=== PATIENT | male | born 1940 | race Caucasian/White ===

== ENCOUNTER → 2018-03-31 10:30 | Outpatient (CLI) | payer MEDICARE, OTHER, SELFPAY ==
[2018-03-31 11:48] LABS: Hematocrit 34.6 % (41-53); Hemoglobin 11.7 g/dL (13.5-17.5)
[2018-03-31 11:56] LABS: Hemoglobin A1C% w Est Avg Glu 5.9 % (4.0-6.0)
[2018-03-31 12:03] LABS: HEMOLYSIS < 15 (0-50); Iron 60 ug/dL (49-181)
[2018-03-31 12:06] LABS: Alanine Aminotransferase 17 IU/L (21-72); Albumin 4.2 g/dL (3.5-5.0); Albumin Globulin Ratio 1.1 (1.0-2.8); Alkaline Phosphatase 106 U/L (38-126); Aspartate Aminotransferase 25 IU/L (17-59); Bilirubin Total 1.3 mg/dL (0.2-1.3); Calcium 9.4 mg/dL (8.4-10.2); Estimated Glomerular Filt Rate 58.4 mL/min (>60); Globulin 3.9 g/dL (1.7-4.1); Glucose 94 mg/dL (80-110); HEMOLYSIS < 15 (0-50); Potassium 4.3 mmol/L (3.4-5.1); Sodium 141 mmol/L (137-145); Total Protein 8.1 g/dL (6.3-8.2)
[2018-03-31 12:13] LABS: Percent Iron Saturation 16 % (20-50); Total Iron Binding Capacity 376 ug/mL (261-462); Transferrin 278 mg/dL (206-381)
[2018-03-31 12:38] LABS: Ferritin 92.9 ng/mL (17.9-464)
[2018-03-31 13:16] LABS: Creatinine Urine Random 121.3 mg/dL; Protein (Total) Urine Random 14 mg/dL (0-12); Protein Creatinine Ratio Urine 0.11 GRAM/24H
[2018-04-01 13:49] LABS: Parathyroid Hormone Int 96 pg/mL (14-64)
== END ==
PROVIDERS: PCP Family Medicine; Visit Provider Student in an Organized Health Care Education/Training Program
DX: I10 Essential (primary) hypertension (principal); E11.9 Type 2 diabetes mellitus without complications; E78.5 Hyperlipidemia, unspecified; N05.9 Unspecified nephritic syndrome with unspecified morphologic changes; D50.0 Iron deficiency anemia secondary to blood loss (chronic); D64.9 Anemia, unspecified; N25.81 Secondary hyperparathyroidism of renal origin; R80.9 Proteinuria, unspecified
CPT/HCPCS: 36415; 80053; 82570; 82728; 83036; 83540; 83550; 83970; 84156; 85014; 85018

== ENCOUNTER → 2018-05-17 09:14 | Outpatient (CLI) | payer MEDICARE, OTHER, SELFPAY ==
[2018-05-17 10:59] LABS: BUN Creatinine Ratio 27.1 (6-22); Blood Urea Nitrogen 38 mg/dL (9-20); Calcium 9.7 mg/dL (8.4-10.2); Carbon Dioxide 26 mmol/L (22-32); Chloride 99 mmol/L (98-107); Estimated Glomerular Filt Rate 48.9 mL/min (>60); Glucose 82 mg/dL (80-110); HEMOLYSIS < 15 (0-50); Potassium 4.6 mmol/L (3.4-5.1); Sodium 141 mmol/L (137-145)
== END ==
PROVIDERS: PCP Family Medicine; Visit Provider Student in an Organized Health Care Education/Training Program
DX: N05.9 Unspecified nephritic syndrome with unspecified morphologic changes (principal); I50.32 Chronic diastolic (congestive) heart failure
CPT/HCPCS: 36415; 80048; 83880

== ENCOUNTER 2018-07-05 14:44 | Emergency (ER) | payer MEDICARE, OTHER, SELFPAY ==
[2018-07-05] VITALS (11 sets, daily range): BP systolic 92–114; BP diastolic 43–93; PULSE 69–70; RESP 14–24; TEMP 36.2–36.3; O2SAT 98–100
--- NOTE | 2018-07-05 15:05 | ED.GIBLEED ---
HPI - GI Bleed General Chief complaint: Abdominal Pain Stated complaint: SICK,NO STRENGTH,BLACK TAR STOOL Time Seen by Provider: 07/05/18 15:03 Source: patient Mode of arrival: ambulatory Limitations: no limitations History of Present Illness HPI Narrative: Patient is a 77-year-old male who presents after syncopal episode of black tarry stool at home. He states that he had a black bowel movement yesterday which he did not tell his family about. Today he passed out in the living room floor on his way to go to the restroom. Of had a hard time getting him up to the bathroom when she did he had a very large black bowel movement. At which point he was brought to the ED. He denies any abdominal pain nausea or vomiting. He is on Coumadin for an aortic valve replacement. He is feeling better now he is in the ED. Related Data Home Medications Medication Instructions Recorded Confirmed TIMOLOL MALEATE (Timoptic) 1 drp OPHTH BID #0 05/30/11 07/05/18 cholecalciferol (vitamin D3) 1 tab PO BID #0 01/19/12 07/05/18 [Vitamin D3] nitroglycerin [Nitrostat] 0.4 mg SUBLINGUAL DAILY PRN #0 02/12/17 07/05/18 patiromer calcium sorbitex See Label Instructions .ROUTE 10/14/17 07/05/18 [Veltassa] .COMPLEX #0 Glucose: Test Strips str #0 01/12/18 04/21/18 furosemide 40 mg tablet 60 mg PO ONCE 04/21/18 07/05/18 acetaminophen [Acetaminophen Extra 500 mg PO Q6H PRN 07/05/18 07/05/18 Strength] calcium carbonate-vitamin D3 1 tab PO DAILY 07/05/18 07/05/18 [Calcium 600 + D(3)] docusate sodium 100 mg PO DAILY 07/05/18 07/05/18 fluticasone 1 spray INTRANASAL BIDP PRN 07/05/18 07/05/18 hydrocodone-acetaminophen [Means] 1 tab PO BIDP 07/05/18 07/05/18 multivitamin 1 tab PO DAILY 07/05/18 07/05/18 Previous Rx's Medication Instructions Recorded warfarin [Coumadin] 2.5 mg PO QDAY #30 tab 04/29/17 diltiazem HCl 240 mg PO QDAY #90 cap 01/12/18 metformin [Glucophage] 500 mg PO BID #180 tab 01/12/18 simvastatin 40 mg PO QPM #90 tab 01/12/18 Allergies Allergy/AdvReac Type Severity Reaction Status Date / Time oxycodone [OXYCODONE] AdvReac Mild DIZZY, Verified 04/21/18 14:52 NAUSEA codeine [CODEINE] AdvReac Unknown NAUSEA Verified 04/21/18 14:52 hydromorphone [HYDROMORPHONE] AdvReac Unknown NAUSEA Verified 04/21/18 14:52 morphine [MORPHINE] AdvReac Unknown SPOUSE Verified 04/21/18 14:52 DENIED ALLERGY Review of Systems Review of Systems All systems reviewed & are unremarkable except as noted in HPI and below Constitutional Denies chills, Denies fever(s), Denies lethargy and Denies weakness Eyes Denies change in vision, Denies eye discharge, Denies irritation and Denies loss of vision Cardiovascular Denies chest pain, Reports syncope, Denies irregular heart rhythm, Denies dyspnea and Denies dyspnea on exertion Respiratory Denies cough, Denies dyspnea, Denies dyspnea on exertion and Denies wheezing Gastrointestinal Gastrointestinal: Reports as per HPI Genitourinary Denies hematuria, Denies flank pain, Denies urinary incontinence and Denies urinary urgency Musculoskeletal Denies back pain, Denies muscle weakness, Denies numbness and Denies tingling Integumentary/Breasts Denies pruritus, Denies erythema, Denies rash and Denies wounds Neurologic Reports syncope, Denies loss of vision, Denies numbness, Denies tingling and Denies weakness Allergic/Immunologic Denies wheezing [facility] Medical History Anemia (Chronic Unknown) Arthritis (Chronic Unknown) BPH (benign prostatic hyperplasia) (Chronic Unknown) Bladder cancer (Chronic Unknown) Chronic kidney disease (CKD) (Chronic Unknown) Coronary artery disease (Chronic Unknown) Diabetes (Chronic 12/2005) GERD (gastroesophageal reflux disease) (Chronic Unknown) Hyperlipemia (Chronic Unknown) Hypertension (Chronic Unknown) Obstructive sleep apnea (Chronic Unknown) Osteopenia (Chronic 2008) Osteoporosis (Chronic Unknown) Renal cell cancer (Chronic Unknown) Glaucoma (Resolved Unknown) S/p nephrectomy (Resolved 02/2017) Surgical History History of PTCA (Resolved 1986) History of ear surgery (Resolved 12/2005) History of surgical procedure on eye proper using laser (Resolved 1997) History of tonsillectomy and adenoidectomy (Resolved 10/1944) Hx of angioplasty (Resolved 11/1998) Hx of appendectomy (Resolved ~03/1958) Hx of cataract extraction (Resolved ~2001) Hx of heart bypass surgery (Resolved 08/1987) Hx of heart bypass surgery (Resolved 05/1999) Hx of shoulder surgery (Resolved 11/2004) Hx of transurethral resection of prostate (Resolved 1994) History of cardiac radiofrequency ablation (RFA) History of hip replacement History of spinal fusion Presence of cardiac pacemaker Status post knee surgery Status post laminectomy Family History Father No problems noted. Mother No problems noted. Sister No problems noted. Social History Smoking Status: Former smoker Exam Initial Vital Signs Initial Vital Signs: Vital Signs Temperature 97.2 F L 07/05/18 15:01 Pulse Rate 69 07/05/18 15:01 Respiratory Rate 14 07/05/18 15:01 Blood Pressure 95/53 L 07/05/18 15:01 Pulse Oximetry 100 07/05/18 15:01 GENERAL: Pale alert frail elderly male in no acute distress HEENT: Head atraumatic,EOMI, pupils reactive, face symmetric, neck is supple no JVD CARDIOVASCULAR: Regular rate and rhythm without murmurs, rubs or gallops. RESPIRATORY: Breath sounds equal bilaterally, no wheezes rales or rhonchi. ABDOMEN: Soft, nontender. Normoactive bowel sounds all 4 quadrants. No guarding or rebound. : No CVA tenderness EXTREMITIES: Normal range of motion, no clubbing or edema. Neurovascularly intact NEUROLOGICAL: Alert and oriented x4.Normal gait and speech. Cranial nerves II through XII grossly intact. Tank Erector strength equal bilaterally SKIN: Warm, dry, no laceration, no petechiae, no rashes or lesions. Course Orders Ordered: ED Orders 07/05/18 15:08 EKG-12 Lead Stat 07/05/18 15:20 Complete Blood Count AUTO DIFF Stat Comprehensive Metabolic Panel Stat Fresh Frozen Plasma Stat Lactate (Lactic Acid) Stat Lipase Stat Packed Cells Stat Partial Thromboplastin Time Stat Prothrombin Time INR Stat Type and Screen Stat Pantoprazole Sodium 80 mg/ (Sodium Chloride) 100 mls @ 10 mls/hr IV CONT DANYELL Last Admin: 07/05/18 15:42 Dose: 8 mg/hr, 10 mls/hr Phytonadione 5 mg/ Dextrose 50.5 mls @ 101 mls/hr IV NOW ONE Stop: 07/05/18 18:52 Discontinued Medications Pantoprazole Sodium (Protonix) 40 mg IV NOW ONE Stop: 07/05/18 15:21 Last Admin: 07/05/18 15:42 Dose: 40 mg Phytonadione (Mephyton) 5 mg PO NOW ONE Stop: 07/05/18 18:22 Vital Signs - 8 hr 07/05/18 15:01 07/05/18 18:34 07/05/18 18:49 Temperature 97.2 F L 97.4 F L 97.3 F L Pulse Rate 69 70 70 Respiratory Rate 14 15 16 Blood Pressure 95/53 L 96/44 L 92/43 L Pulse Oximetry 100 MDM - GI Bleed Lab Data Attestation: I reviewed the patient's lab results. Result diagrams: 07/05/18 15:20 07/05/18 15:20 Lab Results 07/05/18 07/05/18 07/05/18 Range/Units 15:20 15:20 15:20 WBC 9.2 (4.5-11.0) X10^3/uL RBC 2.97 L (4.5-5.9) X10^6/uL Hgb 9.3 L (13.5-17.5) g/dL Hct 26.8 L (41-53) % MCV 90.2 (80-100) fL MCH 31.4 (26-34) PG MCHC 34.9 (30-36) % RDW 15.4 H (11.6-14.8) % Plt Count 213 (150-400) X10^3/uL Neut % (Auto) 76.7 H (50-75) % Lymph % (Auto) 15.6 L (25-40) % [place] % (Auto) 6.6 (3-14) % Eos % (Auto) 0.6 L (2-4) % Baso % (Auto) 0.5 (0-2) % Neut # (Auto) 7100 H (7027-5799) /uL PT 50.7 H (10.1-12.7) SECONDS INR 4.6 H* (0.9-1.3) APTT 38 H (26.4-36.2) SECONDS Sodium 139 (137-145) mmol/L Potassium 4.2 (3.4-5.1) mmol/L Chloride 97 L (98-107) mmol/L Carbon Dioxide 26 (22-32) mmol/L BUN 90 H (9-20) mg/dL Creatinine 1.40 H (0.66-1.25) mg/dL Estimated GFR 48.9 L (>60) mL/min BUN/Creatinine Ratio 64.3 H (6-22) Glucose 128 H (80-110) mg/dL Lactate (0.7-2.1) mmol/L Calcium 9.8 (8.4-10.2) mg/dL Total Bilirubin 0.9 (0.2-1.3) mg/dL AST 24 (17-59) IU/L ALT 19 L (21-72) IU/L Alkaline Phosphatase 82 (38-126) U/L Total Protein 7.4 (6.3-8.2) g/dL Albumin 4.0 (3.5-5.0) g/dL Globulin 3.4 (1.7-4.1) g/dL Albumin/Globulin Ratio 1.2 (1.0-2.8) Lipase 63 (23-300) U/L Blood Type Antibody Screen Crossmatch 07/05/18 07/05/18 Range/Units 15:20 15:20 WBC (4.5-11.0) X10^3/uL RBC (4.5-5.9) X10^6/uL Hgb (13.5-17.5) g/dL Hct (41-53) % MCV (80-100) fL MCH (26-34) PG MCHC (30-36) % RDW (11.6-14.8) % Plt Count (150-400) X10^3/uL Neut % (Auto) (50-75) % Lymph % (Auto) (25-40) % [place] % (Auto) (3-14) % Eos % (Auto) (2-4) % Baso % (Auto) (0-2) % Neut # (Auto) (9438-9893) /uL PT (10.1-12.7) SECONDS INR (0.9-1.3) APTT (26.4-36.2) SECONDS Sodium (137-145) mmol/L Potassium (3.4-5.1) mmol/L Chloride (98-107) mmol/L Carbon Dioxide (22-32) mmol/L BUN (9-20) mg/dL Creatinine (0.66-1.25) mg/dL Estimated GFR (>60) mL/min BUN/Creatinine Ratio (6-22) Glucose (80-110) mg/dL Lactate 3.7 H (0.7-2.1) mmol/L Calcium (8.4-10.2) mg/dL Total Bilirubin (0.2-1.3) mg/dL AST (17-59) IU/L ALT (21-72) IU/L Alkaline Phosphatase (38-126) U/L Total Protein (6.3-8.2) g/dL Albumin (3.5-5.0) g/dL Globulin (1.7-4.1) g/dL Albumin/Globulin Ratio (1.0-2.8) Lipase (23-300) U/L Blood Type A Negative Antibody Screen Negative Crossmatch See Detail ECG Data Attestation: I personally reviewed and interpreted this ECG as follows: Prior ECG tracings: available for review Interpretation: Paced rhythm rate 79 no acute changes similar to previous EKGs Pacemaker function: normal pacer function MDM Narrative Medical decision making narrative: Patient had syncopal episode in the ED while on the commode. He was slow to arouse but did become arousable now actually started feeling better. His blood pressure has been in the 90s. FFP and packed red blood cells along with vitamin K have been ordered. I discussed case with [facility] hospitalist Dr. Richmond, the patient will need more support than what is available at [facility]. Recommends transferring. I have spoken with Dr. Eubanks hospitalist at [facility] with happily accepts patient. Recommends vitamin K patient has an aortic valve replacement. Critical Care Time Critical Care Time: Yes Total Critical Care Time: 30 Attestation: The patient satisfied the definition of criticality in that they had a high probability of imminent deterioration of their conditon. Critical care time includes time spent at the bedside, plus where appropriate: gathering information from family, EMS, old records, caregivers; interpretation of test results; and time spent discussing patient with other physicians Discharge Plan Departure Prescriptions: No Action furosemide [Lasix] 40 mg tablet 60 mg PO ONCE RF: 0 TIMOLOL MALEATE (Timoptic) 1 drp OPHTH BID Qty: 0 RF: 0 cholecalciferol (vitamin D3) [Vitamin D3] 2,000 UNIT tablet 1 tab PO BID Qty: 0 RF: 0 nitroglycerin [Nitrostat] 0.4 MG tablet, sublingual 0.4 mg Sublingual DAILY PRN (Reason: Chest Pain) Qty: 0 RF: 0 warfarin [Coumadin] 2.5 MG tablet 2.5 mg PO QDAY Qty: 30 RF: 0 patiromer calcium sorbitex [Veltassa] 8.4 GM powder in packet See Label Instructions .ROUTE .COMPLEX Qty: 0 RF: 0 Glucose: Test Strips Qty: 0 RF: 0 metformin [Glucophage] 500 MG tablet 500 mg PO BID Qty: 180 RF: 3 diltiazem HCl 240 MG capsule,extended release 24hr 240 mg PO QDAY Qty: 90 RF: 3 simvastatin 40 MG tablet 40 mg PO QPM Qty: 90 RF: 3 multivitamin Tablet 1 tab PO DAILY RF: 0 acetaminophen [Acetaminophen Extra Strength] 500 mg Tablet 500 mg PO Q6H PRN (Reason: Pain (Scale Score 1-3)) RF: 0 docusate sodium 100 mg Capsule 100 mg PO DAILY RF: 0 calcium carbonate-vitamin D3 [Calcium 600 + D(3)] 600 mg calcium- 200 unit Capsule 1 tab PO DAILY RF: 0 hydrocodone-acetaminophen [Means] 5 MG/325 MG tablet 1 tab PO BIDP RF: 0 fluticasone 16 GM spray,suspension 1 spray Intranasal BIDP PRN (Reason: allergies) RF: 0
[2018-07-05] MEDS: PANTOPRAZOLE 40 MG VIAL IV (15:42)
[2018-07-05] MEDS: PANTOPRAZOLE 80 MG in SODIUM CHLORIDE 0.9% 100 ML 10 ML IV (15:42)
[2018-07-05 15:45] LABS: Add Manual Diff / Slide Review NO; Basophils Percent Auto 0.5 % (0-2); Eosinophils Percent Auto 0.6 % (2-4); Hematocrit 26.8 % (41-53); Hemoglobin 9.3 g/dL (13.5-17.5); Lymphocytes Percent Auto 15.6 % (25-40); Mean Corpuscular HGB Conc 34.9 % (30-36); Mean Corpuscular Hemoglobin 31.4 PG (26-34); Mean Corpuscular Volume 90.2 fL (80-100); Monocytes Percent Auto 6.6 % (3-14); Neutrophils Absolute Auto 7100 /uL (3000-5900); Neutrophils Percent Auto 76.7 % (50-75); Platelet Count 213 X10^3/uL (150-400); Red Blood Cell Count 2.97 X10^6/uL (4.5-5.9); Red Cell Distribution Width 15.4 % (11.6-14.8); White Blood Cell Count 9.2 X10^3/uL (4.5-11.0)
[2018-07-05 15:52] LABS: PTT Partial Thromboplastin Tim 38 SECONDS (26.4-36.2)
[2018-07-05 15:58] LABS: Lactate (Lactic Acid) 3.7 mmol/L (0.7-2.1)
[2018-07-05 15:59] LABS: Alanine Aminotransferase 19 IU/L (21-72); Albumin Globulin Ratio 1.2 (1.0-2.8); Alkaline Phosphatase 82 U/L (38-126); Aspartate Aminotransferase 24 IU/L (17-59); BUN Creatinine Ratio 64.3 (6-22); Bilirubin Total 0.9 mg/dL (0.2-1.3); Blood Urea Nitrogen 90 mg/dL (9-20); Calcium 9.8 mg/dL (8.4-10.2); Carbon Dioxide 26 mmol/L (22-32); Chloride 97 mmol/L (98-107); Estimated Glomerular Filt Rate 48.9 mL/min (>60); Globulin 3.4 g/dL (1.7-4.1); Glucose 128 mg/dL (80-110); HEMOLYSIS < 15 (0-50); Lipase 63 U/L (23-300); Potassium 4.2 mmol/L (3.4-5.1); Sodium 139 mmol/L (137-145); Total Protein 7.4 g/dL (6.3-8.2)
--- NOTE | 2018-07-05 16:12 | PC.NURSE ---
Addendum entered by Jose Thomas R.N. 07/05/18 16:43: Edit- abd tender to light palp Original Note: weakness/headache, dark stools x2 began yesterday, appears pale, anticoag on coumadin, abd nontender, denies fever/nausea/vomiting/dysuria
[2018-07-05 16:15] LABS: Prothrombin Time 50.7 SECONDS (10.1-12.7)
[2018-07-05 16:18] LABS: INR 4.6 (0.9-1.3)
[2018-07-05] MEDS: PHYTONADIONE (VIT K1) 5 MG in DEXTROSE 5 % IN WATER 50 ML 101 ML IV (19:08)
[2018-07-05 19:37] LABS: Reflexed Lactate in 2 Hours Y
== END 2018-07-05 20:35 ==
PROVIDERS: Emergency Provider Emergency Medicine; PCP Family Medicine
DX: K92.2 Gastrointestinal hemorrhage, unspecified (principal); R57.8 Other shock
CPT/HCPCS: 36430; 36591; 80053; 81003; 82272; 83605; 83690; 85025; 85610; 85730; 86850; 86900; 86901; 86927; 93005; 93010; 96365; 96366; 96375; 99283; 99284; P9016; C9113; J3430

== ENCOUNTER → 2018-07-13 11:27 | Outpatient (CLI) | payer MEDICARE, OTHER, SELFPAY ==
[2018-07-13 12:49] LABS: Hemoglobin A1C% w Est Avg Glu 5.4 % (4.0-6.0)
[2018-07-13 13:00] LABS: Alanine Aminotransferase 17 IU/L (21-72); Albumin 3.8 g/dL (3.5-5.0); Albumin Globulin Ratio 1.2 (1.0-2.8); Alkaline Phosphatase 85 U/L (38-126); Aspartate Aminotransferase 21 IU/L (17-59); BUN Creatinine Ratio 14.3 (6-22); Bilirubin Total 0.9 mg/dL (0.2-1.3); Blood Urea Nitrogen 20 mg/dL (9-20); Calcium 9.2 mg/dL (8.4-10.2); Carbon Dioxide 26 mmol/L (22-32); Chloride 105 mmol/L (98-107); Cholesterol 93 mg/dL (140-199); Estimated Glomerular Filt Rate 48.9 mL/min (>60); Globulin 3.3 g/dL (1.7-4.1); Glucose 96 mg/dL (80-110); HDL Cholesterol 34 mg/dL (40-60); HEMOLYSIS < 15 (0-50); LDL Cholesterol Calculated 42 mg/dL (<100); Potassium 5.2 mmol/L (3.4-5.1); Sodium 142 mmol/L (137-145); Total Protein 7.1 g/dL (6.3-8.2); Triglycerides 86 mg/dL (35-150)
== END ==
PROVIDERS: PCP Family Medicine; Referring Provider Student in an Organized Health Care Education/Training Program; Visit Provider Family Medicine
DX: E78.5 Hyperlipidemia, unspecified (principal); E11.9 Type 2 diabetes mellitus without complications
CPT/HCPCS: 36415; 80053; 80061; 83036

== ENCOUNTER 2018-07-14 11:35 | Emergency (ER) | payer MEDICARE, OTHER, SELFPAY ==
[2018-07-14] VITALS (7 sets, daily range): BP systolic 102–174; BP diastolic 65–96; PULSE 69–85; RESP 14–25; TEMP 36.6; O2SAT 99–100
--- NOTE | 2018-07-14 12:08 | DI.RAD.S_ITS ---
PROCEDURE: XR RIBS LT MIN 3V W CXR1V INDICATIONS: fall/ left chest pain, shortness of breath TECHNIQUE: 2 views of the left ribs were acquired, along with a single view chest. COMPARISON: [facility], , CHEST 2 VIEW, 02/26/2017, 9:58. FINDINGS: Surgical changes and devices: Postoperative changes are evident involving the imaged cervical spine. There are findings related to prior median sternotomy and heart valve replacement. Dual-chamber cardiac pacer cystic o'clock arthrodesis evident. Bones and chest wall: No displaced left rib fractures or dislocations. No suspicious bony lesions. Overlying soft tissues appear unremarkable. Lungs and pleura: No pleural effusions or pneumothorax. Aeration of the lungs is similar to the prior study. However, interstitial prominence within the perihilar regions is noted. There is no large area of consolidation. No pleural effusion is identified. Mediastinum: Mediastinal contours appear normal. Heart size is normal. IMPRESSION: 1. No definitive left rib fractures. 2. Mild cardiomegaly without overt heart failure. Cardiomegaly and mild vascular congestion. No definite heart failure. Dictated by: Smith Jasso M.D. on 07/14/2018 at 11:48 Approved by: Smith Jasso M.D. on 07/14/2018 at 11:52
--- NOTE | 2018-07-14 12:11 | ED.WEAKNESS ---
HPI - Weakness General Chief complaint: Weakness Stated complaint: FALL/HURT LEFT SIDE RIBS Time Seen by Provider: 07/14/18 12:07 Source: patient Mode of arrival: ambulatory Limitations: no limitations History of Present Illness HPI Narrative: Patient is a 77-year-old male who presents with generalized weakness and a fall today. He is having some left-sided chest pain that he is trying to get up in hit his chest on the table. He was admitted at [facility] last week and discharged on July 09 after GI bleed. He was initially seen here and transferred there. He is on Coumadin for aortic stenosis status post AVR. He had bleeding ulcers which were cauterized. He isn't regain his strength. He continues to be weak. He now has pain on the left side of his chest which is worse with movement. He denies any shortness of breath or chest pain. Her he is no longer having dark stool, his stools returned back to normal. He has no abdominal pain nausea or vomiting. Related Data Home Medications Medication Instructions Recorded Confirmed cholecalciferol (vitamin D3) 1 tab PO BID #0 01/19/12 07/14/18 [Vitamin D3] nitroglycerin [Nitrostat] 0.4 mg SUBLINGUAL DAILY PRN #0 02/12/17 07/14/18 Glucose: Test Strips 1 str MISCELLANEOUS DIRECTED #0 01/12/18 07/14/18 acetaminophen [Acetaminophen Extra 500 mg PO Q6H PRN 07/05/18 07/14/18 Strength] calcium carbonate-vitamin D3 1 tab PO DAILY 07/05/18 07/14/18 [Calcium 600 + D(3)] docusate sodium 100 mg PO DAILY 07/05/18 07/14/18 fluticasone 1 spray INTRANASAL BIDP PRN 07/05/18 07/14/18 hydrocodone-acetaminophen [[place]] 1 tab PO BIDP 07/05/18 07/14/18 multivitamin 1 tab PO DAILY 07/05/18 07/14/18 simvastatin 40 mg PO DAILY 07/14/18 07/14/18 timolol maleate 1 drp OPHTHALMIC (EYE) BID 07/14/18 07/14/18 warfarin [Coumadin] 2.5 mg PO QPM 07/14/18 07/14/18 Previous Rx's Medication Instructions Recorded metformin [Glucophage] 500 mg PO BID #180 tab 01/12/18 Allergies Allergy/AdvReac Type Severity Reaction Status Date / Time oxycodone [OXYCODONE] AdvReac Mild DIZZY, Verified 04/21/18 14:52 NAUSEA codeine [CODEINE] AdvReac Unknown NAUSEA Verified 04/21/18 14:52 hydromorphone [HYDROMORPHONE] AdvReac Unknown NAUSEA Verified 04/21/18 14:52 morphine [MORPHINE] AdvReac Unknown SPOUSE Verified 04/21/18 14:52 DENIED ALLERGY Review of Systems Review of Systems All systems reviewed & are unremarkable except as noted in HPI and below Constitutional Denies chills, Reports fatigue, Denies fever(s), Denies malaise and Denies night sweats Cardiovascular Denies chest pain, Denies irregular heart rhythm, Denies lightheadedness, Denies palpitations, Denies dyspnea, Denies dyspnea on exertion and Denies orthopnea Respiratory Denies cough, Denies dyspnea, Denies dyspnea on exertion and Denies wheezing Gastrointestinal Gastrointestinal: Denies abdominal pain, Denies change in bowel habits, Denies diarrhea, Denies nausea and Denies vomiting Musculoskeletal Denies back pain, Denies muscle weakness, Denies numbness and Denies tingling Integumentary/Breasts Denies pruritus, Denies erythema, Denies rash and Denies wounds Neurologic Denies numbness and Denies tingling Endocrine Reports fatigue and Denies palpitations Allergic/Immunologic Denies wheezing [facility] Social History household members: spouse Smoking Status: Former smoker Exam Initial Vital Signs Initial Vital Signs: Vital Signs Temperature 97.9 F 07/14/18 11:54 Pulse Rate 70 07/14/18 11:54 Respiratory Rate 14 07/14/18 11:54 Blood Pressure 102/68 07/14/18 11:54 Pulse Oximetry 100 07/14/18 11:54 GENERAL: Alert frail elderly male in no acute distress HEENT: Head atraumatic,EOMI, pupils reactive, face symmetric, neck is supple no JVD CARDIOVASCULAR: Regular rate and rhythm without murmurs, rubs or gallops. Left-sided chest does not show any trauma no crepitations no depressions no contusion RESPIRATORY: Breath sounds equal bilaterally, no wheezes rales or rhonchi. ABDOMEN: Soft, nontender. Normoactive bowel sounds all 4 quadrants. No guarding or rebound. EXTREMITIES: Normal range of motion, no clubbing or edema. Neurovascularly intact NEUROLOGICAL: Alert and oriented x4.Normal gait and speech. Cranial nerves II through XII grossly intact. [Good [id number], good bcfq-av-pjmi, strength equal bilaterally, no dysarthria or aphasia, sensation in tact to soft touch bilaterally, no visual changes, no facial droop] SKIN: Warm, dry, no laceration, no petechiae, no rashes or lesions. Course Orders Ordered: ED Orders 07/14/18 11:21 Complete Blood Count AUTO DIFF Stat Comprehensive Metabolic Panel Stat Lactate (Lactic Acid) Stat Lipase Stat Partial Thromboplastin Time Stat Prothrombin Time INR Stat Troponin & CK Cardiac Panel Stat 07/14/18 12:08 XR ribs LT min 3V w CXR1V Stat EKG-12 Lead Stat 07/14/18 14:25 Consult to Physical Therapy Evaluate & Treat 07/14/18 14:27 Consult to Physical Therapy Evaluate & Treat Vital Signs - 8 hr 07/14/18 11:54 07/14/18 12:02 07/14/18 12:35 Temperature 97.9 F Pulse Rate 70 70 69 Respiratory Rate 14 25 H 16 Blood Pressure 102/68 Blood Pressure [Right Arm] 130/74 140/71 Pulse Oximetry 100 100 100 07/14/18 13:00 07/14/18 14:00 07/14/18 14:31 Temperature Pulse Rate 70 70 70 Respiratory Rate 20 14 14 Blood Pressure Blood Pressure [Right Arm] 116/65 129/72 139/75 Pulse Oximetry 100 100 99 MDM - Weakness Lab Data Attestation: I reviewed the patient's lab results. Result diagrams: 07/14/18 11:21 07/14/18 11:21 Lab Results 07/14/18 07/14/18 07/14/18 Range/Units 11:21 11:21 11:21 WBC 5.9 (4.5-11.0) X10^3/uL RBC 2.73 L (4.5-5.9) X10^6/uL Hgb 8.7 L (13.5-17.5) g/dL Hct 25.3 L (41-53) % MCV 92.7 (80-100) fL MCH 32.0 (26-34) PG MCHC 34.5 (30-36) % RDW 15.6 H (11.6-14.8) % Plt Count 223 (150-400) X10^3/uL Neut % (Auto) 73.6 (50-75) % Lymph % (Auto) 13.9 L (25-40) % [place] % (Auto) 10.2 (3-14) % Eos % (Auto) 1.6 L (2-4) % Baso % (Auto) 0.7 (0-2) % Neut # (Auto) 4300 (5728-3701) /uL PT 19.2 H D (10.1-12.7) SECONDS INR 1.7 H (0.9-1.3) APTT 33 D (26.4-36.2) SECONDS Sodium 140 (137-145) mmol/L Potassium 5.0 (3.4-5.1) mmol/L Chloride 104 (98-107) mmol/L Carbon Dioxide 24 (22-32) mmol/L BUN 24 H (9-20) mg/dL Creatinine 1.40 H (0.66-1.25) mg/dL Estimated GFR 48.9 L (>60) mL/min BUN/Creatinine Ratio 17.1 (6-22) Glucose 92 (80-110) mg/dL Lactate (0.7-2.1) mmol/L Calcium 9.1 (8.4-10.2) mg/dL Total Bilirubin 1.2 (0.2-1.3) mg/dL AST 25 (17-59) IU/L ALT 22 (21-72) IU/L Alkaline Phosphatase 86 (38-126) U/L Total Creatine Kinase 34 L (55-170) U/L Troponin I 0.076 H (0.01-0.034) ng/mL Total Protein 7.0 (6.3-8.2) g/dL Albumin 3.7 (3.5-5.0) g/dL Globulin 3.3 (1.7-4.1) g/dL Albumin/Globulin Ratio 1.1 (1.0-2.8) Lipase 46 (23-300) U/L 07/14/18 Range/Units 11:21 WBC (4.5-11.0) X10^3/uL RBC (4.5-5.9) X10^6/uL Hgb (13.5-17.5) g/dL Hct (41-53) % MCV (80-100) fL MCH (26-34) PG MCHC (30-36) % RDW (11.6-14.8) % Plt Count (150-400) X10^3/uL Neut % (Auto) (50-75) % Lymph % (Auto) (25-40) % [place] % (Auto) (3-14) % Eos % (Auto) (2-4) % Baso % (Auto) (0-2) % Neut # (Auto) (2777-8739) /uL PT (10.1-12.7) SECONDS INR (0.9-1.3) APTT (26.4-36.2) SECONDS Sodium (137-145) mmol/L Potassium (3.4-5.1) mmol/L Chloride (98-107) mmol/L Carbon Dioxide (22-32) mmol/L BUN (9-20) mg/dL Creatinine (0.66-1.25) mg/dL Estimated GFR (>60) mL/min BUN/Creatinine Ratio (6-22) Glucose (80-110) mg/dL Lactate 2.1 (0.7-2.1) mmol/L Calcium (8.4-10.2) mg/dL Total Bilirubin (0.2-1.3) mg/dL AST (17-59) IU/L ALT (21-72) IU/L Alkaline Phosphatase (38-126) U/L Total Creatine Kinase (55-170) U/L Troponin I (0.01-0.034) ng/mL Total Protein (6.3-8.2) g/dL Albumin (3.5-5.0) g/dL Globulin (1.7-4.1) g/dL Albumin/Globulin Ratio (1.0-2.8) Lipase (23-300) U/L Imaging Data Rib x-ray: Attestation: I personally reviewed and interpreted this imaging study as follows: My impression: Negative Radiologist's impression: PROCEDURE: CT HEAD/BRAIN WO CON INDICATIONS: recurrent episodes of syncope TECHNIQUE: Noncontrast 4.5 mm thick angled axial sections acquired from the foramen magnum to the vertex, with coronal and sagittal reformats. For radiation dose reduction, the following was used: automated exposure control, adjustment of mA and/or kV according to patient size. COMPARISON: None. FINDINGS: Image quality: Limited by beam hardening artifact related to metallic appearing implants. CSF spaces: Basal cisterns are patent. No extra-axial fluid collections. Ventricles are normal in size and shape. Brain: No midline shift. No intracranial masses or hemorrhage. Freeman-white matter interface is normal. Skull and face: Calvarium and visualized facial bones are intact, without suspicious lesions. Partially calcified soft tissue density material noted in the left external auditory canal. Sinuses: Visualized sinuses and mastoids are clear. IMPRESSION: 1. No acute intracranial disease process. 2. Partially calcified soft tissue density lesion in the left external auditory canal which may represent inspissated wax versus neoplastic process. Recommend correlation with direct visualization. Dictated by: Lesia Guillen MD, PhD on 07/14/2018 at 10:36 MDM Narrative Medical decision making narrative: I have reviewed discharge summary from Daiana pagan his last hemoglobin and hematocrit 8.6 and 25.6 respectively on 07/09/2018. He is roughly the same. He has been evaluated by physical therapy who states that he is at baseline and safe to go home. Discharge Plan Departure Patient Disposition: Home Clinical Impression: Contusion of rib Discharge Date/Time: 07/14/18 15:31 Interventions: ED Discharge Assessment Last Done: 07/14/18 15:30 Instructions: DI for Rib Contusion Activity Restrictions/Additional Instructions: *You have been diagnosed with left-sided rib contusion *What to do: Blood work and x-ray are negative. Use a walker at all times while walking *Continue to take medications as directed *Follow up with your primary care provider in 2-3 days *Return to ER if you should have change in stools including black or bright red, abdominal pain, vomiting or any new, worsening or concerning symptoms Prescriptions: No Action cholecalciferol (vitamin D3) [Vitamin D3] 2,000 UNIT tablet 1 tab PO BID Qty: 0 RF: 0 nitroglycerin [Nitrostat] 0.4 MG tablet, sublingual 0.4 mg Sublingual DAILY PRN (Reason: Chest Pain) Qty: 0 RF: 0 Glucose: Test Strips 1 str miscellaneous DIRECTED Qty: 0 RF: 0 metformin [Glucophage] 500 MG tablet 500 mg PO BID Qty: 180 RF: 3 multivitamin Tablet 1 tab PO DAILY RF: 0 acetaminophen [Acetaminophen Extra Strength] 500 mg Tablet 500 mg PO Q6H PRN (Reason: Pain (Scale Score 1-3)) RF: 0 docusate sodium 100 mg Capsule 100 mg PO DAILY RF: 0 calcium carbonate-vitamin D3 [Calcium 600 + D(3)] 600 mg calcium- 200 unit Capsule 1 tab PO DAILY RF: 0 hydrocodone-acetaminophen [[place]] 5 MG/325 MG tablet 1 tab PO BIDP RF: 0 fluticasone 16 GM spray,suspension 1 spray Intranasal BIDP PRN (Reason: allergies) RF: 0 timolol maleate 0.5 % drops 1 drp ophthalmic (eye) BID RF: 0 warfarin [Coumadin] 2.5 MG tablet 2.5 mg PO QPM RF: 0 simvastatin 40 MG tablet 40 mg PO DAILY RF: 0 Referrals: Dorothy Devine DO [Primary Care Provider] -
[2018-07-14 12:30] LABS: Add Manual Diff / Slide Review NO; Basophils Percent Auto 0.7 % (0-2); Eosinophils Percent Auto 1.6 % (2-4); Hematocrit 25.3 % (41-53); Hemoglobin 8.7 g/dL (13.5-17.5); Lymphocytes Percent Auto 13.9 % (25-40); Mean Corpuscular HGB Conc 34.5 % (30-36); Mean Corpuscular Volume 92.7 fL (80-100); Monocytes Percent Auto 10.2 % (3-14); Neutrophils Absolute Auto 4300 /uL (3000-5900); Neutrophils Percent Auto 73.6 % (50-75); Platelet Count 223 X10^3/uL (150-400); Red Blood Cell Count 2.73 X10^6/uL (4.5-5.9); Red Cell Distribution Width 15.6 % (11.6-14.8); White Blood Cell Count 5.9 X10^3/uL (4.5-11.0)
[2018-07-14 12:36] LABS: INR 1.7 (0.9-1.3); Prothrombin Time 19.2 SECONDS (10.1-12.7)
[2018-07-14 12:39] LABS: Alanine Aminotransferase 22 IU/L (21-72); Albumin 3.7 g/dL (3.5-5.0); Albumin Globulin Ratio 1.1 (1.0-2.8); Alkaline Phosphatase 86 U/L (38-126); Aspartate Aminotransferase 25 IU/L (17-59); BUN Creatinine Ratio 17.1 (6-22); Bilirubin Total 1.2 mg/dL (0.2-1.3); Blood Urea Nitrogen 24 mg/dL (9-20); Calcium 9.1 mg/dL (8.4-10.2); Carbon Dioxide 24 mmol/L (22-32); Chloride 104 mmol/L (98-107); Creatine Kinase 34 U/L (55-170); Estimated Glomerular Filt Rate 48.9 mL/min (>60); Globulin 3.3 g/dL (1.7-4.1); Glucose 92 mg/dL (80-110); HEMOLYSIS < 15 (0-50); Lipase 46 U/L (23-300); PTT Partial Thromboplastin Tim 33 SECONDS (26.4-36.2); Sodium 140 mmol/L (137-145)
[2018-07-14 12:41] LABS: Lactate (Lactic Acid) 2.1 mmol/L (0.7-2.1)
[2018-07-14 12:50] LABS: Troponin I 0.076 ng/mL (0.01-0.034)
--- NOTE | 2018-07-14 13:33 | ED_ITS ---
HPI - Weakness General Chief complaint: Weakness Stated complaint: FALL/HURT LEFT SIDE RIBS Time Seen by Provider: 07/14/18 12:07 Source: patient Mode of arrival: ambulatory Limitations: no limitations History of Present Illness HPI Narrative: Patient is a 77-year-old male who presents with generalized weakness and a fall today. He is having some left-sided chest pain that he is trying to get up in hit his chest on the table. He was admitted at [facility] last week and discharged on July 09 after GI bleed. He was initially seen here and transferred there. He is on Coumadin for aortic stenosis status post AVR. He had bleeding ulcers which were cauterized. He isn't regain his strength. He continues to be weak. He now has pain on the left side of his chest which is worse with movement. He denies any shortness of breath or chest pain. Her he is no longer having dark stool, his stools returned back to normal. He has no abdominal pain nausea or vomiting. Related Data Home Medications Medication Instructions Recorded Confirmed cholecalciferol (vitamin D3) 1 tab PO BID #0 01/19/12 07/14/18 [Vitamin D3] nitroglycerin [Nitrostat] 0.4 mg SUBLINGUAL DAILY PRN #0 02/12/17 07/14/18 Glucose: Test Strips 1 str MISCELLANEOUS DIRECTED #0 01/12/18 07/14/18 acetaminophen [Acetaminophen Extra 500 mg PO Q6H PRN 07/05/18 07/14/18 Strength] calcium carbonate-vitamin D3 1 tab PO DAILY 07/05/18 07/14/18 [Calcium 600 + D(3)] docusate sodium 100 mg PO DAILY 07/05/18 07/14/18 fluticasone 1 spray INTRANASAL BIDP PRN 07/05/18 07/14/18 hydrocodone-acetaminophen [Flushing] 1 tab PO BIDP 07/05/18 07/14/18 multivitamin 1 tab PO DAILY 07/05/18 07/14/18 simvastatin 40 mg PO DAILY 07/14/18 07/14/18 timolol maleate 1 drp OPHTHALMIC (EYE) BID 07/14/18 07/14/18 warfarin [Coumadin] 2.5 mg PO QPM 07/14/18 07/14/18 Previous Rx's Medication Instructions Recorded metformin [Glucophage] 500 mg PO BID #180 tab 01/12/18 Allergies Allergy/AdvReac Type Severity Reaction Status Date / Time oxycodone [OXYCODONE] AdvReac Mild DIZZY, Verified 04/21/18 14:52 NAUSEA codeine [CODEINE] AdvReac Unknown NAUSEA Verified 04/21/18 14:52 hydromorphone [HYDROMORPHONE] AdvReac Unknown NAUSEA Verified 04/21/18 14:52 morphine [MORPHINE] AdvReac Unknown SPOUSE Verified 04/21/18 14:52 DENIED ALLERGY Review of Systems Review of Systems All systems reviewed & are unremarkable except as noted in HPI and below Constitutional Denies chills, Reports fatigue, Denies fever(s), Denies malaise and Denies night sweats Cardiovascular Denies chest pain, Denies irregular heart rhythm, Denies lightheadedness, Denies palpitations, Denies dyspnea, Denies dyspnea on exertion and Denies orthopnea Respiratory Denies cough, Denies dyspnea, Denies dyspnea on exertion and Denies wheezing Gastrointestinal Gastrointestinal: Denies abdominal pain, Denies change in bowel habits, Denies diarrhea, Denies nausea and Denies vomiting Musculoskeletal Denies back pain, Denies muscle weakness, Denies numbness and Denies tingling Integumentary/Breasts Denies pruritus, Denies erythema, Denies rash and Denies wounds Neurologic Denies numbness and Denies tingling Endocrine Reports fatigue and Denies palpitations Allergic/Immunologic Denies wheezing [facility] Social History household members: spouse Smoking Status: Former smoker Exam Initial Vital Signs Initial Vital Signs: Vital Signs Temperature 97.9 F 07/14/18 11:54 Pulse Rate 70 07/14/18 11:54 Respiratory Rate 14 07/14/18 11:54 Blood Pressure 102/68 07/14/18 11:54 Pulse Oximetry 100 07/14/18 11:54 GENERAL: Alert frail elderly male in no acute distress HEENT: Head atraumatic,EOMI, pupils reactive, face symmetric, neck is supple no JVD CARDIOVASCULAR: Regular rate and rhythm without murmurs, rubs or gallops. Left- sided chest does not show any trauma no crepitations no depressions no contusion RESPIRATORY: Breath sounds equal bilaterally, no wheezes rales or rhonchi. ABDOMEN: Soft, nontender. Normoactive bowel sounds all 4 quadrants. No guarding or rebound. EXTREMITIES: Normal range of motion, no clubbing or edema. Neurovascularly intact NEUROLOGICAL: Alert and oriented x4.Normal gait and speech. Cranial nerves II through XII grossly intact. [Good qobhra-no-cazv, good ehaz-cj-pfeg, strength equal bilaterally, no dysarthria or aphasia, sensation in tact to soft touch bilaterally, no visual changes, no facial droop] SKIN: Warm, dry, no laceration, no petechiae, no rashes or lesions. Course Orders Ordered: ED Orders 07/14/18 11:21 Complete Blood Count AUTO DIFF Stat Comprehensive Metabolic Panel Stat Lactate (Lactic Acid) Stat Lipase Stat Partial Thromboplastin Time Stat Prothrombin Time INR Stat Troponin & CK Cardiac Panel Stat 07/14/18 12:08 XR ribs LT min 3V w CXR1V Stat EKG-12 Lead Stat 07/14/18 14:25 Consult to Physical Therapy Evaluate & Treat 07/14/18 14:27 Consult to Physical Therapy Evaluate & Treat Vital Signs - 8 hr 07/14/18 11:54 07/14/18 12:02 07/14/18 12:35 Temperature 97.9 F Pulse Rate 70 70 69 Respiratory Rate 14 25 H 16 Blood Pressure 102/68 Blood Pressure [Right Arm] 130/74 140/71 Pulse Oximetry 100 100 100 07/14/18 13:00 07/14/18 14:00 07/14/18 14:31 Temperature Pulse Rate 70 70 70 Respiratory Rate 20 14 14 Blood Pressure Blood Pressure [Right Arm] 116/65 129/72 139/75 Pulse Oximetry 100 100 99 MDM - Weakness Lab Data Attestation: I reviewed the patient's lab results. Result diagrams: 07/14/18 11:21 07/14/18 11:21 Lab Results 07/14/18 07/14/18 07/14/18 Range/Units 11:21 11:21 11:21 WBC 5.9 (4.5-11.0) X10^3/uL RBC 2.73 L (4.5-5.9) X10^6/uL Hgb 8.7 L (13.5-17.5) g/dL Hct 25.3 L (41-53) % MCV 92.7 (80-100) fL MCH 32.0 (26-34) PG MCHC 34.5 (30-36) % RDW 15.6 H (11.6-14.8) % Plt Count 223 (150-400) X10^3/uL Neut % (Auto) 73.6 (50-75) % Lymph % (Auto) 13.9 L (25-40) % [place] % (Auto) 10.2 (3-14) % Eos % (Auto) 1.6 L (2-4) % Baso % (Auto) 0.7 (0-2) % Neut # (Auto) 4300 (1620-2788) /uL PT 19.2 H D (10.1-12.7) SECONDS INR 1.7 H (0.9-1.3) APTT 33 D (26.4-36.2) SECONDS Sodium 140 (137-145) mmol/L Potassium 5.0 (3.4-5.1) mmol/L Chloride 104 (98-107) mmol/L Carbon Dioxide 24 (22-32) mmol/L BUN 24 H (9-20) mg/dL Creatinine 1.40 H (0.66-1.25) mg/dL Estimated GFR 48.9 L (>60) mL/min BUN/Creatinine Ratio 17.1 (6-22) Glucose 92 (80-110) mg/dL Lactate (0.7-2.1) mmol/L Calcium 9.1 (8.4-10.2) mg/dL Total Bilirubin 1.2 (0.2-1.3) mg/dL AST 25 (17-59) IU/L ALT 22 (21-72) IU/L Alkaline Phosphatase 86 (38-126) U/L Total Creatine Kinase 34 L (55-170) U/L Troponin I 0.076 H (0.01-0.034) ng/mL Total Protein 7.0 (6.3-8.2) g/dL Albumin 3.7 (3.5-5.0) g/dL Globulin 3.3 (1.7-4.1) g/dL Albumin/Globulin Ratio 1.1 (1.0-2.8) Lipase 46 (23-300) U/L 07/14/18 Range/Units 11:21 WBC (4.5-11.0) X10^3/uL RBC (4.5-5.9) X10^6/uL Hgb (13.5-17.5) g/dL Hct (41-53) % MCV (80-100) fL MCH (26-34) PG MCHC (30-36) % RDW (11.6-14.8) % Plt Count (150-400) X10^3/uL Neut % (Auto) (50-75) % Lymph % (Auto) (25-40) % [place] % (Auto) (3-14) % Eos % (Auto) (2-4) % Baso % (Auto) (0-2) % Neut # (Auto) (8362-9658) /uL PT (10.1-12.7) SECONDS INR (0.9-1.3) APTT (26.4-36.2) SECONDS Sodium (137-145) mmol/L Potassium (3.4-5.1) mmol/L Chloride (98-107) mmol/L Carbon Dioxide (22-32) mmol/L BUN (9-20) mg/dL Creatinine (0.66-1.25) mg/dL Estimated GFR (>60) mL/min BUN/Creatinine Ratio (6-22) Glucose (80-110) mg/dL Lactate 2.1 (0.7-2.1) mmol/L Calcium (8.4-10.2) mg/dL Total Bilirubin (0.2-1.3) mg/dL AST (17-59) IU/L ALT (21-72) IU/L Alkaline Phosphatase (38-126) U/L Total Creatine Kinase (55-170) U/L Troponin I (0.01-0.034) ng/mL Total Protein (6.3-8.2) g/dL Albumin (3.5-5.0) g/dL Globulin (1.7-4.1) g/dL Albumin/Globulin Ratio (1.0-2.8) Lipase (23-300) U/L Imaging Data Rib x-ray: Attestation: I personally reviewed and interpreted this imaging study as follows: My impression: Negative Radiologist's impression: PROCEDURE: CT HEAD/BRAIN WO CON INDICATIONS: recurrent episodes of syncope TECHNIQUE: Noncontrast 4.5 mm thick angled axial sections acquired from the foramen magnum to the vertex, with coronal and sagittal reformats. For radiation dose reduction, the following was used: automated exposure control, adjustment of mA and/or kV according to patient size. COMPARISON: None. FINDINGS: Image quality: Limited by beam hardening artifact related to metallic appearing implants. CSF spaces: Basal cisterns are patent. No extra-axial fluid collections. Ventricles are normal in size and shape. Brain: No midline shift. No intracranial masses or hemorrhage. Freeman-white matter interface is normal. Skull and face: Calvarium and visualized facial bones are intact, without suspicious lesions. Partially calcified soft tissue density material noted in the left external auditory canal. Sinuses: Visualized sinuses and mastoids are clear. IMPRESSION: 1. No acute intracranial disease process. 2. Partially calcified soft tissue density lesion in the left external auditory canal which may represent inspissated wax versus neoplastic process. Recommend correlation with direct visualization. Dictated by: Lesia Guillen MD, PhD on 07/14/2018 at 10:36 MDM Narrative Medical decision making narrative: I have reviewed discharge summary from Daiana pagan his last hemoglobin and hematocrit 8.6 and 25.6 respectively on . He is roughly the same. He has been evaluated by physical therapy who states that he is at baseline and safe to go home. Discharge Plan Departure Patient Disposition: Home Clinical Impression: Contusion of rib Discharge Date/Time: 07/14/18 15:31 Interventions: ED Discharge Assessment Last Done: 07/14/18 15:30 Instructions: DI for Rib Contusion Activity Restrictions/Additional Instructions: *You have been diagnosed with left-sided rib contusion *What to do: Blood work and x-ray are negative. Use a walker at all times while walking *Continue to take medications as directed *Follow up with your primary care provider in 2-3 days *Return to ER if you should have change in stools including black or bright red , abdominal pain, vomiting or any new, worsening or concerning symptoms Prescriptions: No Action cholecalciferol (vitamin D3) [Vitamin D3] 2,000 UNIT tablet 1 tab PO BID Qty: 0 RF: 0 nitroglycerin [Nitrostat] 0.4 MG tablet, sublingual 0.4 mg Sublingual DAILY PRN (Reason: Chest Pain) Qty: 0 RF: 0 Glucose: Test Strips 1 str miscellaneous DIRECTED Qty: 0 RF: 0 metformin [Glucophage] 500 MG tablet 500 mg PO BID Qty: 180 RF: 3 multivitamin Tablet 1 tab PO DAILY RF: 0 acetaminophen [Acetaminophen Extra Strength] 500 mg Tablet 500 mg PO Q6H PRN (Reason: Pain (Scale Score 1-3)) RF: 0 docusate sodium 100 mg Capsule 100 mg PO DAILY RF: 0 calcium carbonate-vitamin D3 [Calcium 600 + D(3)] 600 mg calcium- 200 unit Capsule 1 tab PO DAILY RF: 0 hydrocodone-acetaminophen [Flushing] 5 MG/325 MG tablet 1 tab PO BIDP RF: 0 fluticasone 16 GM spray,suspension 1 spray Intranasal BIDP PRN (Reason: allergies) RF: 0 timolol maleate 0.5 % drops 1 drp ophthalmic (eye) BID RF: 0 warfarin [Coumadin] 2.5 MG tablet 2.5 mg PO QPM RF: 0 simvastatin 40 MG tablet 40 mg PO DAILY RF: 0 Referrals: Dorothy Devine DO [Primary Care Provider] -
--- NOTE | 2018-07-14 15:11 | PT.IIE ---
Surgical History (Last Reviewed 07/05/18 @ 18:46 by Dilcia Grewal DO) History of PTCA (Resolved 1986) History of ear surgery (Resolved 12/2005) History of surgical procedure on eye proper using laser (Resolved 1997) History of tonsillectomy and adenoidectomy (Resolved 10/1944) Hx of angioplasty (Resolved 11/1998) Hx of appendectomy (Resolved ~03/1958) Hx of cataract extraction (Resolved ~2001) Hx of heart bypass surgery (Resolved 08/1987) Hx of heart bypass surgery (Resolved 05/1999) Hx of shoulder surgery (Resolved 11/2004) Hx of transurethral resection of prostate (Resolved 1994) History of cardiac radiofrequency ablation (RFA) History of hip replacement History of spinal fusion Presence of cardiac pacemaker Status post knee surgery Status post laminectomy Medical History (Last Reviewed 07/05/18 @ 18:46 by Dilcia Grewal DO) Anemia (Chronic Unknown) Arthritis (Chronic Unknown) BPH (benign prostatic hyperplasia) (Chronic Unknown) Bladder cancer (Chronic Unknown) Chronic kidney disease (CKD) (Chronic Unknown) Coronary artery disease (Chronic Unknown) Diabetes (Chronic 12/2005) GERD (gastroesophageal reflux disease) (Chronic Unknown) Hyperlipemia (Chronic Unknown) Hypertension (Chronic Unknown) Obstructive sleep apnea (Chronic Unknown) Osteopenia (Chronic 2008) Osteoporosis (Chronic Unknown) Renal cell cancer (Chronic Unknown) Glaucoma (Resolved Unknown) S/p nephrectomy (Resolved 02/2017) Physical Therapy Inpatient Evaluation/Re-Eval M1 PT/OT-IP Prior Functional Status Start: 07/14/18 15:31 Freq: Status: Active Protocol: Document 07/14/18 15:11 MDD (Rec: 07/14/18 15:46 MDD [id number]) Medical Review Prior Functional Status Medical History Reviewed Yes Communication normal Mobility and Gait Independent with single point cane in the home. Occasionally uses FWW in the home. Uses 4WW for community ambulation. Activities of Daily Living and IADL's independent Social History Household Members spouse Living Arrangements House Number of Floors (Floors) Two Floors Number of Stairs To Enter/Railing? 1 step to enter basement with no railings. 13 steps with L railing for main level. Home Environment High Toilet Walk in Shower Home Equipment Front Wheel Walker Four Wheel Walker Straight Cane Shower Seat with Backrest Grab Bars Near Toilet Grab Bars In Shower Employment Status Retired Additional Social History Comment Pt lives with his , Martin, in [place]. Their son also lives in [place] and is a PT. Pt has L foot drop and wears an AFO. No falls aside from recent one in the last 6 months. M2 PT-IP Current Condition Start: 07/14/18 15:31 Freq: Status: Active Protocol: Document 07/14/18 15:11 MDD (Rec: 07/14/18 15:46 [facility] [id number]) Physical Therapy Current Condition Current Condition Evaluation Date 07/14/18 Treatment Diagnosis R chest pain s/p GLF Onset Date 07/13/18 Precautions Brace AFO L ankle M3 PT-IP Subjective Start: 07/14/18 15:31 Freq: Status: Active Protocol: Document 07/14/18 15:11 MDD (Rec: 07/14/18 15:46 MDD [id number]) Subjective Physical Therapy Visit Type Type Initial Evaluation Visit Start Time 14:40 Visit Stop Time 15:11 Total Visit Minutes 31 Number of FAGOT HEATER Visits 0 Physical Therapy Visit Comments Patient Comments Pt feels that he is at his baseline and would like to go home. Therapy Pain Assessment Pain When Pain Assessed During Mobility Pain Present Pain Present Pain Reported Location L chest Intensity 6 Scale Used Numeric (1 - 10) Description Aching Sharp M4 PT-IP Mobility and Gait Start: 07/14/18 15:31 Freq: Status: Active Protocol: Document 07/14/18 15:11 MDD (Rec: 07/14/18 15:46 [facility] [id number]) PT-Bed Mobility Assessment Supine to Sit Supine to Sit Standby Assistance Head of Bed Elevated Scooting Scooting to Edge of Bed Independent Bed Transfer Assessment Devices Bed Transfer Assistive Devices None General Evaluation Overall Bed Transfer Ability Independent Specific Evaluation Sit to Stand Bed Transfer Ability Independent Pivot Bed Transfer Ability Independent Stand to Sit Bed Transfer Ability Independent Comments Factors Limiting Bed Transfer None Gait Assessment Gait Gait Assistance Required: Standby Assistance Distance (Feet) (feet) 50 Able to Maintain Weight Bearing Status Yes During Gait Assistive Devices Assistive Device Gait Belt Straight Cane Gait Deviations General Gait Pattern Within Normal Limits Flexed Trunk Factors Limiting Gait Function Factors Limiting Gait Function Decreased Activity Tolerance Comments Gait Comments Pt demonstrates steady gait with FWW x 25 feet. He became short of breath and required short standing rest break before returning to room. Stair Climbing Assessment Evaluation Level of Assist On Stairs Standby Assistance Devices Stair Climbing Assistive Devices Straight Cane Left Railing Technique/Endurance Stair Climbing Direction Ascend and Descend Number of Steps Climbed 1 Query Text: Stair Climbing Set # Repetitions (reps) 1 Comments Stair Climbing Comments Pt demonstrates safety with ascending single step. Refused additional stair training this day reporting he felt confident with steps. PT-Balance Assessment Sitting Balance and Reactions Static Sitting Balance Ability Normal Dynamic Sitting Balance Ability Normal Standing Balance and Reactions Static Standing Balance Ability Good Dynamic Standing Balance Ability Good M5 PT-IP Objective Assessments Start: 07/14/18 15:31 Freq: Status: Active Protocol: Document 07/14/18 15:11 MDD (Rec: 07/14/18 15:46 [facility] [id number]) Gross Range of Motion Lower Extremity ROM Assessment Within Functional Limits Strength Lower Extremity Strength Assessment Left Impaired Comments Strength Comments Pt has pre-existing L foot drop. Coordination Assessment Gross Coordination Gross Coordination WNL Sensation Assessment Sensation Gross Sensation Right UE Impaired Left UE Impaired Right LE Impaired Left LE Impaired Sensation Description Paresthesia Comments Sensation Comments Pt reports pre-existing parasthesia's in B hands and feet. M6 PT-IP Treatment Start: 07/14/18 15:31 Freq: Status: Active Protocol: Document 07/14/18 15:11 MDD (Rec: 07/14/18 15:46 [facility] [id number]) Physical Therapy Treatment Education Education Provided Precautions Safety M7 PT-IP Assessment and Plan Start: 07/14/18 15:31 Freq: Status: Active Protocol: Document 07/14/18 15:11 MDD (Rec: 07/14/18 15:46 [facility] [id number]) PT Summary Assessment and Plan Potential Rehabilitation Potential Excellent Status of Condition at Evaluation Stable Summary Impairments Sensation Progress Towards Goals Progressing Toward Goals Safe For Discharge Goals Met Assessment Summary Pt demonstrates ability to perform bed mobility, transfers and gait independently this day. He appears to be at his prior functional baseline and is considered safe to d/c home when medically appropriate. Goals Bed Mobility Goal Independent Transfer Goal Independent Gait Goal Independent Cane Gait Distance 25 Other Goals Able to ascend/descend one step with single point cane Frequency of Treatment Frequency Of Treatment Discharge Recommendations To Nursing Amount of Assist Needed Independent Discharge Recommendations PT Discharge Recommendations Home Home with Assistance
== END 2018-07-14 15:31 | disposition home or self-care (01) ==
PROVIDERS: Emergency Provider Emergency Medicine; PCP Family Medicine
DX: S20.219A Contusion of unspecified front wall of thorax, initial encounter (principal); R53.1 Weakness; W19.XXXA Unspecified fall, initial encounter
CPT/HCPCS: 36591; 71101; 80053; 82550; 82553; 83605; 83690; 84484; 85025; 85610; 85730; 93005; 93010; 97161; 99283; 99285

== ENCOUNTER → 2018-07-21 10:23 | Outpatient (CLI) | payer MEDICARE, OTHER, SELFPAY ==
[2018-07-21 12:11] LABS: Add Manual Diff / Slide Review NO; Basophils Percent Auto 0.9 % (0-2); Eosinophils Percent Auto 3.4 % (2-4); Hematocrit 28.2 % (41-53); Hemoglobin 9.7 g/dL (13.5-17.5); Lymphocytes Percent Auto 19.2 % (25-40); Mean Corpuscular HGB Conc 34.3 % (30-36); Mean Corpuscular Hemoglobin 30.9 PG (26-34); Mean Corpuscular Volume 90.2 fL (80-100); Neutrophils Absolute Auto 3800 /uL (3000-5900); Neutrophils Percent Auto 64.5 % (50-75); Platelet Count 268 X10^3/uL (150-400); Red Blood Cell Count 3.12 X10^6/uL (4.5-5.9); Red Cell Distribution Width 15.6 % (11.6-14.8); White Blood Cell Count 5.9 X10^3/uL (4.5-11.0)
[2018-07-21 12:22] LABS: Alanine Aminotransferase 19 IU/L (21-72); Albumin 3.8 g/dL (3.5-5.0); Albumin Globulin Ratio 1.2 (1.0-2.8); Alkaline Phosphatase 93 U/L (38-126); Aspartate Aminotransferase 19 IU/L (17-59); BUN Creatinine Ratio 13.8 (6-22); Bilirubin Total 0.6 mg/dL (0.2-1.3); Blood Urea Nitrogen 22 mg/dL (9-20); Calcium 9.1 mg/dL (8.4-10.2); Carbon Dioxide 32 mmol/L (22-32); Chloride 98 mmol/L (98-107); Estimated Glomerular Filt Rate 41.9 mL/min (>60); Globulin 3.1 g/dL (1.7-4.1); Glucose 93 mg/dL (80-110); HEMOLYSIS < 15 (0-50); Sodium 141 mmol/L (137-145); Total Protein 6.9 g/dL (6.3-8.2)
[2018-07-21 12:29] LABS: Total Iron Binding Capacity 364 ug/dL (261-462)
[2018-07-21 12:34] LABS: Hemoglobin A1C% w Est Avg Glu 5.4 % (4.0-6.0)
== END ==
PROVIDERS: PCP Family Medicine; Visit Provider Family Medicine
DX: C64.2 Malignant neoplasm of left kidney, except renal pelvis (principal); D50.9 Iron deficiency anemia, unspecified; E11.9 Type 2 diabetes mellitus without complications; I10 Essential (primary) hypertension
CPT/HCPCS: 80053; 83036; 83550; 85025

== ENCOUNTER → 2018-07-26 08:35 | Outpatient (CLI) | payer MEDICARE, OTHER, SELFPAY ==
[2018-07-26 09:34] LABS: Hematocrit 30.8 % (41-53); Hemoglobin 10.4 g/dL (13.5-17.5)
[2018-07-26 10:00] LABS: BUN Creatinine Ratio 17.5 (6-22); Blood Urea Nitrogen 28 mg/dL (9-20); Calcium 9.7 mg/dL (8.4-10.2); Carbon Dioxide 32 mmol/L (22-32); Chloride 100 mmol/L (98-107); Estimated Glomerular Filt Rate 41.9 mL/min (>60); Glucose 96 mg/dL (80-110); HEMOLYSIS < 15 (0-50); Potassium 4.6 mmol/L (3.4-5.1); Sodium 142 mmol/L (137-145)
[2018-07-26 10:02] LABS: HEMOLYSIS < 15 (0-50); Iron 80 ug/dL (49-181)
[2018-07-26 10:12] LABS: Percent Iron Saturation 20 % (20-50); Total Iron Binding Capacity 403 ug/dL (261-462); Transferrin 328 mg/dL (206-381)
[2018-07-26 10:35] LABS: Ferritin 34.8 ng/mL (17.9-464)
[2018-07-29 14:49] LABS: Parathyroid Hormone Int 70 pg/mL (14-64)
== END ==
PROVIDERS: PCP Family Medicine; Visit Provider Student in an Organized Health Care Education/Training Program
DX: N05.9 Unspecified nephritic syndrome with unspecified morphologic changes (principal); D50.0 Iron deficiency anemia secondary to blood loss (chronic); D64.9 Anemia, unspecified; N25.81 Secondary hyperparathyroidism of renal origin
CPT/HCPCS: 36415; 80048; 82728; 83540; 83550; 83970; 85014; 85018

== ENCOUNTER → 2018-08-20 10:22 | Outpatient (CLI) | payer MEDICARE, OTHER, SELFPAY ==
[2018-08-20 10:58] LABS: Add Manual Diff / Slide Review NO; Basophils Percent Auto 0.6 % (0-2); Eosinophils Percent Auto 1.1 % (2-4); Hematocrit 32.2 % (41-53); Hemoglobin 10.7 g/dL (13.5-17.5); Lymphocytes Percent Auto 17.6 % (25-40); Mean Corpuscular HGB Conc 33.2 % (30-36); Mean Corpuscular Hemoglobin 30.1 PG (26-34); Mean Corpuscular Volume 90.7 fL (80-100); Monocytes Percent Auto 9.9 % (3-14); Neutrophils Absolute Auto 4800 /uL (3000-5900); Neutrophils Percent Auto 70.8 % (50-75); Platelet Count 253 X10^3/uL (150-400); Red Blood Cell Count 3.55 X10^6/uL (4.5-5.9); White Blood Cell Count 6.7 X10^3/uL (4.5-11.0)
[2018-08-20 11:16] LABS: Alanine Aminotransferase 18 IU/L (21-72); Albumin Globulin Ratio 1.1 (1.0-2.8); Alkaline Phosphatase 100 U/L (38-126); Aspartate Aminotransferase 23 IU/L (17-59); BUN Creatinine Ratio 19.2 (6-22); Bilirubin Total 0.9 mg/dL (0.2-1.3); Blood Urea Nitrogen 23 mg/dL (9-20); Calcium 9.7 mg/dL (8.4-10.2); Carbon Dioxide 29 mmol/L (22-32); Chloride 105 mmol/L (98-107); Estimated Glomerular Filt Rate 58.4 mL/min (>60); Globulin 3.5 g/dL (1.7-4.1); Glucose 89 mg/dL (80-110); HEMOLYSIS < 15 (0-50); Potassium 5.3 mmol/L (3.4-5.1); Sodium 145 mmol/L (137-145); Total Protein 7.5 g/dL (6.3-8.2)
== END ==
PROVIDERS: PCP Family Medicine; Visit Provider Family Medicine
DX: D64.9 Anemia, unspecified (principal); I10 Essential (primary) hypertension
CPT/HCPCS: 80053; 85025

== ENCOUNTER → 2018-08-27 10:35 | Outpatient (CLI) | payer MEDICARE, OTHER, SELFPAY ==
[2018-08-27 11:28] LABS: Hematocrit 32.7 % (41-53); Hemoglobin 10.8 g/dL (13.5-17.5)
[2018-08-27 11:49] LABS: HEMOLYSIS < 15 (0-50); Iron 48 ug/dL (49-181)
[2018-08-27 11:51] LABS: BUN Creatinine Ratio 14.6 (6-22); Blood Urea Nitrogen 19 mg/dL (9-20); Calcium 9.3 mg/dL (8.4-10.2); Carbon Dioxide 28 mmol/L (22-32); Chloride 103 mmol/L (98-107); Estimated Glomerular Filt Rate 53.3 mL/min (>60); Glucose 102 mg/dL (80-110); HEMOLYSIS < 15 (0-50); Potassium 4.4 mmol/L (3.4-5.1); Sodium 143 mmol/L (137-145)
[2018-08-27 11:59] LABS: Percent Iron Saturation 12 % (20-50); Total Iron Binding Capacity 390 ug/dL (261-462); Transferrin 315 mg/dL (206-381)
[2018-08-31 15:02] LABS: Parathyroid Hormone Int 82 pg/mL (14-64)
== END ==
PROVIDERS: PCP Family Medicine; Visit Provider Student in an Organized Health Care Education/Training Program
DX: D64.9 Anemia, unspecified (principal); D50.0 Iron deficiency anemia secondary to blood loss (chronic)
CPT/HCPCS: 36415; 80048; 82728; 83540; 83550; 83970; 85014; 85018

== ENCOUNTER → 2018-09-17 10:19 | Outpatient (CLI) | payer MEDICARE, OTHER, SELFPAY ==
[2018-09-17 10:34] LABS: Hematocrit 31.9 % (41-53); Hemoglobin 10.6 g/dL (13.5-17.5); Mean Corpuscular HGB Conc 33.3 % (30-36); Mean Corpuscular Hemoglobin 29.9 PG (26-34); Mean Corpuscular Volume 89.9 fL (80-100); Platelet Count 239 X10^3/uL (150-400); Red Blood Cell Count 3.55 X10^6/uL (4.5-5.9); Red Cell Distribution Width 16.3 % (11.6-14.8); White Blood Cell Count 6.7 X10^3/uL (4.5-11.0)
[2018-09-17 15:34] LABS: Neutrophils Absolute Manual 5360 /uL (3000-5900); Total Cells Counted 100
[2018-09-17 15:35] LABS: RBC Morphology Normal Morphology
== END ==
PROVIDERS: PCP Family Medicine; Visit Provider Family Medicine
DX: D64.9 Anemia, unspecified (principal)
CPT/HCPCS: 36415; 85025

== ENCOUNTER 2018-11-12 20:48 | Emergency (ER) | payer MEDICARE, OTHER, SELFPAY ==
--- NOTE | 2018-11-12 20:51 | DI.RAD.S_ITS ---
PROCEDURE: XR CHEST 1V INDICATIONS: chest pain TECHNIQUE: One view of the chest was acquired. COMPARISON: [facility], , CHEST 2 VIEW, 02/26/2017, 9:58. FINDINGS: Surgical changes and devices: A left chest wall dual-lead pacemaker is redemonstrated with stable appearance of the leads compared to the prior study. Postsurgical changes are again noted in the mediastinum. Lungs and pleura: There are increased bilateral reticular interstitial opacities with a peripheral predominance likely representing pulmonary edema. There are small bilateral pleural effusions. Mediastinum: Mediastinal contours appear prominent likely due to technique. Heart size is enlarged. Bones and chest wall: No suspicious bony lesions. Overlying soft tissues appear unremarkable. IMPRESSION: 1. Bilateral pulmonary edema with small pleural effusions and cardiomegaly compatible with congestive heart failure. Dictated by: Ramirez Marcos M.D. on 11/12/2018 at 21:39 Approved by: Ramirez Marcos M.D. on 11/12/2018 at 21:40
[2018-11-12 21:03] VITALS: BP 146/128; PULSE 76; RESP 30; O2SAT 98
--- NOTE | 2018-11-12 21:06 | ED_ITS ---
HPI - SOB/Dyspnea <Ventura Riley - Last Filed: 11/13/18 23:19> General Chief Complaint: Shortness of Breath/Dyspnea Stated Complaint: SOB, Abd pain, Chest pain Time Seen by Provider: 11/12/18 20:56 Source: patient and family Mode of arrival: ambulatory Limitations: no limitations History of Present Illness 78-year-old nonsmoking male presents with his for evaluation of worsening shortness of breath and lower extremity swelling over the course of the day. Additionally the patient has had nausea and upset stomach over the course of the day and did not take all of his meds including Lasix. 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 He denies chest pain but has had twinges of upper abdominal pain. He is not dizzy or lightheaded. His shortness of breath is worse when he lays flat or walks around. He admits to swelling in his lower extremities. 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 Arndt from [facility] and PCP is Dr. Devine. he denies any significant provocation, palliation or radiation of his upper abdominal pain. He has had no fever or chills he denies runny nose or sore throat. 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 MD Complaint: shortness of breath Onset (ago): hour(s) Context: recent illness Severity: moderate Consistency/Duration: intermittent Relieving factors: upright position Exacerbating factors: lying flat Known history of: congestive heart failure Associated symptoms: pain with inspiration and abdominal pain Treatment prior to arrival: none Related Data Home oxygen amount: none Home Medications Medication Instructions Recorded Confirmed cholecalciferol (vitamin D3) 1 tab PO BID #0 01/19/12 09/21/18 [Vitamin D3] nitroglycerin [Nitrostat] 0.4 mg SUBLINGUAL DAILY PRN #0 02/12/17 09/21/18 Glucose: Test Strips 1 str MISCELLANEOUS DIRECTED #0 01/12/18 09/21/18 acetaminophen [Acetaminophen Extra 500 mg PO Q6H PRN 07/05/18 09/21/18 Strength] calcium carbonate-vitamin D3 1 tab PO DAILY 07/05/18 09/21/18 [Calcium 600 + D(3)] docusate sodium 100 mg PO DAILY 07/05/18 09/21/18 fluticasone 1 spray INTRANASAL BIDP PRN 07/05/18 09/21/18 multivitamin 1 tab PO DAILY 07/05/18 09/21/18 simvastatin 40 mg PO DAILY 07/14/18 09/21/18 timolol maleate 1 drp OPHTHALMIC (EYE) BID 07/14/18 09/21/18 warfarin [Coumadin] 2.5 mg PO QPM 07/14/18 09/21/18 Previous Rx's Medication Instructions Recorded metformin [Glucophage] 500 mg PO BID #180 tab 01/12/18 ferrous sulfate 325 mg (65 mg 325 mg PO DAILY #30 tab 07/21/18 iron) tablet omeprazole 20 mg capsule,delayed 20 mg PO BID #60 cap 07/21/18 release hydrocodone 5 mg-acetaminophen 325 1 tab PO BIDP #50 tab 08/20/18 mg tablet Disabled Parking Permit #1 ea 09/21/18 Allergies Allergy/AdvReac Type Severity Reaction Status Date / Time oxycodone [OXYCODONE] AdvReac Mild DIZZY, Verified 09/21/18 09:39 NAUSEA codeine [CODEINE] AdvReac Unknown NAUSEA Verified 09/21/18 09:39 hydromorphone [HYDROMORPHONE] AdvReac Unknown NAUSEA Verified 09/21/18 09:39 morphine [MORPHINE] AdvReac Unknown SPOUSE Verified 09/21/18 09:39 DENIED ALLERGY Review of Systems <Ventura Riley DO - Last Filed: 11/13/18 23:19> Review of Systems All systems reviewed & are unremarkable except as noted in HPI and below Constitutional Denies chills, Denies fever(s), Denies lethargy and Denies weakness Eyes Denies change in vision, Denies eye discharge, Denies irritation and Denies loss of vision ENT Ears, Nose, Mouth, and Throat: Denies change in voice, Denies neck pain and Denies sore throat Cardiovascular Denies chest pain, Denies irregular heart rhythm, Denies lightheadedness, Denies palpitations, Reports dyspnea, Reports dyspnea on exertion and Reports orthopnea Respiratory Reports dyspnea, Reports dyspnea on exertion and Denies wheezing Gastrointestinal Gastrointestinal: Reports abdominal pain, Denies change in bowel habits, Denies diarrhea, Reports nausea and Denies vomiting Genitourinary Denies hematuria, Denies flank pain, Denies urinary incontinence and Denies urinary urgency Musculoskeletal Denies neck pain Integumentary/Breasts Denies pruritus, Denies erythema, Denies rash and Denies wounds Neurologic Denies confusion, Denies loss of vision and Denies weakness Psychiatric Denies anxiety, Denies confusion, Denies depression, Denies homicidal ideation and Denies suicidal ideation Endocrine Denies palpitations Hematologic/Lymphatic Denies easy bruising Allergic/Immunologic Denies wheezing Exam <Ventura Riley DO - Last Filed: 11/13/18 23:19> Initial Vital Signs Initial Vital Signs: Vital Signs Pulse Rate 76 11/12/18 21:03 Respiratory Rate 30 H 11/12/18 21:03 Blood Pressure 146/128 H 11/12/18 21:03 Pulse Oximetry 98 11/12/18 21:03 <Mireya Maxwell, DO - Last Filed: 11/13/18 15:58> Narrative Exam Narrative: GENERAL: Alert and oriented x three, elderly male in mild distress. HEENT: Head normocephalic, atraumatic, EOMI, pupils reactive, face symmetric, moist mucous membranes, patient had a couple drops of blood from his left naris. Some Afrin was sprayed up his nose and it stopped NECK: Supple, full range of motion CARDIOVASCULAR: Regular rate and rhythm without murmurs, rubs or gallops. RESPIRATORY: Breath sounds equal bilaterally, no wheezes, no rhonchi. Mild crackles bilaterally. ABDOMEN: Soft, nontender. Normoactive bowel sounds all 4 quadrants. No guarding or rebound, rigidity, no mass : No CVA tenderness EXTREMITIES: Normal range of motion, no clubbing. Neurovascularly intact NEUROLOGICAL: Cranial nerves II through XII grossly intact. Moving all extremities SKIN: Warm, dry, no petechiae, no rashes or lesions. Initial Vital Signs Initial Vital Signs: Vital Signs Pulse Rate 76 11/12/18 21:03 Respiratory Rate 30 H 11/12/18 21:03 Blood Pressure 146/128 H 11/12/18 21:03 Pulse Oximetry 98 11/12/18 21:03 Course <Ventura Riley DO - Last Filed: 11/13/18 23:19> Orders Ordered: Discontinued Medications Acetaminophen (Tylenol) 650 mg PO NOW ONE Stop: 11/13/18 13:17 Last Admin: 11/13/18 13:18 Dose: 650 mg Aspirin (Aspirin Chew) 324 mg PO NOW ONE Stop: 11/13/18 13:08 Last Admin: 11/13/18 13:18 Dose: 324 mg Furosemide (Lasix) 20 mg IV NOW ONE Stop: 11/12/18 21:07 Last Admin: 11/12/18 21:23 Dose: 20 mg Furosemide (Lasix) 40 mg IV NOW ONE Stop: 11/12/18 22:12 Last Admin: 11/12/18 22:24 Dose: 40 mg Furosemide (Lasix) 40 mg IV NOW ONE Stop: 11/13/18 11:24 Last Admin: 11/13/18 11:42 Dose: 40 mg Cefotetan Disodium/Dextrose (Cefotan) 1 gm in 50 mls @ 100 mls/hr IV NOW ONE Stop: 11/13/18 00:21 Last Infusion: 11/13/18 01:54 Dose: 100 mls/hr Admin: 11/13/18 01:00 Dose: 100 mls/hr Cefotetan Disodium/Dextrose (Cefotan) 1 gm in 50 mls @ 100 mls/hr IV NOW ONE Stop: 11/13/18 11:52 Last Infusion: 11/13/18 13:10 Dose: 0 mls/hr Admin: 11/13/18 12:37 Dose: 100 mls/hr Ondansetron HCl (Zofran) 4 mg IV NOW ONE Stop: 11/12/18 22:32 Last Admin: 11/12/18 22:32 Dose: 4 mg Reevaluation(s) Reevaluation #1: patient making dilute urine after 2nd dose (40mg) of lasix Consultations Consultation #1: call to Dr. Magaña regarding choleycystitis. Given extensive cardiac history, coumadin coagulopathy and active CHF that patient is too complicated for here, and too risky for surgery at this facility given lack of acces to cardiology Patient has history at [facility] and requests transfer there. They have no beds tonight, and will have multiple discharges in the morning. 0615 - call to hospitalist (Jenelle) whom accepts patient upon bed availability. 0617 - they expect a bed mid morning Vital Signs - 8 hr 11/13/18 08:04 11/13/18 09:00 11/13/18 11:00 Pulse Rate 70 70 70 Respiratory Rate 16 20 16 Blood Pressure [Left Arm] 102/57 L 113/60 113/63 Pulse Oximetry 96 95 99 11/13/18 12:00 11/13/18 13:00 11/13/18 13:30 Pulse Rate 70 75 70 Respiratory Rate 23 21 17 Blood Pressure [Left Arm] 115/61 120/60 120/64 Pulse Oximetry 96 95 <Mireya Maxwell DO - Last Filed: 11/13/18 15:58> Orders Ordered: Discontinued Medications Acetaminophen (Tylenol) 650 mg PO NOW ONE Stop: 11/13/18 13:17 Last Admin: 11/13/18 13:18 Dose: 650 mg Aspirin (Aspirin Chew) 324 mg PO NOW ONE Stop: 11/13/18 13:08 Last Admin: 11/13/18 13:18 Dose: 324 mg Furosemide (Lasix) 20 mg IV NOW ONE Stop: 11/12/18 21:07 Last Admin: 11/12/18 21:23 Dose: 20 mg Furosemide (Lasix) 40 mg IV NOW ONE Stop: 11/12/18 22:12 Last Admin: 11/12/18 22:24 Dose: 40 mg Furosemide (Lasix) 40 mg IV NOW ONE Stop: 11/13/18 11:24 Last Admin: 11/13/18 11:42 Dose: 40 mg Cefotetan Disodium/Dextrose (Cefotan) 1 gm in 50 mls @ 100 mls/hr IV NOW ONE Stop: 11/13/18 00:21 Last Infusion: 11/13/18 01:54 Dose: 100 mls/hr Admin: 11/13/18 01:00 Dose: 100 mls/hr Cefotetan Disodium/Dextrose (Cefotan) 1 gm in 50 mls @ 100 mls/hr IV NOW ONE Stop: 11/13/18 11:52 Last Infusion: 11/13/18 13:10 Dose: 0 mls/hr Admin: 11/13/18 12:37 Dose: 100 mls/hr Ondansetron HCl (Zofran) 4 mg IV NOW ONE Stop: 11/12/18 22:32 Last Admin: 11/12/18 22:32 Dose: 4 mg Vital Signs - 8 hr 11/13/18 08:04 11/13/18 09:00 11/13/18 11:00 Pulse Rate 70 70 70 Respiratory Rate 16 20 16 Blood Pressure [Left Arm] 102/57 L 113/60 113/63 Pulse Oximetry 96 95 99 11/13/18 12:00 11/13/18 13:00 11/13/18 13:30 Pulse Rate 70 75 70 Respiratory Rate 23 21 17 Blood Pressure [Left Arm] 115/61 120/60 120/64 Pulse Oximetry 96 95 MDM - SOB/Dyspnea <Ventura Riley DO - Last Filed: 11/13/18 23:19> Lab Data Result diagrams: 11/12/18 21:06 11/12/18 21:06 Lab Results 11/12/18 11/12/18 11/12/18 Range/Units 21:06 21:06 21:06 WBC 8.6 (4.5-11.0) X10^3/uL RBC 4.09 L (4.5-5.9) X10^6/uL Hgb 11.8 L (13.5-17.5) g/dL Hct 36.3 L (41-53) % MCV 88.8 (80-100) fL MCH 29.0 (26-34) PG MCHC 32.6 (30-36) % RDW 18.3 H (11.6-14.8) % Plt Count 220 (150-400) X10^3/uL Neut % (Auto) 86.0 H (50-75) % Lymph % (Auto) 9.0 L (25-40) % [place] % (Auto) 3.6 (3-14) % Eos % (Auto) 0.5 L (2-4) % Baso % (Auto) 0.9 (0-2) % Neut # (Auto) 7400 H (5439-2167) /uL PT 27.7 H (10.1-12.7) SECONDS INR 2.4 H (0.9-1.3) APTT 37 H D (26.4-36.2) SECONDS ABG pH (7.35-7.45) ABG pCO2 (35-45) mmHg ABG pO2 (80-100) mmHg ABG HCO3 (22-26) mmol/L ABG Total CO2 (21-31) mmol/L ABG O2 Saturation (95-100) % ABG Base Excess (-2-2) mmol/L FiO2 Sodium 143 (137-145) mmol/L Potassium 5.0 (3.4-5.1) mmol/L Chloride 104 (98-107) mmol/L Carbon Dioxide 24 (22-32) mmol/L BUN 25 H (9-20) mg/dL Creatinine 1.10 (0.66-1.25) mg/dL Estimated GFR > 60.0 (>60) mL/min BUN/Creatinine Ratio 22.7 H (6-22) Glucose 112 H (80-110) mg/dL Calcium 9.8 (8.4-10.2) mg/dL Total Bilirubin 2.8 H (0.2-1.3) mg/dL AST 69 H (17-59) IU/L ALT 24 (21-72) IU/L Alkaline Phosphatase 136 H (38-126) U/L Total Creatine Kinase 53 L (55-170) U/L CK-MB (CK-2) TNP CK-MB (CK-2) Rel Index TNP Troponin I 0.086 H (0.01-0.034) ng/mL B-Natriuretic Peptide (<100) Total Protein 8.6 H (6.3-8.2) g/dL Albumin 4.3 (3.5-5.0) g/dL Globulin 4.3 H (1.7-4.1) g/dL Albumin/Globulin Ratio 1.0 (1.0-2.8) Lipase 89 (23-300) U/L 11/12/18 11/12/18 11/13/18 Range/Units 21:06 22:19 11:40 WBC (4.5-11.0) X10^3/uL RBC (4.5-5.9) X10^6/uL Hgb (13.5-17.5) g/dL Hct (41-53) % MCV (80-100) fL MCH (26-34) PG MCHC (30-36) % RDW (11.6-14.8) % Plt Count (150-400) X10^3/uL Neut % (Auto) (50-75) % Lymph % (Auto) (25-40) % [place] % (Auto) (3-14) % Eos % (Auto) (2-4) % Baso % (Auto) (0-2) % Neut # (Auto) (3515-5152) /uL PT 33.6 H D (10.1-12.7) SECONDS INR 2.8 H (0.9-1.3) APTT (26.4-36.2) SECONDS ABG pH 7.42 (7.35-7.45) ABG pCO2 27.1 L (35-45) mmHg ABG pO2 70 L (80-100) mmHg ABG HCO3 18 L (22-26) mmol/L ABG Total CO2 18 L (21-31) mmol/L ABG O2 Saturation 94 L (95-100) % ABG Base Excess -7.0 L (-2-2) mmol/L FiO2 21 Sodium (137-145) mmol/L Potassium (3.4-5.1) mmol/L Chloride (98-107) mmol/L Carbon Dioxide (22-32) mmol/L BUN (9-20) mg/dL Creatinine (0.66-1.25) mg/dL Estimated GFR (>60) mL/min BUN/Creatinine Ratio (6-22) Glucose (80-110) mg/dL Calcium (8.4-10.2) mg/dL Total Bilirubin (0.2-1.3) mg/dL AST (17-59) IU/L ALT (21-72) IU/L Alkaline Phosphatase (38-126) U/L Total Creatine Kinase (55-170) U/L CK-MB (CK-2) CK-MB (CK-2) Rel Index Troponin I (0.01-0.034) ng/mL B-Natriuretic Peptide 765 H (<100) Total Protein (6.3-8.2) g/dL Albumin (3.5-5.0) g/dL Globulin (1.7-4.1) g/dL Albumin/Globulin Ratio (1.0-2.8) Lipase (23-300) U/L 11/13/18 Range/Units 11:40 WBC (4.5-11.0) X10^3/uL RBC (4.5-5.9) X10^6/uL Hgb (13.5-17.5) g/dL Hct (41-53) % MCV (80-100) fL MCH (26-34) PG MCHC (30-36) % RDW (11.6-14.8) % Plt Count (150-400) X10^3/uL Neut % (Auto) (50-75) % Lymph % (Auto) (25-40) % [place] % (Auto) (3-14) % Eos % (Auto) (2-4) % Baso % (Auto) (0-2) % Neut # (Auto) (7501-6565) /uL PT (10.1-12.7) SECONDS INR (0.9-1.3) APTT (26.4-36.2) SECONDS ABG pH (7.35-7.45) ABG pCO2 (35-45) mmHg ABG pO2 (80-100) mmHg ABG HCO3 (22-26) mmol/L ABG Total CO2 (21-31) mmol/L ABG O2 Saturation (95-100) % ABG Base Excess (-2-2) mmol/L FiO2 Sodium (137-145) mmol/L Potassium (3.4-5.1) mmol/L Chloride (98-107) mmol/L Carbon Dioxide (22-32) mmol/L BUN (9-20) mg/dL Creatinine (0.66-1.25) mg/dL Estimated GFR (>60) mL/min BUN/Creatinine Ratio (6-22) Glucose (80-110) mg/dL Calcium (8.4-10.2) mg/dL Total Bilirubin (0.2-1.3) mg/dL AST (17-59) IU/L ALT (21-72) IU/L Alkaline Phosphatase (38-126) U/L Total Creatine Kinase (55-170) U/L CK-MB (CK-2) CK-MB (CK-2) Rel Index Troponin I 0.266 H* (0.01-0.034) ng/mL B-Natriuretic Peptide (<100) Total Protein (6.3-8.2) g/dL Albumin (3.5-5.0) g/dL Globulin (1.7-4.1) g/dL Albumin/Globulin Ratio (1.0-2.8) Lipase (23-300) U/L Point of Care Testing Glucose POC 97 <Mireya Maxwell, - Last Filed: 11/13/18 15:58> Lab Data Attestation: I reviewed the patient's lab results. Lab Results 11/12/18 11/12/18 11/12/18 Range/Units 21:06 21:06 21:06 WBC 8.6 (4.5-11.0) X10^3/uL RBC 4.09 L (4.5-5.9) X10^6/uL Hgb 11.8 L (13.5-17.5) g/dL Hct 36.3 L (41-53) % MCV 88.8 (80-100) fL MCH 29.0 (26-34) PG MCHC 32.6 (30-36) % RDW 18.3 H (11.6-14.8) % Plt Count 220 (150-400) X10^3/uL Neut % (Auto) 86.0 H (50-75) % Lymph % (Auto) 9.0 L (25-40) % [place] % (Auto) 3.6 (3-14) % Eos % (Auto) 0.5 L (2-4) % Baso % (Auto) 0.9 (0-2) % Neut # (Auto) 7400 H (4746-3216) /uL PT 27.7 H (10.1-12.7) SECONDS INR 2.4 H (0.9-1.3) APTT 37 H D (26.4-36.2) SECONDS ABG pH (7.35-7.45) ABG pCO2 (35-45) mmHg ABG pO2 (80-100) mmHg ABG HCO3 (22-26) mmol/L ABG Total CO2 (21-31) mmol/L ABG O2 Saturation (95-100) % ABG Base Excess (-2-2) mmol/L FiO2 Sodium 143 (137-145) mmol/L Potassium 5.0 (3.4-5.1) mmol/L Chloride 104 (98-107) mmol/L Carbon Dioxide 24 (22-32) mmol/L BUN 25 H (9-20) mg/dL Creatinine 1.10 (0.66-1.25) mg/dL Estimated GFR > 60.0 (>60) mL/min BUN/Creatinine Ratio 22.7 H (6-22) Glucose 112 H (80-110) mg/dL Calcium 9.8 (8.4-10.2) mg/dL Total Bilirubin 2.8 H (0.2-1.3) mg/dL AST 69 H (17-59) IU/L ALT 24 (21-72) IU/L Alkaline Phosphatase 136 H (38-126) U/L Total Creatine Kinase 53 L (55-170) U/L CK-MB (CK-2) TNP CK-MB (CK-2) Rel Index TNP Troponin I 0.086 H (0.01-0.034) ng/mL B-Natriuretic Peptide (<100) Total Protein 8.6 H (6.3-8.2) g/dL Albumin 4.3 (3.5-5.0) g/dL Globulin 4.3 H (1.7-4.1) g/dL Albumin/Globulin Ratio 1.0 (1.0-2.8) Lipase 89 (23-300) U/L 11/12/18 11/12/18 11/13/18 Range/Units 21:06 22:19 11:40 WBC (4.5-11.0) X10^3/uL RBC (4.5-5.9) X10^6/uL Hgb (13.5-17.5) g/dL Hct (41-53) % MCV (80-100) fL MCH (26-34) PG MCHC (30-36) % RDW (11.6-14.8) % Plt Count (150-400) X10^3/uL Neut % (Auto) (50-75) % Lymph % (Auto) (25-40) % [place] % (Auto) (3-14) % Eos % (Auto) (2-4) % Baso % (Auto) (0-2) % Neut # (Auto) (9644-3254) /uL PT 33.6 H D (10.1-12.7) SECONDS INR 2.8 H (0.9-1.3) APTT (26.4-36.2) SECONDS ABG pH 7.42 (7.35-7.45) ABG pCO2 27.1 L (35-45) mmHg ABG pO2 70 L (80-100) mmHg ABG HCO3 18 L (22-26) mmol/L ABG Total CO2 18 L (21-31) mmol/L ABG O2 Saturation 94 L (95-100) % ABG Base Excess -7.0 L (-2-2) mmol/L FiO2 21 Sodium (137-145) mmol/L Potassium (3.4-5.1) mmol/L Chloride (98-107) mmol/L Carbon Dioxide (22-32) mmol/L BUN (9-20) mg/dL Creatinine (0.66-1.25) mg/dL Estimated GFR (>60) mL/min BUN/Creatinine Ratio (6-22) Glucose (80-110) mg/dL Calcium (8.4-10.2) mg/dL Total Bilirubin (0.2-1.3) mg/dL AST (17-59) IU/L ALT (21-72) IU/L Alkaline Phosphatase (38-126) U/L Total Creatine Kinase (55-170) U/L CK-MB (CK-2) CK-MB (CK-2) Rel Index Troponin I (0.01-0.034) ng/mL B-Natriuretic Peptide 765 H (<100) Total Protein (6.3-8.2) g/dL Albumin (3.5-5.0) g/dL Globulin (1.7-4.1) g/dL Albumin/Globulin Ratio (1.0-2.8) Lipase (23-300) U/L 11/13/18 Range/Units 11:40 WBC (4.5-11.0) X10^3/uL RBC (4.5-5.9) X10^6/uL Hgb (13.5-17.5) g/dL Hct (41-53) % MCV (80-100) fL MCH (26-34) PG MCHC (30-36) % RDW (11.6-14.8) % Plt Count (150-400) X10^3/uL Neut % (Auto) (50-75) % Lymph % (Auto) (25-40) % [place] % (Auto) (3-14) % Eos % (Auto) (2-4) % Baso % (Auto) (0-2) % Neut # (Auto) (7116-7534) /uL PT (10.1-12.7) SECONDS INR (0.9-1.3) APTT (26.4-36.2) SECONDS ABG pH (7.35-7.45) ABG pCO2 (35-45) mmHg ABG pO2 (80-100) mmHg ABG HCO3 (22-26) mmol/L ABG Total CO2 (21-31) mmol/L ABG O2 Saturation (95-100) % ABG Base Excess (-2-2) mmol/L FiO2 Sodium (137-145) mmol/L Potassium (3.4-5.1) mmol/L Chloride (98-107) mmol/L Carbon Dioxide (22-32) mmol/L BUN (9-20) mg/dL Creatinine (0.66-1.25) mg/dL Estimated GFR (>60) mL/min BUN/Creatinine Ratio (6-22) Glucose (80-110) mg/dL Calcium (8.4-10.2) mg/dL Total Bilirubin (0.2-1.3) mg/dL AST (17-59) IU/L ALT (21-72) IU/L Alkaline Phosphatase (38-126) U/L Total Creatine Kinase (55-170) U/L CK-MB (CK-2) CK-MB (CK-2) Rel Index Troponin I 0.266 H* (0.01-0.034) ng/mL B-Natriuretic Peptide (<100) Total Protein (6.3-8.2) g/dL Albumin (3.5-5.0) g/dL Globulin (1.7-4.1) g/dL Albumin/Globulin Ratio (1.0-2.8) Lipase (23-300) U/L Point of Care Testing Glucose POC 97 Imaging Data Chest x-ray: Radiologist's impression: [address] [address] XRay Report Signed Patient: Ramirez Staley MR#: [id number] : 1940 Acct:[id number] Age/Sex: 78 / M Date of Service: 11/12/18 Loc: ED Accession Number: [id number] Procedure: XR chest 1V Ordering Provider: Ventura Riley D.O. PROCEDURE: XR CHEST 1V INDICATIONS: chest pain TECHNIQUE: One view of the chest was acquired. COMPARISON: [facility], , CHEST 2 VIEW, 02/26/2017, 9:58. FINDINGS: Surgical changes and devices: A left chest wall dual-lead pacemaker is redemonstrated with stable appearance of the leads compared to the prior study. Postsurgical changes are again noted in the mediastinum. Lungs and pleura: There are increased bilateral reticular interstitial opacities with a peripheral predominance likely representing pulmonary edema. There are small bilateral pleural effusions. Mediastinum: Mediastinal contours appear prominent likely due to technique. Heart size is enlarged. Bones and chest wall: No suspicious bony lesions. Overlying soft tissues appear unremarkable. IMPRESSION: 1. Bilateral pulmonary edema with small pleural effusions and cardiomegaly compatible with congestive heart failure. Dictated by: Ramirez Marcos M.D. on 11/12/2018 at 21:39 Approved by: Ramirez Marcos M.D. on 11/12/2018 at 21:40 US - abdomen: Radiologist's impression: [place] [address] Ultrasound Report Signed Patient: Ramirez Staley MR#: [id number] : 1940 Acct:[id number] Age/Sex: 78 / M Date of Service: 11/12/18 Loc: ED Accession Number: [id number] Procedure: US abdomen complete Ordering Provider: Ventura Riley D.O. PROCEDURE: US ABDOMEN COMPLETE INDICATIONS: SEVERE RIGHT UPPER QUADRANT PAIN TECHNIQUE: Real-time scanning was performed of the abdominal and retroperitoneal organs, with image documentation. COMPARISON: None. FINDINGS: Liver: Liver is normal in size and homogeneous in echotexture. Gallbladder: The gallbladder wall measures 6.9 mm in diameter. Trace pericholecystic fluid. No sonographic Canseco's sign. Several gallstones are layered within the gallbladder fundus which measure up to 1 cm diameter. Biliary ducts: Intrahepatic bile ducts are non-dilated. Extrahepatic bile duct caliber measures 4.9 mm. Normal is 6-7 mm or less in diameter, or 10 mm or less post-cholecystectomy. Pancreas: The pancreas is not visualized due to bowel gas. Spleen: Spleen is normal in size and homogeneous in echotexture. Kidneys: Kidneys are normal in size and echotexture. Right kidney measures 11.3 cm long; left kidney is surgically absent. No hydronephrosis or nephrolithiasis. No solid masses. Aorta: The aorta is not visualized due to bowel gas. Iliacs: The iliacs are not visualized due to bowel gas. IVC: Intrahepatic inferior vena cava is patent. Miscellaneous: No free abdominal fluid. IMPRESSION: 1. Cholelithiasis and gallbladder wall thickening and trace pericholecystic fluid suspicious for acute cholecystitis. Of note, the patient did not endorse a sonographic Canseco's sign during the study, but this may be secondary to premedication. These findings are concordant with the overnight interpretation. Dictated by: Daphne Prince M.D. on 11/13/2018 at 8:30 Approved by: Daphne Prince M.D. on 11/13/2018 at 8:33 ECG Data Attestation: I personally reviewed and interpreted this ECG as follows: Interpretation: ventricularly paced rhythm with rate of 69. Patient does have priors for comparison. MDM Narrative Medical decision making narrative: Patient was signed out to myself by Dr. [email or web address], labs, EKG, imaging and patient HPI reviewed. At the time plan was to transfer to [place] but it was unclear if they had bed capacity. Re- contacted them at 8:00 a.m. and was told that they do not have any beds and they are not able to accept the patient. At the time plan was to transfer because of Cardiology back up along with hospitalist service and general surgery consultation. Patient came in with congestive heart failure and quite symptomatic. He had improved by the time I had arrived. Patient had received cefotetan, Lasix IV 40 mg and had year 20 or 40 mg p.o. at home. On evaluation he is comfortable. Repeat dose of cefotetan was ordered while the patient was here as well as a 2nd dose of IV Lasix about 12 hr after initial dose. Patient was also given and a dose of aspirin. A repeat troponin was ordered and had elevated 2.2 from 0.08. Patient has not had any increasing shortness of breath , chest pressure, no diaphoresis or other new cardiac symptoms at this time. Spoke with family there is no bed availability at [facility] patient has been seen at [facility] in the past and was contacted they do have a bed available. Dr. Phelps the hospitalist accepted after consultation over the phone with General surgery regarding cholecystitis that was found incidentally while the patient was here. He was quite tender on examination of the right upper quadrant. He has been afebrile in the department. Our general surgeon because he had been consulted and felt the patient needed to be transferred IV was going to have any intervention as we do not have cardiology available. Patient and were both aware of the plan and comfortable with the plan. When asked about code status patient is a little ambivalent. We do not have a POSLT form available. Please note we did recontact [facility] and update them that troponin was 0.2 up from 0.08 and asked if they would like to change bed placement or discuss with physician. Patient stable in department , no changes in symptoms. Discharge Plan Departure Patient Disposition: [facility] Clinical Impression: Acute cholecystitis, CHF (congestive heart failure) Discharge Date/Time: 11/13/18 14:15 Interventions: ED Discharge Assessment Last Done: 11/13/18 14:36 Prescriptions: No Action Disabled Parking Permit Qty: 1 RF: 0 omeprazole 20 mg capsule,delayed release(DR/EC) 20 mg PO BID Qty: 60 RF: 0 ferrous sulfate [Milena-Time] 325 mg (65 mg iron) tablet 325 mg PO DAILY Qty: 30 RF: 0 cholecalciferol (vitamin D3) [Vitamin D3] 2,000 UNIT tablet 1 tab PO BID Qty: 0 RF: 0 nitroglycerin [Nitrostat] 0.4 MG tablet, sublingual 0.4 mg Sublingual DAILY PRN (Reason: Chest Pain) Qty: 0 RF: 0 Glucose: Test Strips 1 str miscellaneous DIRECTED Qty: 0 RF: 0 metformin [Glucophage] 500 MG tablet 500 mg PO BID Qty: 180 RF: 3 hydrocodone-acetaminophen [[place]] 5-325 mg tablet 1 tab PO BIDP Qty: 50 RF: 0 multivitamin Tablet 1 tab PO DAILY RF: 0 acetaminophen [Acetaminophen Extra Strength] 500 mg Tablet 500 mg PO Q6H PRN (Reason: Pain (Scale Score 1-3)) RF: 0 docusate sodium 100 mg Capsule 100 mg PO DAILY RF: 0 calcium carbonate-vitamin D3 [Calcium 600 + D(3)] 600 mg calcium- 200 unit Capsule 1 tab PO DAILY RF: 0 fluticasone 16 GM spray,suspension 1 spray Intranasal BIDP PRN (Reason: allergies) RF: 0 timolol maleate 0.5 % drops 1 drp ophthalmic (eye) BID RF: 0 warfarin [Coumadin] 2.5 MG tablet 2.5 mg PO QPM RF: 0 simvastatin 40 MG tablet 40 mg PO DAILY RF: 0 Referrals: Dorothy Devine DO [Primary Care Provider] -
[2018-11-12 21:10] LABS: Add Manual Diff / Slide Review NO; Basophils Percent Auto 0.9 % (0-2); Eosinophils Percent Auto 0.5 % (2-4); Hematocrit 36.3 % (41-53); Hemoglobin 11.8 g/dL (13.5-17.5); Mean Corpuscular HGB Conc 32.6 % (30-36); Mean Corpuscular Volume 88.8 fL (80-100); Monocytes Percent Auto 3.6 % (3-14); Neutrophils Absolute Auto 7400 /uL (1500-7000); Platelet Count 220 X10^3/uL (150-400); Red Blood Cell Count 4.09 X10^6/uL (4.5-5.9); Red Cell Distribution Width 18.3 % (11.6-14.8); White Blood Cell Count 8.6 X10^3/uL (4.5-11.0)
[2018-11-12 21:16] LABS: INR 2.4 (0.9-1.3); Prothrombin Time 27.7 SECONDS (10.1-12.7)
[2018-11-12 21:19] LABS: PTT Partial Thromboplastin Tim 37 SECONDS (26.4-36.2)
[2018-11-12 21:21] LABS: Alanine Aminotransferase 24 IU/L (21-72); Albumin 4.3 g/dL (3.5-5.0); Alkaline Phosphatase 136 U/L (38-126); Aspartate Aminotransferase 69 IU/L (17-59); BUN Creatinine Ratio 22.7 (6-22); Bilirubin Total 2.8 mg/dL (0.2-1.3); Blood Urea Nitrogen 25 mg/dL (9-20); Calcium 9.8 mg/dL (8.4-10.2); Carbon Dioxide 24 mmol/L (22-32); Chloride 104 mmol/L (98-107); Creatine Kinase 53 U/L (55-170); Estimated Glomerular Filt Rate > 60.0 mL/min (>60); Globulin 4.3 g/dL (1.7-4.1); Glucose 112 mg/dL (80-110); HEMOLYSIS < 15 (0-50); Lipase 89 U/L (23-300); Sodium 143 mmol/L (137-145); Total Protein 8.6 g/dL (6.3-8.2)
[2018-11-12] MEDS: FUROSEMIDE 20 MG/2 ML VIAL IV (21:23)
[2018-11-12 21:33] LABS: Troponin I 0.086 ng/mL (0.01-0.034)
[2018-11-12 21:34] LABS: B Type Natriuretic Peptide 765 (<100)
--- NOTE | 2018-11-12 21:37 | PC.NURSE ---
Patient reports dark BM this morning but states he is on Iron. Hospitalized in last 3 months for ulcers treated at . Patient nauseated, position of comfort on right side.
--- NOTE | 2018-11-12 22:11 | DI.US.S_ITS ---
PROCEDURE: US ABDOMEN COMPLETE INDICATIONS: SEVERE RIGHT UPPER QUADRANT PAIN TECHNIQUE: Real-time scanning was performed of the abdominal and retroperitoneal organs, with image documentation. COMPARISON: None. FINDINGS: Liver: Liver is normal in size and homogeneous in echotexture. Gallbladder: The gallbladder wall measures 6.9 mm in diameter. Trace pericholecystic fluid. No sonographic Canseco's sign. Several gallstones are layered within the gallbladder fundus which measure up to 1 cm diameter. Biliary ducts: Intrahepatic bile ducts are non-dilated. Extrahepatic bile duct caliber measures 4.9 mm. Normal is 6-7 mm or less in diameter, or 10 mm or less post-cholecystectomy. Pancreas: The pancreas is not visualized due to bowel gas. Spleen: Spleen is normal in size and homogeneous in echotexture. Kidneys: Kidneys are normal in size and echotexture. Right kidney measures 11.3 cm long; left kidney is surgically absent. No hydronephrosis or nephrolithiasis. No solid masses. Aorta: The aorta is not visualized due to bowel gas. Iliacs: The iliacs are not visualized due to bowel gas. IVC: Intrahepatic inferior vena cava is patent. Miscellaneous: No free abdominal fluid. IMPRESSION: 1. Cholelithiasis and gallbladder wall thickening and trace pericholecystic fluid suspicious for acute cholecystitis. Of note, the patient did not endorse a sonographic Canseco's sign during the study, but this may be secondary to premedication. These findings are concordant with the overnight interpretation. Dictated by: Daphne Prince M.D. on 11/13/2018 at 8:30 Approved by: Daphne Prince M.D. on 11/13/2018 at 8:33
[2018-11-12] MEDS: FUROSEMIDE 40 MG/4 ML VIAL IV (22:24)
[2018-11-12] MEDS: ONDANSETRON 4 MG/2 ML INJ IV (22:32)
[2018-11-12 22:33] VITALS: BP 120/51; PULSE 78; RESP 19; O2SAT 97
[2018-11-12 22:34] VITALS: TEMP 36.7
[2018-11-12 22:36] LABS: Fractionated Inspired Oxygen 21; HCO3 ABG 18 mmol/L (22-26); Oxygen Saturation ABG 94 % (95-100); PCO2 ABG 27.1 mmHg (35-45); PO2 ABG 70 mmHg (80-100); TCO2 ABG 18 mmol/L (21-31); pH ABG 7.42 (7.35-7.45)
[2018-11-12 23:35] VITALS: BP 109/58; PULSE 70; RESP 22; O2SAT 93
[2018-11-13] VITALS (12 sets, daily range): BP systolic 102–120; BP diastolic 48–64; PULSE 70–78; RESP 16–23; O2SAT 95–99
[2018-11-13] MEDS: CEFOTETAN 1 GM/50 ML PIGGYBACK IV ×2 (01:00→12:37)
--- NOTE | 2018-11-13 08:30 | PC.NURSE ---
[facility] is full. So are [facility] and [facility]. Attempt to contact as need to call [facility] for beds and need to inform her of this
[2018-11-13] MEDS: FUROSEMIDE 40 MG/4 ML VIAL IV (11:42)
[2018-11-13 11:54] LABS: INR 2.8 (0.9-1.3); Prothrombin Time 33.6 SECONDS (10.1-12.7)
[2018-11-13] MEDS: ACETAMINOPHEN 325 MG TABLET 650 MG PO (13:18)
[2018-11-13] MEDS: ASPIRIN 81 MG TAB 324 MG PO (13:18)
[2018-11-14 13:31] LABS: Troponin I 0.266 ng/mL (0.01-0.034)
== END 2018-11-13 14:15 | disposition short-term general hospital (02) ==
PROVIDERS: Emergency Medicine; Emergency Provider Emergency Medicine; PCP Family Medicine
DX: K81.0 Acute cholecystitis (principal); I50.9 Heart failure, unspecified
CPT/HCPCS: 36591; 36600; 71045; 76700; 80053; 82550; 82805; 82962; 83690; 83880; 84484; 85025; 85610; 85730; 93005; 96365; 96366; 96375; 96376; 99285; J1940; J2405

== ENCOUNTER 2018-12-01 12:31 | Emergency (ER) | payer MEDICARE, OTHER, SELFPAY ==
[2018-12-01] VITALS (14 sets, daily range): BP systolic 81–104; BP diastolic 52–66; PULSE 70; RESP 14–20; TEMP 36.4; O2SAT 100
[2018-12-01 13:03] LABS: Add Manual Diff / Slide Review NO; Basophils Absolute Auto 100 /uL (0-100); Basophils Percent Auto 1.3 % (0-2); Eosinophils Absolute Auto 100 /uL (0-450); Eosinophils Percent Auto 1.1 % (2-4); Hematocrit 30.6 % (41-53); Hemoglobin 10.1 g/dL (13.5-17.5); Lymphocytes Absolute Auto 1100 /uL (1100-4500); Lymphocytes Percent Auto 11.3 % (25-40); Mean Corpuscular HGB Conc 32.9 % (30-36); Mean Corpuscular Hemoglobin 28.7 PG (26-34); Mean Corpuscular Volume 87.1 fL (80-100); Monocytes Absolute Auto 600 /uL (0-900); Monocytes Percent Auto 6.8 % (3-14); Neutrophils Absolute Auto 7400 /uL (1500-7000); Neutrophils Percent Auto 79.5 % (50-75); Platelet Count 307 X10^3/uL (150-400); Red Blood Cell Count 3.52 X10^6/uL (4.5-5.9); Red Cell Distribution Width 17.5 % (11.6-14.8); White Blood Cell Count 9.3 X10^3/uL (4.5-11.0)
[2018-12-01 13:12] LABS: PTT Partial Thromboplastin Tim 59 SECONDS (26.4-36.2)
--- NOTE | 2018-12-01 13:12 | PC.NURSE ---
ruq kristen t-tube draining dark bilious drainage in large amount. drains his tube [id number]. site looks asymptomatic. dressing clean dry and intact.
[2018-12-01 13:13] LABS: Alanine Aminotransferase 25 IU/L (21-72); Albumin 4.3 g/dL (3.5-5.0); Albumin Globulin Ratio 1.1 (1.0-2.8); Alkaline Phosphatase 92 U/L (38-126); Aspartate Aminotransferase 37 IU/L (17-59); Bilirubin Total 1.1 mg/dL (0.2-1.3); Blood Urea Nitrogen 40 mg/dL (9-20); Calcium 9.5 mg/dL (8.4-10.2); Carbon Dioxide 19 mmol/L (22-32); Chloride 103 mmol/L (98-107); Creatine Kinase 33 U/L (55-170); Estimated Glomerular Filt Rate 41.8 mL/min (>60); Globulin 3.9 g/dL (1.7-4.1); Glucose 91 mg/dL (80-110); HEMOLYSIS 22 (0-50); Lipase 318 U/L (23-300); Potassium 4.6 mmol/L (3.4-5.1); Sodium 137 mmol/L (137-145); Total Protein 8.2 g/dL (6.3-8.2)
[2018-12-01 13:14] LABS: Lactate (Lactic Acid) 2.6 mmol/L (0.7-2.1)
[2018-12-01 13:16] LABS: Prothrombin Time 117.2 SECONDS (10.1-12.7)
[2018-12-01 13:20] LABS: B Type Natriuretic Peptide 1220 (<100)
[2018-12-01 13:25] LABS: Troponin I 0.113 ng/mL (0.01-0.034)
[2018-12-01 13:30] LABS: INR 9.7 (0.9-1.3)
--- NOTE | 2018-12-01 14:10 | ED.GIBLEED ---
HPI - GI Bleed General Chief complaint: GI Bleed Stated complaint: Weak Fatique, possible blood in stool Time Seen by Provider: 12/01/18 12:49 Source: patient and family Mode of arrival: ambulatory Limitations: no limitations History of Present Illness HPI Narrative: Patient presents to the emergency department complaining of dark stools and an elevated INR. The patient has a very complicated recent past medical history, in that he was transferred to [facility] the beginning of this month for cholecystitis with subsequent drain placement. The patient was felt to be unstable for cholecystectomy, and so for this reason the drain was placed. While admitted, patient was found to have had an TN, and upon receiving angiogram it was found that the patient's prior to coronary artery bypass grafts had failed. As such, stents were placed. Patient was also found to have an upper GI bleed and had been having melena for some time, so received endoscopy while admitted. He was found having nonbleeding gastric ulcer, as well as a number of oozing duodenal ulcers, which were treated with epinephrine and clipped. 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 His stools were chief clinical dietitian in color, though he was on iron supplements. However, over the last couple of the days, the patient began to feel more tired again, and has been noted to have dark stools again. He has not had any bleeding from anywhere else. His gallbladder drain output has been a dark brown, but steadily decreasing in volume. Patient has not run any fevers recently. He has not had any cough or shortness of breath. He states he just feels generally tired ever since coming home from the hospital. This morning, the patient's checked his INR after the stools appear darker, and was found to be reading greater than 8 on her home monitor. They [facility] who told them to go to the walk-in clinic in and have it rechecked, and when they went there, it was found to be the same. They were sent here for further evaluation. The patient has been on Coumadin for years for a cardiac valve replacement, but after this past admission at [facility], had aspirin and Plavix added to his regimen. He states he has not had any recent dose changes in his Coumadin, and other than the aspirin and Plavix, he has not had any other new medications started. Related Data Home Medications Medication Instructions Recorded Confirmed cholecalciferol (vitamin D3) 1 tab PO BID #0 01/19/12 12/01/18 [Vitamin D3] nitroglycerin [Nitrostat] 0.4 mg SUBLINGUAL DAILY PRN #0 02/12/17 12/01/18 Glucose: Test Strips 1 str MISCELLANEOUS DIRECTED #0 01/12/18 12/01/18 acetaminophen [Acetaminophen Extra 500 mg PO Q6H PRN 07/05/18 12/01/18 Strength] calcium carbonate-vitamin D3 1 tab PO DAILY 07/05/18 12/01/18 [Calcium 600 + D(3)] docusate sodium 100 mg PO DAILY PRN 07/05/18 12/01/18 fluticasone 1 spray INTRANASAL BIDP PRN 07/05/18 12/01/18 multivitamin 1 tab PO DAILY 07/05/18 12/01/18 timolol maleate 1 drp OPHTHALMIC (EYE) BID 07/14/18 12/01/18 warfarin [Coumadin] 2.5 mg PO QPM 07/14/18 12/01/18 aspirin 81 mg PO DAILY 12/01/18 12/01/18 atorvastatin 40 mg PO DAILY 12/01/18 12/01/18 clopidogrel 75 mg PO DAILY 12/01/18 12/01/18 furosemide 40 mg PO DAILY 12/01/18 12/01/18 metoprolol tartrate 12.5 mg PO BID 12/01/18 12/01/18 ofloxacin 1 drp OPHTHALMIC (EYE) DIRECTED 12/01/18 12/01/18 Previous Rx's Medication Instructions Recorded metformin [Glucophage] 500 mg PO BID #180 tab 01/12/18 ferrous sulfate 325 mg (65 mg 325 mg PO DAILY #30 tab 07/21/18 iron) tablet omeprazole 20 mg capsule,delayed 20 mg PO BID #60 cap 07/21/18 release hydrocodone 5 mg-acetaminophen 325 1 tab PO BIDP #50 tab 08/20/18 mg tablet Disabled Parking Permit #1 ea 09/21/18 Allergies Allergy/AdvReac Type Severity Reaction Status Date / Time oxycodone [OXYCODONE] AdvReac Mild DIZZY, Verified 12/01/18 12:45 NAUSEA codeine [CODEINE] AdvReac Unknown NAUSEA Verified 12/01/18 12:45 hydromorphone [HYDROMORPHONE] AdvReac Unknown NAUSEA Verified 12/01/18 12:45 morphine [MORPHINE] AdvReac Unknown SPOUSE Verified 12/01/18 12:45 DENIED ALLERGY Review of Systems Constitutional Denies chills, Reports fatigue, Denies fever(s), Denies lethargy and Reports weakness Eyes Denies change in vision, Denies eye discharge, Denies irritation and Denies loss of vision ENT Ears, Nose, Mouth, and Throat: Denies change in voice, Denies neck pain and Denies sore throat Cardiovascular Denies chest pain, Denies irregular heart rhythm, Denies lightheadedness, Denies palpitations, Denies dyspnea, Denies dyspnea on exertion and Denies orthopnea Respiratory Denies cough, Denies dyspnea, Denies dyspnea on exertion and Denies wheezing Gastrointestinal Gastrointestinal: Denies abdominal pain, Reports melena, Denies change in bowel habits, Denies diarrhea, Denies nausea and Denies vomiting Genitourinary Denies hematuria, Denies flank pain, Denies urinary incontinence and Denies urinary urgency Musculoskeletal Denies neck pain Integumentary/Breasts Denies pruritus, Denies erythema, Denies rash and Denies wounds Neurologic Denies confusion, Denies loss of vision and Reports weakness Psychiatric Denies anxiety, Denies confusion, Denies depression, Denies homicidal ideation and Denies suicidal ideation Endocrine Reports fatigue and Denies palpitations Hematologic/Lymphatic Denies easy bruising Allergic/Immunologic Denies wheezing [facility] Medical History Anemia (Chronic Unknown) Arthritis (Chronic Unknown) BPH (benign prostatic hyperplasia) (Chronic Unknown) Bladder cancer (Chronic Unknown) Chronic kidney disease (CKD) (Chronic Unknown) Coronary artery disease (Chronic Unknown) Diabetes (Chronic 12/2005) GERD (gastroesophageal reflux disease) (Chronic Unknown) Hyperlipemia (Chronic Unknown) Hypertension (Chronic Unknown) Obstructive sleep apnea (Chronic Unknown) Osteopenia (Chronic 2008) Osteoporosis (Chronic Unknown) Renal cell cancer (Chronic Unknown) Glaucoma (Resolved Unknown) S/p nephrectomy (Resolved 02/2017) Surgical History History of PTCA (Resolved 1986) History of ear surgery (Resolved 12/2005) History of surgical procedure on eye proper using laser (Resolved 1997) History of tonsillectomy and adenoidectomy (Resolved 10/1944) Hx of angioplasty (Resolved 11/1998) Hx of appendectomy (Resolved ~03/1958) Hx of cataract extraction (Resolved ~2001) Hx of heart bypass surgery (Resolved 08/1987) Hx of heart bypass surgery (Resolved 05/1999) Hx of shoulder surgery (Resolved 11/2004) Hx of transurethral resection of prostate (Resolved 1994) History of cardiac radiofrequency ablation (RFA) History of hip replacement History of spinal fusion Presence of cardiac pacemaker Status post knee surgery Status post laminectomy Family History Father No problems noted. Mother No problems noted. Sister No problems noted. Social History household members: spouse Smoking Status: Former smoker Exam Initial Vital Signs Initial Vital Signs: Vital Signs Temperature 97.6 F 12/01/18 12:36 Pulse Rate 70 12/01/18 12:36 Respiratory Rate 16 12/01/18 12:36 Blood Pressure 95/56 L 12/01/18 12:36 Pulse Oximetry 100 12/01/18 12:36 Const General: cooperative and well developed Nutritional Appearance: well nourished Orientation: alert, awake and not confused [facility] [place] Head: normocephalic and atraumatic Ears: external ears normal and TM's normal bilaterally Nose: external nose normal and No nasal discharge Face and sinus: sinuses nontender, face symmetric, no sinus tenderness and No dry mucous membranes Mouth: oral mucosae normal and moist mucous membranes Teeth and gingiva: dentition normal Throat: tonsils normal and uvula midline Eyes General: appearance normal, both eyes and all related structures Eyelids: eyelids normal Conjunctivae: conjunctivae normal Sclera: sclerae normal Pupils: PERRL EOM: EOM intact bilaterally Neck Neck: normal visual inspection, trachea midline, No lymphadenopathy, No midline deformity and No JVD Lymphatic: No lymphedema Chest Chest: normal inspection of the chest Resp Effort & Inspection: normal respiratory effort, able to speak in complete sentences, no respiratory distress and no use of accessory muscles Auscultation: clear to auscultation bilaterally, no rales, no rhonchi and no wheezes Cardio Rate: regular rate Rhythm: regular rhythm Heart Sounds: no click, no gallops, no murmurs and no rubs Pulses: normal peripheral pulses GI Inspection: non-distended Palpation: soft, no hepatosplenomegaly, No guarding, No pulsatile mass and No tender Rectal Exam: visual inspection normal, normal sphincter tone and heme positive stool (Dark brown, large amount of stool, moderate positivity) Other: Patient has a drain in place in his right upper quadrant. The dressing is clean dry and intact. Minimal tenderness is noted around the site. There is approximately 200 cc of dark brown, but non cloudy fluid in his bag. Back/Spine/Pelvis Back: No CVA tenderness Cervical Spine: cervical ROM normal and No pain with cervical ROM Thoracic/Lumbar Spine: thoracic and lumbar spine normal to inspection Skin General: no rashes or lesions noted, No jaundice and No petechiae Neuro General: alert, awake (Answers questions appropriately), gait normal and no focal motor deficits Speech: speech normal Extrem General: full ROM, no clubbing, cyanosis or edema, no pedal edema and no calf tenderness Psych Appearance: well kempt Mental Status: mental status grossly normal Attitude: cooperative Thought Content: normal and suicidality Judgment: judgment good Course Course Narrative: Patient was hemodynamically stable in the emergency department, but I was concerned about his high INR readings and his guaiac positivity. As such, he was worked up with labs, and found to have an INR of 9.7. Patient was given 5 mg of vitamin K IV. I felt the patient needed admission for observation and repeat INR checks, but given the patient's complexity, I felt he should go back to [facility] where he had recently been admitted. I spoke with Dr. Latif, who agreed to accept the patient in transfer. Patient were agreeable to this plan. The patient remained stable throughout his stay in the emergency department. His repeat INR was found to be 4.6. Orders Ordered: ED Orders 12/01/18 12:45 EKG-12 Lead Stat 12/01/18 12:50 BNP [B Type Natriuretic Peptide] Stat Complete Blood Count AUTO DIFF Stat Comprehensive Metabolic Panel Stat Lactate (Lactic Acid) Stat Lipase Stat Partial Thromboplastin Time Stat Prothrombin Time INR Stat Troponin & CK Cardiac Panel Stat Type and Screen Stat 12/01/18 17:17 Hemoglobin and Hematocrit Stat Lactate 4HR (Lactic Acid Rflx) Stat Prothrombin Time INR Stat Trop I [Troponin I] Stat Discontinued Medications Sodium Chloride (Normal Saline 0.9%) 1,000 mls @ 1,000 mls/hr IV BOLUS ONE Stop: 12/01/18 13:50 Last Admin: 12/01/18 14:21 Dose: 200 mls/hr Phytonadione 5 mg/ Dextrose 50.5 mls @ 101 mls/hr IV NOW ONE Stop: 12/01/18 14:11 Last Infusion: 12/01/18 15:29 Dose: 0 mls/hr Admin: 12/01/18 14:30 Dose: 101 mls/hr Lidocaine HCl (Urojet) 5 ml TOP NOW ONE Stop: 12/01/18 14:19 Last Admin: 12/01/18 16:28 Dose: Vital Signs - 8 hr 12/01/18 12:36 12/01/18 13:05 12/01/18 13:30 Temperature 97.6 F Pulse Rate 70 70 70 Respiratory Rate 16 17 17 Blood Pressure 95/56 L Blood Pressure [Left Arm] 104/59 L 94/54 L Pulse Oximetry 100 100 100 12/01/18 14:00 12/01/18 14:30 12/01/18 15:00 Temperature Pulse Rate 70 70 70 Respiratory Rate 20 20 15 Blood Pressure Blood Pressure [Left Arm] 81/66 L 103/56 L 101/57 L Pulse Oximetry 100 100 100 12/01/18 15:31 12/01/18 16:00 12/01/18 16:28 Temperature Pulse Rate 70 70 70 Respiratory Rate 20 14 18 Blood Pressure Blood Pressure [Left Arm] 104/60 98/55 L 102/54 L Pulse Oximetry 100 100 100 12/01/18 17:02 12/01/18 18:00 Temperature Pulse Rate 70 70 Respiratory Rate 18 19 Blood Pressure Blood Pressure [Left Arm] 92/53 L 97/53 L Pulse Oximetry 100 MDM - GI Bleed Medical Records Attestation: I reviewed the patient's medical records. Records from [facility] were also reviewed. Lab Data Attestation: I reviewed the patient's lab results. Result diagrams: 12/01/18 17:17 12/01/18 12:50 Lab Results 12/01/18 12/01/18 12/01/18 Range/Units 12:50 12:50 12:50 WBC 9.3 (4.5-11.0) X10^3/uL RBC 3.52 L (4.5-5.9) X10^6/uL Hgb 10.1 L (13.5-17.5) g/dL Hct 30.6 L (41-53) % MCV 87.1 (80-100) fL MCH 28.7 (26-34) PG MCHC 32.9 (30-36) % RDW 17.5 H (11.6-14.8) % Plt Count 307 (150-400) X10^3/uL Neut % (Auto) 79.5 H (50-75) % Lymph % (Auto) 11.3 L (25-40) % [place] % (Auto) 6.8 (3-14) % Eos % (Auto) 1.1 L (2-4) % Baso % (Auto) 1.3 (0-2) % Neut # (Auto) 7400 H (2659-2321) /uL Lymph # (Auto) 1100 (4345-3291) /uL [place] # (Auto) 600 (0-900) /uL Eos # (Auto) 100 (0-450) /uL Baso # (Auto) 100 (0-100) /uL PT 117.2 H (10.1-12.7) SECONDS INR 9.7 H* (0.9-1.3) APTT 59 H D (26.4-36.2) SECONDS Sodium 137 (137-145) mmol/L Potassium 4.6 (3.4-5.1) mmol/L Chloride 103 (98-107) mmol/L Carbon Dioxide 19 L (22-32) mmol/L BUN 40 H (9-20) mg/dL Creatinine 1.60 H (0.66-1.25) mg/dL Estimated GFR 41.8 L (>60) mL/min BUN/Creatinine Ratio 25.0 H (6-22) Glucose 91 (80-110) mg/dL Lactate (0.7-2.1) mmol/L Calcium 9.5 (8.4-10.2) mg/dL Total Bilirubin 1.1 (0.2-1.3) mg/dL AST 37 (17-59) IU/L ALT 25 (21-72) IU/L Alkaline Phosphatase 92 (38-126) U/L Total Creatine Kinase (55-170) U/L CK-MB (CK-2) CK-MB (CK-2) Rel Index Troponin I (0.01-0.034) ng/mL B-Natriuretic Peptide (<100) Total Protein 8.2 (6.3-8.2) g/dL Albumin 4.3 (3.5-5.0) g/dL Globulin 3.9 (1.7-4.1) g/dL Albumin/Globulin Ratio 1.1 (1.0-2.8) Lipase 318 H (23-300) U/L Blood Type Antibody Screen 12/01/18 12/01/18 12/01/18 Range/Units 12:50 12:50 12:50 WBC (4.5-11.0) X10^3/uL RBC (4.5-5.9) X10^6/uL Hgb (13.5-17.5) g/dL Hct (41-53) % MCV (80-100) fL MCH (26-34) PG MCHC (30-36) % RDW (11.6-14.8) % Plt Count (150-400) X10^3/uL Neut % (Auto) (50-75) % Lymph % (Auto) (25-40) % [place] % (Auto) (3-14) % Eos % (Auto) (2-4) % Baso % (Auto) (0-2) % Neut # (Auto) (6317-8477) /uL Lymph # (Auto) (4138-9969) /uL [place] # (Auto) (0-900) /uL Eos # (Auto) (0-450) /uL Baso # (Auto) (0-100) /uL PT (10.1-12.7) SECONDS INR (0.9-1.3) APTT (26.4-36.2) SECONDS Sodium (137-145) mmol/L Potassium (3.4-5.1) mmol/L Chloride (98-107) mmol/L Carbon Dioxide (22-32) mmol/L BUN (9-20) mg/dL Creatinine (0.66-1.25) mg/dL Estimated GFR (>60) mL/min BUN/Creatinine Ratio (6-22) Glucose (80-110) mg/dL Lactate 2.6 H (0.7-2.1) mmol/L Calcium (8.4-10.2) mg/dL Total Bilirubin (0.2-1.3) mg/dL AST (17-59) IU/L ALT (21-72) IU/L Alkaline Phosphatase (38-126) U/L Total Creatine Kinase 33 L (55-170) U/L CK-MB (CK-2) TNP CK-MB (CK-2) Rel Index TNP Troponin I 0.113 H (0.01-0.034) ng/mL B-Natriuretic Peptide (<100) Total Protein (6.3-8.2) g/dL Albumin (3.5-5.0) g/dL Globulin (1.7-4.1) g/dL Albumin/Globulin Ratio (1.0-2.8) Lipase (23-300) U/L Blood Type A Negative Antibody Screen Negative 12/01/18 12/01/18 12/01/18 Range/Units 12:50 17:17 17:17 WBC (4.5-11.0) X10^3/uL RBC (4.5-5.9) X10^6/uL Hgb 9.2 L (13.5-17.5) g/dL Hct 27.9 L (41-53) % MCV (80-100) fL MCH (26-34) PG MCHC (30-36) % RDW (11.6-14.8) % Plt Count (150-400) X10^3/uL Neut % (Auto) (50-75) % Lymph % (Auto) (25-40) % [place] % (Auto) (3-14) % Eos % (Auto) (2-4) % Baso % (Auto) (0-2) % Neut # (Auto) (3719-4357) /uL Lymph # (Auto) (6686-6058) /uL [place] # (Auto) (0-900) /uL Eos # (Auto) (0-450) /uL Baso # (Auto) (0-100) /uL PT (10.1-12.7) SECONDS INR (0.9-1.3) APTT (26.4-36.2) SECONDS Sodium (137-145) mmol/L Potassium (3.4-5.1) mmol/L Chloride (98-107) mmol/L Carbon Dioxide (22-32) mmol/L BUN (9-20) mg/dL Creatinine (0.66-1.25) mg/dL Estimated GFR (>60) mL/min BUN/Creatinine Ratio (6-22) Glucose (80-110) mg/dL Lactate 2.5 H (0.7-2.1) mmol/L Calcium (8.4-10.2) mg/dL Total Bilirubin (0.2-1.3) mg/dL AST (17-59) IU/L ALT (21-72) IU/L Alkaline Phosphatase (38-126) U/L Total Creatine Kinase (55-170) U/L CK-MB (CK-2) CK-MB (CK-2) Rel Index Troponin I (0.01-0.034) ng/mL B-Natriuretic Peptide 1220 H (<100) Total Protein (6.3-8.2) g/dL Albumin (3.5-5.0) g/dL Globulin (1.7-4.1) g/dL Albumin/Globulin Ratio (1.0-2.8) Lipase (23-300) U/L Blood Type Antibody Screen 12/01/18 12/01/18 Range/Units 17:17 17:17 WBC (4.5-11.0) X10^3/uL RBC (4.5-5.9) X10^6/uL Hgb (13.5-17.5) g/dL Hct (41-53) % MCV (80-100) fL MCH (26-34) PG MCHC (30-36) % RDW (11.6-14.8) % Plt Count (150-400) X10^3/uL Neut % (Auto) (50-75) % Lymph % (Auto) (25-40) % [place] % (Auto) (3-14) % Eos % (Auto) (2-4) % Baso % (Auto) (0-2) % Neut # (Auto) (4055-0878) /uL Lymph # (Auto) (7052-0930) /uL [place] # (Auto) (0-900) /uL Eos # (Auto) (0-450) /uL Baso # (Auto) (0-100) /uL PT 54.9 H D (10.1-12.7) SECONDS INR 4.6 H* (0.9-1.3) APTT (26.4-36.2) SECONDS Sodium (137-145) mmol/L Potassium (3.4-5.1) mmol/L Chloride (98-107) mmol/L Carbon Dioxide (22-32) mmol/L BUN (9-20) mg/dL Creatinine (0.66-1.25) mg/dL Estimated GFR (>60) mL/min BUN/Creatinine Ratio (6-22) Glucose (80-110) mg/dL Lactate (0.7-2.1) mmol/L Calcium (8.4-10.2) mg/dL Total Bilirubin (0.2-1.3) mg/dL AST (17-59) IU/L ALT (21-72) IU/L Alkaline Phosphatase (38-126) U/L Total Creatine Kinase (55-170) U/L CK-MB (CK-2) CK-MB (CK-2) Rel Index Troponin I 0.135 H* (0.01-0.034) ng/mL B-Natriuretic Peptide (<100) Total Protein (6.3-8.2) g/dL Albumin (3.5-5.0) g/dL Globulin (1.7-4.1) g/dL Albumin/Globulin Ratio (1.0-2.8) Lipase (23-300) U/L Blood Type Antibody Screen Point of Care Testing Stool Occult Blood Positive Urine Dip Bedside Urine Glucose Negative Bedside Urine Bilirubin - Negative Bedside Urine Ketone - Negative Urine Specific [place] 1.020 Bedside Urine Occult Blood - Negative Bedside Urine pH 5.5 Bedside Urine Protein - Negative Bedside Urine Urobilinogen - Negative Bedside Urine Nitrite - Negative Bedside Urine Leukocytes - Negative Esterase Discharge Plan Departure Interventions: ED Discharge Assessment Last Done: 12/01/18 15:15 Prescriptions: No Action Disabled Parking Permit Qty: 1 RF: 0 omeprazole 20 mg capsule,delayed release(DR/EC) 20 mg PO BID Qty: 60 RF: 0 ferrous sulfate [Milena-Time] 325 mg (65 mg iron) tablet 325 mg PO DAILY Qty: 30 RF: 0 cholecalciferol (vitamin D3) [Vitamin D3] 2,000 UNIT tablet 1 tab PO BID Qty: 0 RF: 0 nitroglycerin [Nitrostat] 0.4 MG tablet, sublingual 0.4 mg Sublingual DAILY PRN (Reason: Chest Pain) Qty: 0 RF: 0 Glucose: Test Strips 1 str miscellaneous DIRECTED Qty: 0 RF: 0 metformin [Glucophage] 500 MG tablet 500 mg PO BID Qty: 180 RF: 3 hydrocodone-acetaminophen [[place]] 5-325 mg tablet 1 tab PO BIDP Qty: 50 RF: 0 furosemide 40 mg tablet 40 mg PO DAILY RF: 0 atorvastatin 40 mg tablet 40 mg PO DAILY RF: 0 ofloxacin 0.3 % drops 1 drp ophthalmic (eye) DIRECTED RF: 0 clopidogrel 75 mg tablet 75 mg PO DAILY RF: 0 metoprolol tartrate 25 mg tablet 12.5 mg PO BID RF: 0 aspirin 81 mg Tablet,Delayed Release (Dr/Ec) 81 mg PO DAILY RF: 0 multivitamin Tablet 1 tab PO DAILY RF: 0 acetaminophen [Acetaminophen Extra Strength] 500 mg Tablet 500 mg PO Q6H PRN (Reason: Pain (Scale Score 1-3)) RF: 0 docusate sodium 100 mg Capsule 100 mg PO DAILY PRN (Reason: Constipation) RF: 0 calcium carbonate-vitamin D3 [Calcium 600 + D(3)] 600 mg calcium- 200 unit Capsule 1 tab PO DAILY RF: 0 fluticasone 16 GM spray,suspension 1 spray Intranasal BIDP PRN (Reason: allergies) RF: 0 timolol maleate 0.5 % drops 1 drp ophthalmic (eye) BID RF: 0 warfarin [Coumadin] 2.5 MG tablet 2.5 mg PO QPM RF: 0
--- NOTE | 2018-12-01 14:19 | ED_ITS ---
HPI - GI Bleed General Chief complaint: GI Bleed Stated complaint: Weak Fatique, possible blood in stool Time Seen by Provider: 12/01/18 12:49 Source: patient and family Mode of arrival: ambulatory Limitations: no limitations History of Present Illness HPI Narrative: Patient presents to the emergency department complaining of dark stools and an elevated INR. The patient has a very complicated recent past medical history, in that he was transferred to [facility] the beginning of this month for cholecystitis with subsequent drain placement. The patient was felt to be unstable for cholecystectomy, and so for this reason the drain was placed. While admitted, patient was found to have had an PA, and upon receiving angiogram it was found that the patient's prior to coronary artery bypass grafts had failed. As such, stents were placed. Patient was also found to have an upper GI bleed and had been having melena for some time, so received endoscopy while admitted. He was found having nonbleeding gastric ulcer, as well as a number of oozing duodenal ulcers, which were treated with epinephrine and clipped. 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 However, over the last couple of the days, the patient began to feel more tired again, and has been noted to have dark stools again. He has not had any bleeding from anywhere else. His gallbladder drain output has been a dark brown, but steadily decreasing in volume. Patient has not run any fevers recently. He has not had any cough or shortness of breath. He states he just feels generally tired ever since coming home from the hospital. This morning, the patient's checked his INR after the stools appear darker, and was found to be reading greater than 8 on her home monitor. They [facility] who told them to go to the walk-in clinic in and have it rechecked, and when they went there, it was found to be the same. They were sent here for further evaluation. 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 He states he has not had any recent dose changes in his Coumadin, and other than the aspirin and Plavix, he has not had any other new medications started. Related Data Home Medications Medication Instructions Recorded Confirmed cholecalciferol (vitamin D3) 1 tab PO BID #0 01/19/12 12/01/18 [Vitamin D3] nitroglycerin [Nitrostat] 0.4 mg SUBLINGUAL DAILY PRN #0 02/12/17 12/01/18 Glucose: Test Strips 1 str MISCELLANEOUS DIRECTED #0 01/12/18 12/01/18 acetaminophen [Acetaminophen Extra 500 mg PO Q6H PRN 07/05/18 12/01/18 Strength] calcium carbonate-vitamin D3 1 tab PO DAILY 07/05/18 12/01/18 [Calcium 600 + D(3)] docusate sodium 100 mg PO DAILY PRN 07/05/18 12/01/18 fluticasone 1 spray INTRANASAL BIDP PRN 07/05/18 12/01/18 multivitamin 1 tab PO DAILY 07/05/18 12/01/18 timolol maleate 1 drp OPHTHALMIC (EYE) BID 07/14/18 12/01/18 warfarin [Coumadin] 2.5 mg PO QPM 07/14/18 12/01/18 aspirin 81 mg PO DAILY 12/01/18 12/01/18 atorvastatin 40 mg PO DAILY 12/01/18 12/01/18 clopidogrel 75 mg PO DAILY 12/01/18 12/01/18 furosemide 40 mg PO DAILY 12/01/18 12/01/18 metoprolol tartrate 12.5 mg PO BID 12/01/18 12/01/18 ofloxacin 1 drp OPHTHALMIC (EYE) DIRECTED 12/01/18 12/01/18 Previous Rx's Medication Instructions Recorded metformin [Glucophage] 500 mg PO BID #180 tab 01/12/18 ferrous sulfate 325 mg (65 mg 325 mg PO DAILY #30 tab 07/21/18 iron) tablet omeprazole 20 mg capsule,delayed 20 mg PO BID #60 cap 07/21/18 release hydrocodone 5 mg-acetaminophen 325 1 tab PO BIDP #50 tab 08/20/18 mg tablet Disabled Parking Permit #1 ea 09/21/18 Allergies Allergy/AdvReac Type Severity Reaction Status Date / Time oxycodone [OXYCODONE] AdvReac Mild DIZZY, Verified 12/01/18 12:45 NAUSEA codeine [CODEINE] AdvReac Unknown NAUSEA Verified 12/01/18 12:45 hydromorphone [HYDROMORPHONE] AdvReac Unknown NAUSEA Verified 12/01/18 12:45 morphine [MORPHINE] AdvReac Unknown SPOUSE Verified 12/01/18 12:45 DENIED ALLERGY Review of Systems Constitutional Denies chills, Reports fatigue, Denies fever(s), Denies lethargy and Reports weakness Eyes Denies change in vision, Denies eye discharge, Denies irritation and Denies loss of vision ENT Ears, Nose, Mouth, and Throat: Denies change in voice, Denies neck pain and Denies sore throat Cardiovascular Denies chest pain, Denies irregular heart rhythm, Denies lightheadedness, Denies palpitations, Denies dyspnea, Denies dyspnea on exertion and Denies orthopnea Respiratory Denies cough, Denies dyspnea, Denies dyspnea on exertion and Denies wheezing Gastrointestinal Gastrointestinal: Denies abdominal pain, Reports melena, Denies change in bowel habits, Denies diarrhea, Denies nausea and Denies vomiting Genitourinary Denies hematuria, Denies flank pain, Denies urinary incontinence and Denies urinary urgency Musculoskeletal Denies neck pain Integumentary/Breasts Denies pruritus, Denies erythema, Denies rash and Denies wounds Neurologic Denies confusion, Denies loss of vision and Reports weakness Psychiatric Denies anxiety, Denies confusion, Denies depression, Denies homicidal ideation and Denies suicidal ideation Endocrine Reports fatigue and Denies palpitations Hematologic/Lymphatic Denies easy bruising Allergic/Immunologic Denies wheezing [facility] Medical History Anemia (Chronic Unknown) Arthritis (Chronic Unknown) BPH (benign prostatic hyperplasia) (Chronic Unknown) Bladder cancer (Chronic Unknown) Chronic kidney disease (CKD) (Chronic Unknown) Coronary artery disease (Chronic Unknown) Diabetes (Chronic 12/2005) GERD (gastroesophageal reflux disease) (Chronic Unknown) Hyperlipemia (Chronic Unknown) Hypertension (Chronic Unknown) Obstructive sleep apnea (Chronic Unknown) Osteopenia (Chronic 2008) Osteoporosis (Chronic Unknown) Renal cell cancer (Chronic Unknown) Glaucoma (Resolved Unknown) S/p nephrectomy (Resolved 02/2017) Surgical History History of PTCA (Resolved 1986) History of ear surgery (Resolved 12/2005) History of surgical procedure on eye proper using laser (Resolved 1997) History of tonsillectomy and adenoidectomy (Resolved 10/1944) Hx of angioplasty (Resolved 11/1998) Hx of appendectomy (Resolved ~03/1958) Hx of cataract extraction (Resolved ~2001) Hx of heart bypass surgery (Resolved 08/1987) Hx of heart bypass surgery (Resolved 05/1999) Hx of shoulder surgery (Resolved 11/2004) Hx of transurethral resection of prostate (Resolved 1994) History of cardiac radiofrequency ablation (RFA) History of hip replacement History of spinal fusion Presence of cardiac pacemaker Status post knee surgery Status post laminectomy Family History Father No problems noted. Mother No problems noted. Sister No problems noted. Social History household members: spouse Smoking Status: Former smoker Exam Initial Vital Signs Initial Vital Signs: Vital Signs Temperature 97.6 F 12/01/18 12:36 Pulse Rate 70 12/01/18 12:36 Respiratory Rate 16 12/01/18 12:36 Blood Pressure 95/56 L 12/01/18 12:36 Pulse Oximetry 100 12/01/18 12:36 Const General: cooperative and well developed Nutritional Appearance: well nourished Orientation: alert, awake and not confused [facility] Head: normocephalic and atraumatic Ears: external ears normal and TM's normal bilaterally Nose: external nose normal and No nasal discharge Face and sinus: sinuses nontender, face symmetric, no sinus tenderness and No dry mucous membranes Mouth: oral mucosae normal and moist mucous membranes Teeth and gingiva: dentition normal Throat: tonsils normal and uvula midline Eyes General: appearance normal, both eyes and all related structures Eyelids: eyelids normal Conjunctivae: conjunctivae normal Sclera: sclerae normal Pupils: PERRL EOM: EOM intact bilaterally Neck Neck: normal visual inspection, trachea midline, No lymphadenopathy, No midline deformity and No JVD Lymphatic: No lymphedema Chest Chest: normal inspection of the chest Resp Effort & Inspection: normal respiratory effort, able to speak in complete sentences, no respiratory distress and no use of accessory muscles Auscultation: clear to auscultation bilaterally, no rales, no rhonchi and no wheezes Cardio Rate: regular rate Rhythm: regular rhythm Heart Sounds: no click, no gallops, no murmurs and no rubs Pulses: normal peripheral pulses GI Inspection: non-distended Palpation: soft, no hepatosplenomegaly, No guarding, No pulsatile mass and No tender Rectal Exam: visual inspection normal, normal sphincter tone and heme positive stool (Dark brown, large amount of stool, moderate positivity) Other: Patient has a drain in place in his right upper quadrant. The dressing is clean dry and intact. Minimal tenderness is noted around the site. There is approximately 200 cc of dark brown, but non cloudy fluid in his bag. Back/Spine/Pelvis Back: No CVA tenderness Cervical Spine: cervical ROM normal and No pain with cervical ROM Thoracic/Lumbar Spine: thoracic and lumbar spine normal to inspection Skin General: no rashes or lesions noted, No jaundice and No petechiae Neuro General: alert, awake (Answers questions appropriately), gait normal and no focal motor deficits Speech: speech normal Extrem General: full ROM, no clubbing, cyanosis or edema, no pedal edema and no calf tenderness Psych Appearance: well kempt Mental Status: mental status grossly normal Attitude: cooperative Thought Content: normal and suicidality Judgment: judgment good Course Course Narrative: Patient was hemodynamically stable in the emergency department , but I was concerned about his high INR readings and his guaiac positivity. As such, he was worked up with labs, and found to have an INR of 9.7. Patient was given 5 mg of vitamin K IV. I felt the patient needed admission for observation and repeat INR checks, but given the patient's complexity, I felt he should go back to [facility] where he had recently been admitted. I spoke with Dr. Latif, who agreed to accept the patient in transfer. Patient were agreeable to this plan. The patient remained stable throughout his stay in the emergency department. His repeat INR was found to be 4.6. Orders Ordered: ED Orders 12/01/18 12:45 EKG-12 Lead Stat 12/01/18 12:50 BNP [B Type Natriuretic Peptide] Stat Complete Blood Count AUTO DIFF Stat Comprehensive Metabolic Panel Stat Lactate (Lactic Acid) Stat Lipase Stat Partial Thromboplastin Time Stat Prothrombin Time INR Stat Troponin & CK Cardiac Panel Stat Type and Screen Stat 12/01/18 17:17 Hemoglobin and Hematocrit Stat Lactate 4HR (Lactic Acid Rflx) Stat Prothrombin Time INR Stat Trop I [Troponin I] Stat Discontinued Medications Sodium Chloride (Normal Saline 0.9%) 1,000 mls @ 1,000 mls/hr IV BOLUS ONE Stop: 12/01/18 13:50 Last Admin: 12/01/18 14:21 Dose: 200 mls/hr Phytonadione 5 mg/ Dextrose 50.5 mls @ 101 mls/hr IV NOW ONE Stop: 12/01/18 14:11 Last Infusion: 12/01/18 15:29 Dose: 0 mls/hr Admin: 12/01/18 14:30 Dose: 101 mls/hr Lidocaine HCl (Urojet) 5 ml TOP NOW ONE Stop: 12/01/18 14:19 Last Admin: 12/01/18 16:28 Dose: Vital Signs - 8 hr 12/01/18 12:36 12/01/18 13:05 12/01/18 13:30 Temperature 97.6 F Pulse Rate 70 70 70 Respiratory Rate 16 17 17 Blood Pressure 95/56 L Blood Pressure [Left Arm] 104/59 L 94/54 L Pulse Oximetry 100 100 100 12/01/18 14:00 12/01/18 14:30 12/01/18 15:00 Temperature Pulse Rate 70 70 70 Respiratory Rate 20 20 15 Blood Pressure Blood Pressure [Left Arm] 81/66 L 103/56 L 101/57 L Pulse Oximetry 100 100 100 12/01/18 15:31 12/01/18 16:00 12/01/18 16:28 Temperature Pulse Rate 70 70 70 Respiratory Rate 20 14 18 Blood Pressure Blood Pressure [Left Arm] 104/60 98/55 L 102/54 L Pulse Oximetry 100 100 100 12/01/18 17:02 12/01/18 18:00 Temperature Pulse Rate 70 70 Respiratory Rate 18 19 Blood Pressure Blood Pressure [Left Arm] 92/53 L 97/53 L Pulse Oximetry 100 MDM - GI Bleed Medical Records Attestation: I reviewed the patient's medical records. Records from [facility] were also reviewed. Lab Data Attestation: I reviewed the patient's lab results. Result diagrams: 12/01/18 17:17 12/01/18 12:50 Lab Results 12/01/18 12/01/18 12/01/18 Range/Units 12:50 12:50 12:50 WBC 9.3 (4.5-11.0) X10^3/uL RBC 3.52 L (4.5-5.9) X10^6/uL Hgb 10.1 L (13.5-17.5) g/dL Hct 30.6 L (41-53) % MCV 87.1 (80-100) fL MCH 28.7 (26-34) PG MCHC 32.9 (30-36) % RDW 17.5 H (11.6-14.8) % Plt Count 307 (150-400) X10^3/uL Neut % (Auto) 79.5 H (50-75) % Lymph % (Auto) 11.3 L (25-40) % Gaston % (Auto) 6.8 (3-14) % Eos % (Auto) 1.1 L (2-4) % Baso % (Auto) 1.3 (0-2) % Neut # (Auto) 7400 H (1807-1889) /uL Lymph # (Auto) 1100 (8221-3075) /uL Gaston # (Auto) 600 (0-900) /uL Eos # (Auto) 100 (0-450) /uL Baso # (Auto) 100 (0-100) /uL PT 117.2 H (10.1-12.7) SECONDS INR 9.7 H* (0.9-1.3) APTT 59 H D (26.4-36.2) SECONDS Sodium 137 (137-145) mmol/L Potassium 4.6 (3.4-5.1) mmol/L Chloride 103 (98-107) mmol/L Carbon Dioxide 19 L (22-32) mmol/L BUN 40 H (9-20) mg/dL Creatinine 1.60 H (0.66-1.25) mg/dL Estimated GFR 41.8 L (>60) mL/min BUN/Creatinine Ratio 25.0 H (6-22) Glucose 91 (80-110) mg/dL Lactate (0.7-2.1) mmol/L Calcium 9.5 (8.4-10.2) mg/dL Total Bilirubin 1.1 (0.2-1.3) mg/dL AST 37 (17-59) IU/L ALT 25 (21-72) IU/L Alkaline Phosphatase 92 (38-126) U/L Total Creatine Kinase (55-170) U/L CK-MB (CK-2) CK-MB (CK-2) Rel Index Troponin I (0.01-0.034) ng/mL B-Natriuretic Peptide (<100) Total Protein 8.2 (6.3-8.2) g/dL Albumin 4.3 (3.5-5.0) g/dL Globulin 3.9 (1.7-4.1) g/dL Albumin/Globulin Ratio 1.1 (1.0-2.8) Lipase 318 H (23-300) U/L Blood Type Antibody Screen 12/01/18 12/01/18 12/01/18 Range/Units 12:50 12:50 12:50 WBC (4.5-11.0) X10^3/uL RBC (4.5-5.9) X10^6/uL Hgb (13.5-17.5) g/dL Hct (41-53) % MCV (80-100) fL MCH (26-34) PG MCHC (30-36) % RDW (11.6-14.8) % Plt Count (150-400) X10^3/uL Neut % (Auto) (50-75) % Lymph % (Auto) (25-40) % Gaston % (Auto) (3-14) % Eos % (Auto) (2-4) % Baso % (Auto) (0-2) % Neut # (Auto) (1041-9382) /uL Lymph # (Auto) (5941-9043) /uL Gaston # (Auto) (0-900) /uL Eos # (Auto) (0-450) /uL Baso # (Auto) (0-100) /uL PT (10.1-12.7) SECONDS INR (0.9-1.3) APTT (26.4-36.2) SECONDS Sodium (137-145) mmol/L Potassium (3.4-5.1) mmol/L Chloride (98-107) mmol/L Carbon Dioxide (22-32) mmol/L BUN (9-20) mg/dL Creatinine (0.66-1.25) mg/dL Estimated GFR (>60) mL/min BUN/Creatinine Ratio (6-22) Glucose (80-110) mg/dL Lactate 2.6 H (0.7-2.1) mmol/L Calcium (8.4-10.2) mg/dL Total Bilirubin (0.2-1.3) mg/dL AST (17-59) IU/L ALT (21-72) IU/L Alkaline Phosphatase (38-126) U/L Total Creatine Kinase 33 L (55-170) U/L CK-MB (CK-2) TNP CK-MB (CK-2) Rel Index TNP Troponin I 0.113 H (0.01-0.034) ng/mL B-Natriuretic Peptide (<100) Total Protein (6.3-8.2) g/dL Albumin (3.5-5.0) g/dL Globulin (1.7-4.1) g/dL Albumin/Globulin Ratio (1.0-2.8) Lipase (23-300) U/L Blood Type A Negative Antibody Screen Negative 12/01/18 12/01/18 12/01/18 Range/Units 12:50 17:17 17:17 WBC (4.5-11.0) X10^3/uL RBC (4.5-5.9) X10^6/uL Hgb 9.2 L (13.5-17.5) g/dL Hct 27.9 L (41-53) % MCV (80-100) fL MCH (26-34) PG MCHC (30-36) % RDW (11.6-14.8) % Plt Count (150-400) X10^3/uL Neut % (Auto) (50-75) % Lymph % (Auto) (25-40) % Gaston % (Auto) (3-14) % Eos % (Auto) (2-4) % Baso % (Auto) (0-2) % Neut # (Auto) (6024-8385) /uL Lymph # (Auto) (5633-1940) /uL Gaston # (Auto) (0-900) /uL Eos # (Auto) (0-450) /uL Baso # (Auto) (0-100) /uL PT (10.1-12.7) SECONDS INR (0.9-1.3) APTT (26.4-36.2) SECONDS Sodium (137-145) mmol/L Potassium (3.4-5.1) mmol/L Chloride (98-107) mmol/L Carbon Dioxide (22-32) mmol/L BUN (9-20) mg/dL Creatinine (0.66-1.25) mg/dL Estimated GFR (>60) mL/min BUN/Creatinine Ratio (6-22) Glucose (80-110) mg/dL Lactate 2.5 H (0.7-2.1) mmol/L Calcium (8.4-10.2) mg/dL Total Bilirubin (0.2-1.3) mg/dL AST (17-59) IU/L ALT (21-72) IU/L Alkaline Phosphatase (38-126) U/L Total Creatine Kinase (55-170) U/L CK-MB (CK-2) CK-MB (CK-2) Rel Index Troponin I (0.01-0.034) ng/mL B-Natriuretic Peptide 1220 H (<100) Total Protein (6.3-8.2) g/dL Albumin (3.5-5.0) g/dL Globulin (1.7-4.1) g/dL Albumin/Globulin Ratio (1.0-2.8) Lipase (23-300) U/L Blood Type Antibody Screen 12/01/18 12/01/18 Range/Units 17:17 17:17 WBC (4.5-11.0) X10^3/uL RBC (4.5-5.9) X10^6/uL Hgb (13.5-17.5) g/dL Hct (41-53) % MCV (80-100) fL MCH (26-34) PG MCHC (30-36) % RDW (11.6-14.8) % Plt Count (150-400) X10^3/uL Neut % (Auto) (50-75) % Lymph % (Auto) (25-40) % Gaston % (Auto) (3-14) % Eos % (Auto) (2-4) % Baso % (Auto) (0-2) % Neut # (Auto) (8094-0192) /uL Lymph # (Auto) (0549-1792) /uL Gaston # (Auto) (0-900) /uL Eos # (Auto) (0-450) /uL Baso # (Auto) (0-100) /uL PT 54.9 H D (10.1-12.7) SECONDS INR 4.6 H* (0.9-1.3) APTT (26.4-36.2) SECONDS Sodium (137-145) mmol/L Potassium (3.4-5.1) mmol/L Chloride (98-107) mmol/L Carbon Dioxide (22-32) mmol/L BUN (9-20) mg/dL Creatinine (0.66-1.25) mg/dL Estimated GFR (>60) mL/min BUN/Creatinine Ratio (6-22) Glucose (80-110) mg/dL Lactate (0.7-2.1) mmol/L Calcium (8.4-10.2) mg/dL Total Bilirubin (0.2-1.3) mg/dL AST (17-59) IU/L ALT (21-72) IU/L Alkaline Phosphatase (38-126) U/L Total Creatine Kinase (55-170) U/L CK-MB (CK-2) CK-MB (CK-2) Rel Index Troponin I 0.135 H* (0.01-0.034) ng/mL B-Natriuretic Peptide (<100) Total Protein (6.3-8.2) g/dL Albumin (3.5-5.0) g/dL Globulin (1.7-4.1) g/dL Albumin/Globulin Ratio (1.0-2.8) Lipase (23-300) U/L Blood Type Antibody Screen Point of Care Testing Stool Occult Blood Positive Urine Dip Bedside Urine Glucose Negative Bedside Urine Bilirubin - Negative Bedside Urine Ketone - Negative Urine Specific Elkin 1.020 Bedside Urine Occult Blood - Negative Bedside Urine pH 5.5 Bedside Urine Protein - Negative Bedside Urine Urobilinogen - Negative Bedside Urine Nitrite - Negative Bedside Urine Leukocytes - Negative Esterase Discharge Plan Departure Interventions: ED Discharge Assessment Last Done: 12/01/18 15:15 Prescriptions: No Action Disabled Parking Permit Qty: 1 RF: 0 omeprazole 20 mg capsule,delayed release(DR/EC) 20 mg PO BID Qty: 60 RF: 0 ferrous sulfate [Milena-Time] 325 mg (65 mg iron) tablet 325 mg PO DAILY Qty: 30 RF: 0 cholecalciferol (vitamin D3) [Vitamin D3] 2,000 UNIT tablet 1 tab PO BID Qty: 0 RF: 0 nitroglycerin [Nitrostat] 0.4 MG tablet, sublingual 0.4 mg Sublingual DAILY PRN (Reason: Chest Pain) Qty: 0 RF: 0 Glucose: Test Strips 1 str miscellaneous DIRECTED Qty: 0 RF: 0 metformin [Glucophage] 500 MG tablet 500 mg PO BID Qty: 180 RF: 3 hydrocodone-acetaminophen [Blossom] 5-325 mg tablet 1 tab PO BIDP Qty: 50 RF: 0 furosemide 40 mg tablet 40 mg PO DAILY RF: 0 atorvastatin 40 mg tablet 40 mg PO DAILY RF: 0 ofloxacin 0.3 % drops 1 drp ophthalmic (eye) DIRECTED RF: 0 clopidogrel 75 mg tablet 75 mg PO DAILY RF: 0 metoprolol tartrate 25 mg tablet 12.5 mg PO BID RF: 0 aspirin 81 mg Tablet,Delayed Release (Dr/Ec) 81 mg PO DAILY RF: 0 multivitamin Tablet 1 tab PO DAILY RF: 0 acetaminophen [Acetaminophen Extra Strength] 500 mg Tablet 500 mg PO Q6H PRN (Reason: Pain (Scale Score 1-3)) RF: 0 docusate sodium 100 mg Capsule 100 mg PO DAILY PRN (Reason: Constipation) RF: 0 calcium carbonate-vitamin D3 [Calcium 600 + D(3)] 600 mg calcium- 200 unit Capsule 1 tab PO DAILY RF: 0 fluticasone 16 GM spray,suspension 1 spray Intranasal BIDP PRN (Reason: allergies) RF: 0 timolol maleate 0.5 % drops 1 drp ophthalmic (eye) BID RF: 0 warfarin [Coumadin] 2.5 MG tablet 2.5 mg PO QPM RF: 0
[2018-12-01] MEDS: SODIUM CHLORIDE 0.9% 1,000 ML 200 ML IV (14:21)
[2018-12-01] MEDS: PHYTONADIONE (VIT K1) 5 MG in DEXTROSE 5 % IN WATER 50 ML 101 ML IV (14:30)
[2018-12-01 16:57] LABS: Reflexed Lactate in 2 Hours Y
[2018-12-01 17:26] LABS: Hematocrit 27.9 % (41-53); Hemoglobin 9.2 g/dL (13.5-17.5)
[2018-12-01 17:37] LABS: Prothrombin Time 54.9 SECONDS (10.1-12.7)
[2018-12-01 17:39] LABS: INR 4.6 (0.9-1.3)
[2018-12-01 17:40] LABS: Lactate 2HR (Lactic Acid Rflx) 2.5 mmol/L (0.7-2.1)
[2018-12-01 17:55] LABS: Troponin I 0.135 ng/mL (0.01-0.034)
--- NOTE | 2018-12-01 18:20 | PC.NURSE ---
Spoke w/ Wilfrido @ [facility]. He informed us we can arrange transport for 2099. Updated report given to Wilfrido.
== END 2018-12-01 21:12 | disposition short-term general hospital (02) ==
PROVIDERS: Emergency Provider Emergency Medicine; PCP Family Medicine
DX: K92.2 Gastrointestinal hemorrhage, unspecified (principal)
CPT/HCPCS: 36415; 36591; 80053; 81003; 82272; 82550; 83605; 83690; 83880; 84484; 85014; 85018; 85025; 85610; 85730; 86850; 86900; 86901; 93005; 93010; 93041; 96361; 96365; 99285; 99291; J3430

== ENCOUNTER → 2018-12-22 08:31 | Outpatient (CLI) | payer MEDICARE, OTHER, SELFPAY ==
[2018-12-22 09:00] LABS: Add Manual Diff / Slide Review NO; Basophils Absolute Auto 0 /uL (0-100); Basophils Percent Auto 0.8 % (0-2); Eosinophils Absolute Auto 100 /uL (0-450); Hematocrit 26.5 % (41-53); Hemoglobin 8.9 g/dL (13.5-17.5); Lymphocytes Absolute Auto 800 /uL (1100-4500); Lymphocytes Percent Auto 19.2 % (25-40); Mean Corpuscular HGB Conc 33.6 % (30-36); Mean Corpuscular Hemoglobin 29.4 PG (26-34); Mean Corpuscular Volume 87.5 fL (80-100); Monocytes Absolute Auto 500 /uL (0-900); Monocytes Percent Auto 11.6 % (3-14); Neutrophils Absolute Auto 2900 /uL (1500-7000); Neutrophils Percent Auto 66.4 % (50-75); Platelet Count 209 X10^3/uL (150-400); Red Blood Cell Count 3.02 X10^6/uL (4.5-5.9); Red Cell Distribution Width 17.8 % (11.6-14.8); White Blood Cell Count 4.4 X10^3/uL (4.5-11.0)
[2018-12-22 09:13] LABS: Alanine Aminotransferase 21 IU/L (21-72); Albumin 4.1 g/dL (3.5-5.0); Albumin Globulin Ratio 1.1 (1.0-2.8); Alkaline Phosphatase 84 U/L (38-126); Aspartate Aminotransferase 23 IU/L (17-59); BUN Creatinine Ratio 17.3 (6-22); Bilirubin Total 0.7 mg/dL (0.2-1.3); Blood Urea Nitrogen 26 mg/dL (9-20); Calcium 9.2 mg/dL (8.4-10.2); Carbon Dioxide 22 mmol/L (22-32); Chloride 100 mmol/L (98-107); Cholesterol 80 mg/dL (140-199); Globulin 3.8 g/dL (1.7-4.1); Glucose 87 mg/dL (80-110); HDL Cholesterol 36 mg/dL (40-60); HEMOLYSIS < 15 (0-50); LDL Cholesterol Calculated 28 mg/dL (<100); Potassium 4.4 mmol/L (3.4-5.1); Sodium 137 mmol/L (137-145); Total Protein 7.9 g/dL (6.3-8.2); Triglycerides 80 mg/dL (35-150)
[2018-12-22 11:02] LABS: Thyroid Stimulating Hormone 4.51 uIU/mL (0.47-4.68)
== END ==
PROVIDERS: PCP Family Medicine; Visit Provider Family Medicine
DX: D64.9 Anemia, unspecified (principal); E78.5 Hyperlipidemia, unspecified; I10 Essential (primary) hypertension
CPT/HCPCS: 36415; 80053; 80061; 84443; 85025

== ENCOUNTER → 2018-12-23 08:58 | Outpatient (CLI) | payer MEDICARE, OTHER, SELFPAY ==
[2018-12-23 09:23] LABS: INR 3.6 (0.9-1.3)
[2018-12-23 09:35] LABS: Add Manual Diff / Slide Review NO; Basophils Absolute Auto 0 /uL (0-100); Basophils Percent Auto 0.8 % (0-2); Eosinophils Absolute Auto 100 /uL (0-450); Eosinophils Percent Auto 1.2 % (2-4); Hematocrit 27.9 % (41-53); Hemoglobin 9.1 g/dL (13.5-17.5); Lymphocytes Absolute Auto 700 /uL (1100-4500); Mean Corpuscular HGB Conc 32.7 % (30-36); Mean Corpuscular Hemoglobin 28.7 PG (26-34); Mean Corpuscular Volume 87.7 fL (80-100); Monocytes Absolute Auto 500 /uL (0-900); Monocytes Percent Auto 9.8 % (3-14); Neutrophils Absolute Auto 3900 /uL (1500-7000); Neutrophils Percent Auto 74.2 % (50-75); Platelet Count 224 X10^3/uL (150-400); Red Blood Cell Count 3.19 X10^6/uL (4.5-5.9); Red Cell Distribution Width 17.8 % (11.6-14.8); White Blood Cell Count 5.3 X10^3/uL (4.5-11.0)
== END ==
PROVIDERS: PCP Family Medicine; Visit Provider Family Medicine
DX: D64.9 Anemia, unspecified (principal); I35.9 Nonrheumatic aortic valve disorder, unspecified; Z79.01 Long term (current) use of anticoagulants
CPT/HCPCS: 36415; 85025; 85610

== ENCOUNTER → 2018-12-29 10:02 | Outpatient (CLI) | payer MEDICARE, OTHER, SELFPAY ==
[2018-12-29 12:36] LABS: BUN Creatinine Ratio 17.5 (6-22); Blood Urea Nitrogen 28 mg/dL (9-20); Calcium 9.2 mg/dL (8.4-10.2); Carbon Dioxide 23 mmol/L (22-32); Chloride 104 mmol/L (98-107); Estimated Glomerular Filt Rate 41.8 mL/min (>60); Glucose 99 mg/dL (80-110); HEMOLYSIS < 15 (0-50); Potassium 4.1 mmol/L (3.4-5.1); Sodium 140 mmol/L (137-145)
== END ==
PROVIDERS: PCP Family Medicine; Visit Provider Nurse Practitioner Family
DX: R06.02 Shortness of breath (principal)
CPT/HCPCS: 36415; 80048

== ENCOUNTER → 2018-12-31 10:25 | Outpatient (CLI) | payer MEDICARE, OTHER, SELFPAY ==
[2018-12-31 12:45] LABS: B Type Natriuretic Peptide 966 (<100)
== END ==
PROVIDERS: PCP Family Medicine; Visit Provider Nurse Practitioner Family
DX: R06.02 Shortness of breath (principal)
CPT/HCPCS: 83880

== ENCOUNTER → 2019-01-14 12:46 | Outpatient (CLI) | payer MEDICARE, OTHER, SELFPAY ==
[2019-01-14 13:36] LABS: Add Manual Diff / Slide Review NO; Basophils Absolute Auto 0 /uL (0-100); Basophils Percent Auto 0.5 % (0-2); Eosinophils Absolute Auto 100 /uL (0-450); Eosinophils Percent Auto 2.1 % (2-4); Hematocrit 29.1 % (41-53); Hemoglobin 9.2 g/dL (13.5-17.5); Lymphocytes Absolute Auto 1000 /uL (1100-4500); Lymphocytes Percent Auto 19.5 % (25-40); Mean Corpuscular HGB Conc 31.7 % (30-36); Mean Corpuscular Hemoglobin 28.1 PG (26-34); Mean Corpuscular Volume 88.6 fL (80-100); Monocytes Absolute Auto 500 /uL (0-900); Monocytes Percent Auto 8.8 % (3-14); Neutrophils Absolute Auto 3500 /uL (1500-7000); Neutrophils Percent Auto 69.1 % (50-75); Platelet Count 211 X10^3/uL (150-400); Red Blood Cell Count 3.29 X10^6/uL (4.5-5.9); Red Cell Distribution Width 17.7 % (11.6-14.8); White Blood Cell Count 5.1 X10^3/uL (4.5-11.0)
[2019-01-14 13:54] LABS: Alanine Aminotransferase 25 IU/L (21-72); Albumin 4.1 g/dL (3.5-5.0); Albumin Globulin Ratio 1.1 (1.0-2.8); Alkaline Phosphatase 96 U/L (38-126); Aspartate Aminotransferase 27 IU/L (17-59); Bilirubin Total 0.8 mg/dL (0.2-1.3); Blood Urea Nitrogen 30 mg/dL (9-20); Calcium 9.4 mg/dL (8.4-10.2); Carbon Dioxide 25 mmol/L (22-32); Chloride 102 mmol/L (98-107); Globulin 3.9 g/dL (1.7-4.1); Glucose 99 mg/dL (80-110); HEMOLYSIS < 15 (0-50); Potassium 4.8 mmol/L (3.4-5.1); Sodium 139 mmol/L (137-145)
[2019-01-14 15:20] LABS: B Type Natriuretic Peptide 1110 (<100)
== END ==
PROVIDERS: Family Provider Internal Medicine Cardiovascular Disease; PCP Family Medicine; Visit Provider Family Medicine
DX: D64.9 Anemia, unspecified (principal); E78.5 Hyperlipidemia, unspecified; I10 Essential (primary) hypertension; I25.10 Atherosclerotic heart disease of native coronary artery without angina pectoris; I27.9 Pulmonary heart disease, unspecified
CPT/HCPCS: 36415; 80053; 83880; 85025

== ENCOUNTER → 2019-03-14 10:10 | Outpatient (CLI) | payer MEDICARE, OTHER, SELFPAY ==
[2019-03-14 11:16] LABS: HEMOLYSIS < 15 (0-50); Iron 39 ug/dL (49-181)
[2019-03-14 11:21] LABS: BUN Creatinine Ratio 20.6 (6-22); Blood Urea Nitrogen 37 mg/dL (9-20); Calcium 9.1 mg/dL (8.4-10.2); Carbon Dioxide 24 mmol/L (22-32); Chloride 101 mmol/L (98-107); Estimated Glomerular Filt Rate 36.5 mL/min (>60); Glucose 90 mg/dL (80-110); HEMOLYSIS < 15 (0-50); Potassium 5.3 mmol/L (3.4-5.1); Sodium 139 mmol/L (137-145)
[2019-03-14 11:28] LABS: Creatinine Urine Random 63.2 mg/dL; Percent Iron Saturation 8 % (20-50); Protein (Total) Urine Random 18 mg/dL (0-12); Protein Creatinine Ratio Urine 0.28 GRAM/24H; Total Iron Binding Capacity 460 ug/dL (261-462); Transferrin 348 mg/dL (206-381)
[2019-03-17 14:13] LABS: Parathyroid Hormone Int 187 pg/mL (14-64)
== END ==
PROVIDERS: Family Provider Family Medicine; PCP Family Medicine; Visit Provider Student in an Organized Health Care Education/Training Program
DX: N05.9 Unspecified nephritic syndrome with unspecified morphologic changes (principal); D50.0 Iron deficiency anemia secondary to blood loss (chronic); D64.9 Anemia, unspecified; N25.81 Secondary hyperparathyroidism of renal origin; R80.9 Proteinuria, unspecified
CPT/HCPCS: 36415; 80048; 82570; 82728; 83540; 83550; 83970; 84156; 85014; 85018

== ENCOUNTER 2019-03-16 13:20 | Emergency (ER) | payer MEDICARE, OTHER, SELFPAY ==
[2019-03-16] VITALS (9 sets, daily range): BP systolic 104–126; BP diastolic 54–87; PULSE 68–72; RESP 14–22; TEMP 36.4; O2SAT 95–100; BMI 28.5
--- NOTE | 2019-03-16 14:04 | ED.ABDPAIN ---
HPI - Abdominal Pain General Chief Complaint: Abdominal Pain Stated Complaint: gall bladder tube removed today, now feels terribl Time Seen by Provider: 03/16/19 13:38 Source: patient and family Mode of arrival: ambulatory Limitations: no limitations History of Present Illness HPI narrative: 78-year-old former smoker with cardiac history and gallbladder disease presents feeling quite ill over the course of the day. He had a gallbladder drain placed by [facility] in November and has been in place ever since. It was accidentally dislodged earlier today and ever since he has increasing pain and now feels sick and complains of shaking chills nausea and weakness. He has had no jaundice. He is a critically ill patient and had been transferred to [facility] and apparently needs an ERCP but they would not perform the procedure until medically cleared by Cardiology. He recently had a right-sided heart catheterization and echocardiogram at [facility] in effort to achieve full treatment his gallbladder disease. MD complaint: abdominal pain Onset (ago): hour(s) Pain Consistency: constant Location: RUQ Severity: moderate Quality: cramping Radiation: none Relieving factors: nothing Exacerbating factors: nothing Associated symptoms: nausea, fever and chills Related Data Home Medications Medication Instructions Recorded Confirmed cholecalciferol (vitamin D3) 1 tab PO BID #0 01/19/12 03/16/19 [Vitamin D3] nitroglycerin [Nitrostat] 0.4 mg SUBLINGUAL DAILY PRN #0 02/12/17 03/16/19 Glucose: Test Strips 1 str MISCELLANEOUS DIRECTED #0 01/12/18 03/16/19 acetaminophen [Acetaminophen Extra 500 mg PO Q6H PRN 07/05/18 03/16/19 Strength] docusate sodium 100 mg PO DAILY PRN 07/05/18 03/16/19 fluticasone propionate 1 spray INTRANASAL BIDP PRN 07/05/18 03/16/19 multivitamin 1 tab PO DAILY 07/05/18 03/16/19 timolol maleate 1 drp OPHTHALMIC (EYE) BID 07/14/18 03/16/19 warfarin 1 mg tablet 1 mg PO SUTUWETHSA tab 01/14/19 03/16/19 atorvastatin 40 mg PO BEDTIME 03/16/19 03/16/19 ferrous sulfate [Milena-Time] 325 mg PO BID 03/16/19 03/16/19 furosemide 40 mg PO BID 03/16/19 03/16/19 warfarin 1.5 mg PO MOFR 03/16/19 03/16/19 Previous Rx's Medication Instructions Recorded Disabled Parking Permit #1 ea 09/21/18 hydrocodone 5 mg-acetaminophen 325 1 tab PO BIDP #50 tab 12/22/18 mg tablet clopidogrel 75 mg tablet 75 mg PO DAILY #90 tab 02/16/19 metformin 500 mg tablet 500 mg PO BID #180 tab 02/16/19 omeprazole 20 mg capsule,delayed 20 mg PO BID #180 cap 02/16/19 release metoprolol tartrate 25 mg tablet 12.5 mg PO BID #90 tab 03/01/19 Allergies Allergy/AdvReac Type Severity Reaction Status Date / Time oxycodone [OXYCODONE] AdvReac Mild DIZZY, Verified 02/16/19 15:22 NAUSEA codeine [CODEINE] AdvReac Unknown NAUSEA Verified 02/16/19 15:22 hydromorphone [HYDROMORPHONE] AdvReac Unknown NAUSEA Verified 02/16/19 15:22 morphine [MORPHINE] AdvReac Unknown SPOUSE Verified 02/16/19 15:22 DENIED ALLERGY Review of Systems Constitutional Reports chills, Reports fatigue, Reports fever(s), Denies lethargy and Reports weakness Eyes Denies change in vision, Denies eye discharge, Denies irritation and Denies loss of vision ENT Ears, Nose, Mouth, and Throat: Denies change in voice, Denies neck pain and Denies sore throat Cardiovascular Denies chest pain, Denies irregular heart rhythm, Denies lightheadedness, Denies palpitations, Denies dyspnea, Denies dyspnea on exertion and Denies orthopnea Respiratory Denies cough, Denies dyspnea, Denies dyspnea on exertion and Denies wheezing Gastrointestinal Gastrointestinal: Reports abdominal pain, Denies change in bowel habits, Denies diarrhea, Reports nausea and Denies vomiting Genitourinary Denies hematuria, Denies flank pain, Denies urinary incontinence and Denies urinary urgency Musculoskeletal Denies neck pain Integumentary/Breasts Denies pruritus, Denies erythema, Denies rash and Denies wounds Neurologic Denies confusion, Denies loss of vision and Reports weakness Psychiatric Denies anxiety, Denies confusion, Denies depression, Denies homicidal ideation and Denies suicidal ideation Endocrine Reports fatigue and Denies palpitations Hematologic/Lymphatic Denies easy bruising Allergic/Immunologic Denies wheezing [facility] Medical History Anemia (Chronic Unknown) Arthritis (Chronic Unknown) BPH (benign prostatic hyperplasia) (Chronic Unknown) Bladder cancer (Chronic Unknown) Chronic kidney disease (CKD) (Chronic Unknown) Coronary artery disease (Chronic Unknown) Diabetes (Chronic 12/2005) GERD (gastroesophageal reflux disease) (Chronic Unknown) Hyperlipemia (Chronic Unknown) Hypertension (Chronic Unknown) Obstructive sleep apnea (Chronic Unknown) Osteopenia (Chronic 2009) Osteoporosis (Chronic Unknown) Renal cell cancer (Chronic Unknown) Glaucoma (Resolved Unknown) S/p nephrectomy (Resolved 02/2017) Surgical History History of PTCA (Resolved 1986) History of ear surgery (Resolved 12/2005) History of surgical procedure on eye proper using laser (Resolved 1997) History of tonsillectomy and adenoidectomy (Resolved 10/1944) Hx of angioplasty (Resolved 11/1998) Hx of appendectomy (Resolved ~03/1958) Hx of cataract extraction (Resolved ~2001) Hx of heart bypass surgery (Resolved 08/1987) Hx of heart bypass surgery (Resolved 05/1999) Hx of shoulder surgery (Resolved 11/2004) Hx of transurethral resection of prostate (Resolved 1994) History of cardiac radiofrequency ablation (RFA) History of hip replacement History of spinal fusion Presence of cardiac pacemaker Status post knee surgery Status post laminectomy Family History Father No problems noted. Mother No problems noted. Sister No problems noted. Social History household members: spouse Smoking Status: Former smoker Family History Father No problems noted. Mother No problems noted. Sister No problems noted. Social History household members: spouse Smoking Status: Former smoker Exam Narrative Exam Narrative: GENERAL: 78-year-old male ill-appearing in obvious distress HEAD: Atraumatic. Normocephalic. No temporal or scalp tenderness. EYES: Pupils equal round and reactive. Extraocular motions intact. No scleral icterus. No injection or drainage. ENT: Nose without bleeding, purulent drainage or septal hematoma. Throat without erythema, tonsillar hypertrophy or exudate. Uvula midline. Airway patent. NECK: Trachea midline. No JVD or lymphadenopathy. Supple, nontender, no meningeal signs. CARDIOVASCULAR: Regular rate and rhythm without murmurs, gallops, or rubs. RESPIRATORY: Clear to auscultation. Breath sounds equal bilaterally. No wheezes, rales, or rhonchi. GASTROINTESTINAL: Abdomen soft, right upper quadrant pain, nondistended. No hepato-splenomegaly, or palpable masses. No guarding. EXTREMITIES: No clubbing, cyanosis, or edema. No joint tenderness, effusion, or edema noted. BACK: Nontender without deformity or crepitance. No flank tenderness. NEURO: AOx3. SKIN: No rash or erythema. Initial Vital Signs Initial Vital Signs: Vital Signs Temperature 97.6 F 03/16/19 13:24 Pulse Rate 68 03/16/19 13:24 Respiratory Rate 14 03/16/19 13:24 Blood Pressure 126/61 03/16/19 13:24 Pulse Oximetry 100 03/16/19 13:24 Course Orders Ordered: ED Orders 03/16/19 13:35 EKG-12 Lead Routine 03/16/19 14:20 US abdomen limited Stat XR chest 1V Stat 03/16/19 14:25 Complete Blood Count AUTO DIFF Stat Comprehensive Metabolic Panel Stat Lactate (Lactic Acid) Stat Lipase Stat Partial Thromboplastin Time Stat Procalcitonin Stat Prothrombin Time INR Stat 03/16/19 14:36 Blood Culture Stat Sodium Chloride (Normal Saline 0.9%) 1,000 mls @ 200 mls/hr IV CONT DANYELL Last Infusion: 03/16/19 17:08 Dose: 0 mls/hr Admin: 03/16/19 14:31 Dose: 999 mls/hr Discontinued Medications Piperacillin/Tazobactam/Dextrose (Zosyn) 3.375 gm in 50 mls @ 100 mls/hr IV NOW ONE Stop: 03/16/19 16:18 Last Infusion: 03/16/19 16:27 Dose: 0 mls/hr Admin: 03/16/19 16:01 Dose: 100 mls/hr Sodium Chloride (Normal Saline 0.9%) 1,000 mls @ 1,000 mls/hr IV BOLUS ONE Stop: 03/16/19 16:49 Last Infusion: 03/16/19 18:13 Dose: 0 mls/hr Admin: 03/16/19 17:08 Dose: 1,000 mls/hr Vital Signs - 8 hr 03/16/19 13:24 03/16/19 14:00 03/16/19 14:30 Temperature 97.6 F Pulse Rate 68 68 70 Respiratory Rate 14 20 22 Blood Pressure 126/61 Blood Pressure [Right Arm] 120/87 121/76 Pulse Oximetry 100 97 97 03/16/19 15:55 03/16/19 16:00 03/16/19 17:00 Temperature Pulse Rate 70 72 69 Respiratory Rate 20 22 22 Blood Pressure Blood Pressure [Right Arm] 120/72 112/62 105/54 L Pulse Oximetry 99 95 MDM - Abdominal Pain Differential Diagnosis Differential diagnosis: Likely abdominal pain Medical Records Attestation: I reviewed the patient's medical records. I have obtained records from [facility]. While there he had an echocardiogram noting an EF of 56% mildly abnormal right ventricular systolic function and severe pulmonary hypertension. He has a [place] mechanical aortic valve with normal function. patient had a heart catheterization noting a [facility] proximal LAD lesion. Patient was seen by IR and had the placement of an 8 [place] cholecystostomy catheter through transhepatic approach. He has a known choledocholithiasis with lack of flow of contrast into the duodenum based on cholangiogram Lab Data Attestation: I reviewed the patient's lab results. Result diagrams: 03/16/19 14:25 03/16/19 14:25 Lab Results 03/16/19 03/16/19 03/16/19 Range/Units 14:25 14:25 14:25 WBC 5.4 (4.5-11.0) X10^3/uL RBC 4.00 L (4.5-5.9) X10^6/uL Hgb 11.0 L (13.5-17.5) g/dL Hct 35.4 L (41-53) % MCV 88.7 (80-100) fL MCH 27.5 (26-34) PG MCHC 31.0 (30-36) % RDW 18.3 H (11.6-14.8) % Plt Count 244 (150-400) X10^3/uL Neut % (Auto) 74.0 (50-75) % Lymph % (Auto) 15.6 L (25-40) % [place] % (Auto) 8.9 (3-14) % Eos % (Auto) 0.6 L (2-4) % Baso % (Auto) 0.9 (0-2) % Neut # (Auto) 4000 (2336-8852) /uL Lymph # (Auto) 800 L (5750-2097) /uL [place] # (Auto) 500 (0-900) /uL Eos # (Auto) 0 (0-450) /uL Baso # (Auto) 0 (0-100) /uL PT 17.3 H (10.1-12.7) SECONDS INR 1.5 H (0.9-1.3) APTT 28 D (26.4-36.2) SECONDS Sodium (137-145) mmol/L Potassium (3.4-5.1) mmol/L Chloride (98-107) mmol/L Carbon Dioxide (22-32) mmol/L BUN (9-20) mg/dL Creatinine (0.66-1.25) mg/dL Estimated GFR (>60) mL/min BUN/Creatinine Ratio (6-22) Glucose (80-110) mg/dL Lactate (0.7-2.1) mmol/L Calcium (8.4-10.2) mg/dL Total Bilirubin (0.2-1.3) mg/dL AST (17-59) IU/L ALT (21-72) IU/L Alkaline Phosphatase (38-126) U/L Total Protein (6.3-8.2) g/dL Albumin (3.5-5.0) g/dL Globulin (1.7-4.1) g/dL Albumin/Globulin Ratio (1.0-2.8) Lipase (23-300) U/L Procalcitonin 0.08 (<0.5) ng/mL 03/16/19 03/16/19 03/16/19 Range/Units 14:25 14:25 14:25 WBC (4.5-11.0) X10^3/uL RBC (4.5-5.9) X10^6/uL Hgb (13.5-17.5) g/dL Hct (41-53) % MCV (80-100) fL MCH (26-34) PG MCHC (30-36) % RDW (11.6-14.8) % Plt Count (150-400) X10^3/uL Neut % (Auto) (50-75) % Lymph % (Auto) (25-40) % [place] % (Auto) (3-14) % Eos % (Auto) (2-4) % Baso % (Auto) (0-2) % Neut # (Auto) (0026-6199) /uL Lymph # (Auto) (9169-2550) /uL [place] # (Auto) (0-900) /uL Eos # (Auto) (0-450) /uL Baso # (Auto) (0-100) /uL PT (10.1-12.7) SECONDS INR (0.9-1.3) APTT (26.4-36.2) SECONDS Sodium 139 (137-145) mmol/L Potassium 4.7 (3.4-5.1) mmol/L Chloride 102 (98-107) mmol/L Carbon Dioxide 21 L (22-32) mmol/L BUN 40 H (9-20) mg/dL Creatinine 2.00 H (0.66-1.25) mg/dL Estimated GFR 32.3 L (>60) mL/min BUN/Creatinine Ratio 20.0 (6-22) Glucose 103 (80-110) mg/dL Lactate 4.6 H (0.7-2.1) mmol/L Calcium 9.4 (8.4-10.2) mg/dL Total Bilirubin 1.4 H (0.2-1.3) mg/dL AST 26 (17-59) IU/L ALT 18 L (21-72) IU/L Alkaline Phosphatase 147 H (38-126) U/L Total Protein 8.8 H (6.3-8.2) g/dL Albumin 4.4 (3.5-5.0) g/dL Globulin 4.4 H (1.7-4.1) g/dL Albumin/Globulin Ratio 1.0 (1.0-2.8) Lipase 74 (23-300) U/L Procalcitonin (<0.5) ng/mL 03/16/19 Range/Units 16:47 WBC (4.5-11.0) X10^3/uL RBC (4.5-5.9) X10^6/uL Hgb (13.5-17.5) g/dL Hct (41-53) % MCV (80-100) fL MCH (26-34) PG MCHC (30-36) % RDW (11.6-14.8) % Plt Count (150-400) X10^3/uL Neut % (Auto) (50-75) % Lymph % (Auto) (25-40) % [place] % (Auto) (3-14) % Eos % (Auto) (2-4) % Baso % (Auto) (0-2) % Neut # (Auto) (2006-7682) /uL Lymph # (Auto) (3048-6999) /uL [place] # (Auto) (0-900) /uL Eos # (Auto) (0-450) /uL Baso # (Auto) (0-100) /uL PT (10.1-12.7) SECONDS INR (0.9-1.3) APTT (26.4-36.2) SECONDS Sodium (137-145) mmol/L Potassium (3.4-5.1) mmol/L Chloride (98-107) mmol/L Carbon Dioxide (22-32) mmol/L BUN (9-20) mg/dL Creatinine (0.66-1.25) mg/dL Estimated GFR (>60) mL/min BUN/Creatinine Ratio (6-22) Glucose (80-110) mg/dL Lactate 2.1 (0.7-2.1) mmol/L Calcium (8.4-10.2) mg/dL Total Bilirubin (0.2-1.3) mg/dL AST (17-59) IU/L ALT (21-72) IU/L Alkaline Phosphatase (38-126) U/L Total Protein (6.3-8.2) g/dL Albumin (3.5-5.0) g/dL Globulin (1.7-4.1) g/dL Albumin/Globulin Ratio (1.0-2.8) Lipase (23-300) U/L Procalcitonin (<0.5) ng/mL Point of care testing: Urine Dip Bedside Urine Glucose Negative Bedside Urine Bilirubin - Negative Bedside Urine Ketone - Negative Urine Specific R[place] 1.025 Bedside Urine Occult Blood - Negative Bedside Urine pH 5.5 Bedside Urine Protein - Negative Bedside Urine Urobilinogen - Negative Bedside Urine Nitrite - Negative Bedside Urine Leukocytes - Negative Esterase Imaging Data US - abdomen: Radiologist's impression: Date of Service: 03/16/19 Loc: ED Accession Number: [id number] Procedure: US abdomen limited Ordering Provider: Ventura Riley D.O. PROCEDURE: US ABDOMEN LIMITED INDICATIONS: GB DRAIN ACCIDENTALLY REMOVED TODAY, PT ILL APPEARING TECHNIQUE: Real-time focused scanning was performed of the abdomen, with image documentation. COMPARISON: [facility], US, US ABDOMEN COMPLETE, 11/12/2018, 22:34. FINDINGS: Multiple grayscale and color Doppler images of the right upper abdomen were acquired. The liver is normal in size and echotexture without focal intrahepatic abnormalities. The gallbladder demonstrates wall thickening measuring approximately 9 mm in size. Multiple gallstones are again noted. There is surrounding pericholecystic fluid and a positive sonographic Canseco's. Visualized no aerated ducts appear within normal limits. Common bile duct measures approximately 6.5 mm. Visualized portions of the pancreas appear unremarkable. No significant free fluid identified in the portions of the abdomen. IMPRESSION: Cholelithiasis with associated gallbladder wall thickening, pericholecystic fluid, and positive sonographic Canseco's compatible with acute cholecystitis. Dictated by: Eugenio Garcia M.D. on 03/16/2019 at 16:23 Approved by: Eugenio Garcia M.D. on 03/16/2019 at 16:26 ECG Data Attestation: I personally reviewed and interpreted this ECG as follows: Prior ECG tracings: available for review Critical Care Time Critical Care Time: Yes Total Critical Care Time: 30 Attestation: The high probability of a clinically significant, sudden or life threatening deterioration of the [CV] system(s) required my full and direct attention, intervention and personal management. The aggregate critical care time was [30] minutes. This time is in addition to time spent performing reported procedures but includes the following: [x] Data Review and interpretation [x] Patient assessment and monitoring of vital signs [x] Documentation [x] Medication orders and management Discharge Plan Departure Patient Disposition: General Acute Hospital Clinical Impression: Acute cholecystitis Sepsis Qualifiers: Sepsis type: sepsis due to unspecified organism Qualified Code(s): A41.9 - Sepsis, unspecified organism Interventions: ED Discharge Assessment Last Done: 03/16/19 18:18 Prescriptions: No Action Disabled Parking Permit Qty: 1 RF: 0 hydrocodone-acetaminophen [[place]] 5-325 mg tablet 1 tab PO BIDP Qty: 50 RF: 0 warfarin 1 mg tablet 1 mg PO SUTUWETHSA RF: 0 clopidogrel 75 mg tablet 75 mg PO DAILY Qty: 90 RF: 1 metformin [Glucophage] 500 mg tablet 500 mg PO BID Qty: 180 RF: 3 omeprazole 20 mg capsule,delayed release(DR/EC) 20 mg PO BID Qty: 180 RF: 0 cholecalciferol (vitamin D3) [Vitamin D3] 2,000 UNIT tablet 1 tab PO BID Qty: 0 RF: 0 nitroglycerin [Nitrostat] 0.4 MG tablet, sublingual 0.4 mg Sublingual DAILY PRN (Reason: Chest Pain) Qty: 0 RF: 0 Glucose: Test Strips 1 str miscellaneous DIRECTED Qty: 0 RF: 0 metoprolol tartrate 25 mg tablet 12.5 mg PO BID Qty: 90 RF: 0 warfarin 1 mg tablet 1.5 mg PO MOFR RF: 0 furosemide 40 mg tablet 40 mg PO BID RF: 0 ferrous sulfate [Milena-Time] 325 mg (65 mg iron) tablet 325 mg PO BID RF: 0 atorvastatin 40 mg tablet 40 mg PO BEDTIME RF: 0 multivitamin Tablet 1 tab PO DAILY RF: 0 acetaminophen [Acetaminophen Extra Strength] 500 mg Tablet 500 mg PO Q6H PRN (Reason: Pain (Scale Score 1-3)) RF: 0 docusate sodium 100 mg Capsule 100 mg PO DAILY PRN (Reason: Constipation) RF: 0 fluticasone propionate 16 GM spray,suspension 1 spray Intranasal BIDP PRN (Reason: allergies) RF: 0 timolol maleate 0.5 % drops 1 drp ophthalmic (eye) BID RF: 0 Referrals: Dorothy Devine DO [Primary Care Provider] -
--- NOTE | 2019-03-16 14:20 | DI.RAD.S_ITS ---
PROCEDURE: XR CHEST 1V INDICATIONS: Gallbladder drain accidentally removed today, patient ill appearing TECHNIQUE: One view of the chest was acquired. COMPARISON: [facility], , CHEST 2 VIEW, 12/03/2016, 13:26. [facility], , CHEST 2 VIEW, 02/26/2017, 9:58. [facility], , XR CHEST 1V, 11/12/2018, 21:28. FINDINGS: Surgical changes and devices: Cervicothoracic spine fixation hardware is stable. Postsurgical changes compatible prior CABG procedure stable. Dual-lead cardiac pacer is stable. Lungs and pleura: Lungs are clear. No pleural effusions or pneumothorax. Mediastinum: Mediastinal contours appear normal. Heart is enlarged. Bones and chest wall: No suspicious bony lesions. Overlying soft tissues appear unremarkable. IMPRESSION: No acute cardiopulmonary disease process. Dictated by: Lesia Guillen MD, PhD on 03/16/2019 at 14:59 Approved by: Lesia Guillen MD, PhD on 03/16/2019 at 15:00
--- NOTE | 2019-03-16 14:20 | DI.US.S_ITS ---
PROCEDURE: US ABDOMEN LIMITED INDICATIONS: GB DRAIN ACCIDENTALLY REMOVED TODAY, PT ILL APPEARING TECHNIQUE: Real-time focused scanning was performed of the abdomen, with image documentation. COMPARISON: [facility], , US ABDOMEN COMPLETE, 11/12/2018, 22:34. FINDINGS: Multiple grayscale and color Doppler images of the right upper abdomen were acquired. The liver is normal in size and echotexture without focal intrahepatic abnormalities. The gallbladder demonstrates wall thickening measuring approximately 9 mm in size. Multiple gallstones are again noted. There is surrounding pericholecystic fluid and a positive sonographic Canseco's. Visualized no aerated ducts appear within normal limits. Common bile duct measures approximately 6.5 mm. Visualized portions of the pancreas appear unremarkable. No significant free fluid identified in the portions of the abdomen. IMPRESSION: Cholelithiasis with associated gallbladder wall thickening, pericholecystic fluid, and positive sonographic Canseco's compatible with acute cholecystitis. Dictated by: Eugenio Garcia M.D. on 03/16/2019 at 16:23 Approved by: Eugenio Garcia M.D. on 03/16/2019 at 16:26
[2019-03-16] MEDS: SODIUM CHLORIDE 0.9% 1,000 ML 999 ML IV (14:31)
[2019-03-16 14:35] LABS: Add Manual Diff / Slide Review NO; Basophils Absolute Auto 0 /uL (0-100); Basophils Percent Auto 0.9 % (0-2); Eosinophils Absolute Auto 0 /uL (0-450); Eosinophils Percent Auto 0.6 % (2-4); Hematocrit 35.4 % (41-53); Lymphocytes Absolute Auto 800 /uL (1100-4500); Lymphocytes Percent Auto 15.6 % (25-40); Mean Corpuscular Hemoglobin 27.5 PG (26-34); Mean Corpuscular Volume 88.7 fL (80-100); Monocytes Absolute Auto 500 /uL (0-900); Monocytes Percent Auto 8.9 % (3-14); Neutrophils Absolute Auto 4000 /uL (1500-7000); Platelet Count 244 X10^3/uL (150-400); Red Cell Distribution Width 18.3 % (11.6-14.8); White Blood Cell Count 5.4 X10^3/uL (4.5-11.0)
--- NOTE | 2019-03-16 14:36 | ED_ITS ---
HPI - Abdominal Pain General Chief Complaint: Abdominal Pain Stated Complaint: gall bladder tube removed today, now feels terribl Time Seen by Provider: 03/16/19 13:38 Source: patient and family Mode of arrival: ambulatory Limitations: no limitations History of Present Illness HPI narrative: 78-year-old former smoker with cardiac history and gallbladder disease presents feeling quite ill over the course of the day. He had a gallbladder drain placed by [facility] in November and has been in place ever since. It was accidentally dislodged earlier today and ever since he has increasing pain and now feels sick and complains of shaking chills nausea and weakness. He has had no jaundice. He is a critically ill patient and had been transferred to [facility] and apparently needs an ERCP but they would not perform the procedure until medically cleared by Cardiology. He recently had a right-sided heart catheterization and echocardiogram at [facility] in effort to achieve full treatment his gallbladder disease. MD complaint: abdominal pain Onset (ago): hour(s) Pain Consistency: constant Location: RUQ Severity: moderate Quality: cramping Radiation: none Relieving factors: nothing Exacerbating factors: nothing Associated symptoms: nausea, fever and chills Related Data Home Medications Medication Instructions Recorded Confirmed cholecalciferol (vitamin D3) 1 tab PO BID #0 01/19/12 03/16/19 [Vitamin D3] nitroglycerin [Nitrostat] 0.4 mg SUBLINGUAL DAILY PRN #0 02/12/17 03/16/19 Glucose: Test Strips 1 str MISCELLANEOUS DIRECTED #0 01/12/18 03/16/19 acetaminophen [Acetaminophen Extra 500 mg PO Q6H PRN 07/05/18 03/16/19 Strength] docusate sodium 100 mg PO DAILY PRN 07/05/18 03/16/19 fluticasone propionate 1 spray INTRANASAL BIDP PRN 07/05/18 03/16/19 multivitamin 1 tab PO DAILY 07/05/18 03/16/19 timolol maleate 1 drp OPHTHALMIC (EYE) BID 07/14/18 03/16/19 warfarin 1 mg tablet 1 mg PO SUTUWETHSA tab 01/14/19 03/16/19 atorvastatin 40 mg PO BEDTIME 03/16/19 03/16/19 ferrous sulfate [Milena-Time] 325 mg PO BID 03/16/19 03/16/19 furosemide 40 mg PO BID 03/16/19 03/16/19 warfarin 1.5 mg PO MOFR 03/16/19 03/16/19 Previous Rx's Medication Instructions Recorded Disabled Parking Permit #1 ea 09/21/18 hydrocodone 5 mg-acetaminophen 325 1 tab PO BIDP #50 tab 12/22/18 mg tablet clopidogrel 75 mg tablet 75 mg PO DAILY #90 tab 02/16/19 metformin 500 mg tablet 500 mg PO BID #180 tab 02/16/19 omeprazole 20 mg capsule,delayed 20 mg PO BID #180 cap 02/16/19 release metoprolol tartrate 25 mg tablet 12.5 mg PO BID #90 tab 03/01/19 Allergies Allergy/AdvReac Type Severity Reaction Status Date / Time oxycodone [OXYCODONE] AdvReac Mild DIZZY, Verified 02/16/19 15:22 NAUSEA codeine [CODEINE] AdvReac Unknown NAUSEA Verified 02/16/19 15:22 hydromorphone [HYDROMORPHONE] AdvReac Unknown NAUSEA Verified 02/16/19 15:22 morphine [MORPHINE] AdvReac Unknown SPOUSE Verified 02/16/19 15:22 DENIED ALLERGY Review of Systems Constitutional Reports chills, Reports fatigue, Reports fever(s), Denies lethargy and Reports weakness Eyes Denies change in vision, Denies eye discharge, Denies irritation and Denies loss of vision ENT Ears, Nose, Mouth, and Throat: Denies change in voice, Denies neck pain and Denies sore throat Cardiovascular Denies chest pain, Denies irregular heart rhythm, Denies lightheadedness, Denies palpitations, Denies dyspnea, Denies dyspnea on exertion and Denies orthopnea Respiratory Denies cough, Denies dyspnea, Denies dyspnea on exertion and Denies wheezing Gastrointestinal Gastrointestinal: Reports abdominal pain, Denies change in bowel habits, Denies diarrhea, Reports nausea and Denies vomiting Genitourinary Denies hematuria, Denies flank pain, Denies urinary incontinence and Denies uri nary urgency Musculoskeletal Denies neck pain Integumentary/Breasts Denies pruritus, Denies erythema, Denies rash and Denies wounds Neurologic Denies confusion, Denies loss of vision and Reports weakness Psychiatric Denies anxiety, Denies confusion, Denies depression, Denies homicidal ideation and Denies suicidal ideation Endocrine Reports fatigue and Denies palpitations Hematologic/Lymphatic Denies easy bruising Allergic/Immunologic Denies wheezing FOR[facility], LAT[facility] Medical History Anemia (Chronic Unknown) Arthritis (Chronic Unknown) BPH (benign prostatic hyperplasia) (Chronic Unknown) Bladder cancer (Chronic Unknown) Chronic kidney disease (CKD) (Chronic Unknown) Coronary artery disease (Chronic Unknown) Diabetes (Chronic 12/2005) GERD (gastroesophageal reflux disease) (Chronic Unknown) Hyperlipemia (Chronic Unknown) Hypertension (Chronic Unknown) Obstructive sleep apnea (Chronic Unknown) Osteopenia (Chronic 2009) Osteoporosis (Chronic Unknown) Renal cell cancer (Chronic Unknown) Glaucoma (Resolved Unknown) S/p nephrectomy (Resolved 02/2017) Surgical History History of PTCA (Resolved 1986) History of ear surgery (Resolved 12/2005) History of surgical procedure on eye proper using laser (Resolved 1997) History of tonsillectomy and adenoidectomy (Resolved 10/1944) Hx of angioplasty (Resolved 11/1998) Hx of appendectomy (Resolved ~03/1958) Hx of cataract extraction (Resolved ~2001) Hx of heart bypass surgery (Resolved 08/1987) Hx of heart bypass surgery (Resolved 05/1999) Hx of shoulder surgery (Resolved 11/2004) Hx of transurethral resection of prostate (Resolved 1994) History of cardiac radiofrequency ablation (RFA) History of hip replacement History of spinal fusion Presence of cardiac pacemaker Status post knee surgery Status post laminectomy Family History Father No problems noted. Mother No problems noted. Sister No problems noted. Social History household members: spouse Smoking Status: Former smoker Family History Father No problems noted. Mother No problems noted. Sister No problems noted. Social History household members: spouse Smoking Status: Former smoker Exam Narrative Exam Narrative: GENERAL: 78-year-old male ill-appearing in obvious distress HEAD: Atraumatic. Normocephalic. No temporal or scalp tenderness. EYES: Pupils equal round and reactive. Extraocular motions intact. No scleral icterus. No injection or drainage. ENT: Nose without bleeding, purulent drainage or septal hematoma. Throat without erythema, tonsillar hypertrophy or exudate. Uvula midline. Airway patent. NECK: Trachea midline. No JVD or lymphadenopathy. Supple, nontender, no meningeal signs. CARDIOVASCULAR: Regular rate and rhythm without murmurs, gallops, or rubs. RESPIRATORY: Clear to auscultation. Breath sounds equal bilaterally. No wheezes, rales, or rhonchi. GASTROINTESTINAL: Abdomen soft, right upper quadrant pain, nondistended. No hepato-splenomegaly, or palpable masses. No guarding. EXTREMITIES: No clubbing, cyanosis, or edema. No joint tenderness, effusion, or edema noted. BACK: Nontender without deformity or crepitance. No flank tenderness. NEURO: AOx3. SKIN: No rash or erythema. Initial Vital Signs Initial Vital Signs: Vital Signs Temperature 97.6 F 03/16/19 13:24 Pulse Rate 68 03/16/19 13:24 Respiratory Rate 14 03/16/19 13:24 Blood Pressure 126/61 03/16/19 13:24 Pulse Oximetry 100 03/16/19 13:24 Course Orders Ordered: ED Orders 03/16/19 13:35 EKG-12 Lead Routine 03/16/19 14:20 US abdomen limited Stat XR chest 1V Stat 03/16/19 14:25 Complete Blood Count AUTO DIFF Stat Comprehensive Metabolic Panel Stat Lactate (Lactic Acid) Stat Lipase Stat Partial Thromboplastin Time Stat Procalcitonin Stat Prothrombin Time INR Stat 03/16/19 14:36 Blood Culture Stat Sodium Chloride (Normal Saline 0.9%) 1,000 mls @ 200 mls/hr IV CONT DANYELL Last Infusion: 03/16/19 17:08 Dose: 0 mls/hr Admin: 03/16/19 14:31 Dose: 999 mls/hr Discontinued Medications Piperacillin/Tazobactam/Dextrose (Zosyn) 3.375 gm in 50 mls @ 100 mls/hr IV NOW ONE Stop: 03/16/19 16:18 Last Infusion: 03/16/19 16:27 Dose: 0 mls/hr Admin: 03/16/19 16:01 Dose: 100 mls/hr Sodium Chloride (Normal Saline 0.9%) 1,000 mls @ 1,000 mls/hr IV BOLUS ONE Stop: 03/16/19 16:49 Last Infusion: 03/16/19 18:13 Dose: 0 mls/hr Admin: 03/16/19 17:08 Dose: 1,000 mls/hr Vital Signs - 8 hr 03/16/19 13:24 03/16/19 14:00 03/16/19 14:30 Temperature 97.6 F Pulse Rate 68 68 70 Respiratory Rate 14 20 22 Blood Pressure 126/61 Blood Pressure [Right Arm] 120/87 121/76 Pulse Oximetry 100 97 97 03/16/19 15:55 03/16/19 16:00 03/16/19 17:00 Temperature Pulse Rate 70 72 69 Respiratory Rate 20 22 22 Blood Pressure Blood Pressure [Right Arm] 120/72 112/62 105/54 L Pulse Oximetry 99 95 MDM - Abdominal Pain Differential Diagnosis Differential diagnosis: Likely abdominal pain Medical Records Attestation: I reviewed the patient's medical records. I have obtained records from [facility]. While there he had an echoca rdiogram noting an EF of 56% mildly abnormal right ventricular systolic function and severe pulmonary hypertension. He has a [place] mechanical aortic valve with normal function. patient had a heart catheterization noting a [place] proximal LAD lesion. Patient was seen by IR and had the placement of an 8 Sets[place] cholecystostomy catheter through transhepatic approach. He has a known choledocholithiasis with lack of flow of contrast into the duodenum based on cholangiogram Lab Data Attestation: I reviewed the patient's lab results. Result diagrams: 03/16/19 14:25 03/16/19 14:25 Lab Results 03/16/19 03/16/19 03/16/19 Range/Units 14:25 14:25 14:25 WBC 5.4 (4.5-11.0) X10^3/uL RBC 4.00 L (4.5-5.9) X10^6/uL Hgb 11.0 L (13.5-17.5) g/dL Hct 35.4 L (41-53) % MCV 88.7 (80-100) fL MCH 27.5 (26-34) PG MCHC 31.0 (30-36) % RDW 18.3 H (11.6-14.8) % Plt Count 244 (150-400) X10^3/uL Neut % (Auto) 74.0 (50-75) % Lymph % (Auto) 15.6 L (25-40) % Hale % (Auto) 8.9 (3-14) % Eos % (Auto) 0.6 L (2-4) % Baso % (Auto) 0.9 (0-2) % Neut # (Auto) 4000 (4282-9932) /uL Lymph # (Auto) 800 L (5142-4521) /uL Hale # (Auto) 500 (0-900) /uL Eos # (Auto) 0 (0-450) /uL Baso # (Auto) 0 (0-100) /uL PT 17.3 H (10.1-12.7) SECONDS INR 1.5 H (0.9-1.3) APTT 28 D (26.4-36.2) SECONDS Sodium (137-145) mmol/L Potassium (3.4-5.1) mmol/L Chloride (98-107) mmol/L Carbon Dioxide (22-32) mmol/L BUN (9-20) mg/dL Creatinine (0.66-1.25) mg/dL Estimated GFR (>60) mL/min BUN/Creatinine Ratio (6-22) Glucose (80-110) mg/dL Lactate (0.7-2.1) mmol/L Calcium (8.4-10.2) mg/dL Total Bilirubin (0.2-1.3) mg/dL AST (17-59) IU/L ALT (21-72) IU/L Alkaline Phosphatase (38-126) U/L Total Protein (6.3-8.2) g/dL Albumin (3.5-5.0) g/dL Globulin (1.7-4.1) g/dL Albumin/Globulin Ratio (1.0-2.8) Lipase (23-300) U/L Procalcitonin 0.08 (<0.5) ng/mL 03/16/19 03/16/19 03/16/19 Range/Units 14:25 14:25 14:25 WBC (4.5-11.0) X10^3/uL RBC (4.5-5.9) X10^6/uL Hgb (13.5-17.5) g/dL Hct (41-53) % MCV (80-100) fL MCH (26-34) PG MCHC (30-36) % RDW (11.6-14.8) % Plt Count (150-400) X10^3/uL Neut % (Auto) (50-75) % Lymph % (Auto) (25-40) % Hale % (Auto) (3-14) % Eos % (Auto) (2-4) % Baso % (Auto) (0-2) % Neut # (Auto) (4311-9402) /uL Lymph # (Auto) (4557-7107) /uL Hale # (Auto) (0-900) /uL Eos # (Auto) (0-450) /uL Baso # (Auto) (0-100) /uL PT (10.1-12.7) SECONDS INR (0.9-1.3) APTT (26.4-36.2) SECONDS Sodium 139 (137-145) mmol/L Potassium 4.7 (3.4-5.1) mmol/L Chloride 102 (98-107) mmol/L Carbon Dioxide 21 L (22-32) mmol/L BUN 40 H (9-20) mg/dL Creatinine 2.00 H (0.66-1.25) mg/dL Estimated GFR 32.3 L (>60) mL/min BUN/Creatinine Ratio 20.0 (6-22) Glucose 103 (80-110) mg/dL Lactate 4.6 H (0.7-2.1) mmol/L Calcium 9.4 (8.4-10.2) mg/dL Total Bilirubin 1.4 H (0.2-1.3) mg/dL AST 26 (17-59) IU/L ALT 18 L (21-72) IU/L Alkaline Phosphatase 147 H (38-126) U/L Total Protein 8.8 H (6.3-8.2) g/dL Albumin 4.4 (3.5-5.0) g/dL Globulin 4.4 H (1.7-4.1) g/dL Albumin/Globulin Ratio 1.0 (1.0-2.8) Lipase 74 (23-300) U/L Procalcitonin (<0.5) ng/mL 03/16/19 Range/Units 16:47 WBC (4.5-11.0) X10^3/uL RBC (4.5-5.9) X10^6/uL Hgb (13.5-17.5) g/dL Hct (41-53) % MCV (80-100) fL MCH (26-34) PG MCHC (30-36) % RDW (11.6-14.8) % Plt Count (150-400) X10^3/uL Neut % (Auto) (50-75) % Lymph % (Auto) (25-40) % Hale % (Auto) (3-14) % Eos % (Auto) (2-4) % Baso % (Auto) (0-2) % Neut # (Auto) (8596-7158) /uL Lymph # (Auto) (2949-0379) /uL Hale # (Auto) (0-900) /uL Eos # (Auto) (0-450) /uL Baso # (Auto) (0-100) /uL PT (10.1-12.7) SECONDS INR (0.9-1.3) APTT (26.4-36.2) SECONDS Sodium (137-145) mmol/L Potassium (3.4-5.1) mmol/L Chloride (98-107) mmol/L Carbon Dioxide (22-32) mmol/L BUN (9-20) mg/dL Creatinine (0.66-1.25) mg/dL Estimated GFR (>60) mL/min BUN/Creatinine Ratio (6-22) Glucose (80-110) mg/dL Lactate 2.1 (0.7-2.1) mmol/L Calcium (8.4-10.2) mg/dL Total Bilirubin (0.2-1.3) mg/dL AST (17-59) IU/L ALT (21-72) IU/L Alkaline Phosphatase (38-126) U/L Total Protein (6.3-8.2) g/dL Albumin (3.5-5.0) g/dL Globulin (1.7-4.1) g/dL Albumin/Globulin Ratio (1.0-2.8) Lipase (23-300) U/L Procalcitonin (<0.5) ng/mL Point of care testing: Urine Dip Bedside Urine Glucose Negative Bedside Urine Bilirubin - Negative Bedside Urine Ketone - Negative Urine Specific [place] 1.025 Bedside Urine Occult Blood - Negative Bedside Urine pH 5.5 Bedside Urine Protein - Negative Bedside Urine Urobilinogen - Negative Bedside Urine Nitrite - Negative Bedside Urine Leukocytes - Negative Esterase Imaging Data US - abdomen: Radiologist's impression: Date of Service: 03/16/19 Loc: ED Accession Number: [id number] Procedure: US abdomen limited Ordering Provider: Ventura Riley D.O. PROCEDURE: US ABDOMEN LIMITED INDICATIONS: GB DRAIN ACCIDENTALLY REMOVED TODAY, PT ILL APPEARING TECHNIQUE: Real-time focused scanning was performed of the abdomen, with image documentation. COMPARISON: [facility], , US ABDOMEN COMPLETE, 11/12/2018, 22:34. FINDINGS: Multiple grayscale and color Doppler images of the right upper abdomen were acquired. The liver is normal in size and echotexture without focal intrahepatic abnormalities. The gallbladder demonstrates wall thickening measuring approximately 9 mm in size. Multiple gallstones are again noted. There is surrounding pericholecystic fluid and a positive sonographic Canseco's. Visualized no aerated ducts appear within normal limits. Common bile duct measures approximately 6.5 mm. Visualized portions of the pancreas appear unremarkable. No significant free fluid identified in the portions of the abdomen. IMPRESSION: Cholelithiasis with associated gallbladder wall thickening, pericholecystic fluid, and positive sonographic Canseco's compatible with acute cholecystitis. Dictated by: Eugenio Garcia M.D. on 03/16/2019 at 16:23 Approved by: Eugenio Garcia M.D. on 03/16/2019 at 16:26 ECG Data Attestation: I personally reviewed and interpreted this ECG as follows: Prior ECG tracings: available for review Critical Care Time Critical Care Time: Yes Total Critical Care Time: 30 Attestation: The high probability of a clinically significant, sudden or life threatening deterioration of the [CV] system(s) required my full and direct attention, in tervention and personal management. The aggregate critical care time was [30] minutes. This time is in addition to time spent performing reported procedures but includes the following: [x] Data Review and interpretation [x] Patient assessment and monitoring of vital signs [x] Documentation [x] Medication orders and management Discharge Plan Departure Patient Disposition: [facility] Clinical Impression: Acute cholecystitis Sepsis Qualifiers: Sepsis type: sepsis due to unspecified organism Qualified Code(s): A41.9 - Sepsis, unspecified organism Interventions: ED Discharge Assessment Last Done: 03/16/19 18:18 Prescriptions: No Action Disabled Parking Permit Qty: 1 RF: 0 hydrocodone-acetaminophen [[place]] 5-325 mg tablet 1 tab PO BIDP Qty: 50 RF: 0 warfarin 1 mg tablet 1 mg PO SUTUWETHSA RF: 0 clopidogrel 75 mg tablet 75 mg PO DAILY Qty: 90 RF: 1 metformin [Glucophage] 500 mg tablet 500 mg PO BID Qty: 180 RF: 3 omeprazole 20 mg capsule,delayed release(DR/EC) 20 mg PO BID Qty: 180 RF: 0 cholecalciferol (vitamin D3) [Vitamin D3] 2,000 UNIT tablet 1 tab PO BID Qty: 0 RF: 0 nitroglycerin [Nitrostat] 0.4 MG tablet, sublingual 0.4 mg Sublingual DAILY PRN (Reason: Chest Pain) Qty: 0 RF: 0 Glucose: Test Strips 1 str miscellaneous DIRECTED Qty: 0 RF: 0 metoprolol tartrate 25 mg tablet 12.5 mg PO BID Qty: 90 RF: 0 warfarin 1 mg tablet 1.5 mg PO MOFR RF: 0 furosemide 40 mg tablet 40 mg PO BID RF: 0 ferrous sulfate [Milena-Time] 325 mg (65 mg iron) tablet 325 mg PO BID RF: 0 atorvastatin 40 mg tablet 40 mg PO BEDTIME RF: 0 multivitamin Tablet 1 tab PO DAILY RF: 0 acetaminophen [Acetaminophen Extra Strength] 500 mg Tablet 500 mg PO Q6H PRN (Reason: Pain (Scale Score 1-3)) RF: 0 docusate sodium 100 mg Capsule 100 mg PO DAILY PRN (Reason: Constipation) RF: 0 fluticasone propionate 16 GM spray,suspension 1 spray Intranasal BIDP PRN (Reason: allergies) RF: 0 timolol maleate 0.5 % drops 1 drp ophthalmic (eye) BID RF: 0 Referrals: Dorothy Devine DO [Primary Care Provider] -
[2019-03-16 14:41] LABS: INR 1.5 (0.9-1.3); Prothrombin Time 17.3 SECONDS (10.1-12.7)
[2019-03-16 14:44] LABS: PTT Partial Thromboplastin Tim 28 SECONDS (26.4-36.2)
[2019-03-16 14:45] LABS: Lactate (Lactic Acid) 4.6 mmol/L (0.7-2.1)
[2019-03-16 14:46] LABS: Alanine Aminotransferase 18 IU/L (21-72); Albumin 4.4 g/dL (3.5-5.0); Alkaline Phosphatase 147 U/L (38-126); Aspartate Aminotransferase 26 IU/L (17-59); Bilirubin Total 1.4 mg/dL (0.2-1.3); Blood Urea Nitrogen 40 mg/dL (9-20); Calcium 9.4 mg/dL (8.4-10.2); Carbon Dioxide 21 mmol/L (22-32); Chloride 102 mmol/L (98-107); Estimated Glomerular Filt Rate 32.3 mL/min (>60); Globulin 4.4 g/dL (1.7-4.1); Glucose 103 mg/dL (80-110); HEMOLYSIS < 15 (0-50); Potassium 4.7 mmol/L (3.4-5.1); Sodium 139 mmol/L (137-145); Total Protein 8.8 g/dL (6.3-8.2)
[2019-03-16 14:49] LABS: Lipase 74 U/L (23-300)
[2019-03-16 15:00] LABS: Procalcitonin 0.08 ng/mL (<0.5)
[2019-03-16] MEDS: PIPERACILLIN-TAZO 3.375 GM/50 ML FROZ.PIGGY IV (16:01)
--- NOTE | 2019-03-16 16:02 | PC.NURSE ---
Dr Riley ordered1 L NS bolus with zosyn and thne 2nd liter NS
[2019-03-16 16:31] LABS: Reflexed Lactate in 2 Hours Y
[2019-03-16 17:04] LABS: Lactate 2HR (Lactic Acid Rflx) 2.1 mmol/L (0.7-2.1)
[2019-03-16] MEDS: SODIUM CHLORIDE 0.9% 1,000 ML 1000 ML IV (17:08)
== END 2019-03-16 21:04 | disposition short-term general hospital (02) ==
PROVIDERS: Emergency Provider Emergency Medicine; Family Provider Family Medicine; PCP Family Medicine
DX: K81.0 Acute cholecystitis (principal); A41.9 Sepsis, unspecified organism; R53.1 Weakness; R68.83 Chills (without fever)
CPT/HCPCS: 36415; 36591; 71045; 76705; 80053; 81003; 83605; 83690; 84145; 85025; 85610; 85730; 87040; 93005; 96361; 96365; 99285; J2543

== ENCOUNTER → 2019-04-05 10:01 | Outpatient (CLI) | payer MEDICARE, OTHER, SELFPAY ==
[2019-04-05 11:18] LABS: Hematocrit 29.9 % (41-53); Hemoglobin 9.9 g/dL (13.5-17.5); Mean Corpuscular HGB Conc 33.2 % (30-36); Mean Corpuscular Hemoglobin 28.5 PG (26-34); Platelet Count 269 X10^3/uL (150-400); Red Blood Cell Count 3.48 X10^6/uL (4.5-5.9); Red Cell Distribution Width 18.2 % (11.6-14.8); White Blood Cell Count 5.2 X10^3/uL (4.5-11.0)
[2019-04-05 11:55] LABS: Blood Urea Nitrogen 36 mg/dL (9-20); Calcium 9.4 mg/dL (8.4-10.2); Carbon Dioxide 27 mmol/L (22-32); Chloride 97 mmol/L (98-107); Estimated Glomerular Filt Rate 36.5 mL/min (>60); Glucose 168 mg/dL (80-110); HEMOLYSIS < 15 (0-50); Potassium 3.7 mmol/L (3.4-5.1); Sodium 136 mmol/L (137-145)
[2019-04-05 12:06] LABS: B Type Natriuretic Peptide 1040 (<100)
[2019-04-05 16:20] LABS: Creatinine Urine Random 130.3 mg/dL; Protein (Total) Urine Random 10 mg/dL (0-12); Protein Creatinine Ratio Urine 0.07 GRAM/24H
== END ==
PROVIDERS: Family Provider Family Medicine; PCP Family Medicine; Visit Provider Student in an Organized Health Care Education/Training Program
DX: D63.1 Anemia in chronic kidney disease (principal); R80.9 Proteinuria, unspecified; N18.9 Chronic kidney disease, unspecified; I50.32 Chronic diastolic (congestive) heart failure
CPT/HCPCS: 36415; 80048; 82570; 83880; 84156; 85027

== ENCOUNTER 2019-04-19 14:44 | Inpatient (IN) | payer MEDICARE, OTHER, SELFPAY ==
[2019-04-19] VITALS (10 sets, daily range): BP systolic 72–123; BP diastolic 41–68; PULSE 70–76; RESP 14–24; TEMP 35.9–36.6; O2SAT 95–100; BMI 25.8; BMI 26.5
--- NOTE | 2019-04-19 14:48 | DI.RAD.S_ITS ---
PROCEDURE: XR CHEST 1V INDICATIONS: syncope TECHNIQUE: One view of the chest was acquired. COMPARISON: [facility], CR, XR CHEST 1V, 11/12/2018, 21:28. [facility], CR, XR CHEST 1V, 03/16/2019, 14:32. FINDINGS: Surgical changes and devices: Sternotomy and aortic valve prosthesis. There is a cardiac pacemaker. Postsurgical changes in lower cervical and thoracic spine. Lungs and pleura: Increased pulmonary vascularity suggesting mild CHF. No pleural effusions or pneumothorax. Mediastinum: Mediastinal contours appear normal. Heart size is moderate coronary.. Bones and chest wall: No suspicious bony lesions. Overlying soft tissues appear unremarkable. IMPRESSION: Cardiomegaly and mild CHF. Dictated by: Nicole Eldridge M.D. on 04/19/2019 at 15:45 Approved by: Nicole Eldridge M.D. on 04/19/2019 at 15:46
[2019-04-19 15:09] LABS: Add Manual Diff / Slide Review NO; Basophils Absolute Auto 0 /uL (0-100); Basophils Percent Auto 0.5 % (0-2); Eosinophils Absolute Auto 0 /uL (0-450); Eosinophils Percent Auto 0.8 % (2-4); Hematocrit 31.6 % (41-53); Hemoglobin 10.5 g/dL (13.5-17.5); Lymphocytes Absolute Auto 1000 /uL (1100-4500); Lymphocytes Percent Auto 19.9 % (25-40); Mean Corpuscular HGB Conc 33.2 % (30-36); Mean Corpuscular Hemoglobin 28.6 PG (26-34); Mean Corpuscular Volume 86.3 fL (80-100); Monocytes Absolute Auto 300 /uL (0-900); Monocytes Percent Auto 4.9 % (3-14); Neutrophils Absolute Auto 3900 /uL (1500-7000); Neutrophils Percent Auto 73.9 % (50-75); Platelet Count 194 X10^3/uL (150-400); Red Blood Cell Count 3.66 X10^6/uL (4.5-5.9); Red Cell Distribution Width 18.8 % (11.6-14.8); White Blood Cell Count 5.3 X10^3/uL (4.5-11.0)
[2019-04-19 15:16] LABS: Alanine Aminotransferase 22 IU/L (21-72); Albumin 3.9 g/dL (3.5-5.0); Alkaline Phosphatase 144 U/L (38-126); Aspartate Aminotransferase 34 IU/L (17-59); BUN Creatinine Ratio 23.8 (6-22); Bilirubin Total 1.1 mg/dL (0.2-1.3); Blood Urea Nitrogen 38 mg/dL (9-20); Calcium 9.4 mg/dL (8.4-10.2); Carbon Dioxide 25 mmol/L (22-32); Chloride 99 mmol/L (98-107); Creatine Kinase 40 U/L (55-170); Estimated Glomerular Filt Rate 41.8 mL/min (>60); Globulin 3.8 g/dL (1.7-4.1); Glucose 97 mg/dL (80-110); HEMOLYSIS < 15 (0-50); Lipase 76 U/L (23-300); Sodium 136 mmol/L (137-145); Total Protein 7.7 g/dL (6.3-8.2)
[2019-04-19] MEDS: SODIUM CHLORIDE 0.9% 1,000 ML 150 ML IV (15:19)
[2019-04-19] MEDS: ASPIRIN 81 MG TAB 324 MG PO (15:19)
--- NOTE | 2019-04-19 15:39 | DI.CT.S_ITS ---
PROCEDURE: CT HEAD/BRAIN WO CON INDICATIONS: fall with head injury TECHNIQUE: Noncontrast 4.5 mm thick angled axial sections acquired from the foramen magnum to the vertex, with coronal and sagittal reformats. For radiation dose reduction, the following was used: automated exposure control, adjustment of mA and/or kV according to patient size. COMPARISON: [facility], CT, HEAD AND NECK ANGIO, 01/17/2016, 17:40. [facility], CR, XR CHEST 1V, 04/19/2019, 14:53. [facility], CT, HEAD WITHOUT CONTRAST, 04/21/2016, 14:20. FINDINGS: Image quality: Excellent. CSF spaces: Basal cisterns are patent. No extra-axial fluid collections. The ventricles are symmetric in size and shape. Brain: No intracranial bleeds or masses. Stable, symmetric calcification of the basal ganglia can be seen. There is cerebral volume loss for age, with resultant ventricular and sulcal prominence. There are periventricular and deep white matter chronic small vessel ischemic changes. There is intracranial internal carotid artery atherosclerosis. Skull and face: Calvarium and visualized facial bones appear intact, without suspicious lesions. Sinuses: Visualized sinuses and mastoids are clear. IMPRESSION: Stable intracranial study, without findings of acute intracranial hemorrhage. No displaced calvarial fracture can be seen. Dictated by: Jorge Moser M.D. on 04/19/2019 at 14:58 Approved by: Jorge Moser M.D. on 04/19/2019 at 15:00
[2019-04-19 15:40] LABS: B Type Natriuretic Peptide 1350 (<100)
--- NOTE | 2019-04-19 16:36 | ED_ITS ---
HPI - Syncope General Chief Complaint: Syncope Stated Complaint: Syncope, Hx back pain Time Seen by Provider: 04/19/19 14:45 Source: patient, family and EMS Mode of arrival: EMS Limitations: no limitations History of Present Illness HPI narrative: 78M non smoker with extensive cardiac history, pacemaker, and on blood thinners presents with the chief complaint of a fall with head injury and unresponsive episode. He was walking with his walker and became unsteady and flew forward and tumbled, striking his head. He then was a bit groggy and had an unresponsive episode in the aftermath. He states he feels unwell. Denies any chest pain or palpitations leading into the event. He denies any vomiting or diarrhea. He has not completely returned to baseline in the aftermath of his fall. Patient activated as modified trauma given head injury and coumadin MD complaint: loss of consciousness and collapsed Onset (ago): hour(s) Description of event: post-event confusion Prodromal symptoms: none Witnessed: yes - by bystander Injuries sustained associated with event: head Current symptoms: lightheaded History: history of CAD and pacemaker Treatments prior to arrival: none Related Data Home Medications Medication Instructions Recorded Confirmed cholecalciferol (vitamin D3) 1 tab PO DAILY #0 01/19/12 04/19/19 [Vitamin D3] nitroglycerin [Nitrostat] 0.4 mg SUBLINGUAL DAILY PRN #0 02/12/17 04/19/19 Glucose: Test Strips 1 str MISCELLANEOUS DIRECTED #0 01/12/18 04/19/19 acetaminophen [Acetaminophen Extra 500 mg PO Q6H PRN 07/05/18 04/19/19 Strength] docusate sodium 100 mg PO DAILY PRN 07/05/18 04/19/19 fluticasone propionate 1 spray INTRANASAL BIDP PRN 07/05/18 04/19/19 timolol maleate 1 drp OPHTHALMIC (EYE) BID 07/14/18 04/19/19 warfarin 1 mg tablet 1 dose PO DIRECTED tab 01/14/19 04/19/19 atorvastatin 40 mg PO BEDTIME 03/16/19 04/19/19 ferrous sulfate [Milena-Time] 325 mg PO BID 03/16/19 04/19/19 furosemide 40 mg PO BID 03/16/19 04/19/19 enoxaparin 1 dose SUBCUT DIRECTED 04/19/19 04/19/19 metoprolol succinate [Toprol XL] 12.5 mg PO BID 04/19/19 04/19/19 midodrine 10 mg PO DAILY 04/19/19 04/19/19 Previous Rx's Medication Instructions Recorded Disabled Parking Permit #1 ea 09/21/18 hydrocodone 5 mg-acetaminophen 325 1 tab PO BIDP #50 tab 12/22/18 mg tablet clopidogrel 75 mg tablet 75 mg PO DAILY #90 tab 02/16/19 metformin 500 mg tablet 500 mg PO BID #180 tab 02/16/19 omeprazole 20 mg capsule,delayed 20 mg PO BID #180 cap 02/16/19 release Allergies Allergy/AdvReac Type Severity Reaction Status Date / Time oxycodone [OXYCODONE] AdvReac Mild DIZZY, Verified 04/19/19 14:50 NAUSEA codeine [CODEINE] AdvReac Unknown NAUSEA Verified 04/19/19 14:50 hydromorphone [HYDROMORPHONE] AdvReac Unknown NAUSEA Verified 04/19/19 14:50 morphine [MORPHINE] AdvReac Unknown SPOUSE Verified 04/19/19 14:50 DENIED ALLERGY Review of Systems Constitutional Denies chills, Denies fever(s), Denies lethargy and Reports weakness Eyes Denies change in vision, Denies eye discharge, Denies irritation and Denies loss of vision ENT Ears, Nose, Mouth, and Throat: Denies change in voice, Denies neck pain and Denies sore throat Cardiovascular Denies chest pain, Denies irregular heart rhythm, Denies lightheadedness, Denies palpitations, Denies dyspnea, Denies dyspnea on exertion and Denies orthopnea Respiratory Denies cough, Denies dyspnea, Denies dyspnea on exertion and Denies wheezing Gastrointestinal Gastrointestinal: Denies abdominal pain, Denies change in bowel habits, Denies diarrhea, Denies nausea and Denies vomiting Genitourinary Denies hematuria, Denies flank pain, Denies urinary incontinence and Denies urinary urgency Musculoskeletal Denies neck pain Integumentary/Breasts Denies pruritus, Denies erythema, Denies rash and Denies wounds Neurologic Denies confusion, Denies loss of vision and Reports weakness Psychiatric Denies anxiety, Denies confusion, Denies depression, Denies homicidal ideation and Denies suicidal ideation Endocrine Denies palpitations Hematologic/Lymphatic Denies easy bruising Allergic/Immunologic Denies wheezing PFSH Medical History Anemia (Chronic Unknown) Arthritis (Chronic Unknown) BPH (benign prostatic hyperplasia) (Chronic Unknown) Bladder cancer (Chronic Unknown) Chronic kidney disease (CKD) (Chronic Unknown) Coronary artery disease (Chronic Unknown) Diabetes (Chronic 12/2005) GERD (gastroesophageal reflux disease) (Chronic Unknown) Hyperlipemia (Chronic Unknown) Hypertension (Chronic Unknown) Obstructive sleep apnea (Chronic Unknown) Osteopenia (Chronic 2009) Osteoporosis (Chronic Unknown) Renal cell cancer (Chronic Unknown) Glaucoma (Resolved Unknown) S/p nephrectomy (Resolved 02/2017) Surgical History History of PTCA (Resolved 1986) History of ear surgery (Resolved 12/2005) History of surgical procedure on eye proper using laser (Resolved 1997) History of tonsillectomy and adenoidectomy (Resolved 10/1944) Hx of angioplasty (Resolved 11/1998) Hx of appendectomy (Resolved ~03/1958) Hx of cataract extraction (Resolved ~2001) Hx of heart bypass surgery (Resolved 08/1987) Hx of heart bypass surgery (Resolved 05/1999) Hx of shoulder surgery (Resolved 11/2004) Hx of transurethral resection of prostate (Resolved 1994) History of cardiac radiofrequency ablation (RFA) History of hip replacement History of spinal fusion Presence of cardiac pacemaker Status post knee surgery Status post laminectomy Family History Father No problems noted. Mother No problems noted. Sister No problems noted. Social History household members: spouse Smoking Status: Former smoker Family History Father No problems noted. Mother No problems noted. Sister No problems noted. Social History household members: spouse Smoking Status: Former smoker Exam Narrative Exam Narrative: GENERAL: 78-year-old male appears stated age, he appears weak, and unwell. Pale HEAD: Atraumatic. Normocephalic. No temporal or scalp tenderness. EYES: Pupils equal round and reactive. Extraocular motions intact. No scleral icterus. No injection or drainage. ENT: Nose without bleeding, purulent drainage or septal hematoma. Throat without erythema, tonsillar hypertrophy or exudate. Uvula midline. Airway patent. NECK: Trachea midline. No JVD or lymphadenopathy. Supple, nontender, no meningeal signs. CARDIOVASCULAR: Regular rate and rhythm without murmurs, gallops, or rubs. RESPIRATORY:crackles in B/L bases GASTROINTESTINAL: Abdomen soft, non-tender, nondistended. No hepato- splenomegaly, or palpable masses. No guarding. EXTREMITIES: No clubbing, cyanosis, or edema. No joint tenderness, effusion, or edema noted. BACK: Nontender without deformity or crepitance. No flank tenderness. NEURO: AOx3. SKIN: No rash or erythema. Initial Vital Signs Initial Vital Signs: Vital Signs Temperature 97.8 F 04/19/19 14:50 Pulse Rate 76 04/19/19 14:50 Respiratory Rate 24 04/19/19 14:50 Blood Pressure 98/63 04/19/19 14:50 Pulse Oximetry 95 04/19/19 14:50 Course Orders Ordered: ED Orders 04/19/19 14:48 XR chest 1V Stat EKG-12 Lead Stat 04/19/19 14:53 B Type Natriuretic Peptide Stat Complete Blood Count AUTO DIFF Stat Comprehensive Metabolic Panel Stat Lipase Stat Troponin & CK Cardiac Panel Stat Type and Screen Stat 04/19/19 15:39 CT head/brain wo con Stat Sodium Chloride (Normal Saline 0.9%) 1,000 mls @ 150 mls/hr IV CONT DANYELL Last Infusion: 04/19/19 18:27 Dose: 0 mls/hr Admin: 04/19/19 15:19 Dose: 150 mls/hr Discontinued Medications Acetaminophen (Tylenol) 975 mg PO NOW ONE Stop: 04/19/19 18:40 Last Admin: 04/19/19 18:40 Dose: 975 mg Aspirin (Aspirin Chew) 324 mg PO NOW ONE Stop: 04/19/19 14:49 Last Admin: 04/19/19 15:19 Dose: 324 mg Reevaluation(s) Reevaluation #1: FAST exam at bedside. No abnormal findings attempts made to interrogate pacer are unsuccessful presents to the emergency department and states a more clear picture. The patient had been sitting in his chair out the garage which is normal for him and then he attempted ambulating with his walker after being in a seated position for quite some time. He has known orthostatic hypotension and was started on midodrine today by his distributor advertising material. He uses a whistle to signal if he needs help and she went to check on him and found him lying on the ground. She called her son and when they attempted to get him up he had another syncopal episode with change in position. She states that he has had few episodes of diarrhea but denies any vomiting or change in appetite Vital Signs - 8 hr 04/19/19 14:50 04/19/19 15:52 04/19/19 16:50 Temperature 97.8 F Pulse Rate 76 73 70 Pulse Rate [Orthostatic Lying] Pulse Rate [Orthostatic Sitting] Respiratory Rate 24 17 14 Blood Pressure 98/63 Blood Pressure [Left Arm] 105/66 103/61 Blood Pressure [Orthostatic Lying] Blood Pressure [Orthostatic Sitting] Pulse Oximetry 95 95 99 04/19/19 17:30 04/19/19 17:40 04/19/19 18:40 Temperature Pulse Rate 70 70 Pulse Rate [Orthostatic Lying] 71 Pulse Rate [Orthostatic Sitting] 70 Respiratory Rate 19 20 Blood Pressure Blood Pressure [Left Arm] 110/66 117/64 Blood Pressure [Orthostatic Lying] 106/61 Blood Pressure [Orthostatic Sitting] 72/41 L Pulse Oximetry 98 100 MDM - Syncope Lab Data Result diagrams: 04/19/19 14:53 04/19/19 14:53 Lab Results 04/19/19 04/19/19 04/19/19 Range/Units 14:53 14:53 14:53 WBC 5.3 (4.5-11.0) X10^3/uL RBC 3.66 L (4.5-5.9) X10^6/uL Hgb 10.5 L (13.5-17.5) g/dL Hct 31.6 L (41-53) % MCV 86.3 (80-100) fL MCH 28.6 (26-34) PG MCHC 33.2 (30-36) % RDW 18.8 H (11.6-14.8) % Plt Count 194 (150-400) X10^3/uL Neut % (Auto) 73.9 (50-75) % Lymph % (Auto) 19.9 L (25-40) % Cole % (Auto) 4.9 (3-14) % Eos % (Auto) 0.8 L (2-4) % Baso % (Auto) 0.5 (0-2) % Neut # (Auto) 3900 (8968-3850) /uL Lymph # (Auto) 1000 L (7459-8851) /uL Cole # (Auto) 300 (0-900) /uL Eos # (Auto) 0 (0-450) /uL Baso # (Auto) 0 (0-100) /uL Sodium 136 L (137-145) mmol/L Potassium 4.0 (3.4-5.1) mmol/L Chloride 99 (98-107) mmol/L Carbon Dioxide 25 (22-32) mmol/L BUN 38 H (9-20) mg/dL Creatinine 1.60 H (0.66-1.25) mg/dL Estimated GFR 41.8 L (>60) mL/min BUN/Creatinine Ratio 23.8 H (6-22) Glucose 97 (80-110) mg/dL Calcium 9.4 (8.4-10.2) mg/dL Total Bilirubin 1.1 (0.2-1.3) mg/dL AST 34 (17-59) IU/L ALT 22 (21-72) IU/L Alkaline Phosphatase 144 H (38-126) U/L Total Creatine Kinase 40 L (55-170) U/L CK-MB (CK-2) TNP CK-MB (CK-2) Rel Index TNP Troponin I 0.150 H* (0.01-0.034) ng/mL B-Natriuretic Peptide 1350 H (<100) Total Protein 7.7 (6.3-8.2) g/dL Albumin 3.9 (3.5-5.0) g/dL Globulin 3.8 (1.7-4.1) g/dL Albumin/Globulin Ratio 1.0 (1.0-2.8) Lipase 76 (23-300) U/L Blood Type A Negative Antibody Screen Negative MDM Narrative Medical decision making narrative: 78M with complex medical history presents with 2 syncopal episodes and ongoing orthostatic hypotension despite gentle hydration. He has multiple lab abnormalities which are actually stable for him. Discharge Plan Departure Patient Disposition: Admitted as Observation Clinical Impression: Orthostatic hypotension Syncope Qualifiers: Syncope type: unspecified Qualified Code(s): R55 - Syncope and collapse Admit Date/Time: 04/19/19 18:23 Admit Provider: Nydia Barreto
--- NOTE | 2019-04-19 16:39 | PC.NURSE ---
Pt states his pacemaker is from [facility]. Attempted to interrogate his pacemaker with both of our interrogating machines, without success. Called [facility] for exact make and model. Patient has [employer] ADAPTA [id number] with a serial number of: [id number]. Called [employer] and one of their technicians has been paged for interrogation.
--- NOTE | 2019-04-19 16:45 | PC.NURSE ---
Spoke w/ Fabienne from [facility] who will come to interrogate pacemaker. She is currently 3 hours away. Her cell is [phone] if the plan changes.
[2019-04-19] MEDS: ACETAMINOPHEN 325 MG TABLET 975 MG PO (18:40)
--- NOTE | 2019-04-19 21:35 | P.HP_ITS ---
History of Present Illness Date Patient Seen: 04/19/19 Time Patient Seen: 19:48 Chief complaint: Syncope, Hx back pain Narrative: Mr. Ramirez Huizar is an 78-year-old male patient with a complex medical history including cardiovascular disease, status post aortic valve replacement, history of ablation and pacemaker implantation, renal cell carcinoma, bladder cancer, chronic kidney disease, diabetes, extensive cervical/thoracic/lumbar spinal surgery and orthostatic hypotension who presents today with a ground level fall where he states his walker ?got away from me? and does add that when he stood up he did feel dizzy. The patient had an apparent loss of consciousness believing he struck his head on pavement of the driveway. Apparently had a 2nd syncopal episode when his and son were attempting to help him up where upon 911 was called. The patient complains of occipital head and neck pain and nausea without vomiting. The patient had taken his 1st dose of midodrine 10 mg today. The patient does endorse a recent history of poor appetite and has not been eating well and had diarrhea this morning. He further reports feeling chills and poorly for days. The patient denies fevers has had no visual changes denies nasal congestion or sore throat. He does have chronic neck pain and back pain following multiple surgeries with resulting numbness and tingling in all extremities. Denies chest pain or palpitations and reports no shortness of breath cough or wheezing. He reports no abdominal pain, poor appetite and nausea without vomiting at time exam. He has chronic neck and back pain related to multiple surgeries with instrumentation and typically ambulates with a walker. Upon arrival in the ER the patient is found to be afebrile with a temperature of 97.8?, heart rate of 76, blood pressure 98/63, elevated respiratory rate at 24 saturating 95% on room air. Patient had a chest x-ray taken which shows cardiomyopathy and mild congestive heart failure. On laboratory studies he is found have a a white count of 5.3, hemoglobin 10.5 and hematocrit of 31.6 and platelets 194. His last coagulation studies were on 03/16/2019 finding a PT 17.3 and an INR of 1.5 and has had a subsequent adjustment of his warfarin therapy. He has a total CK that is negative at 40 and has a chronically elevated troponin of 0.150 (chronically elevated) and BNP of 1350. Patient has known chronic kidney disease in today has a BUN of 38 and creatinine 1.6, which appears to be baseline functioning with thick chronic kidney disease stage 3. His otherwise his LFTs within normal limits. His a nonfasting blood sugar of 97. CT scan of the head reveals no cranial fractures or intracranial bleeding. Patient History Medical History Anemia (Chronic Unknown) Arthritis (Chronic Unknown) BPH (benign prostatic hyperplasia) (Chronic Unknown) Bladder cancer (Chronic Unknown) Chronic kidney disease (CKD) (Chronic Unknown) Coronary artery disease (Chronic Unknown) Diabetes (Chronic 12/2005) GERD (gastroesophageal reflux disease) (Chronic Unknown) Hyperlipemia (Chronic Unknown) Hypertension (Chronic Unknown) Obstructive sleep apnea (Chronic Unknown) Osteopenia (Chronic 2008) Osteoporosis (Chronic Unknown) Renal cell cancer (Chronic Unknown) Glaucoma (Resolved Unknown) S/p nephrectomy (Resolved 02/2017) Surgical History History of PTCA (Resolved 1986) History of ear surgery (Resolved 12/2005) History of surgical procedure on eye proper using laser (Resolved 1997) History of tonsillectomy and adenoidectomy (Resolved 10/1944) Hx of angioplasty (Resolved 11/1998) Hx of appendectomy (Resolved ~03/1958) Hx of cataract extraction (Resolved ~2001) Hx of heart bypass surgery (Resolved 08/1987) Hx of heart bypass surgery (Resolved 05/1999) Hx of shoulder surgery (Resolved 11/2004) Hx of transurethral resection of prostate (Resolved 1994) History of cardiac radiofrequency ablation (RFA) History of hip replacement History of spinal fusion Presence of cardiac pacemaker Status post knee surgery Status post laminectomy Family History Father No problems noted. Mother No problems noted. Sister No problems noted. Social History household members: spouse Smoking Status: Former smoker Family & Social History Family History Father No problems noted. Mother No problems noted. Sister No problems noted. Social History: household members spouse Safety & Behavioral: Feels Safe in Current Yes Environment Been Physically Hurt or No Threatened By a Person Suicidal Ideation Description None Suicide Plan Description No Plan Tobacco & Substance use: Smoking Status Former smoker alcohol intake frequency 0-2 drinks per day Substance Use Type does not use Comment: The patient lives in a single family home with his of 50 years. He relates that his father related to internal bleeding and his mother had cancer and has a sister with leukemia. Smoking: Patient endorses smoking a pipe for 20-30 years quitting in 1983. Alcohol: Patient endorses enjoying an occasional beer. Substance use: Patient does not use recreational pharmaceuticals, herbal or cannabis products. Advanced directives: In direct discussion with the patient he states his wishes to be a FULL CODE. He designates his to be his surrogate decision maker. Meds Home Medications Medication Instructions Recorded Confirmed Type cholecalciferol (vitamin D3) 1 tab PO DAILY #0 01/19/12 04/19/19 History [Vitamin D3] nitroglycerin [Nitrostat] 0.4 mg SUBLINGUAL DAILY PRN #0 02/12/17 04/19/19 History Glucose: Test Strips 1 str MISCELLANEOUS DIRECTED #0 01/12/18 04/19/19 History acetaminophen [Acetaminophen Extra 500 mg PO Q6H PRN 07/05/18 04/19/19 History Strength] docusate sodium 100 mg PO DAILY PRN 07/05/18 04/19/19 History fluticasone propionate 1 spray INTRANASAL BIDP PRN 07/05/18 04/19/19 History timolol maleate 1 drp OPHTHALMIC (EYE) BID 07/14/18 04/19/19 History Disabled Parking Permit #1 ea 09/21/18 04/19/19 Rx hydrocodone 5 mg-acetaminophen 325 1 tab PO BIDP #50 tab 12/22/18 04/19/19 Rx mg tablet warfarin 1 mg tablet 1 dose PO DIRECTED tab 01/14/19 04/19/19 History clopidogrel 75 mg tablet 75 mg PO DAILY #90 tab 02/16/19 04/19/19 Rx metformin 500 mg tablet 500 mg PO BID #180 tab 02/16/19 04/19/19 Rx omeprazole 20 mg capsule,delayed 20 mg PO BID #180 cap 02/16/19 04/19/19 Rx release atorvastatin 40 mg PO BEDTIME 03/16/19 04/19/19 History ferrous sulfate [Milena-Time] 325 mg PO BID 03/16/19 04/19/19 History furosemide 40 mg PO BID 03/16/19 04/19/19 History enoxaparin 1 dose SUBCUT DIRECTED 04/19/19 04/19/19 History metoprolol succinate [Toprol XL] 12.5 mg PO BID 04/19/19 04/19/19 History midodrine 10 mg PO DAILY 04/19/19 04/19/19 History Allergies Allergy/AdvReac Type Severity Reaction Status Date / Time oxycodone [OXYCODONE] AdvReac Mild DIZZY, Verified 04/19/19 14:50 NAUSEA codeine [CODEINE] AdvReac Unknown NAUSEA Verified 04/19/19 14:50 hydromorphone [HYDROMORPHONE] AdvReac Unknown NAUSEA Verified 04/19/19 14:50 morphine [MORPHINE] AdvReac Unknown SPOUSE Verified 04/19/19 14:50 DENIED ALLERGY Review of Systems Review of Systems All systems reviewed & are unremarkable except as noted in HPI and below Exam Vital Signs (past 8 hours): - 04/19/19 14:50 04/19/19 15:52 04/19/19 16:50 Temperature 97.8 F Pulse Rate 76 73 70 Pulse Rate [Orthostatic Lying] Pulse Rate [Orthostatic Sitting] Respiratory Rate 24 17 14 Blood Pressure 98/63 Blood Pressure [Left Arm] 105/66 103/61 Blood Pressure [Orthostatic Lying] Blood Pressure [Orthostatic Sitting] Pulse Oximetry 95 95 99 04/19/19 17:30 04/19/19 17:40 04/19/19 18:40 Temperature Pulse Rate 70 70 Pulse Rate [Orthostatic Lying] 71 Pulse Rate [Orthostatic Sitting] 70 Respiratory Rate 19 20 Blood Pressure Blood Pressure [Left Arm] 110/66 117/64 Blood Pressure [Orthostatic Lying] 106/61 Blood Pressure [Orthostatic Sitting] 72/41 L Pulse Oximetry 98 100 04/19/19 19:20 04/19/19 20:02 Temperature 96.6 F L Pulse Rate 70 75 Pulse Rate [Orthostatic Lying] Pulse Rate [Orthostatic Sitting] Respiratory Rate 20 16 Blood Pressure 123/51 L Blood Pressure [Left Arm] 122/68 Blood Pressure [Orthostatic Lying] Blood Pressure [Orthostatic Sitting] Pulse Oximetry 100 96 Oxygen Delivery Method Room Air Narrative Exam Narrative: GENERAL APPEARANCE: well developed, well nourished, mildly ill- appearing. HEAD: Normocephalic, no palpable contusion or hematoma secondary to fall, no scalp lesions. EYES: pupils equal, round, reactive to light and accommodation, sclera non- icteric, extraocular movement intact without nystagmus. EARS: normal external structures, no ear pain NOSE: sinuses non tender to percussion, no rhinorrhea ORAL CAVITY: mucosa moist without lesions or exudate, palate normal, tongue in midline. THROAT: normal, no erythema, no exudate, pharynx normal, uvula midline. NECK/THYROID: neck supple, no jugular venous distention, no carotid bruit, no thyromegaly, trachea midline. LYMPH NODES: no cervical or supraclavicular lymphadenopathy. SKIN: warm and dry, slight pallor, large area of ecchymosis dorsum of left hand, scattered areas of ecchymosis right hand and bilateral arms. HEART: regular rate with regular rhythm with extrasystoles, S1-S2, 1/6 systolic murmur, no rubs or gallops, brisk capillary refill, no edema LUNGS: Fine crackles bilateral bases, no wheezing or rhonchi, no cough present CHEST: Symmetrical movement, no accessory muscle use, no pain to AP and lateral compression. ABDOMEN: Soft, scaphoid, no distention, no epigastric or abdominal tenderness on palpation, no guarding or peritoneal signs, no organomegaly, no flank or supr apubic tenderness, active bowel tones. BACK: Cervical tenderness bilateral paraspinal muscles,, flattening cervical curve thoracic and lumbar spine nontender to palpation EXTREMITIES: moves all extremities, strength is 5/5 and symmetrical, no deformities or joint effusions. NEUROLOGIC: wakes to alert, oriented to person, states at [facility] and the year as 2019, month and day of the week are correct, cranial nerves II-XII grossly intact , motor strength normal upper and lower extremities, diminished sensation distal to the knees bilaterally, hearing grossly normal to speech. PSYCH: sleeping, responds to verbal stimulus to cooperative, good eye contact, stable mood with congruent affect Objective Labs Result Diagrams: 04/19/19 14:53 04/19/19 14:53 Labs: Laboratory Results - last 24 hr 04/19/19 04/19/19 04/19/19 14:53 14:53 14:53 WBC 5.3 RBC 3.66 L Hgb 10.5 L Hct 31.6 L MCV 86.3 MCH 28.6 MCHC 33.2 RDW 18.8 H Plt Count 194 Neut % (Auto) 73.9 Lymph % (Auto) 19.9 L Coleman % (Auto) 4.9 Eos % (Auto) 0.8 L Baso % (Auto) 0.5 Neut # (Auto) 3900 Lymph # (Auto) 1000 L Coleman # (Auto) 300 Eos # (Auto) 0 Baso # (Auto) 0 Sodium 136 L Potassium 4.0 Chloride 99 Carbon Dioxide 25 BUN 38 H Creatinine 1.60 H Estimated GFR 41.8 L BUN/Creatinine Ratio 23.8 H Glucose 97 Calcium 9.4 Total Bilirubin 1.1 AST 34 ALT 22 Alkaline Phosphatase 144 H Total Creatine Kinase 40 L CK-MB (CK-2) TNP CK-MB (CK-2) Rel Index TNP Troponin I 0.150 H* B-Natriuretic Peptide 1350 H Total Protein 7.7 Albumin 3.9 Globulin 3.8 Albumin/Globulin Ratio 1.0 Lipase 76 Blood Type A Negative Antibody Screen Negative Assessment & Plan Assessment & Plan narrative: This is an 78-year-old male who was admitted to the hospital following a ground level fall with possible loss of consciousness and subsequent syncopal episode when being assisted off ground. Patient with history of orthostasis receiving 1st dosed of midodrine today. 1. Acute head trauma secondary to ground level fall, on Coumadin -patient had been seated for extended period, stood did feel dizzy and reports his walker got away from him resulting in a fall. -patient is unsure whether he had loss of consciousness, his and son came to assist and had a brief syncopal episode while being helped up. -patient states he struck his head but no hematoma, contusion abrasion or tenderness palpated. He complains of occipital headache and neck pain and some nausea. -CT scan of the head finds intact calvarium with no intracranial bleeding or pathology noted. -patient is awake and conversant no focal neurological findings, on orientation questioning stated was 2019 and that he was at [facility]. -will obtain neuro checks every 4 hours, no other focal or lateralizing neurological deficits, will consider repeat CT scan in the morning. 2. Orthostatic hypotension, active -patient with history of orthostatic hypotension and took 1st dose of midodrine 10 mg today. -patient reports feeling dizzy when he stood up but does not believe that precipitated his fall. -patient with orthostatic vital signs in the emergency department rate and received a bolus of 500 cc. -patient reports diarrhea yesterday and poor intake of food and fluids today likely exacerbating threshold for orthostasis. -will continue current blood pressure regimen including metoprolol 12.5 mg twice daily and midodrine 10 mg daily. -will hold evening dose of Lasix due to over dehydration. 3. Cardiomyopathy, stable -patient with history of aortic valve replacement, angioplasty, ablation and permanent pacemaker implantation. -no complaints of chest pain or shortness of breath. -chest x-ray finds cardiomyopathy and mild congestive heart failure. EKG reveals 100% paced rhythm. -echocardiogram dated 01/20/2019 reveals left ventricle with concentric hypertrophy, mildly depressed ejection fraction is 45% distal septal and apical dyskinesis, dilated RV mild hypokinesis and increased pulmonary artery pressures. Right heart Catheterization report from [facility] 02/12/2019 finds elevated right heart PA and wedge pressures, moderately depressed cardiac and dense with increased pulmonary vascular resistance. -patient appears overly dehydrated exacerbating his orthostatic symptoms. He did receive a bolus in the ER. Will gently rehydrate at 75 cc an hour. 4. Long-term anticoagulation on Coumadin, stable -the patient had a recent increase in his Coumadin dosing due to low INR. Patient had a 5 day course of enoxaparin presumed bridge treatment until warfarin is therapeutic. -stat INR is ordered which returns at 2.1. 4. Chronic neck and back pain, active -patient complains of neck and upper back pain post fall. Paracervical muscular tenderness on palpation. -the patient has been treated with hydrocodone 5/325 mg tablets twice daily. Will continue hydrocodone 5/325 1 tablets every 6 hours as needed for pain. 5. Chronic kidney disease stage 3, stable -patient is status post nephrectomy for renal cancer. -no peripheral edema, patient has been on Lasix 40 mg twice daily. -Lasix is held tonight due to lower pressures and exacerbation of orthostasis and poor p.o. intake. -will renally dose medications and avoid nephrotoxic agents. -will monitor renal function. 6. Diabetes type 2, non insulin dependent, controlled, stable -patient blood sugar was 97 mg per dL on laboratory analysis from the ER. -patient endorses poor p.o. intake due to lack of appetite, dietitian to consult -the patient takes metformin 500 mg twice daily, fingerstick glucose checks, AC and HS with correctional insulin low-dose range. -obtain hemoglobin A1c The patient is admitted to the hospital due to the severity of his symptoms and risk for complications and adverse events. The patient is admitted as an inpatient expected length of stay to be greater than 2 midnights. Scores GCS Sabina coma scale eye opening: Spontaneous Sabina coma scale verbal response: Orientated Sabina coma scale motor response: Obey commands Sabina coma scale total score: 15 Quality VTE Deep Vein Thrombosis/Pulmonary Embolism Present on Admission: No
[2019-04-19 21:36] LABS: INR 2.1 (0.9-1.3); Prothrombin Time 24.3 SECONDS (10.1-12.7)
[2019-04-19] MEDS: TIMOLOL 0.5% OPHTH 1 DROPS EYE-BOTH (21:57)
[2019-04-19] MEDS: PANTOPRAZOLE 20 MG TABLET PO (21:57)
[2019-04-19] MEDS: ATORVASTATIN 20 MG TABLET 40 MG PO (21:57)
[2019-04-19] MEDS: WARFARIN 2.5 MG TABLET PO (21:57)
[2019-04-19] MEDS: SODIUM CHLORIDE 0.9% 1,000 ML 75 ML IV (23:59)
[2019-04-20] VITALS (11 sets, daily range): BP systolic 61–109; BP diastolic 40–65; PULSE 70–83; RESP 14–16; TEMP 36.3–36.6; O2SAT 94–98
--- NOTE | 2019-04-20 00:49 | PC.NURSE ---
2300- Pt admit for ground level fall @ home w/ syncopal events happening often. Positive orthostatics down in ED, will be checking them qshift up on the floor. Assessing neuro status q4hr w/ vital signs. Bed alarm in place, will place yellow gown on pt as he is a fall risk. PAIMIUT w/ hearing aid in R ear; remains in bed at this time. On tele reading SR; resp panel sent to lab. Cont SpO2 in place, stable on RA. NS running as ordered; skin bruised from hx of Coumadin use. 0050- LINING CUTTER Kj stated to stop NS @ 0200. Assess lung sounds frequently to watch for fluid overload (pt has hx of CHF).
[2019-04-20 01:22] LABS: Adenovirus Not Detected (Not Detect)
[2019-04-20 01:23] LABS: Bordetella pertussis Not Detected (Not Detect); Chlamydophila pneumoniae Not Detected (Not Detect); Coronavirus 229E Not Detected (Not Detect); Coronavirus HKU1 Not Detected (Not Detect); Coronavirus NL 63 Not Detected (Not Detect); Coronavirus OC43 Not Detected (Not Detect); Human Metapneumovirus Not Detected (Not Detect); Human Rhinovirus/Enterovirus Not Detected (Not Detect); Influenza A Not Detected (Not Detect); Influenza B Not Detected (Not Detect); Mycoplasma pneumoniae Not Detected (Not Detect); Parainfluenza Virus 1 Not Detected (Not Detect); Parainfluenza Virus 2 Not Detected (Not Detect); Parainfluenza Virus 3 Not Detected (Not Detect); Parainfluenza Virus 4 Not Detected (Not Detect); Respiratory Syncytial Virus Not Detected (Not Detect)
[2019-04-20] MEDS: ACETAMINOPHEN 325 MG TABLET 650 MG PO ×4 (01:51→20:58)
[2019-04-20 06:22] LABS: Add Manual Diff / Slide Review NO; Basophils Absolute Auto 0 /uL (0-100); Basophils Percent Auto 0.7 % (0-2); Eosinophils Absolute Auto 100 /uL (0-450); Hematocrit 30.4 % (41-53); Hemoglobin 10.1 g/dL (13.5-17.5); Lymphocytes Absolute Auto 900 /uL (1100-4500); Lymphocytes Percent Auto 13.4 % (25-40); Mean Corpuscular HGB Conc 33.4 % (30-36); Mean Corpuscular Hemoglobin 28.9 PG (26-34); Mean Corpuscular Volume 86.6 fL (80-100); Monocytes Absolute Auto 400 /uL (0-900); Monocytes Percent Auto 6.6 % (3-14); Neutrophils Absolute Auto 5000 /uL (1500-7000); Neutrophils Percent Auto 77.3 % (50-75); Platelet Count 159 X10^3/uL (150-400); Red Blood Cell Count 3.51 X10^6/uL (4.5-5.9); Red Cell Distribution Width 18.8 % (11.6-14.8); White Blood Cell Count 6.5 X10^3/uL (4.5-11.0)
[2019-04-20 06:25] LABS: BUN Creatinine Ratio 23.3 (6-22); Blood Urea Nitrogen 42 mg/dL (9-20); Calcium 9.1 mg/dL (8.4-10.2); Carbon Dioxide 23 mmol/L (22-32); Chloride 100 mmol/L (98-107); Estimated Glomerular Filt Rate 36.5 mL/min (>60); Glucose 92 mg/dL (80-110); HEMOLYSIS < 15 (0-50); Potassium 4.5 mmol/L (3.4-5.1); Sodium 135 mmol/L (137-145)
[2019-04-20] MEDS: MIDODRINE HCL 5 MG TABLET PO (08:07)
[2019-04-20] MEDS: TIMOLOL 0.5% OPHTH 1 DROPS EYE-BOTH ×2 (08:07→20:50)
[2019-04-20] MEDS: PANTOPRAZOLE 20 MG TABLET PO ×2 (08:07→20:49)
[2019-04-20] MEDS: CLOPIDOGREL 75 MG TABLET PO (08:07)
--- NOTE | 2019-04-20 10:47 | PC.NURSE ---
Addendum entered by Nataly Sheridan R.N. 04/20/19 12:42: Pts BP down to 50/33, pt did not pass out but was silent for a few minutes. Eyes open and sitting with head over knees. This all happened while working with physical therapy. Called and she ordered thigh deloris hose and a 250cc bolus of NS. This is infusing now, after started bp up to 80s/40s and now up to 90s/50s. He is A&Ox3 and talking to the Dr. Original Note: Pt is A&Ox3. Up with 2 PA to monitor for syncopal episodes. BP 90s/50s and down to 86/50s. Pt asymptomatic and only complains of a headache this morning. Given 2 tylenol. Up in chair and only ate bites at breakfast. Pt states that he only eats soft foods. Mashed potatoes ordered for his lunch. He is visiting with his daughter in law at this time and seems to be feeling a bit better.
--- NOTE | 2019-04-20 11:50 | PT.IIE ---
Current Diagnoses Orthostatic hypotension (04/19/19) Surgical History (Last Reviewed 04/19/19 @ 23:23 by TIMOTEO Trevino) History of PTCA (Resolved 1986) History of ear surgery (Resolved 12/2005) History of surgical procedure on eye proper using laser (Resolved 1997) History of tonsillectomy and adenoidectomy (Resolved 10/1944) Hx of angioplasty (Resolved 11/1998) Hx of appendectomy (Resolved ~03/1958) Hx of cataract extraction (Resolved ~2001) Hx of heart bypass surgery (Resolved 08/1987) Hx of heart bypass surgery (Resolved 05/1999) Hx of shoulder surgery (Resolved 11/2004) Hx of transurethral resection of prostate (Resolved 1994) History of cardiac radiofrequency ablation (RFA) History of hip replacement History of spinal fusion Presence of cardiac pacemaker Status post knee surgery Status post laminectomy Medical History (Last Reviewed 04/19/19 @ 23:23 by TIMOTEO Trevino) Anemia (Chronic Unknown) Arthritis (Chronic Unknown) BPH (benign prostatic hyperplasia) (Chronic Unknown) Bladder cancer (Chronic Unknown) Chronic kidney disease (CKD) (Chronic Unknown) Coronary artery disease (Chronic Unknown) Diabetes (Chronic 12/2005) GERD (gastroesophageal reflux disease) (Chronic Unknown) Hyperlipemia (Chronic Unknown) Hypertension (Chronic Unknown) Obstructive sleep apnea (Chronic Unknown) Osteopenia (Chronic 2008) Osteoporosis (Chronic Unknown) Renal cell cancer (Chronic Unknown) Glaucoma (Resolved Unknown) S/p nephrectomy (Resolved 02/2017) Physical Therapy Inpatient Evaluation/Re-Eval M1 PT/OT-IP Prior Functional Status Start: 04/20/19 13:50 Freq: NEEDED Status: Active Protocol: Document 04/20/19 11:50 AB (Rec: 04/20/19 14:13 AB [id number]) Medical Review Prior Functional Status Medical History Reviewed Yes Communication able to make needs known Mobility and Gait pt stated that he is modified independent with all mobilities and ambulation using SPC indoors and uses a 4WW for outdoor mobility. Social History Household Members spouse Living Arrangements House Number of Floors (Floors) Two Floors Number of Stairs To Enter/Railing? pt stays on main level of the house has 1 step to enter without rails Home Environment Standard Height Toilet Walk in Shower Home Equipment Front Wheel Walker Four Wheel Walker Straight Cane Shower Seat with Backrest Grab Bars Near Toilet Additional Social History Comment pt stated that he also has walking sticks M2 PT-IP Current Condition Start: 04/20/19 13:50 Freq: NEEDED Status: Active Protocol: Document 04/20/19 11:50 AB (Rec: 04/20/19 14:13 AB [id number]) Physical Therapy Current Condition Current Condition Evaluation Date 04/20/19 Treatment Diagnosis syncope; orthostatic hypotension; difficulty in walking Onset Date 04/19/19 Precautions Other Precautions low BP/orthostatic hypotension M3 PT-IP Subjective Start: 04/20/19 13:50 Freq: NEEDED Status: Active Protocol: Document 04/20/19 11:50 AB (Rec: 04/20/19 14:13 AB [id number]) Subjective Physical Therapy Visit Type Type Initial Evaluation Visit Start Time 11:50 Visit Stop Time 12:25 Total Visit Minutes 35 Number of CONSOLIDATION ACCOUNTANT Visits 0 Physical Therapy Visit Comments Patient Comments pt agreeable to do PT but hesitant Therapy Pain Assessment Pain Present Pain Present Denied Pain M4 PT-IP Mobility and Gait Start: 04/20/19 13:50 Freq: NEEDED Status: Active Protocol: Document 04/20/19 11:50 AB (Rec: 04/20/19 14:13 AB [id number]) PT-Transfer Assessment Sit to and From Stand Sit to and from Stand Minimal Assistance 1 Person Assistance Use of Upper Extremities Equipment Transfer Assistive Device Gait Belt Front Wheeled Walker Orthotic/Prosthetic Devices or Brace: No Comments Mobility Comments pt found sitting on chair. BP 90/55. pt agreed to stand. pt completed sit to stand from chair min A. pt with c/o dizziness; when asked how he is feeling and stated : Just finish whatever you have to do . asked pt if he wants to sit down and stated No. after a few seconds, instructed pt to sit down. BP checked: 50/ 33. attempted to recline pt into the chair but pt resistant. informed nurse regarding BP and needing assistance to recline pt back. BP checked with legs elevated : 64/50. reclined pt back farther. BP checked again after ~ 2 min: 84/50. Nurse took over. Gait Assessment Comments Gait Comments unable at this time PT-Balance Assessment Sitting Balance and Reactions Static Sitting Balance Ability Good Dynamic Sitting Balance Ability Good Standing Balance and Reactions Static Standing Balance Ability Fair Dynamic Standing Balance Ability Fair Device Used FWW M5 PT-IP Objective Assessments Start: 04/20/19 13:50 Freq: NEEDED Status: Active Protocol: Document 04/20/19 11:50 AB (Rec: 04/20/19 14:13 AB [id number]) Orientation Orientation/Cognition Level of Alertness Alert Orientation Name Place Situation Safety Awareness Decreased Safety Awareness Memory Description Short Term Impaired Senior Living Impaired Gross Range of Motion Lower Extremity ROM Assessment Within Functional Limits Strength Lower Extremity Strength Assessment Within Functional Limits Sensation Assessment Sensation Gross Sensation WNL Muscle Tone Muscle Tone WNL Yes M6 PT-IP Treatment Start: 04/20/19 13:50 Freq: NEEDED Status: Active Protocol: Document 04/20/19 11:50 AB (Rec: 04/20/19 14:13 AB [id number]) Physical Therapy Treatment Education Education Provided Safety M7 PT-IP Assessment and Plan Start: 04/20/19 13:50 Freq: NEEDED Status: Active Protocol: Document 04/20/19 11:50 AB (Rec: 04/20/19 14:13 AB [id number]) PT Summary Assessment and Plan Potential Rehabilitation Potential Fair Status of Condition at Evaluation Unstable Summary Impairments Pain ROM Strength Balance Coordination Sensation Tone Cognition Bed Mobility Transfers Gait Activity Tolerance Assessment Summary pt unable to tolerate much activity today due to decrease in BP. Nurse stated that they are going to put in compression hose on pt. will continue to assess and monitor BP. Goals Bed Mobility Goal Independent Transfer Goal Independent Front Wheeled Walker Gait Goal Independent Front Wheel Walker Gait Distance 50 Other Goals up/down 1 step using FWW Days to Meet Goals 10 Frequency of Treatment Frequency Of Treatment Once a Day Treatment Plan Physical Therapy Treatment Plan Bed Mobility Training Transfer Training Gait Training Therapeutic Exercise Balance Retraining Discharge Planning Hot or Cold Pack Neuromuscular Re-ed Coordination Retraining Manual Therapy Other Recommendations and Next Treatment increase standing tolerance, Focus ambulation when appropriate Recommendations To Nursing Amount of Assist Needed 2 Person Assist Discharge Recommendations PT Discharge Recommendations Home with 24/7 Assist Home Health SNF Rehab Other Discharge Recommendations depending on progress: SNF vs home with 24/7 assist and home health PT
--- NOTE | 2019-04-20 12:02 | OT.IP.EVAL ---
Current Diagnoses Orthostatic hypotension (04/19/19) Past Medical History (Last Reviewed 04/19/19 @ 23:23 by TIMOTEO Trevino) Anemia (Chronic Unknown) Arthritis (Chronic Unknown) BPH (benign prostatic hyperplasia) (Chronic Unknown) Bladder cancer (Chronic Unknown) Chronic kidney disease (CKD) (Chronic Unknown) Coronary artery disease (Chronic Unknown) Diabetes (Chronic 12/2005) GERD (gastroesophageal reflux disease) (Chronic Unknown) Hyperlipemia (Chronic Unknown) Hypertension (Chronic Unknown) Obstructive sleep apnea (Chronic Unknown) Osteopenia (Chronic 2009) Osteoporosis (Chronic Unknown) Renal cell cancer (Chronic Unknown) Glaucoma (Resolved Unknown) S/p nephrectomy (Resolved 02/2017) Surgical History (Last Reviewed 04/19/19 @ 23:23 by TIMOTEO Trevino) History of PTCA (Resolved 1986) History of ear surgery (Resolved 12/2005) History of surgical procedure on eye proper using laser (Resolved 1997) History of tonsillectomy and adenoidectomy (Resolved 10/1944) Hx of angioplasty (Resolved 11/1998) Hx of appendectomy (Resolved ~03/1958) Hx of cataract extraction (Resolved ~2001) Hx of heart bypass surgery (Resolved 08/1987) Hx of heart bypass surgery (Resolved 05/1999) Hx of shoulder surgery (Resolved 11/2004) Hx of transurethral resection of prostate (Resolved 1994) History of cardiac radiofrequency ablation (RFA) History of hip replacement History of spinal fusion Presence of cardiac pacemaker Status post knee surgery Status post laminectomy Occupational Therapy Inpatient Evaluation/Re-Eval M1 PT/OT-IP Prior Functional Status Start: 04/20/19 13:50 Freq: NEEDED Status: Active Protocol: Document 04/20/19 12:02 SERA (Rec: 04/20/19 16:40 SERA [id number]) Medical Review Prior Functional Status Medical History Reviewed Yes Communication WFL Mobility and Gait Pt states that he uses SPC or FWW indoors and uses a 4WW for outdoor mobility. Activities of Daily Living and IADL's Pt states he is independent with grooming and toileting. His assists with shoes and socks and drying off after shower. No family here to confirm prior level of function. manages medications and does all IADLS /driving. Prior Functional Level (Other details) Pt reports difficulty swallowing since C spine surgery several years ago. He states all my food has to be wet or it sticks in my throat. Social History Household Members spouse Living Arrangements House Number of Floors (Floors) Two Floors Number of Stairs To Enter/Railing? Pt states he has stayed on the main level of the home since hospitalization for cardiac issues in November 2018. Home Environment High Toilet Walk in Shower Home Equipment Front Wheel Walker Four Wheel Walker Straight Cane Shower Seat with Backrest Hand Held Shower Computer Compositor Grab Bars Near Toilet Grab Bars In Shower Employment Status Retired M2 OT-IP Current Condition Start: 04/20/19 16:19 Freq: Status: Active Protocol: Document 04/20/19 12:02 PJM (Rec: 04/20/19 16:40 PJ [id number]) Occupational Therapy Current Condition Current Condition Evaluation Date 04/20/19 Treatment Diagnosis decreased self care, mobility due to orthostatic hypotension , syncope Diagnosis Onset Date 04/19/19 Post Operative Precautions Other Precautions fall risk, orthostatic M3 OT- IP Subjective and Pain Start: 04/20/19 16:19 Freq: Status: Active Protocol: Document 04/20/19 12:02 PJM (Rec: 04/20/19 16:40 PJ [id number]) OT- Subjective Occupational Therapy Visit Type Type Initial Evaluation Visit Start Time 11:28 Visit Stop Time 12:02 Notes Pt sitting up in recliner with legs elevated when therapist arrived with latest BP 96/70. When leg rest lowered BP decreased to 91/46 with pt asymptomatic but then states I am always a little light headed. Did not stand with pt. See P.T. notes for further details. Occupational Therapy Visit Comments Patient Comments How long will I have to be here? Patient/Caregiver Goals to go home OT Pain Assessment Location Head Intensity 5 Scale Used Numeric (1 - 10) M4 OT- IP ADL's Start: 04/20/19 16:19 Freq: Status: Active Protocol: Document 04/20/19 12:02 PJM (Rec: 04/20/19 16:40 [facility] [id number]) OT [id number] General Evaluation Self-Feeding Ability Independent Comments OT Self-Feeding Comments pt ate one bite of lunch then declined further intake. I only eat one meal/day. I am not hungry. OT ADL-Grooming General Evaluation Grooming Ability Standby Assistance Areas Needing Assistance Face Washing Comments OT Grooming Comments after set up in chair OT ADL-Dressing General Eval Lower Body Dressing Ability Total Assistance Areas Needing Assistance Socks Comments OT Dressing Comments pt states he uses his cane to don/doff socks, suspect assists most of time, no family here to confirm home situation OT ADL-Toileting Comments OT Toileting Comments did not occur this session OT ADL-Bathing Comments OT Bathing Comments to be assessed as BP stabilizes M5 OT- IP IADL's Start: 04/20/19 16:19 Freq: Status: Active Protocol: Document 04/20/19 12:02 PJM (Rec: 04/20/19 16:40 [facility] [id number]) OT-Instrumental Activities of Daily Living Deficits IADL Deficits Identified Deficits Home Safety Awareness Awareness of Need for Assistance at Home Good Awareness Medication Management Medication Management Caregiver Administers Medication Management Comments manages pt's meds at home Money Management Money Management Caregiver Provides Supervision Money Management Comments pt states he/ manage finances together Meal Preparation Meal Preparation Caregiver Provides Assist Meal Preparation Comments does all meal prep Ritual Circumciser Ritual Circumciser Caregiver Provides Assist Ritual Circumciser Comments does all medical insurance collector and shopping, pt states he waits in car while shops Driving Driving Caregiver Provides Assist Driving Comments pt has not driven since Nov 2019 hospitalization M6 OT- IP Functional Cognition Start: 04/20/19 16:19 Freq: Status: Active Protocol: Document 04/20/19 12:02 PJM (Rec: 04/20/19 16:40 [facility] [id number]) Cognitive Factors Limiting Selfcare Function Cognitive Ability Level of Alertness Alert Patient Orientation Name Month Year Place Attention Span Ability Capable of Focused Attention Ability to Follow Commands Able to Follow One Step Commands Safety Awareness Underestimates Need for Assistance Problem Solving Ability Needs Assist to Identify Solutions OT- Vision and Hearing OT- Hearing Assessment OT- Hearing Assessment Hearing Impaired Right Ear Impaired Left Ear Impaired Use of Hearing Aids OT- Vision Assessment Visual Acuity WFL Glasses For Reading Vision Assessment Comments Pt denies any recent vision changes M7 OT- IP Mobility and Balance Start: 04/20/19 16:19 Freq: Status: Active Protocol: Document 04/20/19 12:02 PJM (Rec: 04/20/19 16:40 [facility] [id number]) OT-Transfer Assessment Comments Mobility Comments see P.T. notes OT- Gait Assessment Comments Gait Ability Comments pt has been unable to ambulate due to hypotension OT- Balance Assessment Comments Other Balance Tests/Deviations/Treatment see P.T. notes : M8 OT- IP Objective Assessments Start: 04/20/19 16:19 Freq: Status: Active Protocol: Document 04/20/19 12:02 PJM (Rec: 04/20/19 16:40 PJM [id number]) OT Gross Range of Motion Upper Extremity Range of Motion Assessment Within Functional Limits OT Strength Upper Extremity Strength Assessment Within Functional Limits OT- Coordination Assessment Comments Coordination Comments BUE appear WFL, but pt does have decreased sensation in B hands OT-Muscle Tone Assessment Muscle Tone WNL Yes OT Sensation Assessment Comments Summary Comments Pt reports numbness in B hands to wrists from peripheral neuropathy. Edema Edema Absent M9 OT- IP Assessment and Plan Start: 04/20/19 16:19 Freq: Status: Active Protocol: Document 04/20/19 12:02 PJM (Rec: 04/20/19 16:40 PJ [id number]) OT Summary Assessment and Plan Potential Analytic Complexity at Evaluation Low Summary OT Impairments Balance Functional Mobility Grooming Dressing Toileting Bathing Toilet Transfers Shower Transfers Progress Towards Goals Slow Progress due to Medical Issues Slow Progress due to Activity Tolerance Assessment Summary Pt seen for low complexity OT assessment as limited by hypotension which is interfering with all standing activities such as grooming at sink and functional mobility at present. Pt also has performance deficits in dressing, bathing, and toileting. Will continue to assess pt as BP stabilizes and activity tolerance improves. Pt would like to d/c home with 24 hr assist from vs SNF pending progress here. Goals Grooming Goal Standby Assistance Dressing Goal Minimal Assistance Toileting Goal Standby Assistance Bathing Goal Minimal Assistance Toilet Transfer Goal Standby Assistance ADA High Toilet Grab Bars Shower Transfer Goal Contact Guard Assistance Walk-in Shower Shower Chair Grab Bars Patient/Caregiver Education Goal Demonstrate Energy Conservation and Pacing Caregiver Independent Assisting Patient OT-Other Goals Grooming to be done standing at sink with stable BP and no loss of balance. Days to Meet Goals 4 Frequency of Treatment Frequency Of Treatment Once a Day Treatment Plan OT Treatment Plan ADL Training Functional Mobility Patient/Family Education Discharge Planning Discharge Recommendations OT Discharge Recommendations Home with 24/7 Assist Other Discharge Recommendations vs SNF pending progress here
[2019-04-20] MEDS: SODIUM CHLORIDE 0.9% 250 ML IV (13:00)
--- NOTE | 2019-04-20 13:20 | DI.ECHO.S_ITS ---
[facility]---------+ [facility] +---------+ : : [address] : : : [place], [place] : : : : [id number] : : : : Phone: [phone]+ Echocardiogram Report + + :Name: DONG ARAIZA Study Date: 04/20/2019 Height: 69 in : :[facility] Exam Location: [facility] Weight: 165 lb : : Gender: Male BSA: 1.9 m2 : :: 1940 Age: 78 yrs BP: 105/65 mmHg: :Reason For Study: Syncope/ Orthostasis/AVR : :Ordering Physician: Angelica : :Hospitalist Performed By: Skylar Page : :Referring: EASTON RUIZ : + + Interpretation Summary The left ventricular cavity is small. Left ventricular wall thickness is moderate-severely increased. Left ventricular systolic function is mildly reduced. The ejection fraction is estimated to be 45-50%. Left ventricular function has moderately worsened compared to the previous exam. There is mild global hypokinesis of the left ventricle. The right ventricle is moderately dilated. There is a pacemaker lead in the right ventricle. Right ventricular systolic function is moderate to severely reduced. Right ventricular systolic function has decreased since previous exam. The right ventricular systolic pressure is estimated to be at least 57 mmHg based on an estimated right atrial pressure of 15 mm Hg. Compared to the prior echo exam, there has been a decrease in the severity of pulmonary hypertension. Both atria are severely dilated. 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 The peak aortic velocity is 1.8 m/sec. The peak aortic velocity on the previous exam was 2.9 m/sec. There is moderate to severe tricuspid regurgitation. The aortic root is normal size. Procedure: A two-dimensional transthoracic echocardiogram with color flow and Doppler was performed. The study quality was technically adequate. Comparison is made with the echocardiogram of 01/19/2017. The patient has a paced rhythm. Left Ventricle: The left ventricular cavity is small. Left ventricular wall thickness is moderate-severely increased. Left ventricular systolic function is mildly reduced. The ejection fraction is estimated to be 45-50%. Left ventricular function has moderately worsened compared to the previous exam. There is mild global hypokinesis of the left ventricle. Diastolic function could not be accurately assessed due to paced rhythm. Right Ventricle: The right ventricle is moderately dilated. There is a pacemaker lead in the right ventricle. Right ventricular systolic function is moderate to severely reduced. Right ventricular systolic function has decreased since previous exam. Atria: Both atria are severely dilated. There is no Doppler evidence for an interatrial shunt. Mitral Valve: The mitral valve leaflets appear mildly thickened, but open well. There is mild to moderate mitral annular calcification. There is trace mitral regurgitation. 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 The prosthetic aortic valve is well-seated. The peak aortic velocity is 1.8 m/sec. The peak aortic velocity on the previous exam was 2.9 m/sec. The aortic valve mean gradient is 7.1 mmHg. Tricuspid Valve: The tricuspid valve is normal in structure but is abnormal in function. There is moderate to severe tricuspid regurgitation. The right ventricular systolic pressure is estimated to be at least 57 mmHg based on an estimated right atrial pressure of 15 mm Hg. Compared to the prior echo exam, there has been a decrease in the severity of pulmonary hypertension. Pulmonic Valve: The pulmonic valve is not well seen, but is grossly normal. There is trace pulmonic regurgitation. Great Vessels: The aortic root is normal size. The ascending aorta is normal in size. The pulmonary is not well visualized. The IVC is dilated (diameter is greater than 2.1 cm) and it collapses less than 50% with a sniff. This suggests a high right atrial pressure of 15 mm Hg. Pericardium/ Pleura There is no pericardial effusion. There is no pleural effusion. MMode/2D Measurements & Calculations LVIDd: 3.7 cm LVOT diam: 2.1 cm LVIDs: 3.0 cm Ao root diam: 2.9 cm FS: 17.7 % asc Aorta Diam: 2.6 cm EPSS: 0.66 cm IVSd: 1.2 cm LVPWd: 1.7 cm LV whyte. diameter/BSA (cm/m^2): 1.9 LV sys. diameter/BSA (cm/m^2): 1.6 LA A2 area: 27.7 cm2 RA long axis: 6.6 cm LA A4 area: 29.0 cm2 RA area: 27.8 cm2 LA length (vol): 6.6 cm RA vol: 99.7 ml LA vol: 103.3 ml RA : 52.4 ml/m2 LA vol index: 54.3 ml/m2 IVC diam: 3.8 cm RVD1 (basal): 4.8 cm RVD2 (mid): 4.1 cm Doppler Measurements & Calculations Ao V2 max: 180.5 cm/sec LVOT Max Darin: 62.6 cm/sec Ao V2 mean: 128.8 cm/sec LV V1 max P.6 mmHg Ao max P.0 mmHg LV V1 VTI: 10.9 cm Ao mean P.1 mmHg TOM(I,D): 1.3 cm2 Ao V2 VTI: 27.6 cm TOM(V,D): 1.2 cm2 sev ratio: 0.40 TOM indexed to BSA (cm^2/m^2): 0.70 MV E max darin: 83.3 cm/sec TR max darin: 323.7 cm/sec MV A max darin: 26.8 cm/sec TR max P.9 mmHg MV E/A: 3.1 PA V2 max: 48.9 cm/sec Med Peak E' Darin: 2.3 cm/sec PA V2 mean: 31.1 cm/sec E/E' med: 36.3 PA mean P.45 mmHg Lat Peak E' Darin: 2.7 cm/sec PA Accel Time: 0.05 sec E/E' lat: 31.0 E/e' average: 33.7 MV P1/2t: 75.2 msec MV P1/2t max darin: 82.1 cm/sec SV(LVOT): 36.6 ml MVA(P1/2t): 2.9 cm2 Reading Physician:05:34 PM
--- NOTE | 2019-04-20 13:33 | CM.DANOTE ---
Patient is an 78 year old male who was admitted on 04/19/19 for Sycope, Back Pain. Pt has [facility] and [employer] for insurance and his PCP is Dr. Dorothy Devine. EMR was reviewed. Per , pt with a very complex medical hx and currently orthostasis with GLF with head trauma and continues to be Full Code at this time. Per PT/OT, attempted to work with pt today but he began having blood pressure issues/syncopal event and PT/OT had to be postponed. SW met bedside with pt and explained role and pt confirms that he lives at home with his spouse in [place] and is mostly Independent with ADL's at baseline and has two local adult sons who live in [place] and are available for assist if needed. Pt states that he has used HH in the past, unsure of which agency, but pt did not feel that they were helpful and is currently not interested in HH services. Pt denies any hx of SNF. DPOA is his spouse Una. Pt unsure of his d/c planning needs pending his blood pressure issues and ability to work with therapy. Per , possible chance with pt's complex medical hx and if his bp issues cannot be controlled then possible benefit from Hospice at d/c. Plan: SW to follow closely to determine if pt's syncope can be stabilized to determine d/c planning needs and if pt can begin to work with PT/OT. If pt's medical condition cannot be stabilized then possible Hospice discussion. JIMMIE Hand Discharge Planning/Care Management Advanced directive, confirm from FAMILY Start: 04/19/19 20:13 Freq: Q24H Status: Active Protocol: Document 04/19/19 20:18 KMD (Rec: 04/19/19 20:19 KMD [id number]) Advance Directive, confirm on record Time 20:18 Person contacted Daiana Lind received No CM Discharge Assessment Start: 04/20/19 13:30 Freq: Status: Active Protocol: Document 04/20/19 13:30 BF (Rec: 04/20/19 13:32 BF [id number]) Discharge Planning Assessment Assigned Truck Bench Mechanic JIMMIE Leigh DPROSS/Assigned Designee Name spouse Una Contact Information [phone] Advance Directives? Yes Advance Directives on File No History Provided By Patient Family Member Medical Record Has Patient been admitted in last 30 No days? Prior Living Arrangements House Household Members spouse Type of transporation used prior to Drives own vehicle admit Independent with ADL's Yes Is patient alert and oriented? Yes Needs Assistance With Home Chores / Shopping Caregiver for Another No Comment Pending further PT/OT due to bp issues Barriers to Discharge No Discharge Plan Home Transportation Arrangement Family likely can provide transport home pending d/c plan and needs. Additional Comment Waiting to determine d/c planning needs Whiteboard Updated in Patient Room with Yes name and ext. # of Truck Bench Mechanic Review Status In Process Please Provide Date Initial DC 04/20/19 Assessment Was Performed Next Review Type Continued Stay Review
[2019-04-20] MEDS: FLUDROCORTISONE 0.1 MG TABLET PO (13:37)
[2019-04-20] MEDS: MIDODRINE HCL 5 MG TABLET 2.5 MG PO ×2 (15:01→20:49)
--- NOTE | 2019-04-20 15:02 | PM.PN.1 ---
Subjective Date Patient Seen: 04/20/19 Interval history: Ramirez Huizar is an 78-year-old male with a complex past medical history significant for CAD status post stent x 2 (11/2018), mechanical aortic valve replacement, atrial fibrillation/flutter status post ablation and pacemaker implantation, renal cell carcinoma status post nephrectomy, bladder cancer, chronic kidney disease stage III, diabetes mellitus type 2, non-insulin using, and extensive cervical/thoracic/lumbar spinal surgery who presented after 2 syncopal episodes secondary to orthostatic hypotension. The patient is resting in bedside chair comfortably. He reports fatigue. His blood pressure continues to be significantly low with SBP 70's. Ordered another 250 cc bolus of NS. Discontinued metoprolol and furosemide which were held by nursing staff. Patient started on midodrine 10 mg daily yesterday by his doula Dr. Alonso. Adjusted midodrine dose to 2.5 mg 3 times daily for renal dosing (max dose 5 mg three times daily) as patient's creatinine increased from 1.6-1.8 and he has had very little urine output today. The patient reports shortness of breath and pleuritic chest pain when standing. He reports he has been hospitalized every month since the beginning of the year. He received cardiac stents x2 in November at [facility], later received a percutaneous cholecystostomy tube which he inadvertently pulled out then received cholecystectomy. He has had to stop warfarin several different occasions. He however is not hypoxemic or tachycardic, therefore, PE thought to be less likely. The patient denies headache, lightheadedness or dizziness, chest pain, shortness of breath, abdominal pain, nausea, vomiting, fever, chills, dysuria, diarrhea or constipation. He is ambulating minimally due to severe orthostasis. Exam Vital Signs (past 8 hours): - 04/20/19 07:25 04/20/19 08:05 04/20/19 08:58 Temperature 97.7 F Pulse Rate 70 Respiratory Rate 14 Blood Pressure 96/46 L 94/56 L Blood Pressure [Orthostatic Lying] 94/60 Blood Pressure [Orthostatic Sitting] 82/50 L Pulse Oximetry 95 04/20/19 10:03 04/20/19 11:55 04/20/19 14:55 Temperature 97.6 F Pulse Rate 70 Respiratory Rate 14 Blood Pressure 91/46 L 107/65 Blood Pressure [Orthostatic Lying] Blood Pressure [Orthostatic Sitting] Pulse Oximetry 94 97 Oxygen Delivery Method Room Air Narrative Exam Narrative: General: Elderly male lying in bedside chair and in no acute distress, well-developed, well-nourished, appropriately interactive. HEENT: Normocephalic, atraumatic. External ears without defect. Pupils equal, round, and reactive to light. Anicteric sclerae, moist conjunctivae, and no lid lag. Oropharynx free of erythema and cobble stoning with moist mucosa. Neck: Supple with full range of motion. No jugular venous distension. No bruits. No lymphadenopathy or thyromegaly. Cardiovascular: Regular rate and rhythm with systolic ejection click murmur. No rubs or gallops appreciated. Pulmonary: Clear to auscultation bilaterally without crackles, wheezes, or rhonchi. Normal respiratory effort with no use of accessory muscles. Abdomen: Soft, bowel sounds present, nontender, nondistended. No hepatosplenomegaly or masses appreciated. Extremities: No clubbing, cyanosis, or edema. Skin: Normal temperature, turgor, and texture; no rash, ulcers, or subcutaneous nodules appreciated. Neurological: Cranial nerves grossly intact. Psychiatric: Normal mood and affect. Alert and oriented to person, place, and time. Objective Labs Result Diagrams: 04/20/19 06:00 04/20/19 06:00 Labs: Laboratory Results - last 24 hr 04/19/19 04/19/19 04/19/19 14:53 14:53 14:53 WBC 5.3 RBC 3.66 L Hgb 10.5 L Hct 31.6 L MCV 86.3 MCH 28.6 MCHC 33.2 RDW 18.8 H Plt Count 194 Neut % (Auto) 73.9 Lymph % (Auto) 19.9 L Blaine % (Auto) 4.9 Eos % (Auto) 0.8 L Baso % (Auto) 0.5 Neut # (Auto) 3900 Lymph # (Auto) 1000 L Blaine # (Auto) 300 Eos # (Auto) 0 Baso # (Auto) 0 PT INR Sodium 136 L Potassium 4.0 Chloride 99 Carbon Dioxide 25 BUN 38 H Creatinine 1.60 H Estimated GFR 41.8 L BUN/Creatinine Ratio 23.8 H Glucose 97 Calcium 9.4 Total Bilirubin 1.1 AST 34 ALT 22 Alkaline Phosphatase 144 H Total Creatine Kinase 40 L CK-MB (CK-2) TNP CK-MB (CK-2) Rel Index TNP Troponin I 0.150 H* B-Natriuretic Peptide 1350 H Total Protein 7.7 Albumin 3.9 Globulin 3.8 Albumin/Globulin Ratio 1.0 Lipase 76 Chlamy pneumoniae PCR Adenovirus (PCR) B.parapertussis DNA PCR Coronavirus OC43 (PCR) Coronavirus HKU1 (PCR) Coronavirus 229E (PCR) Coronavirus NL63 (PCR) Human Metapneumovir PCR Influenza Type A (PCR) Influenza Type B (PCR) M. pneumoniae (PCR) Parainfluenza 1 (PCR) Parainfluenza 2 (PCR) Parainfluenza 3 (PCR) Parainfluenza 4 (PCR) RSV (PCR) Entero/Rhino (PCR) Blood Type A Negative Antibody Screen Negative 04/19/19 04/19/19 04/20/19 14:53 23:45 06:00 WBC 6.5 RBC 3.51 L Hgb 10.1 L Hct 30.4 L MCV 86.6 MCH 28.9 MCHC 33.4 RDW 18.8 H Plt Count 159 Neut % (Auto) 77.3 H Lymph % (Auto) 13.4 L Blaine % (Auto) 6.6 Eos % (Auto) 2.0 Baso % (Auto) 0.7 Neut # (Auto) 5000 Lymph # (Auto) 900 L Blaine # (Auto) 400 Eos # (Auto) 100 Baso # (Auto) 0 PT 24.3 H INR 2.1 H Sodium Potassium Chloride Carbon Dioxide BUN Creatinine Estimated GFR BUN/Creatinine Ratio Glucose Calcium Total Bilirubin AST ALT Alkaline Phosphatase Total Creatine Kinase CK-MB (CK-2) CK-MB (CK-2) Rel Index Troponin I B-Natriuretic Peptide Total Protein Albumin Globulin Albumin/Globulin Ratio Lipase Chlamy pneumoniae PCR Not detected Adenovirus (PCR) Not detected B.parapertussis DNA PCR Not detected Coronavirus OC43 (PCR) Not detected Coronavirus HKU1 (PCR) Not detected Coronavirus 229E (PCR) Not detected Coronavirus NL63 (PCR) Not detected Human Metapneumovir PCR Not detected Influenza Type A (PCR) Not detected Influenza Type B (PCR) Not detected M. pneumoniae (PCR) Not detected Parainfluenza 1 (PCR) Not detected Parainfluenza 2 (PCR) Not detected Parainfluenza 3 (PCR) Not detected Parainfluenza 4 (PCR) Not detected RSV (PCR) Not detected Entero/Rhino (PCR) Not detected Blood Type Antibody Screen 04/20/19 06:00 WBC RBC Hgb Hct MCV MCH MCHC RDW Plt Count Neut % (Auto) Lymph % (Auto) Blaine % (Auto) Eos % (Auto) Baso % (Auto) Neut # (Auto) Lymph # (Auto) Blaine # (Auto) Eos # (Auto) Baso # (Auto) PT INR Sodium 135 L Potassium 4.5 Chloride 100 Carbon Dioxide 23 BUN 42 H Creatinine 1.80 H Estimated GFR 36.5 L BUN/Creatinine Ratio 23.3 H Glucose 92 Calcium 9.1 Total Bilirubin AST ALT Alkaline Phosphatase Total Creatine Kinase CK-MB (CK-2) CK-MB (CK-2) Rel Index Troponin I B-Natriuretic Peptide Total Protein Albumin Globulin Albumin/Globulin Ratio Lipase Chlamy pneumoniae PCR Adenovirus (PCR) B.parapertussis DNA PCR Coronavirus OC43 (PCR) Coronavirus HKU1 (PCR) Coronavirus 229E (PCR) Coronavirus NL63 (PCR) Human Metapneumovir PCR Influenza Type A (PCR) Influenza Type B (PCR) M. pneumoniae (PCR) Parainfluenza 1 (PCR) Parainfluenza 2 (PCR) Parainfluenza 3 (PCR) Parainfluenza 4 (PCR) RSV (PCR) Entero/Rhino (PCR) Blood Type Antibody Screen Assessment & Plan Assessment & Plan narrative: Ramirez Huizar is an 78-year-old male with a complex past medical history significant for CAD status post stent x 2 (11/2018), mechanical aortic valve replacement, atrial fibrillation/flutter status post ablation and pacemaker implantation, renal cell carcinoma status post nephrectomy, bladder cancer, chronic kidney disease stage III, diabetes mellitus type 2, non-insulin using, and extensive cervical/thoracic/lumbar spinal surgery who presented after 2 syncopal episodes secondary to orthostatic hypotension. 1. Acute orthostatic hypotension, present on admission. Active. -Unclear etiology. Differential diagnosis is vast and includes: Worsening valvular disease, pump failure, medications, pacemaker malfunction, decreased PO intake and diarrhea causing dehydration, age. -Patient recently diagnosed with orthostatic hypotension by his doula Dr. Alonso and prescribed midodrine 10 mg daily with first dose on day of admission. -Patient had orthostatic BP in ED and received 500 cc NS bolus and NS at 100 mL/hr for several hours. Continue to monitor orthostatic blood pressures every shift. -Patient reports diarrhea yesterday and poor intake of food and fluids today likely exacerbating threshold for orthostasis. -Discontinued home metoprolol and furosemide. -Continue midodrine 2.5 mg 3 times daily and started fludrocortisone 0.1 mg daily. -Patient received 500 cc bolus and maintenance fluid with normal saline at 75 mL/hr for several hours then discontinued. Ordered another 250 cc bolus this morning. Patient is approximately + 1L. 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 -Discussed case with his transformer mechanic at [facility] Dr. Arndt who agrees with assessment and plan. Discussed possible pacemaker malfunction and reports it was last interrogated on February 22 for which he was 98% v-paced, with underlying chronic atrial fibrillation, battery life 22 months with trigger set at 70. Recommended monitoring for pauses and/or bradycardia (under 70). Called the [employer] [facility] [place] [facility] #[phone] who will plan to interrogate pacemaker tomorrow if needed and will need to be called. Dr. Arndt also recommended repeat echocardiogram and if patient is severely fluid overloaded and/or pulmonary hypertension significantly elevated transferred to [facility] for higher level of care by Cardiology. 2. Acute head trauma secondary to ground level fall, while on Coumadin, present on admission. Resolved. -Patient had been seated for extended period then stood became dizzy and fell. He is unsure whether he lost consciousness. His and son came to assist and he had a brief syncopal episode while being helped up. -Patient did hit head but does not have a hematoma, contusion, abrasion or tenderness. He complained of occipital headache, neck pain and some nausea which have resolved. -CT scan brain without contrast demonstrated intact calvarium with no intracranial bleeding or pathology noted. -Patient is awake and conversant without focal neurological findings. -Continue neuro checks every 4 hours x 24 hours. 3. Cardiomyopathy, chronic, present on admission. Presumed stable. -Patient with history of mechanical aortic valve replacement, angioplasty and cardiac stenting, chronic atrial fibrillation with SVR status post cardiac ablation and permanent pacemaker implantation. -No complaints of chest pain or shortness of breath. -Chest x-ray demonstrated cardiomegaly with mild CHF. -EKG reveals 100% paced rhythm. -Patient with chronically elevated troponin and BNP in setting of CKD stage 3. No need to trend troponin unless patient has active chest pain. -Echocardiogram dated 01/20/2019 reveals left ventricle with concentric hypertrophy, mildly depressed ejection fraction is 45% distal septal and apical dyskinesis, dilated RV mild hypokinesis and increased pulmonary artery pressures. Right heart catheterization report from [facility] 02/12/2019 finds elevated right heart PA and wedge pressures, moderately depressed cardiac index 1.6 with increased pulmonary vascular resistance. -Ordered repeat echocardiogram, pending. 4. Chronic atrial fibrillation and mechanical aortic valve, present on admission. Stable. -The patient had a recent increase in his Coumadin dosing due to low INR. Patient had a 5 day course of enoxaparin presumed bridge treatment until warfarin is therapeutic. -INR is 2.1. Goal INR 2.5-3.5. Restarted lovenox bridge until warfarin is therapeutic with lovenox 75 mg twice daily and may need to adjust if Cr rising. 5. Chronic kidney disease stage 3, present on admission. Stable. -Patient is status post nephrectomy for renal cell carcinoma. -Baseline creatinine 1.6-2.0. -Continue to renally dose medications and avoid nephrotoxic agents. Midodrine is specifically renally dosed with max dose 5 mg 3 times daily. -Continue to monitor renal function closely. 6. Diabetes mellitus type 2, non-insulin using, present on admission. Stable. -Hemoglobin A1c 5.4%. -Held metformin. -Continue [facility] blood glucose checks and low-dose correctional scale insulin. -Continue heart healthy/carbohydrate consistent diet. 7. Chronic neck and back pain, present on admission. Stable. -patient complains of neck and upper back pain post fall. Paracervical muscular tenderness on palpation. -the patient has been treated with hydrocodone 5/325 mg tablets twice daily. Will continue hydrocodone 5/325 1 tablets every 6 hours as needed for pain. Disposition: Patient likely to discharge home in several days once orthostasis has resolved and he is no longer symptomatic. Quality VTE Deep Vein Thrombosis/Pulmonary Embolism Present on Admission: No
--- NOTE | 2019-04-20 15:55 | PC.NURSE ---
Addendum entered by Laura Cronin R.N. 04/20/19 21:42: Kj MAHMOOD was made aware of pt's urinary output this evening of 50 cc's. Addendum entered by Laura Cronin R.N. 04/20/19 21:39: Orthostatic vital signs taken as per order and these were reviewed with Kj MAHMOOD. Pt returned to supine in bed with head of bed elevated as ordered following standing bp of 70/44 with HR 83. Pt remains with appropriate mentation and conversation throughout. Admits to neck/back pain and states tylenol is effective. Discussed order for tylenol every 6 hrs with TIMOTEO Underwood and changed this after discussion to every 4 hours. Pt refuses warm blanket or ice to back/neck. Continuous pulse oximeter in place. Addendum entered by Laura Cronin R.N. 04/20/19 18:57: Pt resting quietly in bed without signs of distress or discomfort. No dyspnea at rest. Head of bed elevated 30 degrees as per MD. Pt has spoken with spouse via telephone this evening with this policy writer sales's assistance. Dr. Barreto was informed pt urinary output thus far this shift 50 cc's. Addendum entered by Laura Cronin R.N. 04/20/19 17:30: UA collected and sent to lab as ordered. Original Note: Pt awake, alert, up in recliner. Denies pain, denies nausea. Tele in place. Pt assist x 2 to transfer from recliner to bed for cardiac echo. Admits to breathlessness with this transfer. BP 105/65. Thigh hi deloris hose in place BL with BL scd's replaced upon return to bed. Cardiac echo in progress.
[2019-04-20 15:58] LABS: Procalcitonin 0.58 ng/mL (<0.5)
[2019-04-20] MEDS: WARFARIN 2.5 MG TABLET PO (16:48)
[2019-04-20 17:34] LABS: Bacteria Urine None Seen; RBC Urine None Seen (0-5/HPF)
[2019-04-20 17:46] LABS: Appearance Urine UA CLEAR; Bilirubin Urine UA NEGATIVE (NEGATIVE); Color Urine UA YELLOW; Glucose Urine UA NEGATIVE (Negative); Ketones Urine UA NEGATIVE (NEGATIVE); Leukocyte Esterase Urine UA NEGATIVE (NEGATIVE); Nitrite Urine UA NEGATIVE (Negative); Occult Blood Urine UA NEGATIVE (Negative); Protein Urine UA NEGATIVE (Negative); Specific Gravity Urine UA 1.025 (1.000-1.035); Urobilinogen Urine UA 0.2 E.U./dL (0.2)
[2019-04-20 17:59] LABS: Culture Indicated Urine Cult Not Indicated; Hyaline Casts Urine 1-5/LPF; Squamous Epithelial Cell Urine 0-1 /HPF (0-5/HPF); WBC Urine 0-1/HPF (0-5/HPF)
[2019-04-20] MEDS: ATORVASTATIN 20 MG TABLET 40 MG PO (20:48)
[2019-04-20] MEDS: SODIUM CHLORIDE 0.9% FLUSH 10 ML IV (20:49)
[2019-04-20] MEDS: ENOXAPARIN 80 MG/0.8 ML SYRINGE SUBCUT (20:49)
[2019-04-21] VITALS (8 sets, daily range): BP systolic 77–122; BP diastolic 46–69; PULSE 69–70; RESP 16–20; TEMP 36.1–36.6; O2SAT 96–100
[2019-04-21 05:41] LABS: Add Manual Diff / Slide Review NO; Basophils Absolute Auto 100 /uL (0-100); Basophils Percent Auto 1.3 % (0-2); Eosinophils Absolute Auto 200 /uL (0-450); Eosinophils Percent Auto 4.5 % (2-4); Hematocrit 30.7 % (41-53); Hemoglobin 10.4 g/dL (13.5-17.5); Lymphocytes Absolute Auto 1000 /uL (1100-4500); Lymphocytes Percent Auto 18.5 % (25-40); Mean Corpuscular Hemoglobin 29.3 PG (26-34); Mean Corpuscular Volume 86.2 fL (80-100); Monocytes Absolute Auto 500 /uL (0-900); Monocytes Percent Auto 8.9 % (3-14); Neutrophils Absolute Auto 3600 /uL (1500-7000); Neutrophils Percent Auto 66.8 % (50-75); Platelet Count 145 X10^3/uL (150-400); Red Blood Cell Count 3.56 X10^6/uL (4.5-5.9); Red Cell Distribution Width 18.8 % (11.6-14.8); White Blood Cell Count 5.3 X10^3/uL (4.5-11.0)
[2019-04-21 05:43] LABS: INR 3.9 (0.9-1.3); Prothrombin Time 45.5 SECONDS (10.1-12.7)
[2019-04-21 05:53] LABS: BUN Creatinine Ratio 23.7 (6-22); Blood Urea Nitrogen 45 mg/dL (9-20); Carbon Dioxide 25 mmol/L (22-32); Chloride 99 mmol/L (98-107); Estimated Glomerular Filt Rate 34.3 mL/min (>60); Glucose 102 mg/dL (80-110); HEMOLYSIS < 15 (0-50); Magnesium 1.5 mg/dL (1.6-2.3); Potassium 4.2 mmol/L (3.4-5.1); Sodium 134 mmol/L (137-145)
[2019-04-21 06:38] LABS: TSH w/ Reflex to FT4 3.42 uIU/mL (0.47-4.68)
[2019-04-21] MEDS: MIDODRINE HCL 5 MG TABLET 2.5 MG PO (08:26)
[2019-04-21] MEDS: PANTOPRAZOLE 20 MG TABLET PO ×2 (08:29→20:06)
[2019-04-21] MEDS: CLOPIDOGREL 75 MG TABLET PO (08:29)
[2019-04-21] MEDS: ENOXAPARIN 80 MG/0.8 ML SYRINGE SUBCUT (08:29)
[2019-04-21] MEDS: FLUDROCORTISONE 0.1 MG TABLET PO (08:29)
[2019-04-21] MEDS: TIMOLOL 0.5% OPHTH 1 DROPS EYE-BOTH ×2 (08:31→20:06)
[2019-04-21] MEDS: SODIUM CHLORIDE 0.9% FLUSH 10 ML IV ×2 (08:31→20:06)
[2019-04-21] MEDS: ACETAMINOPHEN 325 MG TABLET 650 MG PO ×2 (09:56→19:53)
--- NOTE | 2019-04-21 10:35 | PM.PN.1 ---
Subjective Interval history: Patient is an 78-year-old male with a complex past medical history significant for CAD status post stent x 2 (11/2018), mechanical aortic valve replacement, atrial fibrillation/flutter status post ablation and pacemaker implantation, renal cell carcinoma status post nephrectomy, bladder cancer, chronic kidney disease stage III, diabetes mellitus type 2, non-insulin using, and extensive cervical/thoracic/lumbar spinal surgery who presented after 2 syncopal episodes secondary to orthostatic hypotension. Patient states he became very lightheaded and thinks he had some chest pain when getting up from bed to chair this morning. Also states he gets easily out of breath over the past months. In addition, he has chronic pain in the neck and back with history of multiple spine surgeries with screw and onel placement. He complains of a chronic cough associated with postnasal drip. Exam Vital Signs (past 8 hours): - 04/21/19 05:51 04/21/19 08:05 04/21/19 10:07 Temperature 97.5 F L 97.7 F Pulse Rate 70 70 Respiratory Rate 20 16 Blood Pressure 107/68 100/60 Pulse Oximetry 97 97 99 Oxygen Delivery Method Room Air Oxygen Flow Rate 0 Narrative Exam Narrative: GENERAL: Alert pleasant and cooperative male sitting in chair and presently in no acute distress HEENT: Head normocephalic, atraumatic. CHEST: Clear to auscultation bilaterally. CARDIAC: Regular paced rhythm ABDOMEN: Nondistended, soft, nontender EXTREMITIES: no edema. NEUROLOGICAL: Nonfocal SKIN: Scattered bruising on extremities Objective Labs Result Diagrams: 04/21/19 05:25 04/21/19 05:25 Labs: Laboratory Results - last 24 hr 04/20/19 04/20/19 04/20/19 06:00 06:00 17:33 WBC RBC Hgb Hct MCV MCH MCHC RDW Plt Count Neut % (Auto) Lymph % (Auto) [place] % (Auto) Eos % (Auto) Baso % (Auto) Neut # (Auto) Lymph # (Auto) [place] # (Auto) Eos # (Auto) Baso # (Auto) PT INR Sodium 135 L Potassium 4.5 Chloride 100 Carbon Dioxide 23 BUN 42 H Creatinine 1.80 H Estimated GFR 36.5 L BUN/Creatinine Ratio 23.3 H Glucose 92 Calcium 9.1 Magnesium Procalcitonin 0.58 H TSH Urine Color Yellow Urine Appearance Clear Urine pH 5.0 Ur Specific [place] 1.025 Urine Protein Negative Urine Glucose (UA) Negative Urine Ketones Negative Urine Occult Blood Negative Urine Nitrate Negative Urine Bilirubin Negative Urine Urobilinogen 0.2 Ur Leukocyte Esterase Negative Urine RBC None seen Urine WBC 0-1/hpf Ur Squamous Epith Cells 0-1 /hpf Urine Bacteria None seen Hyaline Casts 1-5/lpf Ur Culture Indicated? Cult not indicated 04/21/19 04/21/19 04/21/19 05:25 05:25 05:25 WBC 5.3 RBC 3.56 L Hgb 10.4 L Hct 30.7 L MCV 86.2 MCH 29.3 MCHC 34.0 RDW 18.8 H Plt Count 145 L Neut % (Auto) 66.8 Lymph % (Auto) 18.5 L [place] % (Auto) 8.9 Eos % (Auto) 4.5 H Baso % (Auto) 1.3 Neut # (Auto) 3600 Lymph # (Auto) 1000 L [place] # (Auto) 500 Eos # (Auto) 200 Baso # (Auto) 100 PT 45.5 H D INR 3.9 H Sodium 134 L Potassium 4.2 Chloride 99 Carbon Dioxide 25 BUN 45 H Creatinine 1.90 H Estimated GFR 34.3 L BUN/Creatinine Ratio 23.7 H Glucose 102 Calcium 9.0 Magnesium 1.5 L Procalcitonin TSH Urine Color Urine Appearance Urine pH Ur Specific [place] Urine Protein Urine Glucose (UA) Urine Ketones Urine Occult Blood Urine Nitrate Urine Bilirubin Urine Urobilinogen Ur Leukocyte Esterase Urine RBC Urine WBC Ur Squamous Epith Cells Urine Bacteria Hyaline Casts Ur Culture Indicated? 04/21/19 05:25 WBC RBC Hgb Hct MCV MCH MCHC RDW Plt Count Neut % (Auto) Lymph % (Auto) [place] % (Auto) Eos % (Auto) Baso % (Auto) Neut # (Auto) Lymph # (Auto) [place] # (Auto) Eos # (Auto) Baso # (Auto) PT INR Sodium Potassium Chloride Carbon Dioxide BUN Creatinine Estimated GFR BUN/Creatinine Ratio Glucose Calcium Magnesium Procalcitonin TSH 3.42 Urine Color Urine Appearance Urine pH Ur Specific [place] Urine Protein Urine Glucose (UA) Urine Ketones Urine Occult Blood Urine Nitrate Urine Bilirubin Urine Urobilinogen Ur Leukocyte Esterase Urine RBC Urine WBC Ur Squamous Epith Cells Urine Bacteria Hyaline Casts Ur Culture Indicated? Assessment & Plan Assessment & Plan narrative: Ramirez Huizar is an 78-year-old male with a complex past medical history significant for CAD status post stent x 2 (11/2018), mechanical aortic valve replacement, atrial fibrillation/flutter status post ablation and pacemaker implantation, renal cell carcinoma status post nephrectomy, bladder cancer, chronic kidney disease stage III, diabetes mellitus type 2, non-insulin using, and extensive cervical/thoracic/lumbar spinal surgery who presented after 2 syncopal episodes secondary to orthostatic hypotension. 1. Acute orthostatic hypotension, present on admission. Active. -this is due to progression of his pulmonary hypertension and right heart failure -Patient recently diagnosed with orthostatic hypotension by his occupational health and safety adviser Dr. Alonso and prescribed midodrine 10 mg daily with first dose on day of admission. -BP documented 103/63 supine, 78/48 sitting and 61/40 standing on 04/20/2019 -He remains very symptomatic with upright position. -Patient reported diarrhea day before admission and poor intake of food and fluids likely exacerbating threshold for orthostasis. -Discontinued home metoprolol, held furosemide then resumed 40 mg p.o. daily on 04/21/2019. -Increased midodrine to 5 mg 3 times daily and started fludrocortisone 0.1 mg daily. -He initially received 500 cc bolus and maintenance fluid with normal saline at 75 mL/hr for several hours then discontinued. -Continue conservative measures including thigh-high compression stockings, hand mattress stuffer and dorsiflexion prior to standing up, had a bed at 20?, and caffeine 1st thing in the morning. -Dr Barreto discussed case with his rfid engineer at [facility] Dr. Arndt who agrees with assessment and plan. Discussed possible pacemaker malfunction and reports it was last interrogated on February 22 for which he was 98% v-paced, with underlying chronic atrial fibrillation, battery life 22 months with trigger set at 70. Recommended monitoring for pauses and/or bradycardia (under 70). The [employer] Rep [place] #[phone] will interrogate pacemaker. 2. Acute head trauma secondary to ground level fall, while on Coumadin, present on admission. Resolved. -Patient had been seated for extended period then stood became dizzy and fell. He is unsure whether he lost consciousness. His and son came to assist and he had a brief syncopal episode while being helped up. -Patient did hit head but does not have a hematoma, contusion, abrasion or tenderness. He has chronic headache and neck pain. -CT scan brain without contrast demonstrated intact calvarium with no intracranial bleeding or pathology noted. -Patient is awake and conversant without focal neurological findings. 3. Biventricular systolic and diastolic heart failure, chronic, present on admission. Presumed stable. -Patient with history of mechanical aortic valve replacement, angioplasty and cardiac stenting in November 2018 at , chronic atrial fibrillation with SVR status post cardiac ablation and permanent pacemaker implantation. -he has chronic dyspnea with mild exertion. -Chest x-ray demonstrated cardiomegaly with mild CHF. -EKG reveals 100% paced rhythm. -Patient with chronically elevated troponin and BNP in setting of CKD stage 3. No need to trend troponin unless patient has active chest pain. -Echocardiogram 04/20/2019 showed small LV cavity, LVEF 45-50%, global LV hypokinesis with worsened LV function versus prior exam, moderately dilated RV, RV systolic pressure 57 with decrease in RV systolic function since previous exam, decreased severity of pulmonary hypertension since prior exam, dilated IVC collapsing less than 50% with a sniff, mechanical aortic valve with peak aortic velocity 1.8 m/sec versus 2.9 m/sec on prior exam on previous echo 01/20/2019. His last right heart catheterization report from [facility] 02/12/2019 finds elevated right heart PA and wedge pressures, moderately depressed cardiac index 1.6 with increased pulmonary vascular resistance. -patient is probably slightly fluid overloaded with holding his furosemide and the small amount of IV fluids he got since admission. However, his lungs are clear and he has no evidence of peripheral edema on exam. He may be to an extent preload dependent due to his severe pulmonary hypertension and right heart failure. -on 04/21/2019 restarted furosemide 40 mg po each morning, which is a decrease from his home routine of 40 mg b.i.d. 4. Chronic atrial fibrillation and St Sha mechanical aortic valve, present on admission. Stable. -The patient has had recent fluctuating INR. -INR goal is between 2.0 and 3.0 per his spouse -INR 1.5 on admit and increased up to 3.9 currently on warfarin 2.5 mg daily -hold warfarin for 04/21/2019, recheck INR 04/22/2019 -patient is also on daily Plavix 5. Chronic kidney disease stage 3, present on admission. Stable. -Patient is status post nephrectomy for renal cell carcinoma. -Baseline creatinine 1.6-2.0. -Continue to renally dose medications and avoid nephrotoxic agents. Midodrine is specifically renally dosed with max dose 5 mg 3 times daily. -Continue to monitor renal function closely. 6. Diabetes mellitus type 2, non-insulin using, present on admission. Stable. -Hemoglobin A1c 5.4%. -Held metformin which can probably be safely discontinued. -Continue ACHS blood glucose checks and low-dose correctional scale insulin. -Continue heart healthy/carbohydrate consistent diet. 7. Chronic neck and back pain, present on admission. Stable. -patient complains of neck and upper back pain post fall. Paracervical muscular tenderness on palpation. -the patient has been treated with hydrocodone 5/325 mg tablets twice daily although states he takes half a tablet at a time at home and feels it exacerbates his orthostatics symptoms -ordered Lidoderm 2 patches daily 8. Goals of care/code status: On 04/21/2019 discussed resuscitation measures with patient and spouse. He would like to change his code status to DNR. At this time he does not wish to be transferred to outside hospital for any interventional measures. Disposition: Patient likely to discharge home in the next 1-2 days with close follow-up. Quality VTE Deep Vein Thrombosis/Pulmonary Embolism Present on Admission: No
[2019-04-21] MEDS: FUROSEMIDE 40 MG TABLET PO (10:42)
[2019-04-21] MEDS: LIDOCAINE PATCH 1 EACH ADH..PATCH 2 EACH TOP (10:42)
--- NOTE | 2019-04-21 11:47 | PT.IPTN ---
Current Diagnoses Orthostatic hypotension (04/19/19) Physical Therapy Treatment Note M2 PT-IP Current Condition Start: 04/20/19 13:50 Freq: NEEDED Status: Active Protocol: Document 04/20/19 11:50 AB (Rec: 04/20/19 14:13 AB [id number]) Physical Therapy Current Condition Current Condition Evaluation Date 04/20/19 Treatment Diagnosis syncope; orthostatic hypotension; difficulty in walking Onset Date 04/19/19 Precautions Other Precautions low BP/orthostatic hypotension M3 PT-IP Subjective Start: 04/20/19 13:50 Freq: NEEDED Status: Active Protocol: Document 04/21/19 11:40 SA (Rec: 04/21/19 11:47 SA [id number]) Subjective Physical Therapy Visit Type Type Treatment Note Visit Start Time 11:19 Visit Stop Time 11:38 Total Visit Minutes 19 Number of ACCOUNTS ADMINISTRATOR Visits 1 Physical Therapy Visit Comments Patient Comments Pt states I'm not walking today Therapy Pain Assessment Pain When Pain Assessed At Rest Pain Present Pain Present Denied Pain M4 PT-IP Mobility and Gait Start: 04/20/19 13:50 Freq: NEEDED Status: Active Protocol: Document 04/21/19 11:40 SA (Rec: 04/21/19 11:47 SA [id number]) PT-Transfer Assessment Sit to and From Stand Sit to and from Stand Minimal Assistance 1 Person Assistance Equipment Transfer Assistive Device Gait Belt Front Wheeled Walker Orthotic/Prosthetic Devices or Brace: No Comments Mobility Comments Pt sitting up in chair agreeable to stand up to FWW but declines ambulation. BP to start 110/60, BP in standing 69/40, BP after 3 min seated back in chair 94/59. Pt reports dizziness with standing but was able to maintain standing longe enough to check BP. Gait Assessment Comments Gait Comments unable at this time M5 PT-IP Objective Assessments Start: 04/20/19 13:50 Freq: NEEDED Status: Active Protocol: Document 04/20/19 11:50 AB (Rec: 04/20/19 14:13 AB [id number]) Orientation Orientation/Cognition Level of Alertness Alert Orientation Name Place Situation Safety Awareness Decreased Safety Awareness Memory Description Short Term Impaired Customer Service Engineer Impaired Gross Range of Motion Lower Extremity ROM Assessment Within Functional Limits Strength Lower Extremity Strength Assessment Within Functional Limits Sensation Assessment Sensation Gross Sensation WNL Muscle Tone Muscle Tone WNL Yes M6 PT-IP Treatment Start: 04/20/19 13:50 Freq: NEEDED Status: Active Protocol: Document 04/21/19 11:40 SA (Rec: 04/21/19 11:47 [id number]) Physical Therapy Treatment Exercises Exercises Ankle Pumps Gluteal Sets Education Education Provided Safety Other Treatments Other Treatment Performed Encouraged patient to drink water, education for safety and self monitoring of symptoms. M7 PT-IP Assessment and Plan Start: 04/20/19 13:50 Freq: NEEDED Status: Active Protocol: Document 04/21/19 11:40 SA (Rec: 04/21/19 11:47 [id number]) PT Summary Assessment and Plan Summary Impairments Pain ROM Strength Balance Coordination Sensation Tone Cognition Bed Mobility Transfers Gait Activity Tolerance Assessment Summary Poor activity tolerance d/t low BP's, pt states he had medication changes since yesterday. compression hose on BLEs today. Frequency of Treatment Frequency Of Treatment Once a Day Treatment Plan Physical Therapy Treatment Plan Bed Mobility Training Transfer Training Gait Training Therapeutic Exercise Balance Retraining Discharge Planning Hot or Cold Pack Neuromuscular Re-ed Coordination Retraining Manual Therapy Other Recommendations and Next Treatment increase standing tolerance, Focus ambulation when appropriate Recommendations To Nursing Amount of Assist Needed 2 Person Assist Discharge Recommendations PT Discharge Recommendations Home with 24/7 Assist Home Health SNF Rehab Other Discharge Recommendations depending on progress: SNF vs home with 24/7 assist and home health PT
--- NOTE | 2019-04-21 13:38 | OT.IP.TRT ---
Current Diagnoses Orthostatic hypotension (04/19/19) Occupational Therapy Treatment Note M2 OT-IP Current Condition Start: 04/20/19 16:19 Freq: Status: Active Protocol: Document 04/20/19 12:02 PJM (Rec: 04/20/19 16:40 PJM [id number]) Occupational Therapy Current Condition Current Condition Evaluation Date 04/20/19 Treatment Diagnosis decreased self care, mobility due to orthostatic hypotension , syncope Diagnosis Onset Date 04/19/19 Post Operative Precautions Other Precautions fall risk, orthostatic M3 OT- IP Subjective and Pain Start: 04/20/19 16:19 Freq: Status: Active Protocol: Document 04/21/19 13:38 PJM (Rec: 04/21/19 15:50 PJM [id number]) OT- Subjective Occupational Therapy Visit Type Type Treatment Note Visit Start Time 13:14 Visit Stop Time 13:38 Total Visit Minutes 24 Notes SUPERVISOR FILM PROCESSING assisting with tx due to orthostatic hypotension and fall risk. Occupational Therapy Visit Comments Patient Comments I do not want you to take my blood pressure again. She just did it and I am tired of it! Patient/Caregiver Goals to go home and see his dog OT Pain Assessment Pain When Pain Assessed After Treatment Pain Present Pain Present Denied Pain M4 OT- IP ADL's Start: 04/20/19 16:19 Freq: Status: Active Protocol: Document 04/21/19 13:38 PJM (Rec: 04/21/19 15:50 PJM [id number]) OT ADL-Toileting General Evaluation Toileting Ability Standby Assistance Devices Toileting Assistive Devices Grab Bars Comments OT Toileting Comments pt completed betty care seated on toilet, pt adamantly refusing to use BSC despite risk of fainting due to low BP M6 OT- IP Functional Cognition Start: 04/20/19 16:19 Freq: Status: Active Protocol: Document 04/21/19 13:38 PJM (Rec: 04/21/19 15:50 PJM [id number]) Cognitive Factors Limiting Selfcare Function Cognitive Ability Level of Alertness Alert Ability to Follow Commands Able to Follow One Step Commands Safety Awareness Underestimates Need for Assistance Problem Solving Ability Needs Assist to Identify Solutions Abstract Thinking Ability Unable to Draw Logical Conclusions Unable to Be Adaptable in Thinking Cognitive Comments Cognitive Assessment Comments Pt adamantly declining assessment of BP at start of session. Pt demonstrating concrete thinking and low frustration tolerance regarding current medical situation. M7 OT- IP Mobility and Balance Start: 04/20/19 16:19 Freq: Status: Active Protocol: Document 04/21/19 13:38 PJM (Rec: 04/21/19 15:50 PJM [email or web address]) OT-Transfer Assessment Sit to and From Stand Sit to and from Stand Contact Guard Assistance Transfers Transfer Ability Contact Guard Assistance Technique Transfer Destination Chair Toilet Transfer Technique Stand Step Pivot Devices Transfer Assistive Devices Gait Belt Front Wheeled Walker OT- Gait Assessment Gait Gait Assistance Required: Contact Guard Assist Distance (Feet) 15 Assistive Devices Assistive Device Gait Belt Front Wheeled Walker Comments Gait Ability Comments Pt had no LOB with ambulation to and from toilet for total of 15 ft M9 OT- IP Assessment and Plan Start: 04/20/19 16:19 Freq: Status: Active Protocol: Document 04/21/19 13:38 PJM (Rec: 04/21/19 15:50 PJM [id number]) OT Summary Assessment and Plan Summary OT Impairments Functional Cognition Functional Mobility Dressing Toileting Bathing Toilet Transfers Shower Transfers Progress Towards Goals Slow Progress due to Medical Issues Assessment Summary Pt continues to have persistent orthostatic hypotension which is limiting all functional tasks in standing and all functional mobility. Pt adamantly refusing BP at start of session and declined to participate in any therapy tasks, then a few minutes later requested to use bathroom. Pt refusing to use bedside commode for safety. Pt CGA for sit to stand and ambulation to and from bathroom with FWW. Pt's BP 75/ 41 HR 77 after trip to and from bathroom; after 3 min in recliner with legs elevated BP 129/78 HR 70. Per chart notes, pt is now DNR and family does not want him transferred to another facility for any interventions. D/C plan is home with family assist when medically stable. Will provide family training and equipt recommendations to as needed to facilitate safe d/c to home. Goals Grooming Goal Standby Assistance Dressing Goal Minimal Assistance Toileting Goal Standby Assistance Bathing Goal Minimal Assistance Toilet Transfer Goal Standby Assistance ADA High Toilet Grab Bars Shower Transfer Goal Contact Guard Assistance Walk-in Shower Shower Chair Grab Bars Patient/Caregiver Education Goal Demonstrate Energy Conservation and Pacing Caregiver Independent Assisting Patient OT-Other Goals Grooming to be done standing at sink with stable BP and no loss of balance. Days to Meet Goals 4 Frequency of Treatment Frequency Of Treatment Once a Day Treatment Plan OT Treatment Plan ADL Training Functional Mobility Patient/Family Education Discharge Planning Discharge Recommendations OT Discharge Recommendations Home with 01/06 Assist Home Equipment Needs recommend BSC for safety if BP low
--- NOTE | 2019-04-21 14:09 | CM.DPC ---
DCP Code Status Per MD, pt continues to have bp issues and has not been able to work much with therapy. MD had discussion with pt and spouse and pt agreeable to changing code status to DNR with plans to complete POLST form this evening when family is bedside. Per RN, pt and family still not interested in transferring the pt to another hospital for higher level of care and pt not quite ready to discuss Hospice yet at this time and MD will continue to monitor the pt and likely have further d/c planning discussion tomorrow after pt has time to process his medical situation. Plan: SW to follow closely after POLST completed tonight and likely further discussion between MD and pt/family regarding possible Hospice at d/c. JIMMIE Hand
--- NOTE | 2019-04-21 15:08 | DIET.PN ---
78 yo M for poor appetite, coumadin education Height: 167.6 Wt: 77.5kg BMI: 27.6 Assessment: Pt reports having reduced appetite for past several years. Reports being 283# a few years ago and slowly dropping to 160# after kidney removal. Usual intake: B: breakfast cereal D: homemade stew c meat, grains, vegetables; drinks water and turner. Enjoys spinach and beet greens (would throw away the beets to just eat the greens). Recognizes need to moderate Vit K foods and adjust meds accordingly (he calls in numbers to clinic) but says he doesn't want to bother with changing medication or intake, accepting of consequences. Pt unhappy c texture of hospital foods hangs in his throat. Nutrition Diagnosis: Limited adherence to nutrition-related recommendations r/t DNI (Vitamin K, Coumadin) aeb pt stating irregular intake of high Vit K foods which he likes w/o desire to adjust meds or regulate intake. Intervention: Educated pt on Vitamin K and Coumadin interaction using handout which pt kept for his . Pt reports understanding the information, but does not want to adjust his medication or stop eating greens though INR is high. Submitted Mechanical Soft diet order c no bread per pts request as stringy food hangs in my throat. Pt declines ONS. Monitoring/Evaluation: RD f/u on 04/21, family considering hospice.
[2019-04-21] MEDS: MIDODRINE HCL 5 MG TABLET PO ×2 (15:18→20:06)
[2019-04-21 19:10] LABS: Bacteria Urine None Seen; RBC Urine None Seen (0-5/HPF); WBC Urine None Seen (0-5/HPF)
[2019-04-21 19:12] LABS: Appearance Urine UA CLEAR; Bilirubin Urine UA NEGATIVE (NEGATIVE); Color Urine UA YELLOW; Glucose Urine UA NEGATIVE (Negative); Ketones Urine UA NEGATIVE (NEGATIVE); Leukocyte Esterase Urine UA NEGATIVE (NEGATIVE); Nitrite Urine UA NEGATIVE (Negative); Occult Blood Urine UA NEGATIVE (Negative); Protein Urine UA NEGATIVE (Negative); Urobilinogen Urine UA 0.2 E.U./dL (0.2)
[2019-04-21 19:26] LABS: Culture Indicated Urine Cult Not Indicated
[2019-04-21] MEDS: ATORVASTATIN 20 MG TABLET 40 MG PO (20:06)
--- NOTE | 2019-04-21 21:50 | PC.NURSE ---
Pt up in recliner most of shift. Assist x 1 to bed. Orthostatics taken and recorded. Pt denies complaints with SBP 77. Returned to bed and given tylenol for chronic neck/back pain. Lidocaine patches removed from base of neck. Encouraged to call for needs. Call light available.
[2019-04-22 04:40] VITALS: BP 101/56; PULSE 67; RESP 16; TEMP 36.8; O2SAT 98
[2019-04-22 05:00] VITALS: BP 101/56; PULSE 67; RESP 16; TEMP 36.8; O2SAT 98
[2019-04-22 06:01] LABS: INR 3.4 (0.9-1.3); Prothrombin Time 39.8 SECONDS (10.1-12.7)
[2019-04-22 08:35] VITALS: BP 112/72; BP 77/46; BP 92/52; PULSE 69; PULSE 70; PULSE 72; RESP 16; O2SAT 98
[2019-04-22 08:55] VITALS: BP 142/75; PULSE 71
[2019-04-22] MEDS: FUROSEMIDE 40 MG TABLET PO (09:03)
[2019-04-22] MEDS: FLUDROCORTISONE 0.1 MG TABLET PO (09:03)
[2019-04-22] MEDS: TIMOLOL 0.5% OPHTH 1 DROPS EYE-BOTH (09:03)
[2019-04-22] MEDS: CLOPIDOGREL 75 MG TABLET PO (09:03)
[2019-04-22] MEDS: MIDODRINE HCL 5 MG TABLET PO (09:03)
[2019-04-22] MEDS: PANTOPRAZOLE 20 MG TABLET PO (09:03)
[2019-04-22] MEDS: SODIUM CHLORIDE 0.9% FLUSH 10 ML IV (09:03)
[2019-04-22] MEDS: LIDOCAINE PATCH 1 EACH ADH..PATCH 2 EACH TOP (09:04)
[2019-04-22] MEDS: ACETAMINOPHEN 325 MG TABLET 650 MG PO (09:04)
--- NOTE | 2019-04-22 10:41 | PM.DS.1 ---
History of Present Illness Chief complaint: Syncope, Hx back pain Narrative: Mr. Ramirez Huizar is an 78-year-old male patient with a complex medical history including cardiovascular disease, status post aortic valve replacement, history of ablation and pacemaker implantation, renal cell carcinoma, bladder cancer, chronic kidney disease, diabetes, extensive cervical/thoracic/lumbar spinal surgery and orthostatic hypotension who presents today with a ground level fall where he states his walker ?got away from me? and does add that when he stood up he did feel dizzy. The patient had an apparent loss of consciousness believing he struck his head on pavement of the driveway. Apparently had a 2nd syncopal episode when his and son were attempting to help him up where upon 911 was called. The patient complains of occipital head and neck pain and nausea without vomiting. The patient had taken his 1st dose of midodrine 10 mg today. The patient does endorse a recent history of poor appetite and has not been eating well and had diarrhea this morning. He further reports feeling chills and poorly for days. The patient denies fevers has had no visual changes denies nasal congestion or sore throat. He does have chronic neck pain and back pain following multiple surgeries with resulting numbness and tingling in all extremities. Denies chest pain or palpitations and reports no shortness of breath cough or wheezing. He reports no abdominal pain, poor appetite and nausea without vomiting at time exam. He has chronic neck and back pain related to multiple surgeries with instrumentation and typically ambulates with a walker. Upon arrival in the ER the patient is found to be afebrile with a temperature of 97.8?, heart rate of 76, blood pressure 98/63, elevated respiratory rate at 24 saturating 95% on room air. Patient had a chest x-ray taken which shows cardiomyopathy and mild congestive heart failure. On laboratory studies he is found have a a white count of 5.3, hemoglobin 10.5 and hematocrit of 31.6 and platelets 194. His last coagulation studies were on 03/16/2019 finding a PT 17.3 and an INR of 1.5 and has had a subsequent adjustment of his warfarin therapy. He has a total CK that is negative at 40 and has a chronically elevated troponin of 0.150 (chronically elevated) and BNP of 1350. Patient has known chronic kidney disease in today has a BUN of 38 and creatinine 1.6, which appears to be baseline functioning with thick chronic kidney disease stage 3. His otherwise his LFTs within normal limits. His a nonfasting blood sugar of 97. CT scan of the head reveals no cranial fractures or intracranial bleeding. Discharge Providers Date of admission: 04/19/19 18:23 Discharge Date: 04/22/19 Primary care physician: Dorothy Devine DO Consults: 04/19/19 20:13 Consult to Steam Power Plant Operator Routine Comment: 04/19/19 21:19 Consult to Dietitian, Adult Routine Comment: Reason For Exam: poor appatite, coumadin therapy Consult to Discharge Planning Routine Comment: Consult to Physical Therapy Evaluate & Treat Comment: Orthostasis, GLF, chr neck/back pain Physician Instructions: Evaluate and Treat 04/19/19 21:20 Consult to Occupational Therapy Evaluate & Treat Comment: Orthostasis, GLF, chr neck/back pain Physician Instructions: Evaluate and treat 04/19/19 21:22 Consult to Respiratory Therapy Evaluate & Treat Comment: Hx MAMADOU Physician Instructions: Evaluate and treat Discharge provider: John oYu MD Summary Discharge Diagnosis: 1. Syncope 2. Orthostatic hypotension 3. Severe pulmonary hypertension 4. Biventricular systolic and diastolic heart failure 5. Chronic atrial fibrillation 6. St Sha mechanical aortic valve 7. Chronic anticoagulation, warfarin 8. Ventricular pacemaker 9. Chronic kidney disease stage 3 10. Type 2 diabetes, non insulin using 11. Chronic pain, neck and back 12. Acute closed-head trauma, without bleed, secondary to ground level fall Hospital Course: Patient is 78-year-old male with history of severe pulmonary hypertension with right heart failure, mild LV systolic dysfunction, coronary stenting in November 2018, presented after ground level fall due to syncope. He was noted to have severe orthostatic hypotension which was likely cause of his syncope. He had just seen his teasel gig operator Dr. Alonso the day prior and started on midodrine 10 mg daily. We continued the midodrine which is currently being dosed at 5 mg 3 times daily. He was also started on fludrocortisone but this was not continued at discharge. He also received less than 1 L IV fluids with normal saline. We held his oral furosemide for a couple of days then restarted on 04/21/2019 at dose of 40 mg once daily (versus previous 40 mg b.i.d.). We also encouraged him to use thigh-high compression stockings, hand rug setter [place] and dorsiflexion prior to standing up, caution with getting up out of bed or chair. On telemetry he remained fully ventricular paced at 70 beats per minute. Echocardiogram 04/20/2019 showed small LV cavity, LVEF 45-50%, global LV hypokinesis with worsened LV function versus prior exam, moderately dilated RV, RV systolic pressure 57 with decrease in RV systolic function since previous exam, decreased severity of pulmonary hypertension since prior exam, dilated IVC collapsing less than 50% with a sniff, mechanical aortic valve with peak aortic velocity 1.8 m/sec versus 2.9 m/sec on prior exam on previous echo 01/20/2019. His last right heart catheterization report from [facility] 02/12/2019 finds elevated right heart PA and wedge pressures, moderately depressed cardiac index 1.6 with increased pulmonary vascular resistance. With above measures, he was symptomatically better, not lightheaded or dizzy this morning with getting out of bed and walking to bathroom. Not short of breath with walking to the bathroom in hospital room. This a.m. BP was 112/72, pulse 69 supine, BP 92/52, pulse 70 sitting, and BP 77/46, pulse 72 standing. His blood pressure went up to 142/75 after he sat down returning from bathroom. His lungs are clear and he has no peripheral edema. Clinically appears euvolemic although on echo suggestion of volume overload. However, he may be preload dependent with his predominantly right heart failure. In regards to diuretic management, he is instructed to check daily a.m. weight and take an extra 40 mg furosemide in the afternoon if his weight is up by more than 2 lb from his current dry weight. In regards to renal function he remained stable with BUN 42-45 and creatinine 1.8-1.9, EGFR 34-36 which is his baseline. He is anticoagulated on warfarin, INR 2.1 on admission and 3.4 on day of discharge. He has had some fluctuations in INR in recent months. He will continue on his warfarin 2.5 mg daily and check weekly INR with home monitoring and warfarin clinic follow-up. In regards to diabetes, his morning blood sugars remained right around 100 with holding his metformin. We have discontinued his metformin as he can likely be diet controlled. We also addressed code status during this admission. Upon admit he was full code. After discussion he is wanting to be DNR. We have given him POLST form which she is going to complete with help from his prior to going home. He will need close outpatient follow-up, advised to schedule appointment within a week with his service specialist Dr. Corea. He already has follow-up appointment with his teasel gig operator Dr. Alonso in a couple of weeks. Status at Discharge Cognitive/behavioral status at discharge: oriented Functional status at discharge: uses cane/walker Overall status at discharge: patient is back to baseline Time Spent with Patient Greater than 30 minutes Exam Vital Signs (past 8 hours): - 04/22/19 04:40 04/22/19 05:00 04/22/19 08:35 Temperature 98.2 F 98.2 F Pulse Rate 67 67 69 Pulse Rate [Orthostatic Lying] 69 Pulse Rate [Orthostatic Sitting] 72 Pulse Rate [Orthostatic Standing] 70 Respiratory Rate 16 16 16 Blood Pressure 101/56 L 101/56 L 112/72 Blood Pressure [Orthostatic Lying] 112/72 Blood Pressure [Orthostatic Sitting] 92/52 L Blood Pressure [Orthostatic Standing] 77/46 L Pulse Oximetry 98 98 98 04/22/19 08:55 Temperature Pulse Rate Pulse Rate [Orthostatic Lying] Pulse Rate [Orthostatic Sitting] 71 Pulse Rate [Orthostatic Standing] Respiratory Rate Blood Pressure Blood Pressure [Orthostatic Lying] Blood Pressure [Orthostatic Sitting] 142/75 H Blood Pressure [Orthostatic Standing] Pulse Oximetry Oxygen Delivery Method Room Air Oxygen Flow Rate 0 Objective Labs Result Diagrams: 04/21/19 05:25 04/21/19 05:25 Labs: Laboratory Results - last 24 hr 04/21/19 04/22/19 16:25 05:31 PT 39.8 H D INR 3.4 H Urine Color Yellow Urine Appearance Clear Urine pH 5.0 Ur Specific Devol 1.010 Urine Protein Negative Urine Glucose (UA) Negative Urine Ketones Negative Urine Occult Blood Negative Urine Nitrate Negative Urine Bilirubin Negative Urine Urobilinogen 0.2 Ur Leukocyte Esterase Negative Urine RBC None seen Urine WBC None seen Urine Bacteria None seen Ur Culture Indicated? Cult not indicated Discharge Plan Discharge Plan Patient Disposition: Home Discharge Med Rec/Prescriptions Prescriptions: New midodrine 10 mg tablet 5 mg PO TID Qty: 30 RF: 0 furosemide 40 mg tablet 40 mg PO DAILY Qty: 30 RF: 0 Continued Disabled Parking Permit Qty: 1 RF: 0 hydrocodone-acetaminophen [[place]] 5-325 mg tablet 1 tab PO BIDP Qty: 50 RF: 0 clopidogrel 75 mg tablet 75 mg PO DAILY Qty: 90 RF: 1 omeprazole 20 mg capsule,delayed release(DR/EC) 20 mg PO BID Qty: 180 RF: 0 cholecalciferol (vitamin D3) [Vitamin D3] 2,000 UNIT tablet 1 tab PO DAILY Qty: 0 RF: 0 nitroglycerin [Nitrostat] 0.4 MG tablet, sublingual 0.4 mg Sublingual DAILY PRN (Reason: Chest Pain) Qty: 0 RF: 0 Glucose: Test Strips 1 str miscellaneous DIRECTED Qty: 0 RF: 0 ferrous sulfate [Milena-Time] 325 mg (65 mg iron) tablet 325 mg PO BID RF: 0 atorvastatin 40 mg tablet 40 mg PO BEDTIME RF: 0 acetaminophen [Acetaminophen Extra Strength] 500 mg Tablet 500 mg PO Q6H PRN (Reason: Pain (Scale Score 1-3)) RF: 0 docusate sodium 100 mg Capsule 100 mg PO DAILY PRN (Reason: Constipation) RF: 0 fluticasone propionate 16 GM spray,suspension 1 spray Intranasal BIDP PRN (Reason: allergies) RF: 0 timolol maleate 0.5 % drops 1 drp ophthalmic (eye) BID RF: 0 Changed warfarin 1 mg tablet See Rx Instructions .ROUTE .COMPLEX Qty: 0 RF: 0 Discontinued metformin [Glucophage] 500 mg tablet 500 mg PO BID Qty: 180 RF: 3 furosemide 40 mg tablet 40 mg PO BID RF: 0 metoprolol succinate [Toprol XL] 25 mg tablet extended release 24 hr 12.5 mg PO BID RF: 0 enoxaparin 80 mg/0.8 mL syringe 1 dose subcut DIRECTED RF: 0 midodrine 10 mg tablet 10 mg PO DAILY RF: 0 Follow up/Referrals: Marc Corea [Other] - 1 Week Dorothy Devine DO [Primary Care Provider] - Provider Discharge Instructions Diet: Diet as Tolerated Discharge Data Primary Care Provider: Dorothy Devine Attending Provider: Nydia Barreto Admit Date/Time: 04/19/19 18:23 Quality VTE Deep Vein Thrombosis/Pulmonary Embolism Present on Admission: No
--- NOTE | 2019-04-22 11:29 | PT.IPTN ---
Current Diagnoses Orthostatic hypotension (04/19/19) Physical Therapy Treatment Note M2 PT-IP Current Condition Start: 04/20/19 13:50 Freq: NEEDED Status: Active Protocol: Document 04/20/19 11:50 AB (Rec: 04/20/19 14:13 AB [id number]) Physical Therapy Current Condition Current Condition Evaluation Date 04/20/19 Treatment Diagnosis syncope; orthostatic hypotension; difficulty in walking Onset Date 04/19/19 Precautions Other Precautions low BP/orthostatic hypotension M3 PT-IP Subjective Start: 04/20/19 13:50 Freq: NEEDED Status: Active Protocol: Document 04/22/19 11:29 AB (Rec: 04/22/19 12:11 AB [id number]) Subjective Physical Therapy Visit Type Visit Start Time 11:29 Visit Stop Time 11:54 Total Visit Minutes 25 Number of PNEUDRAULIC SYSTEMS MECHANIC Visits 0 Physical Therapy Visit Comments Patient Comments pt does not want to do any mobility. spouse in room with pt and has questions regarding d/c needs. I am going home today. M4 PT-IP Mobility and Gait Start: 04/20/19 13:50 Freq: NEEDED Status: Active Protocol: Document 04/21/19 11:40 SA (Rec: 04/21/19 11:47 SA [id number]) PT-Transfer Assessment Sit to and From Stand Sit to and from Stand Minimal Assistance 1 Person Assistance Equipment Transfer Assistive Device Gait Belt Front Wheeled Walker Orthotic/Prosthetic Devices or Brace: No Comments Mobility Comments Pt sitting up in chair agreeable to stand up to FWW but declines ambulation. BP to start 110/60, BP in standing 69/40, BP after 3 min seated back in chair 94/59. Pt reports dizziness with standing but was able to maintain standing longe enough to check BP. Gait Assessment Comments Gait Comments unable at this time M5 PT-IP Objective Assessments Start: 04/20/19 13:50 Freq: NEEDED Status: Active Protocol: Document 04/20/19 11:50 AB (Rec: 04/20/19 14:13 AB [id number]) Orientation Orientation/Cognition Level of Alertness Alert Orientation Name Place Situation Safety Awareness Decreased Safety Awareness Memory Description Short Term Impaired Lift Driver Impaired Gross Range of Motion Lower Extremity ROM Assessment Within Functional Limits Strength Lower Extremity Strength Assessment Within Functional Limits Sensation Assessment Sensation Gross Sensation WNL Muscle Tone Muscle Tone WNL Yes M6 PT-IP Treatment Start: 04/20/19 13:50 Freq: NEEDED Status: Active Protocol: Document 04/21/19 11:40 SA (Rec: 04/21/19 11:47 SA [id number]) Physical Therapy Treatment Exercises Exercises Ankle Pumps Gluteal Sets Education Education Provided Safety Other Treatments Other Treatment Performed Encouraged patient to drink water, education for safety and self monitoring of symptoms. M7 PT-IP Assessment and Plan Start: 04/20/19 13:50 Freq: NEEDED Status: Active Protocol: Document 04/22/19 11:29 AB (Rec: 04/22/19 12:11 AB [id number]) PT Summary Assessment and Plan Summary Assessment Summary pt with spouse in room. Pt did not want to do any mobility with PT. family has questions regarding d/c needs. informed pt and family regarding safety, setting up sitting stations at home, monitoring BP and interventions if BP decreases, equipement needs. provided DME list to pt. pt and spouse without any futher questions/ concerns. Goals Bed Mobility Goal Independent Transfer Goal Independent Front Wheeled Walker Gait Goal Independent Front Wheel Walker Gait Distance 50 Other Goals up/down 1 step using FWW Days to Meet Goals 10 Frequency of Treatment Frequency Of Treatment Once a Day Treatment Plan Physical Therapy Treatment Plan Bed Mobility Training Transfer Training Gait Training Therapeutic Exercise Balance Retraining Discharge Planning Hot or Cold Pack Neuromuscular Re-ed Coordination Retraining Manual Therapy Other Recommendations and Next Treatment increase standing tolerance, Focus ambulation when appropriate Recommendations To Nursing Amount of Assist Needed 2 Person Assist Discharge Recommendations PT Discharge Recommendations Home with 24/7 Assist Home Health SNF Rehab Other Discharge Recommendations depending on progress: SNF vs home with 24/7 assist and home health PT
[2019-04-22 11:50] VITALS: BP 104/60; PULSE 70; RESP 16; TEMP 36.1; O2SAT 99
--- NOTE | 2019-04-22 13:36 | PC.NURSE ---
Pt is getting dressed and is ready to be taken out with his Spouse. Care Management has been in to see Pt and discussed Home Health and Pt and Spouse are tentatively in agreement. HL removed, Tele removed. Went over d/c instructions with Pt and Spouse - discussed d/c meds, time of last dose, reviewed stroke education, CHF guidelines, and Pt has their true copy of the POLST for which has been signed. Pt's Spouse to make follow up appointments with Dr. Devine and Dr. Arndt. Pt and Spouse deny further questions and will be taken out via w/c to POV with all belongings.
--- NOTE | 2019-04-23 08:24 | CM.DPNOTE ---
Late Entry, DC Note: According to multidisciplinary rounds 04.22.19, pt being DC home w/family to assist and no home health needed. Later that morning, learned from CHANG Sanchez and family members, lázaro Castillo and dtr in law Skylar Staley that Home Health would be helpful if pt's spouse Charlotte would be agreeable. Lázaro Castillo explained to this CATERING ASSISTANT that he has had multiple conversations w/his mom about inviting additional help in their home to assist w/pt's care needs, Charlotte has been adamantly against this and often states she can handle her 's care on her own. Lázaro Castillo requests this CATERING ASSISTANT offer home health service in case Charlotte has a different response. Met w/pt, spouse Charlotte and CHANG Sanchez in room. Charlotte admits that her sons want her to accept more help although Charlotte states multiple times that she believes in God and that God has granted her with the strength to care for herself and her . Charlotte resistant to the idea of home health stating what would I need them for?. Charlotte is confident about taking pt home and feels she can handle his halfway needs. Inevitably, Charlotte did agree to sending a referral to [facility], after this CATERING ASSISTANT and CHANG Sanchez explained Home Health referrals are easiest to complete from the hospital, rather than relying on PCP's office. Faxed HH referral to Yobany at [facility] on Thursday04.23.19, completed orders, F2F, face sheet and additional clinical information. Yobany explained they are not available until next week and this CATERING ASSISTANT suggested calling spouse Thursday morning to review their services and schedule. P: DC 04.22.19, home w/family via pov, home health referral made. POLST updated before DC to DNR/DNI JIMMIE Ham
== END 2019-04-22 13:50 | disposition home health service (06) | DRG 315 ==
LOC: ED 18:07 → AC 04-20 07:22
PROVIDERS: Internal Medicine; Nurse Practitioner Adult Health; Admitting Provider Internal Medicine; Emergency Provider Emergency Medicine; Family Provider Family Medicine; PCP Family Medicine; Visit Provider Internal Medicine
DX: I27.29 Other secondary pulmonary hypertension (principal); S06.891A Other specified intracranial injury with loss of consciousness of 30 minutes or less, initial encounter; I42.9 Cardiomyopathy, unspecified; I48.92 Unspecified atrial flutter; I13.0 Hypertensive heart and chronic kidney disease with heart failure and stage 1 through stage 4 chronic kidney disease, or unspecified chronic kidney disease; I50.42 Chronic combined systolic (congestive) and diastolic (congestive) heart failure; E11.9 Type 2 diabetes mellitus without complications; N18.3 Chronic kidney disease, stage 3 (moderate); I48.2 Chronic atrial fibrillation; I95.1 Orthostatic hypotension; Z95.0 Presence of cardiac pacemaker; Z79.01 Long term (current) use of anticoagulants; Z95.2 Presence of prosthetic heart valve; Z87.891 Personal history of nicotine dependence; W18.30XA Fall on same level, unspecified, initial encounter; G89.29 Other chronic pain
CPT/HCPCS: 36415; 70450; 71045; 80048; 80053; 81001; 82550; 82962; 83690; 83735; 83880; 84145; 84443; 84484; 85025; 85610; 86850; 86900; 86901; 87633; 93005; 93306; 94762; 96360; 96361; 97163; 97165; 97530; 97535; 99283; 99284; J1650

== ENCOUNTER → 2019-05-04 11:01 | Outpatient (CLI) | payer MEDICARE, OTHER, SELFPAY ==
[2019-04-19 19:53] VITALS: BMI 26.5
--- NOTE | 2019-05-04 11:16 | DI.RAD.S_ITS ---
PROCEDURE: XR THORACIC SPINE 3V INDICATIONS: pain TECHNIQUE: 4 views of the thoracic spine were acquired. COMPARISON: None. FINDINGS: Bones: No fractures or dislocations. No suspicious bony lesions. Multilevel degenerative endplate sclerosis and spurring. Diffuse facet arthropathy. Cervicothoracic posterior spinal instrumentation, and cervical ACDF Soft tissues: No paravertebral stripe thickening. IMPRESSION: No fracture. Diffuse discogenic changes. Dictated by: Karan Traore M.D. on 05/04/2019 at 16:42 Approved by: Karan Traore M.D. on 05/04/2019 at 16:44
--- NOTE | 2019-05-04 11:16 | DI.RAD.S_ITS ---
PROCEDURE: XR SCAPULA RT INDICATIONS: pain TECHNIQUE: 2 views of the scapula were acquired. COMPARISON: [facility], CR, XR CHEST 1V, 04/19/2019, 14:53. FINDINGS: Bones: No fractures or dislocations. No suspicious bony lesions. Visualized ribs appear intact. The shoulder joint degeneration Soft tissues: Overlying soft tissues appear normal. IMPRESSION: No definite fracture radiographically identified. If there is persistent clinical concern, further evaluation with CT could be considered. Dictated by: Karan Traore M.D. on 05/04/2019 at 14:37 Approved by: Karan Traore M.D. on 05/04/2019 at 14:39
[2019-05-04 12:33] LABS: Hematocrit 30.7 % (41-53)
[2019-05-04 12:51] LABS: B Type Natriuretic Peptide 2230 (<100)
[2019-05-04 12:55] LABS: HEMOLYSIS < 15 (0-50); Iron 83 ug/dL (49-181)
[2019-05-04 13:05] LABS: Percent Iron Saturation 19 % (20-50); Total Iron Binding Capacity 429 ug/dL (261-462); Transferrin 321 mg/dL (206-381)
[2019-05-04 13:34] LABS: BUN Creatinine Ratio 18.7 (6-22); Blood Urea Nitrogen 28 mg/dL (9-20); Calcium 9.3 mg/dL (8.4-10.2); Carbon Dioxide 27 mmol/L (22-32); Chloride 102 mmol/L (98-107); Glucose 120 mg/dL (80-110); HEMOLYSIS < 15 (0-50); Potassium 4.7 mmol/L (3.4-5.1); Sodium 140 mmol/L (137-145)
[2019-05-04 14:07] LABS: Ferritin 48.7 ng/mL (17.9-464)
[2019-05-07 15:31] LABS: Parathyroid Hormone Int 88 pg/mL (14-64)
== END ==
PROVIDERS: Family Provider Family Medicine; PCP Family Medicine; Visit Provider Student in an Organized Health Care Education/Training Program
DX: N05.9 Unspecified nephritic syndrome with unspecified morphologic changes (principal); N25.81 Secondary hyperparathyroidism of renal origin; I50.32 Chronic diastolic (congestive) heart failure; D50.0 Iron deficiency anemia secondary to blood loss (chronic); R52 Pain, unspecified; R55 Syncope and collapse; W19.XXXA Unspecified fall, initial encounter
CPT/HCPCS: 36415; 72072; 73010; 80048; 82728; 83540; 83550; 83880; 83970; 85014; 85018

== ENCOUNTER → 2019-06-16 10:35 | Outpatient (CLI) | payer MEDICARE, OTHER, SELFPAY ==
[2019-04-19 19:53] VITALS: BMI 26.5
[2019-06-16 10:41] LABS: Bacteria Urine None Seen; RBC Urine None Seen (0-5/HPF); WBC Urine None Seen (0-5/HPF)
[2019-06-16 11:24] LABS: BUN Creatinine Ratio 22.4 (6-22); Blood Urea Nitrogen 38 mg/dL (9-20); Calcium 9.4 mg/dL (8.4-10.2); Carbon Dioxide 25 mmol/L (22-32); Chloride 101 mmol/L (98-107); Glucose 93 mg/dL (80-110); HEMOLYSIS < 15 (0-50); Potassium 4.4 mmol/L (3.4-5.1); Sodium 138 mmol/L (137-145)
[2019-06-16 11:29] LABS: B Type Natriuretic Peptide 1490 (<100)
[2019-06-16 12:08] LABS: Appearance Urine UA CLEAR; Bilirubin Urine UA NEGATIVE (NEGATIVE); Color Urine UA YELLOW; Glucose Urine UA NEGATIVE (Negative); Ketones Urine UA NEGATIVE (NEGATIVE); Leukocyte Esterase Urine UA NEGATIVE (NEGATIVE); Nitrite Urine UA NEGATIVE (Negative); Occult Blood Urine UA NEGATIVE (Negative); Protein Urine UA NEGATIVE (Negative); Urobilinogen Urine UA 0.2 E.U./dL (0.2)
[2019-06-16 12:34] LABS: Culture Indicated Urine Cult Not Indicated; Urine Comments Microscopic Normal
== END ==
PROVIDERS: Family Provider Family Medicine; PCP Family Medicine; Visit Provider Student in an Organized Health Care Education/Training Program
DX: N05.9 Unspecified nephritic syndrome with unspecified morphologic changes (principal); I50.32 Chronic diastolic (congestive) heart failure; N30.00 Acute cystitis without hematuria
CPT/HCPCS: 36415; 80048; 81001; 83880

== ENCOUNTER → 2019-07-19 08:38 | Outpatient (CLI) | payer MEDICARE, OTHER, SELFPAY ==
[2019-04-19 19:53] VITALS: BMI 26.5
[2019-07-19 09:12] LABS: Alanine Aminotransferase 9 IU/L (21-72); Albumin 4.3 g/dL (3.5-5.0); Albumin Globulin Ratio 1.1 (1.0-2.8); Alkaline Phosphatase 125 U/L (38-126); Aspartate Aminotransferase 27 IU/L (17-59); BUN Creatinine Ratio 18.8 (6-22); Bilirubin Total 0.9 mg/dL (0.2-1.3); Blood Urea Nitrogen 32 mg/dL (9-20); Carbon Dioxide 26 mmol/L (22-32); Chloride 103 mmol/L (98-107); Cholesterol 97 mg/dL (140-199); Glucose 110 mg/dL (80-110); HDL Cholesterol 34 mg/dL (40-60); HEMOLYSIS < 15 (0-50); LDL Cholesterol Calculated 39 mg/dL (<100); Potassium 4.5 mmol/L (3.4-5.1); Sodium 141 mmol/L (137-145); Total Protein 8.3 g/dL (6.3-8.2); Triglycerides 120 mg/dL (35-150)
[2019-07-19 09:16] LABS: Hemoglobin A1C% w Est Avg Glu 5.8 % (4.0-6.0)
[2019-07-19 12:34] LABS: Add Manual Diff / Slide Review NO; Basophils Absolute Auto 0 /uL (0-100); Basophils Percent Auto 0.5 % (0-2); Eosinophils Absolute Auto 100 /uL (0-450); Eosinophils Percent Auto 1.2 % (2-4); Hematocrit 37.5 % (41-53); Hemoglobin 12.4 g/dL (13.5-17.5); Lymphocytes Absolute Auto 1700 /uL (1100-4500); Lymphocytes Percent Auto 22.5 % (25-40); Mean Corpuscular HGB Conc 32.9 % (30-36); Mean Corpuscular Hemoglobin 30.2 PG (26-34); Mean Corpuscular Volume 91.8 fL (80-100); Monocytes Absolute Auto 800 /uL (0-900); Neutrophils Absolute Auto 5000 /uL (1500-7000); Neutrophils Percent Auto 65.8 % (50-75); Platelet Count 180 X10^3/uL (150-400); Red Blood Cell Count 4.09 X10^6/uL (4.5-5.9); Red Cell Distribution Width 17.1 % (11.6-14.8); White Blood Cell Count 7.6 X10^3/uL (4.5-11.0)
== END ==
PROVIDERS: PCP Family Medicine; Visit Provider Family Medicine
DX: E11.9 Type 2 diabetes mellitus without complications (principal); Z51.81 Encounter for therapeutic drug level monitoring; K25.9 Gastric ulcer, unspecified as acute or chronic, without hemorrhage or perforation; K92.1 Melena
CPT/HCPCS: 36415; 80053; 80061; 83036; 85025

== ENCOUNTER → 2019-09-26 09:12 | Outpatient (CLI) | payer MEDICARE, OTHER, SELFPAY ==
[2019-04-19 19:53] VITALS: BMI 26.5
[2019-09-26 10:11] LABS: Hematocrit 35.5 % (41-53); Hemoglobin 11.9 g/dL (13.5-17.5)
[2019-09-26 10:21] LABS: HEMOLYSIS < 15 (0-50); Iron 63 ug/dL (49-181)
[2019-09-26 10:27] LABS: BUN Creatinine Ratio 17.4 (6-22); Blood Urea Nitrogen 33 mg/dL (9-20); Calcium 9.8 mg/dL (8.4-10.2); Carbon Dioxide 30 mmol/L (22-32); Chloride 99 mmol/L (98-107); Estimated Glomerular Filt Rate 34.3 mL/min (>60); Glucose 109 mg/dL (80-110); HEMOLYSIS < 15 (0-50); Potassium 4.7 mmol/L (3.4-5.1); Sodium 140 mmol/L (137-145)
[2019-09-26 10:32] LABS: Percent Iron Saturation 15 % (20-50); Total Iron Binding Capacity 424 ug/dL (261-462); Transferrin 331 mg/dL (206-381)
[2019-09-26 10:56] LABS: Ferritin 58.6 ng/mL (17.9-464)
[2019-09-26 11:24] LABS: Creatinine Urine Random 117.1 mg/dL; Protein (Total) Urine Random 13 mg/dL (0-12); Protein Creatinine Ratio Urine 0.11 GRAM/24H
[2019-09-26 12:04] LABS: B Type Natriuretic Peptide 971 (<100)
[2019-09-29 16:32] LABS: Parathyroid Hormone Int 39 pg/mL (14-64)
== END ==
PROVIDERS: Family Provider Family Medicine; PCP Family Medicine; Visit Provider Student in an Organized Health Care Education/Training Program
DX: I50.32 Chronic diastolic (congestive) heart failure (principal); N05.9 Unspecified nephritic syndrome with unspecified morphologic changes; D50.0 Iron deficiency anemia secondary to blood loss (chronic); D64.9 Anemia, unspecified; N25.81 Secondary hyperparathyroidism of renal origin; R80.9 Proteinuria, unspecified
CPT/HCPCS: 36415; 80048; 82570; 82728; 83540; 83550; 83880; 83970; 84156; 85014; 85018

== ENCOUNTER → 2019-11-17 10:18 | Outpatient (CLI) | payer MEDICARE, OTHER, SELFPAY ==
[2019-04-19 19:53] VITALS: BMI 26.5
[2019-11-17 11:06] LABS: BUN Creatinine Ratio 21.1 (6-22); Blood Urea Nitrogen 38 mg/dL (9-20); Calcium 9.5 mg/dL (8.4-10.2); Carbon Dioxide 30 mmol/L (22-32); Chloride 100 mmol/L (98-107); Estimated Glomerular Filt Rate 36.4 mL/min (>60); Glucose 107 mg/dL (80-110); HEMOLYSIS < 15 (0-50); Potassium 4.6 mmol/L (3.4-5.1); Sodium 140 mmol/L (137-145)
== END ==
PROVIDERS: PCP Family Medicine; Visit Provider Nurse Practitioner Family
DX: I25.10 Atherosclerotic heart disease of native coronary artery without angina pectoris (principal)
CPT/HCPCS: 36415; 80048

== ENCOUNTER → 2020-01-10 09:00 | Outpatient (CLI) | payer MEDICARE, OTHER, SELFPAY ==
[2019-04-19 19:53] VITALS: BMI 26.5
[2020-01-10 09:28] LABS: Add Manual Diff / Slide Review NO; Basophils Absolute Auto 100 /uL (0-100); Basophils Percent Auto 0.8 % (0-2); Eosinophils Absolute Auto 100 /uL (0-450); Eosinophils Percent Auto 0.8 % (2-4); Hemoglobin 14.3 g/dL (13.5-17.5); Lymphocytes Absolute Auto 1200 /uL (1100-4500); Lymphocytes Percent Auto 19.3 % (25-40); Mean Corpuscular HGB Conc 34.2 % (30-36); Mean Corpuscular Hemoglobin 32.4 PG (26-34); Mean Corpuscular Volume 94.9 fL (80-100); Monocytes Absolute Auto 600 /uL (0-900); Monocytes Percent Auto 8.7 % (3-14); Neutrophils Absolute Auto 4500 /uL (1500-7000); Neutrophils Percent Auto 70.4 % (50-75); Platelet Count 207 X10^3/uL (150-400); Red Blood Cell Count 4.42 X10^6/uL (4.5-5.9); Red Cell Distribution Width 15.9 % (11.6-14.8); White Blood Cell Count 6.4 X10^3/uL (4.5-11.0)
[2020-01-10 09:42] LABS: Hemoglobin A1C% w Est Avg Glu 6.2 % (4.0-6.0)
[2020-01-10 10:57] LABS: Cholesterol 151 mg/dL (140-199); HDL Cholesterol 37 mg/dL (40-60); LDL Cholesterol Calculated 85 mg/dL (<100); Triglycerides 147 mg/dL (35-150)
[2020-01-10 11:06] LABS: NT-proBNP (BNP-Adult 18+) 27500 pg/mL (<450)
[2020-01-10 11:27] LABS: Thyroid Stimulating Hormone 2.48 uIU/mL (0.47-4.68)
== END ==
PROVIDERS: Family Medicine; PCP Family Medicine; Referring Provider Family Medicine; Visit Provider Family Medicine
DX: R06.02 Shortness of breath (principal); E11.9 Type 2 diabetes mellitus without complications; E78.5 Hyperlipidemia, unspecified; I10 Essential (primary) hypertension; I25.10 Atherosclerotic heart disease of native coronary artery without angina pectoris; I35.9 Nonrheumatic aortic valve disorder, unspecified
CPT/HCPCS: 36415; 80061; 83036; 83880; 84443; 85025

== ENCOUNTER → 2020-02-16 08:40 | Outpatient (CLI) | payer MEDICARE, OTHER, SELFPAY ==
[2019-04-19 19:53] VITALS: BMI 26.5
[2020-02-16 09:55] LABS: Hematocrit 35.3 % (41-53); Hemoglobin 11.9 g/dL (13.5-17.5)
[2020-02-16 10:08] LABS: BUN Creatinine Ratio 19.5 (6-22); Blood Urea Nitrogen 34 mg/dL (9-20); Calcium 9.8 mg/dL (8.4-10.2); Carbon Dioxide 30 mmol/L (22-32); Chloride 102 mmol/L (98-107); Estimated Glomerular Filt Rate 37.8 mL/min (>60); Glucose 100 mg/dL (80-110); HEMOLYSIS < 15 (0-50); Potassium 5.1 mmol/L (3.4-5.1); Sodium 140 mmol/L (137-145)
[2020-02-17 06:06] LABS: Parathyroid Hormone Int 72 pg/mL (15-65)
== END ==
PROVIDERS: PCP Family Medicine; Referring Provider Student in an Organized Health Care Education/Training Program; Visit Provider Student in an Organized Health Care Education/Training Program
DX: N05.9 Unspecified nephritic syndrome with unspecified morphologic changes (principal); D64.9 Anemia, unspecified; N25.81 Secondary hyperparathyroidism of renal origin
CPT/HCPCS: 36415; 80048; 83970; 85014; 85018

== ENCOUNTER → 2020-04-16 11:00 | Outpatient (CLI) | payer MEDICARE, OTHER, SELFPAY ==
[2019-04-19 19:53] VITALS: BMI 26.5
[2020-04-16 12:05] LABS: Alanine Aminotransferase 15 IU/L (<50); Albumin 4.5 g/dL (3.5-5.0); Albumin Globulin Ratio 1.1 (1.0-2.8); Alkaline Phosphatase 81 U/L (38-126); Aspartate Aminotransferase 34 IU/L (17-59); BUN Creatinine Ratio 26.3 (6-22); Bilirubin Total 1.2 mg/dL (0.2-1.3); Blood Urea Nitrogen 47 mg/dL (9-20); Calcium 10.4 mg/dL (8.4-10.2); Carbon Dioxide 30 mmol/L (22-32); Chloride 97 mmol/L (98-107); Estimated Glomerular Filt Rate 36.6 mL/min (>60); Globulin 4.2 g/dL (1.7-4.1); Glucose 96 mg/dL (80-110); HEMOLYSIS < 15 (0-50); Potassium 4.8 mmol/L (3.4-5.1); Sodium 137 mmol/L (137-145); Total Protein 8.7 g/dL (6.3-8.2)
[2020-04-17 13:41] LABS: NT-proBNP (BNP-Adult 18+) 22500 pg/mL (<450)
== END ==
PROVIDERS: PCP Family Medicine; Referring Provider Family Medicine; Visit Provider Family Medicine
DX: E11.9 Type 2 diabetes mellitus without complications (principal); I50.9 Heart failure, unspecified
CPT/HCPCS: 36415; 80053; 83036; 83880

== ENCOUNTER → 2020-04-17 13:28 | Outpatient (CLI) | payer MEDICARE, OTHER, SELFPAY ==
[2019-04-19 19:53] VITALS: BMI 26.5
[2020-04-17 14:49] LABS: Add Manual Diff / Slide Review NO; Basophils Absolute Auto 0 /uL (0-100); Basophils Percent Auto 0.6 % (0-2); Eosinophils Absolute Auto 0 /uL (0-450); Eosinophils Percent Auto 0.6 % (2-4); Hematocrit 37.8 % (41-53); Hemoglobin 12.9 g/dL (13.5-17.5); Lymphocytes Absolute Auto 1200 /uL (1100-4500); Lymphocytes Percent Auto 18.7 % (25-40); Mean Corpuscular HGB Conc 34.2 % (30-36); Mean Corpuscular Hemoglobin 32.8 PG (26-34); Mean Corpuscular Volume 95.8 fL (80-100); Monocytes Absolute Auto 600 /uL (0-900); Monocytes Percent Auto 9.7 % (3-14); Neutrophils Absolute Auto 4400 /uL (1500-7000); Neutrophils Percent Auto 70.4 % (50-75); Platelet Count 185 X10^3/uL (150-400); Red Blood Cell Count 3.94 X10^6/uL (4.5-5.9); Red Cell Distribution Width 14.7 % (11.6-14.8); White Blood Cell Count 6.2 X10^3/uL (4.5-11.0)
== END ==
PROVIDERS: PCP Family Medicine; Referring Provider Nurse Practitioner Family; Visit Provider Nurse Practitioner Family
DX: I49.5 Sick sinus syndrome (principal)
CPT/HCPCS: 36415; 85025

== ENCOUNTER → 2020-06-12 09:15 | Outpatient (CLI) | payer MEDICARE, OTHER, SELFPAY ==
[2019-04-19 19:53] VITALS: BMI 26.5
[2020-06-13 14:12] LABS: Free Kappa Lt Chains, Serum 91.3 mg/L (3.3-19.4); Free Lambda Lt Chains,Serum 47.1 mg/L (5.7-26.3)
[2020-06-14 09:18] LABS: Albumin 3.5 g/dL (2.9-4.4); Alpha-1-Globulin 0.3 g/dL (0.0-0.4); Alpha-2-Globulin 0.7 g/dL (0.4-1.0); Gamma Globulin 1.5 g/dL (0.4-1.8); Globulin Total 3.5 g/dL (2.2-3.9)
== END ==
PROVIDERS: PCP Family Medicine; Referring Provider Internal Medicine; Visit Provider Internal Medicine
DX: I42.2 Other hypertrophic cardiomyopathy (principal)
CPT/HCPCS: 36415; 83883; 84155; 84156; 84165; 84166; 86335

== ENCOUNTER → 2020-06-28 09:50 | Outpatient (CLI) | payer MEDICARE, OTHER, SELFPAY ==
[2019-04-19 19:53] VITALS: BMI 26.5
[2020-06-28 11:11] LABS: Hematocrit 36.8 % (41-53); Hemoglobin 12.3 g/dL (13.5-17.5)
[2020-06-28 11:36] LABS: BUN Creatinine Ratio 19.3 (6-22); Blood Urea Nitrogen 35 mg/dL (9-20); Calcium 9.5 mg/dL (8.4-10.2); Carbon Dioxide 29 mmol/L (22-32); Chloride 96 mmol/L (98-107); Estimated Glomerular Filt Rate 36.2 mL/min (>60); Glucose 94 mg/dL (80-110); HEMOLYSIS < 15 (0-50); Potassium 3.7 mmol/L (3.4-5.1); Sodium 137 mmol/L (137-145)
[2020-06-28 11:43] LABS: Creatinine Urine Random 50.7 mg/dL
[2020-06-28 11:44] LABS: Microalbumi Creatinin Ratio Ur 43.3 ug/mg CR (<30); Microalbumin Urine Random 2.2 mg/dL (0-1.6)
[2020-06-29 10:08] LABS: Parathyroid Hormone Int 44 pg/mL (15-65)
== END ==
PROVIDERS: PCP Family Medicine; Referring Provider Student in an Organized Health Care Education/Training Program; Visit Provider Student in an Organized Health Care Education/Training Program
DX: N05.9 Unspecified nephritic syndrome with unspecified morphologic changes (principal); D64.9 Anemia, unspecified; N25.81 Secondary hyperparathyroidism of renal origin; R80.9 Proteinuria, unspecified
CPT/HCPCS: 36415; 80048; 82043; 82570; 83970; 85014; 85018

== ENCOUNTER → 2020-08-15 09:47 | Outpatient (CLI) | payer MEDICARE, OTHER, SELFPAY ==
[2019-04-19 19:53] VITALS: BMI 26.5
[2020-08-15 10:48] LABS: BUN Creatinine Ratio 20.7 (6-22); Blood Urea Nitrogen 35 mg/dL (9-20); Calcium 9.3 mg/dL (8.4-10.2); Carbon Dioxide 31 mmol/L (22-32); Chloride 99 mmol/L (98-107); Estimated Glomerular Filt Rate 39.1 mL/min (>60); Glucose 105 mg/dL (80-110); HEMOLYSIS < 15 (0-50); Potassium 4.1 mmol/L (3.4-5.1); Sodium 138 mmol/L (137-145)
== END ==
PROVIDERS: PCP Family Medicine; Referring Provider Internal Medicine; Visit Provider Internal Medicine
DX: I50.22 Chronic systolic (congestive) heart failure (principal)
CPT/HCPCS: 36415; 80048

== ENCOUNTER → 2020-08-28 09:51 | Outpatient (CLI) | payer MEDICARE, OTHER, SELFPAY ==
[2019-04-19 19:53] VITALS: BMI 26.5
[2020-08-28 10:50] LABS: Hematocrit 34.3 % (41-53); Hemoglobin 11.6 g/dL (13.5-17.5); Mean Corpuscular HGB Conc 33.7 % (30-36); Mean Corpuscular Hemoglobin 33.3 PG (26-34); Mean Corpuscular Volume 98.8 fL (80-100); Platelet Count 181 X10^3/uL (150-400); Red Blood Cell Count 3.47 X10^6/uL (4.5-5.9); White Blood Cell Count 5.1 X10^3/uL (4.5-11.0)
[2020-08-28 10:59] LABS: BUN Creatinine Ratio 21.5 (6-22); Blood Urea Nitrogen 35 mg/dL (9-20); Calcium 9.4 mg/dL (8.4-10.2); Carbon Dioxide 34 mmol/L (22-32); Chloride 97 mmol/L (98-107); Estimated Glomerular Filt Rate 40.8 mL/min (>60); Glucose 95 mg/dL (80-110); HEMOLYSIS < 15 (0-50); Sodium 137 mmol/L (137-145)
[2020-08-28 11:15] LABS: Creatinine Urine Random 30.5 mg/dL; Protein (Total) Urine Random 15 mg/dL (0-12); Protein Creatinine Ratio Urine 0.49 GRAM/24H
[2020-08-29 08:03] LABS: Parathyroid Hormone Int 47 pg/mL (15-65)
== END ==
PROVIDERS: PCP Family Medicine; Referring Provider Student in an Organized Health Care Education/Training Program; Visit Provider Student in an Organized Health Care Education/Training Program
DX: R80.9 Proteinuria, unspecified (principal); D70.9 Neutropenia, unspecified; D63.1 Anemia in chronic kidney disease; N05.9 Unspecified nephritic syndrome with unspecified morphologic changes; N25.81 Secondary hyperparathyroidism of renal origin
CPT/HCPCS: 36415; 80048; 82570; 83970; 84156; 85027

== ENCOUNTER → 2020-11-12 10:56 | Outpatient (CLI) | payer MEDICARE, OTHER, SELFPAY ==
[2019-04-19 19:53] VITALS: BMI 26.5
[2020-11-12 11:54] LABS: Add Manual Diff / Slide Review NO; Basophils Absolute Auto 0 /uL (0-100); Basophils Percent Auto 0.5 % (0-2); Eosinophils Absolute Auto 0 /uL (0-450); Eosinophils Percent Auto 0.9 % (2-4); Hematocrit 37.6 % (41-53); Hemoglobin 12.5 g/dL (13.5-17.5); Lymphocytes Absolute Auto 700 /uL (1100-4500); Lymphocytes Percent Auto 14.4 % (25-40); Mean Corpuscular HGB Conc 33.1 % (30-36); Mean Corpuscular Hemoglobin 32.8 PG (26-34); Monocytes Absolute Auto 400 /uL (0-900); Monocytes Percent Auto 8.7 % (3-14); Neutrophils Absolute Auto 3700 /uL (1500-7000); Neutrophils Percent Auto 75.5 % (50-75); Platelet Count 163 X10^3/uL (150-400); Red Cell Distribution Width 15.5 % (11.6-14.8); White Blood Cell Count 4.8 X10^3/uL (4.5-11.0)
[2020-11-12 12:12] LABS: BUN Creatinine Ratio 16.2 (6-22); Blood Urea Nitrogen 29 mg/dL (9-20); Calcium 9.4 mg/dL (8.4-10.2); Carbon Dioxide 33 mmol/L (22-32); Chloride 100 mmol/L (98-107); Estimated Glomerular Filt Rate 36.5 mL/min (>60); Glucose 106 mg/dL (80-110); HEMOLYSIS < 15 (0-50); Potassium 4.8 mmol/L (3.4-5.1); Sodium 138 mmol/L (137-145)
[2020-11-13 17:10] LABS: Free Kappa Lt Chains, Serum 106.5 mg/L (3.3-19.4); Free Lambda Lt Chains,Serum 54.1 mg/L (5.7-26.3)
[2020-11-14 13:10] LABS: Albumin 3.5 g/dL (2.9-4.4); Alpha-1-Globulin 0.3 g/dL (0.0-0.4); Alpha-2-Globulin 0.7 g/dL (0.4-1.0); Gamma Globulin 1.6 g/dL (0.4-1.8); Globulin Total 3.7 g/dL (2.2-3.9); Protein, Total 7.2 g/dL (6.0-8.5)
== END ==
PROVIDERS: PCP Family Medicine; Referring Provider Internal Medicine; Visit Provider Internal Medicine Medical Oncology
DX: D47.2 Monoclonal gammopathy (principal); I50.22 Chronic systolic (congestive) heart failure
CPT/HCPCS: 36415; 80048; 83883; 84155; 84165; 85025

== ENCOUNTER 2020-11-27 12:34 | Observation (INO) | payer MEDICARE, OTHER, SELFPAY ==
[2019-04-19 19:53] VITALS: BMI 26.5
[2020-11-27] VITALS (16 sets, daily range): BP systolic 110–132; BP diastolic 61–77; PULSE 69–78; RESP 7–16; TEMP 36.3–36.5; O2SAT 95–100; BMI 26.9
--- NOTE | 2020-11-27 13:00 | ED.FALL ---
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 According to spouse, patient was weighing himself on a scale and patient's foot was partially on scale and tipped over to 1 side and fell. Patient denies hitting his head from the fall, losing consciousness at that time. Patient has history of cervical spine surgery and reports no changes in sensation and mobility in upper extremities. Spouse noticed patient has been sleeping on a recliner since the fall due to pain in left flank. Also reports patient has mucousy cough at night. She also reports leg swellings. Spouse reports patient uses a walker before the fall and has been difficult time with ambulation due to pain. Patient has decreased appetite with p.o. intake. Spouse try to contact PCP Dr. Irby office yesterday but unsuccessful. Patient went to walk-in clinic for an evaluation but referred to ER for on evaluation given patient is on anticoagulant and with complicated medical history. Last INR check 4 days ago and he was 3.0 with a therapeutic goal of 2.0-3.0. Modified Trauma called since the patient is on Coumadin and had ground level fall. MD complaint: fall Related Data Home Medications Medication Instructions Recorded Confirmed nitroglycerin [Nitrostat] 0.4 mg SUBLINGUAL DAILY PRN #0 02/12/17 07/18/20 Glucose: Test Strips 1 str MISCELLANEOUS DIRECTED #0 01/12/18 07/18/20 acetaminophen [Acetaminophen Extra 500 mg PO Q6H PRN 07/05/18 11/27/20 Strength] docusate sodium 100 mg PO DAILY PRN 07/05/18 11/27/20 fluticasone propionate 1 spray INTRANASAL BIDP PRN 07/05/18 11/27/20 timolol maleate 1 drp OPHTHALMIC (EYE) BID 07/14/18 11/27/20 ferrous sulfate [Milena-Time] 325 mg PO BID 03/16/19 11/27/20 cholecalciferol (vitamin D3) 50 2,000 unit PO BID #0 tab 07/19/19 11/27/20 mcg (2,000 unit) tablet midodrine 10 mg tablet 10 mg PO TID tab 07/19/19 11/27/20 furosemide 20 mg PO ONCE PM 11/27/20 11/27/20 hydrocodone-acetaminophen [[place]] 0.5 tab PO PRN PRN 11/27/20 11/27/20 Previous Rx's Medication Instructions Recorded Disabled Parking Permit #1 ea 09/21/18 furosemide 40 mg PO DAILY #30 tab 04/22/19 warfarin See Rx Instructions .ROUTE 04/22/19 .COMPLEX #0 tab atorvastatin 40 mg tablet 40 mg PO BEDTIME #90 tab 07/18/20 omeprazole 20 mg capsule,delayed 20 mg PO BID #180 cap 07/18/20 release blood sugar diagnostic #100 ea 10/10/20 Allergies Allergy/AdvReac Type Severity Reaction Status Date / Time oxycodone [OXYCODONE] AdvReac Mild DIZZY, Verified 07/18/20 11:23 NAUSEA codeine [CODEINE] AdvReac Unknown NAUSEA Verified 07/18/20 11:23 hydromorphone [HYDROMORPHONE] AdvReac Unknown NAUSEA Verified 07/18/20 11:23 morphine [MORPHINE] AdvReac Unknown SPOUSE Verified 07/18/20 11:23 DENIED ALLERGY Review of Systems <TIMOTEO Bowden - Last Filed: 11/27/20 17:21> Review of Systems Narrative: General: Denies fever, chills, fatigue, malaise, sweats. HEENT: Denies sinus pain, ear pain, sore throat, difficulty swallowing, dizziness. Respiratory: Denies dyspnea, (+) cough, wheezing, hemoptysis, sputum. Cardiovascular: Denies chest pain, palpitations, orthopnea, edema. Gastrointestinal: Denies nausea, vomiting, abdominal pain, diarrhea, constipation, melena. : Denies dysuria, frequency, incontinence, hematuria, urinary retention. Musculoskeletal: See HPI Skin: See HPI Neurologic: Denies weakness, headache, numbness, change in speech, confusion, seizures, incoordination. Psychiatric: No concerning psychosocial issues. 12-point review of systems is negative except for those stated above. Patient History <TIMOTEO Bowden - Last Filed: 11/27/20 17:21> Medical History Anemia (Unknown) Arthritis (Unknown) Bladder cancer (Unknown) BPH (benign prostatic hyperplasia) (Unknown) Chronic kidney disease (CKD) (Unknown) Coronary artery disease (Unknown) Diabetes (12/2005) Fall GERD (gastroesophageal reflux disease) (Unknown) Glaucoma (Unknown) Hyperlipemia (Unknown) Hypertension (Unknown) Obstructive sleep apnea (Unknown) Osteopenia (2008) Osteoporosis (Unknown) Renal cell cancer (Unknown) S/p nephrectomy (02/2017) Surgical History History of cardiac radiofrequency ablation (RFA) History of ear surgery (12/2005) History of hip replacement History of PTCA (1986) History of spinal fusion History of surgical procedure on eye proper using laser (1997) History of tonsillectomy and adenoidectomy (10/1944) Hx of angioplasty (11/1998) Hx of appendectomy (~03/1958) Hx of cataract extraction (~2001) Hx of heart bypass surgery (08/1987) Hx of heart bypass surgery (05/1999) Hx of shoulder surgery (11/2004) Hx of transurethral resection of prostate (1994) Presence of cardiac pacemaker Status post knee surgery Status post laminectomy Family History Father No problems noted. Mother No problems noted. Sister No problems noted. Social History household members: spouse Smoking Status: Former smoker alcohol intake: current Smoking Status: Former smoker alcohol intake frequency: 0-2 drinks per day Substance Use Type: does not use Exam <TIMOTEO Bowden - Last Filed: 11/27/20 17:21> Narrative Exam Narrative: GEN: Alert, oriented x 3, ill appearing and in moderate distress. Head: Normal cephalic, atraumatic. No scalp or temporal tenderness, palpable mass or rash. EYES: Pupils are equal, round, and reactive to light and accommodation. Extraocular muscles are intact bilaterally. There is no subconjunctival hemorrhage, exudate and sclera non-icteric. ENT: Bilateral auditory canals and tympanic membranes clear. Hearing grossly intact. Nose without bleeding, purulent discharge or deviation. Facial sinuses nontender to palpate. Mucous membrane moist, no mucosal lesion. Throat without erythema, tonsillar hypertrophy or exudate. Uvula in midline, airway patent. Neck: Trachea in midline. No JVD, non-tender without lymphadenopathy. No masses or thyroid megaly. Supple, non-tender and no meningeal signs. CARDIAC: Normal regular rate and rhythm without murmurs, gallops, or rubs but clicks. No chest wall tenderness. Bilateral lower extremity at edema. RESPIRATORY: Crackles to left lower lobes. No cough, wheezes, rales, or rhonchi. No stridor, respiratory distress, increase work of breathing, or accessary muscle used. ABD: Abdomen soft, nontender and non-distended. No guarding or rebound tenderness to palpate. Bowel sounds are normal in all 4 quadrants. There is no palpable masses or organomegaly. EXT: Full painless ROM of all extremities with no loss of sensation, strength, effusion or edema. SKIN: Cool extremities, dry, pale. Large ecchymotic bruise on left flank and hematoma and exquisitely tender to palpate. Old surgical wound to mid cervical spine. Small soft cysts in lower thoracic and lumbar region which is nontender to palpate. BACK: No mid spinous tenderness to palpate. Left flank tendernss with ecchymosis and hematoma. NEUROLOGICAL: Alert and oriented to place, time and person. Sensation and motor function intact bilaterally. No facial droops, dysphasia. PSYCHIATRIC: Good judgement and reason, without hallucinations, abnormal affect or abnormal behaviors during the examination. Patient is not suicidal. Initial Vital Signs Initial Vital Signs: Vital Signs Temperature 97.6 F 11/27/20 12:35 Pulse Rate 78 11/27/20 12:35 Respiratory Rate 16 11/27/20 12:35 Blood Pressure 123/77 11/27/20 12:35 Pulse Oximetry 100 11/27/20 12:35 <Mireya OlivarezvaishaliDO - Last Filed: 11/27/20 19:45> Initial Vital Signs Initial Vital Signs: Vital Signs Temperature 97.6 F 11/27/20 12:35 Pulse Rate 78 11/27/20 12:35 Respiratory Rate 16 11/27/20 12:35 Blood Pressure 123/77 11/27/20 12:35 Pulse Oximetry 100 11/27/20 12:35 Scores <Cosmo KincaidTIMOTEO Bonds - Last Filed: 11/27/20 17:21> GCS [place] coma scale eye opening: Spontaneous Dena coma scale verbal response: Orientated Dena coma scale motor response: Obey commands [place] coma scale total score: 15 Course <Cosmo KincaidangNanciTIMOTEO Acharya - Last Filed: 11/27/20 17:21> Course Course Narrative: Patient reports feeling comfortable at this time after the Morphine and Zofran. Reviewed lab findings on elevated troponin, proBNP with patient and spouse and is waiting to consult manager applied. Patient denies chest pain prior to fall or at this time. Waiting for CT results on chest, abdomen, pelvis. Decision to Admit Date: 11/27/20 Decision to Admit time: 14:46 Orders Ordered: ED Orders 11/27/20 12:58 EKG-12 Lead Stat 11/27/20 13:03 Complete Blood Count AUTO DIFF Stat Comprehensive Metabolic Panel Stat Magnesium Stat NT-proBNP (BNP-Adult 18+) Stat Partial Thromboplastin Time Stat Prothrombin Time INR Stat Troponin & CK Cardiac Panel Stat Type and Screen Stat 11/27/20 14:16 CT chest abd pel wo con Stat 11/27/20 14:57 COVID19 Stat Acetaminophen (Acetaminophen 325 Mg Tablet) 650 mg PO Q6HR PRN PRN Reason: Fever/Mild Pain (1-3) Hydrocodone Bitart/Acetaminophen (Hydrocodone/Acet 5/325 Tablet) 1 tab PO Q6HR PRN PRN Reason: Pain, Moderate (4-6) Last Admin: 11/27/20 19:00 Dose: 1 tab Documented by: SHRUTHI Atorvastatin Calcium (Atorvastatin 20 Mg Tablet) 40 mg PO BEDTIME DANYELL Furosemide (Furosemide 40 Mg Tablet) 60 mg PO DAILY DANYELL Magnesium Hydroxide (Magnesium Hydroxide 30 Ml Udc) 30 ml PO DAILY PRN PRN Reason: Constipation Midodrine (Midodrine Hcl 5 Mg Tablet) 10 mg PO TID [facility] Naloxone HCl (Naloxone 0.4 Mg/Ml Vial) 0.2 mg IV Q2MIN PRN PRN Reason: Opiate Reversal Ondansetron HCl (Ondansetron 4 Mg Odt) 4 mg PO Q8HR PRN PRN Reason: Nausea And Vomiting Pantoprazole Sodium (Pantoprazole 20 Mg Tablet) 20 mg PO DAILY@0700,2100 [facility] Discontinued Medications Morphine Sulfate (Morphine 2 Mg/Ml Inj) 2 mg IV NOW ONE Stop: 11/27/20 13:27 Last Admin: 11/27/20 13:38 Dose: 2 mg Documented by: TRINH Ondansetron HCl (Ondansetron 4 Mg/2 Ml Inj) 4 mg IV NOW ONE Stop: 11/27/20 13:24 Last Admin: 11/27/20 13:38 Dose: 4 mg Documented by: TRINH Sucralfate (Sucralfate 1 Gm/10 Ml Oral Susp) 1 gm PO BID [facility] Reevaluation(s) Reevaluation #1: Attempting to contact [facility] manager applied with busy tones for all [place] related phone numbers. Will continue to try. Time: 15:06 Reevaluation #2: Attempted several times to consult [facility] manager applied but phone continue to give busy signal. JOSIAH called for result for delayed reading and was Informed of rib fracture on left side, bilateral pleural effusion worse on the left side but with no solid organ injury or bleed internally over the phone. Will contact [facility] manager applied to consult patient is elevated troponin and proBNP. Time: 15:28 Time: 15:34 Additional Reevaluation(s): Dr. Shah consulted with lab finding, EKG and patient asymptomatic currently. He recommended treat patient medically and it is likely elevated troponin due to CKD it is okay to manage elevated proBNP as heart failure. Contact patient's manager applied at [facility] for previous medical records to review and echocardiogram tomorrow. Dr. You consulted for admission for inpatient with rib fractures, pain management, elevated troponin and proBNP and possible echocardiogram and further evaluation and he kindly accepted patient's care. Vital Signs Vital signs: Vital Signs - 8 hr 11/27/20 12:35 11/27/20 12:41 11/27/20 12:42 Temperature 97.6 F Pulse Rate 78 74 Respiratory Rate 16 Blood Pressure 123/77 123/77 Pulse Oximetry 100 99 99 11/27/20 13:00 11/27/20 13:06 11/27/20 13:30 Temperature Pulse Rate 74 71 70 Respiratory Rate Blood Pressure 132/73 121/67 Pulse Oximetry 98 99 99 11/27/20 14:00 11/27/20 14:17 11/27/20 14:30 Temperature Pulse Rate 70 72 70 Respiratory Rate Blood Pressure 112/65 128/73 115/61 Pulse Oximetry 97 97 96 11/27/20 15:00 11/27/20 15:30 11/27/20 16:00 Temperature Pulse Rate 69 69 70 Respiratory Rate Blood Pressure 122/61 115/62 129/67 Pulse Oximetry 95 95 97 11/27/20 16:30 11/27/20 17:00 Temperature Pulse Rate 69 70 Respiratory Rate Blood Pressure 116/65 114/63 Pulse Oximetry 96 96 <Mireya Maxwell, - Last Filed: 11/27/20 19:45> Orders Ordered: ED Orders 11/27/20 12:58 EKG-12 Lead Stat 11/27/20 13:03 Complete Blood Count AUTO DIFF Stat Comprehensive Metabolic Panel Stat Magnesium Stat NT-proBNP (BNP-Adult 18+) Stat Partial Thromboplastin Time Stat Prothrombin Time INR Stat Troponin & CK Cardiac Panel Stat Type and Screen Stat 11/27/20 14:16 CT chest abd pel wo con Stat 11/27/20 14:57 COVID19 Stat Acetaminophen (Acetaminophen 325 Mg Tablet) 650 mg PO Q6HR PRN PRN Reason: Fever/Mild Pain (1-3) Hydrocodone Bitart/Acetaminophen (Hydrocodone/Acet 5/325 Tablet) 1 tab PO Q6HR PRN PRN Reason: Pain, Moderate (4-6) Last Admin: 11/27/20 19:00 Dose: 1 tab Documented by: SHRUTHI Atorvastatin Calcium (Atorvastatin 20 Mg Tablet) 40 mg PO BEDTIME DANYELL Furosemide (Furosemide 40 Mg Tablet) 60 mg PO DAILY DANYELL Magnesium Hydroxide (Magnesium Hydroxide 30 Ml Udc) 30 ml PO DAILY PRN PRN Reason: Constipation Midodrine (Midodrine Hcl 5 Mg Tablet) 10 mg PO TID DANYELL Naloxone HCl (Naloxone 0.4 Mg/Ml Vial) 0.2 mg IV Q2MIN PRN PRN Reason: Opiate Reversal Ondansetron HCl (Ondansetron 4 Mg Odt) 4 mg PO Q8HR PRN PRN Reason: Nausea And Vomiting Pantoprazole Sodium (Pantoprazole 20 Mg Tablet) 20 mg PO DAILY@0700,2100 DANYELL Discontinued Medications Morphine Sulfate (Morphine 2 Mg/Ml Inj) 2 mg IV NOW ONE Stop: 11/27/20 13:27 Last Admin: 11/27/20 13:38 Dose: 2 mg Documented by: TRINH Ondansetron HCl (Ondansetron 4 Mg/2 Ml Inj) 4 mg IV NOW ONE Stop: 11/27/20 13:24 Last Admin: 11/27/20 13:38 Dose: 4 mg Documented by: TRINH Sucralfate (Sucralfate 1 Gm/10 Ml Oral Susp) 1 gm PO BID [facility] Vital Signs Vital signs: Vital Signs - 8 hr 11/27/20 12:35 11/27/20 12:41 11/27/20 12:42 Temperature 97.6 F Pulse Rate 78 74 Respiratory Rate 16 Blood Pressure 123/77 123/77 Pulse Oximetry 100 99 99 11/27/20 13:00 11/27/20 13:06 11/27/20 13:30 Temperature Pulse Rate 74 71 70 Respiratory Rate Blood Pressure 132/73 121/67 Pulse Oximetry 98 99 99 11/27/20 14:00 11/27/20 14:17 11/27/20 14:30 Temperature Pulse Rate 70 72 70 Respiratory Rate Blood Pressure 112/65 128/73 115/61 Pulse Oximetry 97 97 96 11/27/20 15:00 11/27/20 15:30 11/27/20 16:00 Temperature Pulse Rate 69 69 70 Respiratory Rate Blood Pressure 122/61 115/62 129/67 Pulse Oximetry 95 95 97 11/27/20 16:30 11/27/20 17:00 Temperature Pulse Rate 69 70 Respiratory Rate Blood Pressure 116/65 114/63 Pulse Oximetry 96 96 MDM - Fall <TIMOTEO Bowden - Last Filed: 11/27/20 17:21> Differential Diagnosis Differential diagnosis: Likely other (Flank hematoma, pneumonia, atelectasis, supratherapeutic INR on Coumadin, internal bleeding, rib fracture) Medical Records Attestation: I reviewed the patient's medical records. Lab Data Attestation: I reviewed the patient's lab results. Result diagrams: 11/27/20 13:03 11/27/20 13:03 Labs: Lab Results 11/27/20 11/27/20 11/27/20 Range/Units 13:03 13:03 13:03 WBC 6.1 (4.5-11.0) X10^3/uL RBC 4.19 L (4.5-5.9) X10^6/uL Hgb 13.8 (13.5-17.5) g/dL Hct 41.7 (41-53) % MCV 99.6 (80-100) fL MCH 33.0 (26-34) PG MCHC 33.1 (30-36) % RDW 16.1 H (11.6-14.8) % Plt Count 166 (150-400) X10^3/uL Neut % (Auto) 74.4 (50-75) % Lymph % (Auto) 13.6 L (25-40) % Gaines % (Auto) 9.5 (3-14) % Eos % (Auto) 1.6 L (2-4) % Baso % (Auto) 0.9 (0-2) % Neut # (Auto) 4500 (2104-6440) /uL Lymph # (Auto) 800 L (3586-8301) /uL Gaines # (Auto) 600 (0-900) /uL Eos # (Auto) 100 (0-450) /uL Baso # (Auto) 100 (0-100) /uL PT 46.5 H (10.1-12.7) SECONDS INR 4.1 H (0.9-1.3) APTT 54 H D (26.4-36.2) SECONDS Sodium 140 (137-145) mmol/L Potassium 3.5 (3.4-5.1) mmol/L Chloride 103 (98-107) mmol/L Carbon Dioxide 27 (22-32) mmol/L BUN 32 H (9-20) mg/dL Creatinine 1.90 H (0.66-1.25) mg/dL Estimated GFR 34.1 L (>60) mL/min BUN/Creatinine Ratio 16.8 (6-22) Glucose 108 (80-110) mg/dL Calcium 9.5 (8.4-10.2) mg/dL Magnesium 1.9 (1.6-2.3) mg/dL Total Bilirubin 1.7 H (0.2-1.3) mg/dL AST 28 (17-59) IU/L ALT 13 (<50) IU/L Alkaline Phosphatase 116 (38-126) U/L Total Creatine Kinase 44 L (55-170) U/L CK-MB (CK-2) TNP CK-MB (CK-2) Rel Index TNP Troponin I 0.226 H* (0.01-0.034) ng/mL NT-Pro-B Natriuret Pep 53638 H (<450) pg/mL Total Protein 7.9 (6.3-8.2) g/dL Albumin 4.0 (3.5-5.0) g/dL Globulin 3.9 (1.7-4.1) g/dL Albumin/Globulin Ratio 1.0 (1.0-2.8) SARS-CoV-2 (PCR) (Negative) Blood Type Antibody Screen 11/27/20 11/27/20 Range/Units 13:03 14:57 WBC (4.5-11.0) X10^3/uL RBC (4.5-5.9) X10^6/uL Hgb (13.5-17.5) g/dL Hct (41-53) % MCV (80-100) fL MCH (26-34) PG MCHC (30-36) % RDW (11.6-14.8) % Plt Count (150-400) X10^3/uL Neut % (Auto) (50-75) % Lymph % (Auto) (25-40) % Gaines % (Auto) (3-14) % Eos % (Auto) (2-4) % Baso % (Auto) (0-2) % Neut # (Auto) (0711-0857) /uL Lymph # (Auto) (0325-4715) /uL Gaines # (Auto) (0-900) /uL Eos # (Auto) (0-450) /uL Baso # (Auto) (0-100) /uL PT (10.1-12.7) SECONDS INR (0.9-1.3) APTT (26.4-36.2) SECONDS Sodium (137-145) mmol/L Potassium (3.4-5.1) mmol/L Chloride (98-107) mmol/L Carbon Dioxide (22-32) mmol/L BUN (9-20) mg/dL Creatinine (0.66-1.25) mg/dL Estimated GFR (>60) mL/min BUN/Creatinine Ratio (6-22) Glucose (80-110) mg/dL Calcium (8.4-10.2) mg/dL Magnesium (1.6-2.3) mg/dL Total Bilirubin (0.2-1.3) mg/dL AST (17-59) IU/L ALT (<50) IU/L Alkaline Phosphatase (38-126) U/L Total Creatine Kinase (55-170) U/L CK-MB (CK-2) CK-MB (CK-2) Rel Index Troponin I (0.01-0.034) ng/mL NT-Pro-B Natriuret Pep (<450) pg/mL Total Protein (6.3-8.2) g/dL Albumin (3.5-5.0) g/dL Globulin (1.7-4.1) g/dL Albumin/Globulin Ratio (1.0-2.8) SARS-CoV-2 (PCR) Negative (Negative) Blood Type A Negative Antibody Screen Negative Imaging Data CT-chest,abd, pelvis: Radiologist's Impression: [address] Scan ReportSigned Patient: Ramirez Staley AMR#: [id number]: 8Acct:[id number]/Sex: 80 / MDate of Service: 11/27/20Loc: EDAccession Number: [id number] Procedure: CT chest abd pel wo con Ordering Provider: Cosmo Grimes PROCEDURE: CT CHEST ABD PEL WO CON INDICATIONS: s/p fall on coumadin 3 days ago, left flank pain, hematoma, TECHNIQUE: After the administration of oral contrast, 5 mm thick sections acquired from the lung apices to the symphysis pubis. 5 mm thick coronal and sagittal reformats acquired, with additional 7 mm coronal MIP reformats through the lungs. For radiation dose reduction, the following was used: automated exposure control, adjustment of mA and/or kV according to patient size. COMPARISON: [facility], CT, ABDOMEN/PELVIS WITHOUT CONTRAS, 02/28/2017, 15:11. FINDINGS: Image quality: Excellent. CHEST: Lungs and pleura: Small to moderate left-sided pleural effusion and small right pleural effusion is seen. Dependent atelectasis in posterior aspect of bilateral lung slaughter are noted. There is [id number] centrilobular emphysema. Tiny calcified granuloma is seen in left apex. Chronic increased reticular nodular thickening in periphery of bilateral lung slaughter are seen. No pneumothorax. Central and peripheral airways are patent are normal in caliber. Mediastinum: Heart size is enlarged. No pericardial effusion. Median sternotomy wires and pacemaker leads are noted. No mediastinal hematoma. No mediastinal adenopathy by CT size criteria. Moderate atherosclerotic disease throughout thoracic aorta and coronary vessels are seen. Thoracic aorta and central pulmonary arteries are normal in size. Esophagus is normal in caliber. No hiatal hernia. Chest wall: No axillary or supraclavicular adenopathy by size criteria. Left chest wall pacemaker is seen. Thyroid gland is within normal limits. ABDOMEN: Solid organs: Liver is normal in size. Surgical device is noted in gallbladder fossa suggest clinical correlation. Pancreas is normal in contours. Spleen is normal in size. No adrenal nodules. Right kidney is normal in size without hydronephrosis or nephrolithiasis. Left kidney is not seen suggestive of prior nephrectomy. Peritoneum and bowel: Small and large bowel loops are normal in caliber and wall thickness. No free fluid or air. Nodes and vessels: No retroperitoneal or mesenteric adenopathy by size criteria. Aorta and inferior vena cava are normal in size. Miscellaneous: No ventral hernias. Generalized anasarca is seen. PELVIS: Genitourinary: Bladder wall thickness is normal. Miscellaneous: No inguinal hernias or adenopathy. Bones: Minimally displaced fractures involving left posterior 10th and 11th ribs are seen. Nondisplaced fracture is also noted involving posterior aspect of left 12th rib. Minimally displaced fracture involving left lateral 10th rib is also seen. No definite right-sided rib fracture is identified. Patient is status post right total hip arthroplasty. Post fusion changes in visualized lower cervical spine are seen. Diffuse osteopenia is seen. No gross acute fracture is seen in bony pelvis. IMPRESSION: 1. Minimally displaced fractures involving left posterior and lateral 10th through 12th ribs. No definite right-sided rib fracture. No acute compression fracture is seen in thoracic or lumbar spine. Prior laminectomy at L5 level is seen with grade 1 anterolisthesis of L5 on S1. Degenerative disc disease throughout thoracic and lumbar spine. 2. Moderate left-sided pleural effusion and small right pleural effusion. No pneumothorax. Moderate centrilobular emphysema and chronic interstitial lung parenchymal disease. No pneumothorax. Atelectasis in posterior and lateral periphery of bilateral lower lung slaughter. Airway is patent. 3. No mediastinal or hilar lymphadenopathy. No mediastinal hematoma. 4. No acute solid organ injury within abdomen or pelvis. No free fluid or free air. No gross retroperitoneal hematoma. 5. Postsurgical changes seen in gallbladder fossa with surgical device suggest clinical correlation. There is also suggestion of prior left nephrectomy. Dictated by: Wesley Flores M.D. on 11/27/2020 at 15:01 Approved by: Wesley Flores M.D. on 11/27/2020 at 15:30 ECG Data Attestation: I personally reviewed and interpreted this ECG as follows: Prior ECG tracings: available for review Interpretation: Ventricular-paced rhythm and rate at 70. AR interval *, QRS duration 204, QT/QTC 494/533. Septal leads V1, V2, V3 changes from previously ECG tracings. Dr. Maxwell also reviewed the EKG. [facility] Narrative Medical decision making narrative: This is a 80-year-old male with complicated medical history including CAD, pacer in placement, hypertension presents to ED with left flank pain after he sustained a fall and landed affected site on a wooden chair arm. He denies other injuries including head. He is currently taking Coumadin after the pacer with goal of INR of 2-3. Physical exam with exquisite tenderness to palpate in left flank with purplish ecchymosis. No mid spinous tenderness to palpate. Given patient has extensive cardiac history, cardiac workup was obtained along the imaging test of chest, abdomen, pelvis for internal injury, large size hematoma, or rib fracture. EKG paced rhythm with slight changes in septal anterior leads. Troponin elevated to 0.266. ProBNP 28,700 which is patient's baseline. Normal H&H of 13.8/41.7 which is actually better than his previous baseline. Creatinine of 1.9 with estimated GFR of 34.1 which is slightly decreased from 2 weeks ago which was 1.9 Cr and eGFR of 36.5. INR today is 4.1 which is mildly supratherapeutic with PT of 46.5 and PTT of 54. COVID test was negative. CT of chest, abdomen, pelvis indicates minimally displaced left posterior lateral rib fracture 10 through 12 but no definite right-sided rib fracture was seen. Patient osteopenic. Also appreciated moderate left-sided pleural effusion and small right-sided pleural effusion. There is no acute solid organ injury within the abdomen or pelvis and no gross retroperitoneal hematoma. Findings were shared with patient and spouse and informed pending admission to hospital for possible further workup and monitor, Further cardiac workup and pain management they both verbalized understanding in agreement with the treatment plan. Patient reports pain improved after the morphine administration after premedicated with Zofran for nausea. Dr. Maxwell consulted with patient's findings, labs and imaging test. <Mireya Maxwell, DO - Last Filed: 11/27/20 19:45> Lab Data Labs: Lab Results 11/27/20 11/27/20 11/27/20 Range/Units 13:03 13:03 13:03 WBC 6.1 (4.5-11.0) X10^3/uL RBC 4.19 L (4.5-5.9) X10^6/uL Hgb 13.8 (13.5-17.5) g/dL Hct 41.7 (41-53) % MCV 99.6 (80-100) fL MCH 33.0 (26-34) PG MCHC 33.1 (30-36) % RDW 16.1 H (11.6-14.8) % Plt Count 166 (150-400) X10^3/uL Neut % (Auto) 74.4 (50-75) % Lymph % (Auto) 13.6 L (25-40) % Gaines % (Auto) 9.5 (3-14) % Eos % (Auto) 1.6 L (2-4) % Baso % (Auto) 0.9 (0-2) % Neut # (Auto) 4500 (7008-5104) /uL Lymph # (Auto) 800 L (0211-4036) /uL Gaines # (Auto) 600 (0-900) /uL Eos # (Auto) 100 (0-450) /uL Baso # (Auto) 100 (0-100) /uL PT 46.5 H (10.1-12.7) SECONDS INR 4.1 H (0.9-1.3) APTT 54 H D (26.4-36.2) SECONDS Sodium 140 (137-145) mmol/L Potassium 3.5 (3.4-5.1) mmol/L Chloride 103 (98-107) mmol/L Carbon Dioxide 27 (22-32) mmol/L BUN 32 H (9-20) mg/dL Creatinine 1.90 H (0.66-1.25) mg/dL Estimated GFR 34.1 L (>60) mL/min BUN/Creatinine Ratio 16.8 (6-22) Glucose 108 (80-110) mg/dL Calcium 9.5 (8.4-10.2) mg/dL Magnesium 1.9 (1.6-2.3) mg/dL Total Bilirubin 1.7 H (0.2-1.3) mg/dL AST 28 (17-59) IU/L ALT 13 (<50) IU/L Alkaline Phosphatase 116 (38-126) U/L Total Creatine Kinase 44 L (55-170) U/L CK-MB (CK-2) TNP CK-MB (CK-2) Rel Index TNP Troponin I 0.226 H* (0.01-0.034) ng/mL NT-Pro-B Natriuret Pep 43184 H (<450) pg/mL Total Protein 7.9 (6.3-8.2) g/dL Albumin 4.0 (3.5-5.0) g/dL Globulin 3.9 (1.7-4.1) g/dL Albumin/Globulin Ratio 1.0 (1.0-2.8) SARS-CoV-2 (PCR) (Negative) Blood Type Antibody Screen 11/27/20 11/27/20 Range/Units 13:03 14:57 WBC (4.5-11.0) X10^3/uL RBC (4.5-5.9) X10^6/uL Hgb (13.5-17.5) g/dL Hct (41-53) % MCV (80-100) fL MCH (26-34) PG MCHC (30-36) % RDW (11.6-14.8) % Plt Count (150-400) X10^3/uL Neut % (Auto) (50-75) % Lymph % (Auto) (25-40) % Gaines % (Auto) (3-14) % Eos % (Auto) (2-4) % Baso % (Auto) (0-2) % Neut # (Auto) (1446-0334) /uL Lymph # (Auto) (2718-1277) /uL Gaines # (Auto) (0-900) /uL Eos # (Auto) (0-450) /uL Baso # (Auto) (0-100) /uL PT (10.1-12.7) SECONDS INR (0.9-1.3) APTT (26.4-36.2) SECONDS Sodium (137-145) mmol/L Potassium (3.4-5.1) mmol/L Chloride (98-107) mmol/L Carbon Dioxide (22-32) mmol/L BUN (9-20) mg/dL Creatinine (0.66-1.25) mg/dL Estimated GFR (>60) mL/min BUN/Creatinine Ratio (6-22) Glucose (80-110) mg/dL Calcium (8.4-10.2) mg/dL Magnesium (1.6-2.3) mg/dL Total Bilirubin (0.2-1.3) mg/dL AST (17-59) IU/L ALT (<50) IU/L Alkaline Phosphatase (38-126) U/L Total Creatine Kinase (55-170) U/L CK-MB (CK-2) CK-MB (CK-2) Rel Index Troponin I (0.01-0.034) ng/mL NT-Pro-B Natriuret Pep (<450) pg/mL Total Protein (6.3-8.2) g/dL Albumin (3.5-5.0) g/dL Globulin (1.7-4.1) g/dL Albumin/Globulin Ratio (1.0-2.8) SARS-CoV-2 (PCR) Negative (Negative) Blood Type A Negative Antibody Screen Negative Discharge Plan Departure Patient Disposition: Admitted As Inpatient Clinical Impression: Pleural effusion, Supratherapeutic INR Closed rib fracture Qualifiers: Encounter type: initial encounter Rib fracture type: multiple ribs Laterality: left Qualified Code(s): S22.42XA - Multiple fractures of ribs, left side, initial encounter for closed fracture Fall Qualifiers: Encounter type: initial encounter Qualified Code(s): W19.XXXA - Unspecified fall, initial encounter Admit Date/Time: 11/27/20 17:06 Admit Provider: John You <Mireya Maxwell DO - Last Filed: 11/27/20 19:45> Cosign ED Attending Cosignature Attestation: I was immediately available in the department for consultation. Patient case was discussed, labs, EKG and imaging were all reviewed. Patient's EKG shows a paced rhythm. Documentation has been reviewed. Patient's troponin is positive he is frequently positive with his troponins, he does not have any acute cardiac symptoms. He does have back pain after fall but with obvious ecchymosis and have rib fractures. No pneumothorax appreciated. Patient has effusions on CT less likely to be hemothorax is patient's hemoglobin is stable, a supratherapeutic INR 4. Patient has chronic kidney disease which appears fairly stable. BNP is elevated still elevated in comparison to prior from April. Covid swab is negative. We were unable to contact patient's preferred cardiology team after multiple tries. Spoke with local cardiology who recommends conservative medical management. Discussed with hospitalist who accepts for admission for continued monitoring. Patient hemodynamicaly stable in department.
[2020-11-27 13:13] LABS: Add Manual Diff / Slide Review NO; Basophils Absolute Auto 100 /uL (0-100); Basophils Percent Auto 0.9 % (0-2); Eosinophils Absolute Auto 100 /uL (0-450); Eosinophils Percent Auto 1.6 % (2-4); Hematocrit 41.7 % (41-53); Hemoglobin 13.8 g/dL (13.5-17.5); Lymphocytes Absolute Auto 800 /uL (1100-4500); Lymphocytes Percent Auto 13.6 % (25-40); Mean Corpuscular HGB Conc 33.1 % (30-36); Mean Corpuscular Volume 99.6 fL (80-100); Monocytes Absolute Auto 600 /uL (0-900); Monocytes Percent Auto 9.5 % (3-14); Neutrophils Absolute Auto 4500 /uL (1500-7000); Neutrophils Percent Auto 74.4 % (50-75); Platelet Count 166 X10^3/uL (150-400); Red Blood Cell Count 4.19 X10^6/uL (4.5-5.9); Red Cell Distribution Width 16.1 % (11.6-14.8); White Blood Cell Count 6.1 X10^3/uL (4.5-11.0)
[2020-11-27 13:21] LABS: INR 4.1 (0.9-1.3); Prothrombin Time 46.5 SECONDS (10.1-12.7)
[2020-11-27 13:24] LABS: PTT Partial Thromboplastin Tim 54 SECONDS (26.4-36.2)
[2020-11-27 13:26] LABS: Alanine Aminotransferase 13 IU/L (<50); Alkaline Phosphatase 116 U/L (38-126); Aspartate Aminotransferase 28 IU/L (17-59); BUN Creatinine Ratio 16.8 (6-22); Bilirubin Total 1.7 mg/dL (0.2-1.3); Blood Urea Nitrogen 32 mg/dL (9-20); Calcium 9.5 mg/dL (8.4-10.2); Carbon Dioxide 27 mmol/L (22-32); Chloride 103 mmol/L (98-107); Creatine Kinase 44 U/L (55-170); Estimated Glomerular Filt Rate 34.1 mL/min (>60); Globulin 3.9 g/dL (1.7-4.1); Glucose 108 mg/dL (80-110); Magnesium 1.9 mg/dL (1.6-2.3); Potassium 3.5 mmol/L (3.4-5.1); Sodium 140 mmol/L (137-145); Total Protein 7.9 g/dL (6.3-8.2)
[2020-11-27 13:38] LABS: NT-proBNP (BNP-Adult 18+) 28700 pg/mL (<450)
[2020-11-27] MEDS: ONDANSETRON 4 MG/2 ML INJ IV (13:38)
[2020-11-27] MEDS: MORPHINE 2 MG/ML INJ IV (13:38)
[2020-11-27 14:07] LABS: HEMOLYSIS 15 (0-50)
[2020-11-27 14:10] LABS: Troponin I 0.226 ng/mL (0.01-0.034)
--- NOTE | 2020-11-27 14:16 | DI.CT.S_ITS ---
PROCEDURE: CT CHEST ABD PEL WO CON INDICATIONS: s/p fall on coumadin 3 days ago, left flank pain, hematoma, TECHNIQUE: After the administration of oral contrast, 5 mm thick sections acquired from the lung apices to the symphysis pubis. 5 mm thick coronal and sagittal reformats acquired, with additional 7 mm coronal MIP reformats through the lungs. For radiation dose reduction, the following was used: automated exposure control, adjustment of mA and/or kV according to patient size. COMPARISON: [facility], CT, ABDOMEN/PELVIS WITHOUT CONTRAS, 02/28/2017, 15:11. FINDINGS: Image quality: Excellent. CHEST: Lungs and pleura: Small to moderate left-sided pleural effusion and small right pleural effusion is seen. Dependent atelectasis in posterior aspect of bilateral lung slaughter are noted. There is [id number] centrilobular emphysema. Tiny calcified granuloma is seen in left apex. Chronic increased reticular nodular thickening in periphery of bilateral lung slaughter are seen. No pneumothorax. Central and peripheral airways are patent are normal in caliber. Mediastinum: Heart size is enlarged. No pericardial effusion. Median sternotomy wires and pacemaker leads are noted. No mediastinal hematoma. No mediastinal adenopathy by CT size criteria. Moderate atherosclerotic disease throughout thoracic aorta and coronary vessels are seen. Thoracic aorta and central pulmonary arteries are normal in size. Esophagus is normal in caliber. No hiatal hernia. Chest wall: No axillary or supraclavicular adenopathy by size criteria. Left chest wall pacemaker is seen. Thyroid gland is within normal limits. ABDOMEN: Solid organs: Liver is normal in size. Surgical device is noted in gallbladder fossa suggest clinical correlation. Pancreas is normal in contours. Spleen is normal in size. No adrenal nodules. Right kidney is normal in size without hydronephrosis or nephrolithiasis. Left kidney is not seen suggestive of prior nephrectomy. Peritoneum and bowel: Small and large bowel loops are normal in caliber and wall thickness. No free fluid or air. Nodes and vessels: No retroperitoneal or mesenteric adenopathy by size criteria. Aorta and inferior vena cava are normal in size. Miscellaneous: No ventral hernias. Generalized anasarca is seen. PELVIS: Genitourinary: Bladder wall thickness is normal. Miscellaneous: No inguinal hernias or adenopathy. Bones: Minimally displaced fractures involving left posterior 10th and 11th ribs are seen. Nondisplaced fracture is also noted involving posterior aspect of left 12th rib. Minimally displaced fracture involving left lateral 10th rib is also seen. No definite right-sided rib fracture is identified. Patient is status post right total hip arthroplasty. Post fusion changes in visualized lower cervical spine are seen. Diffuse osteopenia is seen. No gross acute fracture is seen in bony pelvis. IMPRESSION: 1. Minimally displaced fractures involving left posterior and lateral 10th through 12th ribs. No definite right-sided rib fracture. No acute compression fracture is seen in thoracic or lumbar spine. Prior laminectomy at L5 level is seen with grade 1 anterolisthesis of L5 on S1. Degenerative disc disease throughout thoracic and lumbar spine. 2. Moderate left-sided pleural effusion and small right pleural effusion. No pneumothorax. Moderate centrilobular emphysema and chronic interstitial lung parenchymal disease. No pneumothorax. Atelectasis in posterior and lateral periphery of bilateral lower lung slaughter. Airway is patent. 3. No mediastinal or hilar lymphadenopathy. No mediastinal hematoma. 4. No acute solid organ injury within abdomen or pelvis. No free fluid or free air. No gross retroperitoneal hematoma. 5. Postsurgical changes seen in gallbladder fossa with surgical device suggest clinical correlation. There is also suggestion of prior left nephrectomy. Dictated by: Wesley Flores M.D. on 11/27/2020 at 15:01 Approved by: Wesley Flores M.D. on 11/27/2020 at 15:30
[2020-11-27 15:19] LABS: COVID19 -Nasal RAPID Negative (Negative)
--- NOTE | 2020-11-27 18:08 | PM.HP.1 ---
History of Present Illness History of Present Illness Date Patient Seen: 11/27/20 Time Patient Seen: 17:40 Date of Onset of Symptoms: 11/24/20 Chief complaint: FALL PAIN LEFT SIDE UNDER RIB CAGE Narrative: Patient is an 80-year-old male with history of cardiovascular disease, coronary stent, pulmonary hypertension, status post mechanical aortic valve, history of ablation and pacemaker implant, pacemaker replaced 2 months ago, renal cell carcinoma, bladder cancer, chronic kidney disease, diabetes, extensive cervical/thoracic/lumbar spinal surgery, gastric ulcer and GI bleed, orthostatic hypotension treated with midodrine presents to the emergency department after ground level fall 3 days ago. He states he was weighing himself on the scale and missed his footing while stepping down. He states he hit his left side on a chair. He denies hitting head and denies LOC. patient has had difficulty ambulating since the fall. He also reports diminished appetite and p.o. intake. He went to walk-in clinic but was referred to the emergency department due to concern about extensive bruising on his flank. On the ED evaluation, he was noted to have bruising on his left side. Chest CT showed left 10, 11 12 rib fractures. Abdomen and pelvic CT did not show any retroperitoneal hematoma or other concerning findings. Patient's INR was 4.1. His states his INR was 3.0 five days ago. Patient History Medical History Anemia (Unknown) Arthritis (Unknown) Bladder cancer (Unknown) BPH (benign prostatic hyperplasia) (Unknown) Chronic kidney disease (CKD) (Unknown) Coronary artery disease (Unknown) Diabetes (12/2005) Fall GERD (gastroesophageal reflux disease) (Unknown) Glaucoma (Unknown) Hyperlipemia (Unknown) Hypertension (Unknown) Obstructive sleep apnea (Unknown) Osteopenia (2008) Osteoporosis (Unknown) Renal cell cancer (Unknown) S/p nephrectomy (02/2017) Surgical History History of cardiac radiofrequency ablation (RFA) History of ear surgery (12/2005) History of hip replacement History of PTCA (1986) History of spinal fusion History of surgical procedure on eye proper using laser (1997) History of tonsillectomy and adenoidectomy (10/1944) Hx of angioplasty (11/1998) Hx of appendectomy (~03/1958) Hx of cataract extraction (~2001) Hx of heart bypass surgery (08/1987) Hx of heart bypass surgery (05/1999) Hx of shoulder surgery (11/2004) Hx of transurethral resection of prostate (1994) Presence of cardiac pacemaker Status post knee surgery Status post laminectomy Family & Social History Family History Father No problems noted. Mother No problems noted. Sister No problems noted. Social History: household members spouse Safety & Behavioral: Feels Safe in Current Yes Environment Been Physically Hurt or No Threatened By a Person Tobacco & Substance use: Smoking Status Former smoker alcohol intake frequency 0-2 drinks per day Substance Use Type does not use Meds Home Medications and Allergies Home Medications Medication Instructions Recorded Confirmed Type nitroglycerin [Nitrostat] 0.4 mg SUBLINGUAL DAILY PRN #0 02/12/17 07/18/20 History Glucose: Test Strips 1 str MISCELLANEOUS DIRECTED #0 01/12/18 07/18/20 History acetaminophen [Acetaminophen Extra 500 mg PO Q6H PRN 07/05/18 07/18/20 History Strength] docusate sodium 100 mg PO DAILY PRN 07/05/18 07/18/20 History fluticasone propionate 1 spray INTRANASAL BIDP PRN 07/05/18 07/18/20 History timolol maleate 1 drp OPHTHALMIC (EYE) BID 07/14/18 07/18/20 History Disabled Parking Permit #1 ea 09/21/18 07/18/20 Rx hydrocodone 5 mg-acetaminophen 325 1 tab PO BIDP #50 tab 12/22/18 07/18/20 Rx mg tablet ferrous sulfate [Milena-Time] 325 mg PO BID 03/16/19 07/18/20 History furosemide 40 mg PO DAILY #30 tab 04/22/19 07/18/20 Rx warfarin See Rx Instructions .ROUTE 04/22/19 07/18/20 Rx .COMPLEX #0 tab cholecalciferol (vitamin D3) 50 4,000 unit PO DAILY #0 tab 07/19/19 07/18/20 History mcg (2,000 unit) tablet midodrine 10 mg tablet 10 mg PO TID tab 07/19/19 07/18/20 History sucralfate 1 gram tablet 1 gram PO BID #60 tab 01/17/20 07/18/20 Rx atorvastatin 40 mg tablet 40 mg PO BEDTIME #90 tab 07/18/20 07/18/20 Rx omeprazole 20 mg capsule,delayed 20 mg PO BID #180 cap 07/18/20 07/18/20 Rx release blood sugar diagnostic #100 ea 10/10/20 10/10/20 Rx tramadol 50 mg tablet 50 mg PO BID PRN #60 tab 10/15/20 Rx Allergies Allergy/AdvReac Type Severity Reaction Status Date / Time oxycodone [OXYCODONE] AdvReac Mild DIZZY, Verified 07/18/20 11:23 NAUSEA codeine [CODEINE] AdvReac Unknown NAUSEA Verified 07/18/20 11:23 hydromorphone [HYDROMORPHONE] AdvReac Unknown NAUSEA Verified 07/18/20 11:23 morphine [MORPHINE] AdvReac Unknown SPOUSE Verified 07/18/20 11:23 DENIED ALLERGY Review of Systems Review of Systems ROS: Yes All systems reviewed with the patient and are negative except as otherwise documented Exam Vital Signs (past 8 hours): - 11/27/20 12:35 11/27/20 12:41 11/27/20 12:42 Temperature 97.6 F Pulse Rate 78 74 Respiratory Rate 16 Blood Pressure 123/77 123/77 Pulse Oximetry 100 99 99 11/27/20 13:00 11/27/20 13:06 11/27/20 13:30 Temperature Pulse Rate 74 71 70 Respiratory Rate Blood Pressure 132/73 121/67 Pulse Oximetry 98 99 99 11/27/20 14:00 11/27/20 14:17 11/27/20 14:30 Temperature Pulse Rate 70 72 70 Respiratory Rate Blood Pressure 112/65 128/73 115/61 Pulse Oximetry 97 97 96 11/27/20 15:00 11/27/20 15:30 11/27/20 16:00 Temperature Pulse Rate 69 69 70 Respiratory Rate Blood Pressure 122/61 115/62 129/67 Pulse Oximetry 95 95 97 11/27/20 16:30 11/27/20 17:00 11/27/20 17:20 Temperature 97.7 F Pulse Rate 69 70 70 Respiratory Rate 7 L Blood Pressure 116/65 114/63 121/77 Pulse Oximetry 96 96 97 Oxygen Delivery Method Room Air Oxygen Flow Rate 0 Narrative Exam Narrative: General: Alert and very pleasant male who is not in acute distress at this time. HEENT: Nontraumatic, pupils equal, sclera anicteric Neck: Supple without lymphadenopathy Lungs: Clear to auscultation Heart: Regular paced rhythm Abdomen: Soft, nontender Extremities: No distal edema Musculoskeletal/integument: There is bruising on the left flank and lower ribs Neurological: Alert, appears well oriented, affect normal, speech normal, no focal weakness Objective Labs Result Diagrams: 11/27/20 13:03 11/27/20 13:03 Labs: Laboratory Results - last 24 hr 11/27/20 11/27/20 11/27/20 13:03 13:03 13:03 WBC 6.1 RBC 4.19 L Hgb 13.8 Hct 41.7 MCV 99.6 MCH 33.0 MCHC 33.1 RDW 16.1 H Plt Count 166 Neut % (Auto) 74.4 Lymph % (Auto) 13.6 L Swisher % (Auto) 9.5 Eos % (Auto) 1.6 L Baso % (Auto) 0.9 Neut # (Auto) 4500 Lymph # (Auto) 800 L Swisher # (Auto) 600 Eos # (Auto) 100 Baso # (Auto) 100 PT 46.5 H INR 4.1 H APTT 54 H D Sodium 140 Potassium 3.5 Chloride 103 Carbon Dioxide 27 BUN 32 H Creatinine 1.90 H Estimated GFR 34.1 L BUN/Creatinine Ratio 16.8 Glucose 108 Calcium 9.5 Magnesium 1.9 Total Bilirubin 1.7 H AST 28 ALT 13 Alkaline Phosphatase 116 Total Creatine Kinase 44 L CK-MB (CK-2) TNP CK-MB (CK-2) Rel Index TNP Troponin I 0.226 H* NT-Pro-B Natriuret Pep 22171 H Total Protein 7.9 Albumin 4.0 Globulin 3.9 Albumin/Globulin Ratio 1.0 SARS-CoV-2 (PCR) Blood Type Antibody Screen 11/27/20 11/27/20 13:03 14:57 WBC RBC Hgb Hct MCV MCH MCHC RDW Plt Count Neut % (Auto) Lymph % (Auto) Swisher % (Auto) Eos % (Auto) Baso % (Auto) Neut # (Auto) Lymph # (Auto) Swisher # (Auto) Eos # (Auto) Baso # (Auto) PT INR APTT Sodium Potassium Chloride Carbon Dioxide BUN Creatinine Estimated GFR BUN/Creatinine Ratio Glucose Calcium Magnesium Total Bilirubin AST ALT Alkaline Phosphatase Total Creatine Kinase CK-MB (CK-2) CK-MB (CK-2) Rel Index Troponin I NT-Pro-B Natriuret Pep Total Protein Albumin Globulin Albumin/Globulin Ratio SARS-CoV-2 (PCR) Negative Blood Type A Negative Antibody Screen Negative Assessment & Plan Assessment & Plan narrative: Patient is an 80-year-old male with history of cardiovascular disease, coronary stent, pulmonary hypertension, status post mechanical aortic valve, history of ablation and pacemaker implant, pacemaker replaced 2 months ago, renal cell carcinoma, bladder cancer, chronic kidney disease, diabetes, extensive cervical/thoracic/lumbar spinal surgery, gastric ulcer and GI bleed, orthostatic hypotension treated with midodrine presents to the emergency department after ground level fall 3 days ago. 1. Traumatic fractures of left 10th, 11th and 12th ribs without pneumothorax -patient had a ground level fall due to loss of balance at home, left flank bruising on exam -CT shows fractures without pneumothorax, small bilateral pleural effusions likely are chronic -labs do not indicate significant blood loss -Tylenol as needed, hydrocodone as needed -consult PT to assess patient ability to return home 2. Long-term warfarin anticoagulation -INR 4.1, patient on warfarin for aortic valve replacement and atrial fibrillation -hold warfarin and recheck INR in a.m. 3. Chronic kidney disease -admit creatinine 1.90, this is not significantly different from patient's baseline creatinine is 1.63-1.79 -recheck renal labs in a.m. 4. Elevated troponin -patient has chronic troponin elevations, current troponin value probably not significant since patient is not having any cardiac related symptoms -recheck troponin in a.m. 5. Coronary artery disease with history of cardiac stent -continue atorvastatin 40 mg HS 6. Chronic pulmonary hypertension -continue furosemide 60 mg q.d., confirm dosing 7. Chronic orthostatic hypotension -continue midodrine 10 mg t.i.d. 8. History of gastric ulcer with bleed -stable, continue omeprazole or equivalent 20 mg b.i.d. Code status: DNR, patient endorses does not want CPR or life support DVT prophylaxis: On warfarin Surrogate decision maker: Spouse Patient was admitted to hospital observation with expected less than to midnight course.
[2020-11-27] MEDS: HYDROCODONE/ACET 5/325 TABLET 1 TAB PO (19:00)
[2020-11-27] MEDS: PANTOPRAZOLE 20 MG TABLET PO (21:01)
[2020-11-27] MEDS: ATORVASTATIN 20 MG TABLET 40 MG PO (21:01)
[2020-11-27] MEDS: MIDODRINE HCL 5 MG TABLET 10 MG PO (21:02)
[2020-11-27] MEDS: ACETAMINOPHEN 325 MG TABLET 650 MG PO (23:30)
[2020-11-28] VITALS (8 sets, daily range): BP systolic 112–119; BP diastolic 68–76; PULSE 69–98; RESP 15–18; TEMP 35.4–36.6; O2SAT 96–100
[2020-11-28] MEDS: HYDROCODONE/ACET 5/325 TABLET 1 TAB PO (01:55)
[2020-11-28 05:30] LABS: Add Manual Diff / Slide Review NO; Basophils Absolute Auto 100 /uL (0-100); Basophils Percent Auto 1.2 % (0-2); Eosinophils Absolute Auto 100 /uL (0-450); Eosinophils Percent Auto 2.1 % (2-4); Hemoglobin 13.1 g/dL (13.5-17.5); Lymphocytes Absolute Auto 800 /uL (1100-4500); Lymphocytes Percent Auto 19.3 % (25-40); Mean Corpuscular HGB Conc 32.8 % (30-36); Mean Corpuscular Hemoglobin 32.8 PG (26-34); Mean Corpuscular Volume 99.8 fL (80-100); Monocytes Absolute Auto 600 /uL (0-900); Monocytes Percent Auto 12.7 % (3-14); Neutrophils Absolute Auto 2800 /uL (1500-7000); Neutrophils Percent Auto 64.7 % (50-75); Platelet Count 136 X10^3/uL (150-400); Red Cell Distribution Width 16.1 % (11.6-14.8); White Blood Cell Count 4.4 X10^3/uL (4.5-11.0)
[2020-11-28 05:33] LABS: INR 4.3 (0.9-1.3); Prothrombin Time 48.6 SECONDS (10.1-12.7)
[2020-11-28 05:38] LABS: BUN Creatinine Ratio 17.8 (6-22); Blood Urea Nitrogen 33 mg/dL (9-20); Calcium 9.3 mg/dL (8.4-10.2); Carbon Dioxide 32 mmol/L (22-32); Chloride 100 mmol/L (98-107); Estimated Glomerular Filt Rate 35.2 mL/min (>60); Glucose 92 mg/dL (80-110); HEMOLYSIS < 15 (0-50); Potassium 3.8 mmol/L (3.4-5.1); Sodium 136 mmol/L (137-145)
--- NOTE | 2020-11-28 05:38 | PC.NURSE ---
11/28/2020 @ 0530. Patient has stated he does not have to void at this time. I have offered the use of the BR several times throughout the night. Patient has also refused to be bladder scanned. Patient sitting up in chair with call light within reach and chair alarm in place. Reported to Katharina Chacon RN and Ashlyn Chisholm RN
[2020-11-28 05:56] LABS: Troponin I 0.245 ng/mL (0.01-0.034)
--- NOTE | 2020-11-28 06:13 | PC.NURSE ---
RT notified with a new order of STAT ECG , RT in the pt's. room now to do an ECG. Pt. denied any CP & dizziness, ambulated to the BR & voided 225 cc of dark yellow . Will report to day RN. cont. POC & monitor.
[2020-11-28] MEDS: PANTOPRAZOLE 20 MG TABLET PO (06:27)
[2020-11-28] MEDS: MIDODRINE HCL 5 MG TABLET 10 MG PO ×2 (08:52→14:26)
[2020-11-28] MEDS: FUROSEMIDE 40 MG TABLET 60 MG PO (08:52)
--- NOTE | 2020-11-28 10:27 | PT.IIE ---
Surgical History (Last Reviewed 11/27/20 @ 13:14 by TIMOTEO Bowden) History of cardiac radiofrequency ablation (RFA) History of ear surgery (12/2005) History of hip replacement History of PTCA (1986) History of spinal fusion History of surgical procedure on eye proper using laser (1997) History of tonsillectomy and adenoidectomy (10/1944) Hx of angioplasty (11/1998) Hx of appendectomy (~03/1958) Hx of cataract extraction (~2001) Hx of heart bypass surgery (08/1987) Hx of heart bypass surgery (05/1999) Hx of shoulder surgery (11/2004) Hx of transurethral resection of prostate (1994) Presence of cardiac pacemaker Status post knee surgery Status post laminectomy Medical History (Last Reviewed 11/27/20 @ 13:14 by TIMOTEO Bowden) Anemia (Unknown) Arthritis (Unknown) Bladder cancer (Unknown) BPH (benign prostatic hyperplasia) (Unknown) Chronic kidney disease (CKD) (Unknown) Coronary artery disease (Unknown) Diabetes (12/2005) Fall GERD (gastroesophageal reflux disease) (Unknown) Glaucoma (Unknown) Hyperlipemia (Unknown) Hypertension (Unknown) Obstructive sleep apnea (Unknown) Osteopenia (2008) Osteoporosis (Unknown) Renal cell cancer (Unknown) S/p nephrectomy (02/2017) Physical Therapy Inpatient Evaluation/Re-Eval M1 PT/OT-IP Prior Functional Status Start: 11/28/20 12:10 Freq: NEEDED Status: Active Protocol: Document 11/28/20 10:27 AB (Rec: 11/28/20 12:39 AB [id number]) Medical Review Prior Functional Status Medical History Reviewed Yes Communication able to make needs known but is [place] Mobility and Gait pt stated that he is modified independent with all mobilities; uses a w/c for mobility indoors but stated that he holds on to a SPC all the time for support if he gets up; uses a 4WW for outdoor mobility. pt stated that he is not ambulating much at home. Social History Household Members spouse Living Arrangements House Number of Floors (Floors) Two Floors Number of Stairs To Enter/Railing? 1 step to enter pt stays on main level of the house Home Environment High Toilet,Walk in Shower Home Equipment Front Wheel Walker,Four Wheel Walker,Straight Cane,Manual Wheelchair,Hand Held Shower, Grab Bars Near Toilet,Grab Bars In Shower M2 PT-IP Current Condition Start: 11/28/20 12:10 Freq: NEEDED Status: Active Protocol: Document 11/28/20 10:27 AB (Rec: 11/28/20 12:39 AB [id number]) Physical Therapy Current Condition Current Condition Evaluation Date 11/28/20 Treatment Diagnosis rib fx; difficulty in walking Onset Date 11/27/20 M3 PT-IP Subjective Start: 11/28/20 12:10 Freq: NEEDED Status: Active Protocol: Document 11/28/20 10:27 AB (Rec: 11/28/20 12:39 AB [id number]) Subjective Physical Therapy Visit Type Type Initial Evaluation Visit Start Time 10:27 Visit Stop Time 10:54 Total Visit Minutes 27 Number of TUG MASTER Visits 0 Physical Therapy Visit Comments Patient Comments pt wants to go home Therapy Pain Assessment Pain When Pain Assessed At Rest Pain Present Pain Present Pain Reported Location Left Abdomen Intensity 5 Scale Used Numeric (0 - 10) Pain Management Techniques Modification of Treatment,Re- positioning,Timing of Activity with Medications M4 PT-IP Mobility and Gait Start: 11/28/20 12:10 Freq: NEEDED Status: Active Protocol: Document 11/28/20 10:27 AB (Rec: 11/28/20 12:39 AB [id number]) PT-Bed Mobility Assessment Supine to Sit Supine to Sit Standby Assistance Sit to Supine Sit to Supine Standby Assistance PT-Transfer Assessment Sit to and From Stand Sit to and from Stand Standby Assistance Equipment Transfer Assistive Device Gait Belt,Front Wheeled Walker Orthotic/Prosthetic Devices or Brace: No Comments Mobility Comments completed supine to sit SBA. completed sit to stand SBA and ambulated in room ~ 50 ft using FWW. (+) L foot drop. pt completed up/down step stool using FWW for support SBA. pt stated that he is tired and wants to go back to bed and completed sit to supine SBA. positioned in bed . call light and table placed within reach. Gait Assessment Gait Gait Assistance Required: Standby Assistance Distance (Feet) 50 Able to Maintain Weight Bearing Status Yes During Gait Assistive Devices Assistive Device Gait Belt,Front Wheeled Walker Orthotic/Prosthetic Devices or Brace: No Gait Deviations General Gait Pattern Antalgic,Decreased Stride Length,Decreased Feet Clearance,Flexed Trunk Factors Limiting Gait Function Factors Limiting Gait Function Decreased Activity Tolerance, Decreased Strength,Pain,Poor Balance,Poor Safety Awareness Stair Climbing Assessment Evaluation Level of Assist On Stairs Standby Assistance Devices Stair Climbing Assistive Devices Front Wheel Walker Technique/Endurance Stair Climbing Direction Ascend and Descend Stair Climbing Technique Step to Step Number of Steps Climbed 1 Query Text: Stair Climbing Set # Repetitions (reps) 1 PT-Balance Assessment Sitting Balance and Reactions Static Sitting Balance Ability Good Dynamic Sitting Balance Ability Good Standing Balance and Reactions Static Standing Balance Ability Fair Dynamic Standing Balance Ability Fair Device Used FWW M5 PT-IP Objective Assessments Start: 11/28/20 12:10 Freq: NEEDED Status: Active Protocol: Document 11/28/20 10:27 AB (Rec: 11/28/20 12:39 AB [id number]) Orientation Orientation/Cognition Level of Alertness Alert Orientation Name Language Function Ability Hard of Hearing Safety Awareness Decreased Safety Awareness Gross Range of Motion Lower Extremity ROM Assessment Within Functional Limits Strength Lower Extremity Strength Assessment Left Impaired Ankle L foot drop Sensation Assessment Sensation Gross Sensation Left LE Impaired Comments Sensation Comments stated chronic numbness on L foot M6 PT-IP Treatment Start: 11/28/20 12:10 Freq: NEEDED Status: Active Protocol: Document 11/28/20 10:27 AB (Rec: 11/28/20 12:39 AB [id number]) Physical Therapy Treatment Education Education Provided Safety M7 PT-IP Assessment and Plan Start: 11/28/20 12:10 Freq: NEEDED Status: Active Protocol: Document 11/28/20 10:27 AB (Rec: 11/28/20 12:39 AB [id number]) PT Summary Assessment and Plan Potential Rehabilitation Potential Fair Status of Condition at Evaluation Stable Summary Impairments Pain,ROM,Strength,Balance, Coordination,Sensation,Tone, Cognition,Bed Mobility, Transfers,Gait,Activity Tolerance Assessment Summary pt requiring SBA with mobility but has decrease activity tolerance. pt stated that his spouse will be able to assist him at home. pt may go home when medically stable. Goals Bed Mobility Goal Independent Transfer Goal Independent,Front Wheeled Walker,Four Wheeled Walker Gait Goal Independent,Front Wheel Walker ,Four Wheel Walker Gait Distance 75 Days to Meet Goals 10 Frequency of Treatment Frequency Of Treatment Once a Day Treatment Plan Physical Therapy Treatment Plan Bed Mobility Training,Transfer Training,Gait Training, Therapeutic Exercise,Balance Retraining,Discharge Planning, Hot or Cold Pack,Neuromuscular Re-ed,Coordination Retraining Recommendations To Nursing Amount of Assist Needed Standby Assistance Discharge Recommendations PT Discharge Recommendations Home with Assistance,Home Health Transportation Needs at Discharge Private Vehicle
[2020-11-28] MEDS: ACETAMINOPHEN 325 MG TABLET 650 MG PO (10:57)
--- NOTE | 2020-11-28 11:20 | CM.DANOTE ---
DCP: Case received, EMR reviewed and met with patient. Introduced self and role. Was able to obtain information from patient regarding his baseline activity status prior to hospitalization, as well as current living situation. DCP assessment completed with information currently available. Patient is an 80 year old male who admitted yesterday afternoon to the care of the hospitalist team. PCP: Dr. Irby. Payer: confirmed: Medicare/[employer]. Patient came to the hospital via private vehicle, secondary to having rib discomfort from a fall that occurred a few days ago. According to notes, patient had been attempting to weigh himself, and fell off of the scale. Patient holds current diagnosis of left sided rib fracture. Patient has complex medical history, cardiac history with pacemaker, as well as bladder and kidney cancer. Met with patient in his room. He has not yet worked with P.T. Patient is alert and oriented, resides in [place] with his spouse, Una. Patient stated that he uses a FWW at home, and also has a wheel-chair. He is no longer driving. He also mentioned that his son is a physical therapist. P: DCP to follow. Patient may benefit with home health, will see P.T. recommendations. Joanna Andujar RN/Glue Wheel Operator
--- NOTE | 2020-11-28 13:02 | PM.DS.1 ---
History of Present Illness History of Present Illness Chief complaint: FALL PAIN LEFT SIDE UNDER RIB CAGE Narrative: Patient is an 80-year-old male with history of cardiovascular disease, coronary stent, pulmonary hypertension, status post mechanical aortic valve, history of ablation and pacemaker implant, pacemaker replaced 2 months ago, renal cell carcinoma, bladder cancer, chronic kidney disease, diabetes, extensive cervical/thoracic/lumbar spinal surgery, gastric ulcer and GI bleed, orthostatic hypotension treated with midodrine presents to the emergency department after ground level fall 3 days ago. He states he was weighing himself on the scale and missed his footing while stepping down. He states he hit his left side on a chair. He denies hitting head and denies LOC. patient has had difficulty ambulating since the fall. He also reports diminished appetite and p.o. intake. He went to walk-in clinic but was referred to the emergency department due to concern about extensive bruising on his flank. On the ED evaluation, he was noted to have bruising on his left side. Chest CT showed left 10, 11 12 rib fractures. Abdomen and pelvic CT did not show any retroperitoneal hematoma or other concerning findings. Patient's INR was 4.1. His states his INR was 3.0 five days ago. Discharge Providers Provider Date of admission: 11/27/20 17:06 Discharge Date: 11/28/20 Primary care physician: Omi Baltazar DO Consults: 11/27/20 18:17 Consult to Physical Therapy Evaluate & Treat Comment: Physician Instructions: Evaluate and Treat Discharge provider: John You MD Summary Hospital Course Discharge Diagnosis: 1. Traumatic fracture of left 10th, 11th and 12th ribs without pneumothorax 2. Long-term warfarin anticoagulation 3. Chronic kidney disease 4. Chronic elevated troponin 5. History of coronary artery disease 6. Chronic pulmonary hypertension 7. Chronic orthostatic hypotension 8. History of mechanical aortic valve 9. History of atrial fibrillation ablation 10. History of pacemaker replacement 2 months ago Patient was admitted after having a ground level fall several days prior. CT showed uncomplicated fractures of left 10th, 11th and 12th ribs. He has bruising and pain on the left flank. CT did not show retroperitoneal hematoma. His INR was 4.1 on admission and warfarin held. The following day his INR is 4.3. He is instructed to continue holding warfarin and recheck INR at home tomorrow and receive further instructions from Coumadin clinic. His troponin was elevated but that appears chronic secondary to chronic kidney disease. He is not having any cardiac symptoms. Physical therapy evaluated patient prior to discharge and noted he is able to safely return home. Status at Discharge Cognitive/behavioral status at discharge: oriented Functional status at discharge: independent ambulation Overall status at discharge: patient is back to baseline Exam Vital Signs (past 8 hours): - 11/28/20 08:35 11/28/20 09:00 11/28/20 12:27 Temperature 95.7 F L 96.5 F L Pulse Rate 98 H 80 Respiratory Rate 15 16 Blood Pressure 119/70 112/76 Pulse Oximetry 98 98 99 Oxygen Delivery Method Room Air Oxygen Flow Rate 0 Objective Labs Result Diagrams: 11/28/20 05:10 11/28/20 05:10 Labs: Laboratory Results - last 24 hr 11/27/20 11/27/20 11/27/20 13:03 13:03 13:03 WBC 6.1 RBC 4.19 L Hgb 13.8 Hct 41.7 MCV 99.6 MCH 33.0 MCHC 33.1 RDW 16.1 H Plt Count 166 Neut % (Auto) 74.4 Lymph % (Auto) 13.6 L [place] % (Auto) 9.5 Eos % (Auto) 1.6 L Baso % (Auto) 0.9 Neut # (Auto) 4500 Lymph # (Auto) 800 L [place] # (Auto) 600 Eos # (Auto) 100 Baso # (Auto) 100 PT 46.5 H INR 4.1 H APTT 54 H D Sodium 140 Potassium 3.5 Chloride 103 Carbon Dioxide 27 BUN 32 H Creatinine 1.90 H Estimated GFR 34.1 L BUN/Creatinine Ratio 16.8 Glucose 108 Calcium 9.5 Magnesium 1.9 Total Bilirubin 1.7 H AST 28 ALT 13 Alkaline Phosphatase 116 Total Creatine Kinase 44 L CK-MB (CK-2) TNP CK-MB (CK-2) Rel Index TNP Troponin I 0.226 H* NT-Pro-B Natriuret Pep 31507 H Total Protein 7.9 Albumin 4.0 Globulin 3.9 Albumin/Globulin Ratio 1.0 SARS-CoV-2 (PCR) Blood Type Antibody Screen 11/27/20 11/27/20 11/28/20 13:03 14:57 05:10 WBC 4.4 L RBC 4.00 L Hgb 13.1 L Hct 40.0 L MCV 99.8 MCH 32.8 MCHC 32.8 RDW 16.1 H Plt Count 136 L Neut % (Auto) 64.7 Lymph % (Auto) 19.3 L [place] % (Auto) 12.7 Eos % (Auto) 2.1 Baso % (Auto) 1.2 Neut # (Auto) 2800 Lymph # (Auto) 800 L [place] # (Auto) 600 Eos # (Auto) 100 Baso # (Auto) 100 PT INR APTT Sodium Potassium Chloride Carbon Dioxide BUN Creatinine Estimated GFR BUN/Creatinine Ratio Glucose Calcium Magnesium Total Bilirubin AST ALT Alkaline Phosphatase Total Creatine Kinase CK-MB (CK-2) CK-MB (CK-2) Rel Index Troponin I NT-Pro-B Natriuret Pep Total Protein Albumin Globulin Albumin/Globulin Ratio SARS-CoV-2 (PCR) Negative Blood Type A Negative Antibody Screen Negative 11/28/20 11/28/20 05:10 05:10 WBC RBC Hgb Hct MCV MCH MCHC RDW Plt Count Neut % (Auto) Lymph % (Auto) [place] % (Auto) Eos % (Auto) Baso % (Auto) Neut # (Auto) Lymph # (Auto) [place] # (Auto) Eos # (Auto) Baso # (Auto) PT 48.6 H INR 4.3 H APTT Sodium 136 L Potassium 3.8 Chloride 100 Carbon Dioxide 32 BUN 33 H Creatinine 1.85 H Estimated GFR 35.2 L BUN/Creatinine Ratio 17.8 Glucose 92 Calcium 9.3 Magnesium Total Bilirubin AST ALT Alkaline Phosphatase Total Creatine Kinase CK-MB (CK-2) CK-MB (CK-2) Rel Index Troponin I 0.245 H* NT-Pro-B Natriuret Pep Total Protein Albumin Globulin Albumin/Globulin Ratio SARS-CoV-2 (PCR) Blood Type Antibody Screen [facility] Medical History Anemia (Unknown) Arthritis (Unknown) Bladder cancer (Unknown) BPH (benign prostatic hyperplasia) (Unknown) Chronic kidney disease (CKD) (Unknown) Coronary artery disease (Unknown) Diabetes (12/2005) Fall GERD (gastroesophageal reflux disease) (Unknown) Glaucoma (Unknown) Hyperlipemia (Unknown) Hypertension (Unknown) Obstructive sleep apnea (Unknown) Osteopenia (2008) Osteoporosis (Unknown) Renal cell cancer (Unknown) S/p nephrectomy (02/2017) Surgical History History of cardiac radiofrequency ablation (RFA) History of ear surgery (12/2005) History of hip replacement History of PTCA (1986) History of spinal fusion History of surgical procedure on eye proper using laser (1997) History of tonsillectomy and adenoidectomy (10/1944) Hx of angioplasty (11/1998) Hx of appendectomy (~03/1958) Hx of cataract extraction (~2001) Hx of heart bypass surgery (08/1987) Hx of heart bypass surgery (05/1999) Hx of shoulder surgery (11/2004) Hx of transurethral resection of prostate (1994) Presence of cardiac pacemaker Status post knee surgery Status post laminectomy Family History Father No problems noted. Mother No problems noted. Sister No problems noted. Social History household members: spouse Smoking Status: Former smoker alcohol intake: current Discharge Plan Discharge Plan Patient Disposition: Home Provider Discharge Comment: You have fracture of left 10, 11, 12 th ribs. Your INR on 11/27 was 4.1. INR today is 4.3. Hold warfarin and recheck INR tomorrow. Call in results to Coumadin clinic for instructions on dose adjustment. Discharge orders & Medications Prescriptions: Continued (DME) Disabled Parking Permit Qty: 1 RF: 0 nitroglycerin [Nitrostat] 0.4 MG tablet, sublingual 0.4 mg Sublingual DAILY PRN (Reason: Chest Pain) Qty: 0 RF: 0 Glucose: Test Strips 1 str miscellaneous DIRECTED Qty: 0 RF: 0 cholecalciferol (vitamin D3) [Vitamin D3] 2,000 unit tablet 2,000 unit PO BID Qty: 0 RF: 0 midodrine 10 mg tablet 10 mg PO TID RF: 0 atorvastatin 40 mg tablet 40 mg PO BEDTIME Qty: 90 RF: 3 omeprazole 20 mg capsule,delayed release(DR/EC) 20 mg PO BID Qty: 180 RF: 1 (DME) Blood Glucose Test Strip See Rx Instructions .ROUTE .MEDSUPPLY Qty: 100 RF: 1 ferrous sulfate [[place]-Time] 325 mg (65 mg iron) tablet 325 mg PO BID RF: 0 warfarin 1 mg tablet See Rx Instructions .ROUTE .COMPLEX Qty: 0 RF: 0 furosemide 40 mg tablet 40 mg PO DAILY Qty: 30 RF: 0 furosemide 20 mg Tablet 20 mg PO ONCE PM RF: 0 hydrocodone-acetaminophen [[place]] 5-325 mg tablet 0.5 tab PO PRN PRN (Reason: Pain (Scale Score 4-6)) RF: 0 acetaminophen [Acetaminophen Extra Strength] 500 mg Tablet 500 mg PO Q6H PRN (Reason: Pain (Scale Score 1-3)) RF: 0 docusate sodium 100 mg Capsule 100 mg PO DAILY PRN (Reason: Constipation) RF: 0 fluticasone propionate 16 GM spray,suspension 1 spray Intranasal BIDP PRN (Reason: allergies) RF: 0 timolol maleate 0.5 % drops 1 drp ophthalmic (eye) BID RF: 0 Follow up/Referrals: Omi Baltazar, DO [Primary Care Provider] - (PLEASE CALL DR BALTAZAR'S OFFICE TO SCHEDULE YOUR FOLLOW UP APPOINTMENT.) Diet/Activity/Treatments Diet: Diet as Tolerated Visit Report/Discharge Packet Instructions: DI for Heart Failure, DI for Rib Fracture, How to Prevent Falls, DI for Prescription Opioid Use Discharge Data Primary Care Provider: Omi Baltazar Attending Provider: oJhn You
--- NOTE | 2020-11-28 16:22 | PC.NURSE ---
Discharge note: Pt sitting in chair at 1530 waiting for to arrive to be discharged. Pt has call light in reach and needs are met. 1600, arrived and pt given d/c instructions with at bedside. Pt and spouse understand instructions given and all questions answered. Pt dressed with in room, IV out at 1610 and pt taken out via wheelchair with this RN and into private vehicle with no problems.
== END 2020-11-28 16:15 | disposition home or self-care (01) ==
LOC: ED 16:45 → AC 11-28 07:42
PROVIDERS: Admitting Provider Internal Medicine; Emergency Provider Nurse Practitioner Family; PCP Family Medicine; Referring Provider Nurse Practitioner Family; Visit Provider Internal Medicine
DX: S22.42XA Multiple fractures of ribs, left side, initial encounter for closed fracture (principal); R07.81 Pleurodynia; W01.190A Fall on same level from slipping, tripping and stumbling with subsequent striking against furniture, initial encounter; R77.8 Other specified abnormalities of plasma proteins; I25.10 Atherosclerotic heart disease of native coronary artery without angina pectoris; I12.9 Hypertensive chronic kidney disease with stage 1 through stage 4 chronic kidney disease, or unspecified chronic kidney disease; N18.9 Chronic kidney disease, unspecified; I27.20 Pulmonary hypertension, unspecified; I95.1 Orthostatic hypotension; Z95.0 Presence of cardiac pacemaker; Z20.822 Contact with and (suspected) exposure to COVID-19; Z79.01 Long term (current) use of anticoagulants
CPT/HCPCS: 36415; 71250; 74176; 80048; 80053; 82550; 83735; 83880; 84484; 85025; 85610; 85730; 86850; 86900; 86901; 87635; 93005; 93010; 96374; 96375; 97161; 99284; 99285; C9803; G0378; J2270; J2405

== ENCOUNTER 2020-12-06 20:29 | Emergency (ER) | payer MEDICARE, OTHER, SELFPAY ==
[2020-11-29 14:05] VITALS: BMI 26.9
[2020-12-06] VITALS (9 sets, daily range): BP systolic 109–132; BP diastolic 59–70; PULSE 51–72; RESP 20; TEMP 36.4; O2SAT 82–98; BMI 24.3
[2020-12-06 21:28] LABS: Add Manual Diff / Slide Review NO; Basophils Absolute Auto 0 /uL (0-100); Basophils Percent Auto 0.9 % (0-2); Eosinophils Absolute Auto 100 /uL (0-450); Eosinophils Percent Auto 1.1 % (2-4); Hematocrit 42.3 % (41-53); Hemoglobin 13.5 g/dL (13.5-17.5); Lymphocytes Absolute Auto 700 /uL (1100-4500); Lymphocytes Percent Auto 12.3 % (25-40); Mean Corpuscular Hemoglobin 31.8 PG (26-34); Mean Corpuscular Volume 99.1 fL (80-100); Monocytes Absolute Auto 500 /uL (0-900); Monocytes Percent Auto 8.8 % (3-14); Neutrophils Absolute Auto 4200 /uL (1500-7000); Neutrophils Percent Auto 76.9 % (50-75); Platelet Count 163 X10^3/uL (150-400); Red Blood Cell Count 4.26 X10^6/uL (4.5-5.9); Red Cell Distribution Width 16.5 % (11.6-14.8); White Blood Cell Count 5.4 X10^3/uL (4.5-11.0)
[2020-12-06 21:29] LABS: INR 3.4 (0.9-1.3); Prothrombin Time 38.7 SECONDS (10.1-12.7)
[2020-12-06 21:35] LABS: Bilirubin Urine UA NEGATIVE (NEGATIVE); Glucose Urine UA NEGATIVE (Negative); Ketones Urine UA NEGATIVE (NEGATIVE); Leukocyte Esterase Urine UA 3+ (NEGATIVE); Nitrite Urine UA NEGATIVE (Negative); Occult Blood Urine UA 3+ (Negative); Protein Urine UA 2+ (Negative); Specific Gravity Urine UA 1.015 (1.000-1.035); Urobilinogen Urine UA 0.2 E.U./dL (0.2); pH Urine UA 5.5 (4.5-8.0)
[2020-12-06 21:37] LABS: Appearance Urine UA Cloudy; Color Urine UA RED
--- NOTE | 2020-12-06 21:37 | ED.MALEGU ---
HPI - Male Genitourinary General Chief complaint: Urogenital-Male Stated complaint: bladder bleeding, clots Time Seen by Provider: 12/06/20 20:34 Source: patient and family Mode of arrival: Wheelchair Limitations: other History of Present Illness HPI Narrative: 80M former smoker with history of renal cell carcinoma on coumadin) presents with dysuria, frequency, urgency, and hematuria. He is most bother by the passage of some clots in his urine earlier today. He is not dizzy, weak, or lightheaded. He denies chest pain or SOB. He denies abdominal pain, back pain, fever, or chills. He has urinated this evening and no longer has clots. Onset (ago): day(s) Quality: burning Relieving factors: none Exacerbating factors: urination Associated symptoms: Reports blood in urine Related Data Sexually active: No Home Medications Medication Instructions Recorded Confirmed nitroglycerin [Nitrostat] 0.4 mg SUBLINGUAL DAILY PRN #0 02/12/17 11/28/20 Glucose: Test Strips 1 str MISCELLANEOUS DIRECTED #0 01/12/18 11/28/20 acetaminophen [Acetaminophen Extra 500 mg PO Q6H PRN 07/05/18 11/27/20 Strength] docusate sodium 100 mg PO DAILY PRN 07/05/18 11/27/20 fluticasone propionate 1 spray INTRANASAL BIDP PRN 07/05/18 11/27/20 timolol maleate 1 drp OPHTHALMIC (EYE) BID 07/14/18 11/27/20 ferrous sulfate [Milena-Time] 325 mg PO BID 03/16/19 11/27/20 cholecalciferol (vitamin D3) 50 2,000 unit PO BID #0 tab 07/19/19 11/27/20 mcg (2,000 unit) tablet midodrine 10 mg tablet 10 mg PO TID tab 07/19/19 11/27/20 furosemide 20 mg PO ONCE PM 11/27/20 11/27/20 hydrocodone-acetaminophen [Hematite] 0.5 tab PO PRN PRN 11/27/20 11/27/20 Previous Rx's Medication Instructions Recorded Disabled Parking Permit #1 ea 09/21/18 furosemide 40 mg PO DAILY #30 tab 04/22/19 warfarin See Rx Instructions .ROUTE 04/22/19 .COMPLEX #0 tab atorvastatin 40 mg tablet 40 mg PO BEDTIME #90 tab 07/18/20 omeprazole 20 mg capsule,delayed 20 mg PO BID #180 cap 07/18/20 release blood sugar diagnostic #100 ea 10/10/20 cephalexin [Keflex] 500 mg PO BID #10 cap 12/06/20 Allergies Allergy/AdvReac Type Severity Reaction Status Date / Time oxycodone [OXYCODONE] AdvReac Mild DIZZY, Verified 07/18/20 11:23 NAUSEA codeine [CODEINE] AdvReac Unknown NAUSEA Verified 07/18/20 11:23 hydromorphone [HYDROMORPHONE] AdvReac Unknown NAUSEA Verified 07/18/20 11:23 morphine [MORPHINE] AdvReac Unknown SPOUSE Verified 07/18/20 11:23 DENIED ALLERGY Review of Systems Constitutional Constitutional: Denies chills, Denies fatigue, Denies fever(s), Denies frequent falls, Denies lethargy and Denies weakness Eyes Eyes: Denies change in vision, Denies eye discharge, Denies irritation and Denies loss of vision ENT Ears, Nose, Mouth, and Throat: Denies change in voice, Denies dizziness, Denies neck pain, Denies sore throat and Denies throat swelling Cardiovascular Cardiovascular: Denies chest pain, Denies irregular heart rhythm, Denies lightheadedness, Denies palpitations, Denies dyspnea, Denies dyspnea on exertion and Denies orthopnea Respiratory Respiratory: Denies cough, Denies dyspnea, Denies dyspnea on exertion and Denies wheezing Gastrointestinal Gastrointestinal: Denies abdominal pain, Denies change in bowel habits, Denies diarrhea, Denies nausea and Denies vomiting Genitourinary Genitourinary: Reports hematuria, Reports difficulty urinating, Reports dysuria and Reports dysuria Genitourinary: Reports hematuria, Reports dysuria and Reports dysuria Musculoskeletal Musculoskeletal: Denies neck pain and Denies numbness Integumentary/Breasts Skin/Breast: Denies pruritus, Denies erythema, Denies rash and Denies wounds Neurologic Neurologic: Denies behavioral changes, Denies confusion, Denies dizziness, Denies frequent falls, Denies loss of vision, Denies numbness and Denies weakness Psychiatric Psychiatric: Denies anxiety, Denies behavioral changes, Denies confusion, Denies depression, Denies homicidal ideation and Denies suicidal ideation Endocrine Endocrine: Denies fatigue, Denies flushing and Denies palpitations Hematologic/Lymphatic Hematologic/Lymphatic: Denies easy bruising Allergic/Immunologic Allergic/Immunologic: Denies urticaria, Denies throat swelling and Denies wheezing Patient History Medical History Anemia (Unknown) Arthritis (Unknown) Bladder cancer (Unknown) BPH (benign prostatic hyperplasia) (Unknown) Chronic kidney disease (CKD) (Unknown) Coronary artery disease (Unknown) Diabetes (12/2005) Fall GERD (gastroesophageal reflux disease) (Unknown) Glaucoma (Unknown) Hyperlipemia (Unknown) Hypertension (Unknown) Obstructive sleep apnea (Unknown) Osteopenia (2008) Osteoporosis (Unknown) Renal cell cancer (Unknown) S/p nephrectomy (02/2017) Surgical History History of cardiac radiofrequency ablation (RFA) History of ear surgery (12/2005) History of hip replacement History of PTCA (1986) History of spinal fusion History of surgical procedure on eye proper using laser (1997) History of tonsillectomy and adenoidectomy (10/1944) Hx of angioplasty (11/1998) Hx of appendectomy (~03/1958) Hx of cataract extraction (~2001) Hx of heart bypass surgery (08/1987) Hx of heart bypass surgery (05/1999) Hx of shoulder surgery (11/2004) Hx of transurethral resection of prostate (1994) Presence of cardiac pacemaker Status post knee surgery Status post laminectomy Family History Father No problems noted. Mother No problems noted. Sister No problems noted. Social History household members: spouse Smoking Status: Former smoker alcohol intake: current Smoking Status: Former smoker alcohol intake frequency: a few times a month Substance Use Type: does not use Exam Narrative Exam Narrative: GEN: AOx3 and in mild distress, hard of hearing EYES: Pupils are equal, round, and reactive to light and accommodation. Extraoccular muscles are intact bilaterally. There is no subconjunctival hemorrhage, palor or exudate CHEST: Lungs are clear to auscultation bilaterally and free of wheezes, rales, or rhonchi. Heart rate is regular rhythm, there are no murmurs, clicks, rubs, or gallops. There is no chest wall tenderness. ABD: Abdomen is soft and nontender. There is no guarding or rebound. Bowel sounds are normal in all 4 quadrants. There is no mass or organomegaly. EXT: Full painless ROM of all extremities with no loss of sensation or strength. SKIN: Warm, pink, and dry. No erythema or rash Initial Vital Signs Initial Vital Signs: Vital Signs Temperature 97.5 F L 12/06/20 20:38 Pulse Rate 72 12/06/20 20:38 Respiratory Rate 20 12/06/20 20:38 Blood Pressure 118/68 12/06/20 20:38 Pulse Oximetry 95 12/06/20 20:38 Course Course Course Narrative: patient asymptomatic during visit urine clears and no clots noted repeat H/H stable. Extensive discussion with patient and about return precautions and importance of follow up given likelihood of ABX to alter INR and potentially lead to serious (even life threatening) bleeding complications. They verbalize understanding and have had questions answered to their apparent satisfaction Orders Ordered: ED Orders 12/06/20 21:10 Urinalysis and Microscopic Stat Urine Culture Stat 12/06/20 21:15 Complete Blood Count AUTO DIFF Stat Prothrombin Time INR Stat 12/06/20 22:50 Hemoglobin and Hematocrit Stat Discontinued Medications Cefazolin Sodium (Cephalexin 250 Mg Prepack) 1 bottle MISC SEEINSTR ONE Stop: 12/06/20 23:19 Last Admin: 12/06/20 23:39 Dose: 500 mg Documented by: HANS Vital Signs Vital signs: Vital Signs - 8 hr 12/06/20 20:44 12/06/20 21:00 12/06/20 21:30 Pulse Rate 72 70 68 Blood Pressure 127/65 120/64 Pulse Oximetry 93 96 97 12/06/20 22:00 12/06/20 22:30 12/06/20 23:00 Pulse Rate 71 51 L 72 Blood Pressure 109/59 L 132/66 Pulse Oximetry 97 82 L 98 12/06/20 23:05 12/06/20 23:30 Pulse Rate 69 Blood Pressure 121/70 Pulse Oximetry 96 MDM - Male Genitourinary Lab Data Result diagrams: 12/06/20 22:50 Labs: Lab Results 01/12/06/20 12/06/20 Range/Units 21:10 21:15 21:15 WBC 5.4 (4.5-11.0) X10^3/uL RBC 4.26 L (4.5-5.9) X10^6/uL Hgb 13.5 (13.5-17.5) g/dL Hct 42.3 (41-53) % MCV 99.1 (80-100) fL MCH 31.8 (26-34) PG MCHC 32.0 (30-36) % RDW 16.5 H (11.6-14.8) % Plt Count 163 (150-400) X10^3/uL Neut % (Auto) 76.9 H (50-75) % Lymph % (Auto) 12.3 L (25-40) % [place] % (Auto) 8.8 (3-14) % Eos % (Auto) 1.1 L (2-4) % Baso % (Auto) 0.9 (0-2) % Neut # (Auto) 4200 (6876-7973) /uL Lymph # (Auto) 700 L (9855-0925) /uL [place] # (Auto) 500 (0-900) /uL Eos # (Auto) 100 (0-450) /uL Baso # (Auto) 0 (0-100) /uL PT 38.7 H D (10.1-12.7) SECONDS INR 3.4 H (0.9-1.3) Urine Color Red Urine Appearance Cloudy Urine pH 5.5 (4.5-8.0) Ur Specific [place] 1.015 (1.000-1.035) Urine Protein 2+ H (Negative) Urine Glucose (UA) Negative (Negative) g/dL Urine Ketones Negative (NEGATIVE) Urine Occult Blood 3+ H (Negative) Urine Nitrate Negative (Negative) Urine Bilirubin Negative (NEGATIVE) Urine Urobilinogen 0.2 (0.2) E.U./dL Ur Leukocyte Esterase 3+ H (NEGATIVE) Urine RBC >100/hpf H (0-5/HPF) Urine WBC 30-100/hpf H (0-5/HPF) Urine Bacteria Occasional (0-1) (None) Ur Culture Indicated? Specimen cultured 12/06/20 Range/Units 22:50 WBC (4.5-11.0) X10^3/uL RBC (4.5-5.9) X10^6/uL Hgb 13.5 (13.5-17.5) g/dL Hct 42.1 (41-53) % MCV (80-100) fL MCH (26-34) PG MCHC (30-36) % RDW (11.6-14.8) % Plt Count (150-400) X10^3/uL Neut % (Auto) (50-75) % Lymph % (Auto) (25-40) % [place] % (Auto) (3-14) % Eos % (Auto) (2-4) % Baso % (Auto) (0-2) % Neut # (Auto) (6584-4215) /uL Lymph # (Auto) (3198-0870) /uL [place] # (Auto) (0-900) /uL Eos # (Auto) (0-450) /uL Baso # (Auto) (0-100) /uL PT (10.1-12.7) SECONDS INR (0.9-1.3) Urine Color Urine Appearance Urine pH (4.5-8.0) Ur Specific [place] (1.000-1.035) Urine Protein (Negative) Urine Glucose (UA) (Negative) g/dL Urine Ketones (NEGATIVE) Urine Occult Blood (Negative) Urine Nitrate (Negative) Urine Bilirubin (NEGATIVE) Urine Urobilinogen (0.2) E.U./dL Ur Leukocyte Esterase (NEGATIVE) Urine RBC (0-5/HPF) Urine WBC (0-5/HPF) Urine Bacteria (None) Ur Culture Indicated? Discharge Plan Departure Patient Disposition: Home Clinical Impression: UTI (urinary tract infection) Qualifiers: Urinary tract infection type: site unspecified Hematuria presence: with hematuria Qualified Code(s): N39.0 - Urinary tract infection, site not specified Hematuria Qualifiers: Hematuria type: unspecified type Qualified Code(s): R31.9 - Hematuria, unspecified Instructions: DI for Urinary Tract Infection (UTI), DI for Hematuria Activity Restrictions/Additional Instructions: *You have been diagnosed with [hematuria, elevated INR, urine infection. Your blood work is very reassuring] *What to do: *Please do NOT take your Coumadin (Warfarin) for the next two days. *Follow up with your primary care provider in 2-3 days, call for an appointment. Let them know you were seen in the Emergency Department and that we ask that you be seen in follow up. Use of antibiotics will likely cause problems with your INR (Coumadin/warfarin level) which make you more likely to bleed. It will be VERY IMPORTANT to follow it closely *Return to ER if you should have any new, worsening or concerning symptoms, such as [increased bleeding, pain, shortness of breath, fainting, or other bothersome symptoms ] Prescriptions: New cephalexin [Keflex] 500 mg capsule 500 mg PO BID Qty: 10 RF: 0 No Action (DME) Disabled Parking Permit Qty: 1 RF: 0 nitroglycerin [Nitrostat] 0.4 MG tablet, sublingual 0.4 mg Sublingual DAILY PRN (Reason: Chest Pain) Qty: 0 RF: 0 Glucose: Test Strips 1 str miscellaneous DIRECTED Qty: 0 RF: 0 cholecalciferol (vitamin D3) [Vitamin D3] 2,000 unit tablet 2,000 unit PO BID Qty: 0 RF: 0 midodrine 10 mg tablet 10 mg PO TID RF: 0 atorvastatin 40 mg tablet 40 mg PO BEDTIME Qty: 90 RF: 3 omeprazole 20 mg capsule,delayed release(DR/EC) 20 mg PO BID Qty: 180 RF: 1 (DME) Blood Glucose Test Strip See Rx Instructions .ROUTE .MEDSUPPLY Qty: 100 RF: 1 ferrous sulfate [Milena-Time] 325 mg (65 mg iron) tablet 325 mg PO BID RF: 0 warfarin 1 mg tablet See Rx Instructions .ROUTE .COMPLEX Qty: 0 RF: 0 furosemide 40 mg tablet 40 mg PO DAILY Qty: 30 RF: 0 furosemide 20 mg Tablet 20 mg PO ONCE PM RF: 0 hydrocodone-acetaminophen [Hematite] 5-325 mg tablet 0.5 tab PO PRN PRN (Reason: Pain (Scale Score 4-6)) RF: 0 acetaminophen [Acetaminophen Extra Strength] 500 mg Tablet 500 mg PO Q6H PRN (Reason: Pain (Scale Score 1-3)) RF: 0 docusate sodium 100 mg Capsule 100 mg PO DAILY PRN (Reason: Constipation) RF: 0 fluticasone propionate 16 GM spray,suspension 1 spray Intranasal BIDP PRN (Reason: allergies) RF: 0 timolol maleate 0.5 % drops 1 drp ophthalmic (eye) BID RF: 0 Referrals: Omi Irby, [Primary Care Provider] -
[2020-12-06 21:47] LABS: Bacteria Urine Occasional (0-1); Culture Indicated Urine Specimen Cultured; RBC Urine >100/HPF (0-5/HPF); WBC Urine 30-100/HPF (0-5/HPF)
[2020-12-06 23:01] LABS: Hematocrit 42.1 % (41-53); Hemoglobin 13.5 g/dL (13.5-17.5)
[2020-12-06] MEDS: cephALEXin 250 MG PREPACK 1 BOTTLE MISC (23:39)
--- NOTE | 2020-12-06 23:48 | PC.NURSE ---
PT requested prescription be sent to [facility] in [place], Called in prescription
== END 2020-12-06 23:40 | disposition home or self-care (01) ==
PROVIDERS: Emergency Provider Emergency Medicine; PCP Family Medicine
DX: N39.0 Urinary tract infection, site not specified (principal); R31.9 Hematuria, unspecified; I10 Essential (primary) hypertension; E78.5 Hyperlipidemia, unspecified; I25.10 Atherosclerotic heart disease of native coronary artery without angina pectoris
CPT/HCPCS: 36415; 81001; 85014; 85018; 85025; 85610; 87077; 87086; 87186; 99283; 99284

== ENCOUNTER → 2020-12-10 11:39 | Outpatient (CLI) | payer MEDICARE, OTHER, SELFPAY ==
[2020-11-29 14:05] VITALS: BMI 26.9
[2020-12-10 12:48] LABS: Hematocrit 40.6 % (41-53); Hemoglobin 13.5 g/dL (13.5-17.5)
[2020-12-10 13:18] LABS: BUN Creatinine Ratio 18.8 (6-22); Blood Urea Nitrogen 36 mg/dL (9-20); Calcium 9.2 mg/dL (8.4-10.2); Carbon Dioxide 33 mmol/L (22-32); Chloride 101 mmol/L (98-107); Estimated Glomerular Filt Rate 33.9 mL/min (>60); Glucose 119 mg/dL (80-110); HEMOLYSIS < 15 (0-50); Potassium 3.8 mmol/L (3.4-5.1); Sodium 139 mmol/L (137-145)
[2020-12-10 15:29] LABS: Creatinine Urine Random 60.3 mg/dL; Protein (Total) Urine Random 17 mg/dL (0-12); Protein Creatinine Ratio Urine 0.28 GRAM/24H
[2020-12-11 08:08] LABS: Parathyroid Hormone Int 76 pg/mL (15-65)
== END ==
PROVIDERS: PCP Family Medicine; Referring Provider Student in an Organized Health Care Education/Training Program; Visit Provider Student in an Organized Health Care Education/Training Program
DX: N05.9 Unspecified nephritic syndrome with unspecified morphologic changes (principal); D64.9 Anemia, unspecified; N25.81 Secondary hyperparathyroidism of renal origin; R80.9 Proteinuria, unspecified
CPT/HCPCS: 36415; 80048; 82570; 83970; 84156; 85014; 85018

== ENCOUNTER 2020-12-18 18:41 | Emergency (ER) | payer MEDICARE, OTHER, SELFPAY ==
[2020-11-29 14:05] VITALS: BMI 26.9
[2020-12-18] VITALS (10 sets, daily range): BP systolic 127–142; BP diastolic 60–82; PULSE 70–83; RESP 16; TEMP 36.5; O2SAT 93–100; BMI 27.2
[2020-12-18 19:24] LABS: Bilirubin Urine UA NEGATIVE (NEGATIVE); Color Urine UA RED; Glucose Urine UA NEGATIVE (Negative); Ketones Urine UA NEGATIVE (NEGATIVE); Leukocyte Esterase Urine UA 1+ (NEGATIVE); Nitrite Urine UA NEGATIVE (Negative); Occult Blood Urine UA 3+ (Negative); Protein Urine UA 2+ (Negative); Specific Gravity Urine UA 1.015 (1.000-1.035); Urobilinogen Urine UA 0.2 E.U./dL (0.2)
[2020-12-18 19:25] LABS: Appearance Urine UA OTHER; RBC Urine >100/HPF (0-5/HPF); Squamous Epithelial Cell Urine 0-1 /HPF (0-5/HPF); WBC Urine 5-10/HPF (0-5/HPF)
[2020-12-18 19:26] LABS: Bacteria Urine Occasional (0-1); Culture Indicated Urine Specimen Cultured
--- NOTE | 2020-12-18 21:36 | ED.MALEGU ---
HPI - Male Genitourinary General Chief complaint: Urogenital-Male Stated complaint: CLOTS AND BLOOD AND URINE Time Seen by Provider: 12/18/20 21:35 History of Present Illness HPI Narrative: 80-year-old gentleman with history of coronary artery disease, hyperlipidemia, hypertension, mechanical valve replacement currently on Coumadin with recent significant weight increase. 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 He had an episode of gross hematuria at the end of November in without was diagnosed with a pansensitive E coli UTI that responded nicely to Keflex. He returns today with similar complaints. He is able to void without difficulty and there is gross hematuria without significant clots. He is having no flank pain, no fevers no abdominal pain describes no recent trauma. He notes that his peripheral edema has gotten better over the last couple of days, describes no orthopnea or chest pain. Related Data Home Medications Medication Instructions Recorded Confirmed nitroglycerin [Nitrostat] 0.4 mg SUBLINGUAL DAILY PRN #0 02/12/17 12/10/20 Glucose: Test Strips 1 str MISCELLANEOUS DIRECTED #0 01/12/18 12/10/20 acetaminophen [Acetaminophen Extra 500 mg PO Q6H PRN 07/05/18 12/10/20 Strength] docusate sodium 100 mg PO DAILY PRN 07/05/18 12/10/20 fluticasone propionate 1 spray INTRANASAL BIDP PRN 07/05/18 12/10/20 timolol maleate 1 drp OPHTHALMIC (EYE) BID 07/14/18 12/10/20 ferrous sulfate [Milena-Time] 325 mg PO BID 03/16/19 12/10/20 cholecalciferol (vitamin D3) 50 2,000 unit PO BID #0 tab 07/19/19 12/10/20 mcg (2,000 unit) tablet midodrine 10 mg tablet 10 mg PO TID tab 07/19/19 12/10/20 furosemide 20 mg PO ONCE PM 11/27/20 12/10/20 Previous Rx's Medication Instructions Recorded Disabled Parking Permit #1 ea 09/21/18 furosemide 40 mg PO DAILY #30 tab 04/22/19 warfarin See Rx Instructions .ROUTE 04/22/19 .COMPLEX #0 tab atorvastatin 40 mg tablet 40 mg PO BEDTIME #90 tab 07/18/20 omeprazole 20 mg capsule,delayed 20 mg PO BID #180 cap 07/18/20 release blood sugar diagnostic #100 ea 10/10/20 cephalexin [Keflex] 500 mg PO BID #10 cap 12/06/20 hydrocodone 5 mg-acetaminophen 325 0.5 tab PO PRN PRN #20 tab 12/10/20 mg tablet lidocaine 5 % topical patch 1 patch TOPICAL DAILY #15 ea 12/10/20 cephalexin [Keflex] 500 mg PO TID #30 cap 12/19/20 Allergies Allergy/AdvReac Type Severity Reaction Status Date / Time oxycodone [OXYCODONE] AdvReac Mild DIZZY, Verified 12/10/20 10:50 NAUSEA codeine [CODEINE] AdvReac Unknown NAUSEA Verified 12/10/20 10:50 hydromorphone [HYDROMORPHONE] AdvReac Unknown NAUSEA Verified 12/10/20 10:50 morphine [MORPHINE] AdvReac Unknown SPOUSE Verified 12/10/20 10:50 DENIED ALLERGY Review of Systems Review of Systems Narrative: Remainder of review of systems including constitutional, ENT, cardiovascular, respiratory, GI, , musculoskeletal, skin, neurologic and psychiatric systems reviewed and are unremarkable except as noted in HPI. Patient History Medical History Anemia (Unknown) Arthritis (Unknown) Bladder cancer (Unknown) BPH (benign prostatic hyperplasia) (Unknown) Chronic kidney disease (CKD) (Unknown) Coronary artery disease (Unknown) Diabetes (12/2005) Essential hypertension Fall GERD (gastroesophageal reflux disease) (Unknown) Glaucoma (Unknown) Hyperlipemia (Unknown) Hypertension (Unknown) Obstructive sleep apnea (Unknown) Osteopenia (2008) Osteoporosis (Unknown) Renal cell cancer (Unknown) S/p nephrectomy (02/2017) Surgical History History of cardiac radiofrequency ablation (RFA) History of ear surgery (12/2005) History of hip replacement History of PTCA (1986) History of spinal fusion History of surgical procedure on eye proper using laser (1997) History of tonsillectomy and adenoidectomy (10/1944) Hx of angioplasty (11/1998) Hx of appendectomy (~03/1958) Hx of cataract extraction (~2001) Hx of heart bypass surgery (08/1987) Hx of heart bypass surgery (05/1999) Hx of shoulder surgery (11/2004) Hx of transurethral resection of prostate (1994) Presence of cardiac pacemaker Status post knee surgery Status post laminectomy Family History Father No problems noted. Mother No problems noted. Sister No problems noted. Social History household members: spouse Smoking Status: Former smoker alcohol intake: current Smoking Status: Former smoker alcohol intake frequency: a few times a month Substance Use Type: does not use Exam Narrative Exam Narrative: General: Healthy appearing, very hard of hearing in no acute distress. HEENT: Moist mucous membranes, normal sclera with reactive pupils, Neck: No JVD, supple Respiratory: Lungs are clear to auscultation, no wheezing, mild bibasilar ralesi. Full and symmetrical air movement Cardiac: Regular rate and rhythm, loud mechanical murmur , no bruits Abdomen: Soft, nontender, good bowel tones, left flank hematoma that seems to be consolidating and still healing from his fall over a month ago Skin: Warm and dry, no rashes Neurologic: Grossly neurologically intact with no obvious asymmetries or abnormalities Extremities: No trauma, well perfused Psych: Cooperative, appropriate insight and affect Initial Vital Signs Initial Vital Signs: Vital Signs Temperature 97.7 F 12/18/20 18:52 Pulse Rate 75 12/18/20 18:52 Respiratory Rate 16 12/18/20 18:52 Blood Pressure 132/62 12/18/20 18:52 Pulse Oximetry 100 12/18/20 18:52 Course Orders Ordered: ED Orders 12/18/20 19:00 UA Complete [Urinalysis and Microscopic] Stat Urine Culture Stat 12/18/20 22:21 Complete Blood Count AUTO DIFF Stat Comprehensive Metabolic Panel Stat Prothrombin Time INR Stat Discontinued Medications Cephalexin HCl (Cephalexin 250 Mg Capsule) 500 mg PO NOW ONE Stop: 12/19/20 00:29 Last Admin: 12/19/20 00:39 Dose: 500 mg Documented by: KAMAR Vital Signs Vital signs: Vital Signs - 8 hr 12/18/20 18:52 12/18/20 20:46 12/18/20 21:00 Temperature 97.7 F Pulse Rate 75 83 70 Respiratory Rate 16 Blood Pressure 132/62 134/82 134/77 Pulse Oximetry 100 99 12/18/20 21:24 12/18/20 21:30 12/18/20 22:00 Temperature Pulse Rate Respiratory Rate Blood Pressure 142/72 H 134/64 Pulse Oximetry 100 12/18/20 22:26 12/18/20 22:30 12/18/20 23:00 Temperature Pulse Rate 70 72 70 Respiratory Rate Blood Pressure 130/66 127/66 Pulse Oximetry 93 97 98 12/18/20 23:30 12/19/20 00:00 12/19/20 00:30 Temperature Pulse Rate 70 70 66 Respiratory Rate Blood Pressure 128/60 132/69 122/65 Pulse Oximetry 98 97 95 MDM - Male Genitourinary Medical Records Attestation: I reviewed the patient's medical records. Lab Data Attestation: I reviewed the patient's lab results. Lab results narrative: Pansensitive E coli on urinalysis 128. No significant drop in hematocrit recently Slight increase in creatinine from 1.9-2.24 Alk-phos slightly elevated at 152 however remainder of LFTs are unremarkable Result diagrams: 12/18/20 22:21 12/18/20 22:21 Labs: Lab Results 12/18/20 12/18/20 12/18/20 Range/Units 19:00 22:21 22:21 WBC 6.0 (4.5-11.0) X10^3/uL RBC 4.33 L (4.5-5.9) X10^6/uL Hgb 13.8 (13.5-17.5) g/dL Hct 42.9 (41-53) % MCV 99.1 (80-100) fL MCH 31.9 (26-34) PG MCHC 32.2 (30-36) % RDW 15.6 H (11.6-14.8) % Plt Count 131 L (150-400) X10^3/uL Neut % (Auto) 77.6 H (50-75) % Lymph % (Auto) 11.6 L (25-40) % Arthur % (Auto) 9.4 (3-14) % Eos % (Auto) 0.8 L (2-4) % Baso % (Auto) 0.6 (0-2) % Neut # (Auto) 4700 (4536-4485) /uL Lymph # (Auto) 700 L (5904-7888) /uL Arthur # (Auto) 600 (0-900) /uL Eos # (Auto) 0 (0-450) /uL Baso # (Auto) 0 (0-100) /uL PT 26.5 H (10.1-12.7) SECONDS INR 2.3 H (0.9-1.3) Sodium (137-145) mmol/L Potassium (3.4-5.1) mmol/L Chloride (98-107) mmol/L Carbon Dioxide (22-32) mmol/L BUN (9-20) mg/dL Creatinine (0.66-1.25) mg/dL Estimated GFR (>60) mL/min BUN/Creatinine Ratio (6-22) Glucose (80-110) mg/dL Calcium (8.4-10.2) mg/dL Total Bilirubin (0.2-1.3) mg/dL AST (17-59) IU/L ALT (<50) IU/L Alkaline Phosphatase (38-126) U/L Total Protein (6.3-8.2) g/dL Albumin (3.5-5.0) g/dL Globulin (1.7-4.1) g/dL Albumin/Globulin Ratio (1.0-2.8) Urine Color Red Urine Appearance Other Urine pH 6.0 (4.5-8.0) Ur Specific [place] 1.015 (1.000-1.035) Urine Protein 2+ H (Negative) Urine Glucose (UA) Negative (Negative) g/dL Urine Ketones Negative (NEGATIVE) Urine Occult Blood 3+ H (Negative) Urine Nitrate Negative (Negative) Urine Bilirubin Negative (NEGATIVE) Urine Urobilinogen 0.2 (0.2) E.U./dL Ur Leukocyte Esterase 1+ H (NEGATIVE) Urine RBC >100/hpf H (0-5/HPF) Urine WBC 5-10/hpf H (0-5/HPF) Ur Squamous Epith Cells 0-1 /hpf (0-5/HPF) Urine Bacteria Occasional (0-1) (None) Ur Culture Indicated? Specimen cultured 12/18/20 Range/Units 22:21 WBC (4.5-11.0) X10^3/uL RBC (4.5-5.9) X10^6/uL Hgb (13.5-17.5) g/dL Hct (41-53) % MCV (80-100) fL MCH (26-34) PG MCHC (30-36) % RDW (11.6-14.8) % Plt Count (150-400) X10^3/uL Neut % (Auto) (50-75) % Lymph % (Auto) (25-40) % Arthur % (Auto) (3-14) % Eos % (Auto) (2-4) % Baso % (Auto) (0-2) % Neut # (Auto) (1520-0696) /uL Lymph # (Auto) (0132-9278) /uL Arthur # (Auto) (0-900) /uL Eos # (Auto) (0-450) /uL Baso # (Auto) (0-100) /uL PT (10.1-12.7) SECONDS INR (0.9-1.3) Sodium 137 (137-145) mmol/L Potassium 3.8 (3.4-5.1) mmol/L Chloride 100 (98-107) mmol/L Carbon Dioxide 33 H (22-32) mmol/L BUN 34 H (9-20) mg/dL Creatinine 2.24 H (0.66-1.25) mg/dL Estimated GFR 28.2 L (>60) mL/min BUN/Creatinine Ratio 15.2 (6-22) Glucose 95 (80-110) mg/dL Calcium 9.3 (8.4-10.2) mg/dL Total Bilirubin 1.3 (0.2-1.3) mg/dL AST 29 (17-59) IU/L ALT 12 (<50) IU/L Alkaline Phosphatase 152 H (38-126) U/L Total Protein 7.7 (6.3-8.2) g/dL Albumin 3.8 (3.5-5.0) g/dL Globulin 3.9 (1.7-4.1) g/dL Albumin/Globulin Ratio 1.0 (1.0-2.8) Urine Color Urine Appearance Urine pH (4.5-8.0) Ur Specific [place] (1.000-1.035) Urine Protein (Negative) Urine Glucose (UA) (Negative) g/dL Urine Ketones (NEGATIVE) Urine Occult Blood (Negative) Urine Nitrate (Negative) Urine Bilirubin (NEGATIVE) Urine Urobilinogen (0.2) E.U./dL Ur Leukocyte Esterase (NEGATIVE) Urine RBC (0-5/HPF) Urine WBC (0-5/HPF) Ur Squamous Epith Cells (0-5/HPF) Urine Bacteria (None) Ur Culture Indicated? MDM Narrative Medical decision making narrative: 80-year-old gentleman presents with gross hematuria, urinalysis has multiple bacteria as well as red cells. Most recent UTI on December 06 was a pansensitive E coli so he was restarted on Keflex. Because symptoms returned relatively quickly after stopping recent antibiotics will have him continue for 14 day course of Keflex. There is no evidence of sepsis, worsening blood loss acute internal bleeding, dramatic and compensated congestive heart failure, or retroperitoneal hematoma. There is a slight increase in his creatinine presumably secondary to the slight increase in Lasix. He has follow-up scheduled with Nephrology and Cardiology in the near future. At this point he is safe for home discharge. Discharge Plan Departure Patient Disposition: Home Clinical Impression: Acute renal insufficiency, Anticoagulated on Coumadin UTI (urinary tract infection) Qualifiers: Urinary tract infection type: acute cystitis Hematuria presence: with hematuria Qualified Code(s): N30.01 - Acute cystitis with hematuria Hematuria Qualifiers: Hematuria type: unspecified type Qualified Code(s): R31.9 - Hematuria, unspecified Instructions: DI for Urinary Tract Infection (UTI) Activity Restrictions/Additional Instructions: Thank you for coming in today I am not finding any acute life-threatening issues with your exam today. It does appear that you have another bladder infection. Based on the bladder infection culture and sensitivity from December 06 I am going to have you complete 10 days of Keflex. This antibiotic tends to cause the least interaction with Coumadin A prescription for Keflex was electronically transmitted to [facility] in [place] few to garbage pick up man tomorrow You do need to make sure that your drinking plenty of water. Your kidney function has slightly worsened. Your creatinine has increased from 1.9-2.2. Your potassium level is very appropriate at 3.8. Your red blood cell count is increasing. There is no evidence that your having any continued internal bleeding after your fall almost a month ago. The big bruise on your left flank will continue to heal Please follow-up with the [facility] regarding the INR Follow-up with Dr. Pang in the next week or so regarding the slight increase in creatinine and recurrent bladder infection At this point there is no evidence of systemic infection or sepsis. If your developing fevers, chills, increasing abdominal pain or new symptoms, please feel free to return to the emergency department Prescriptions: New cephalexin [Keflex] 500 mg capsule 500 mg PO TID Qty: 30 RF: 0 No Action (DME) Disabled Parking Permit Qty: 1 RF: 0 nitroglycerin [Nitrostat] 0.4 MG tablet, sublingual 0.4 mg Sublingual DAILY PRN (Reason: Chest Pain) Qty: 0 RF: 0 Glucose: Test Strips 1 str miscellaneous DIRECTED Qty: 0 RF: 0 cholecalciferol (vitamin D3) [Vitamin D3] 2,000 unit tablet 2,000 unit PO BID Qty: 0 RF: 0 midodrine 10 mg tablet 10 mg PO TID RF: 0 hydrocodone-acetaminophen [[place]] 5-325 mg tablet 0.5 tab PO PRN PRN (Reason: Pain (Scale Score 4-6)) Qty: 20 RF: 0 lidocaine 5 % adhesive patch,medicated 1 patch topical DAILY Qty: 15 RF: 1 atorvastatin 40 mg tablet 40 mg PO BEDTIME Qty: 90 RF: 3 omeprazole 20 mg capsule,delayed release(DR/EC) 20 mg PO BID Qty: 180 RF: 1 (DME) Blood Glucose Test Strip See Rx Instructions .ROUTE .MEDSUPPLY Qty: 100 RF: 1 ferrous sulfate [Milena-Time] 325 mg (65 mg iron) tablet 325 mg PO BID RF: 0 warfarin 1 mg tablet See Rx Instructions .ROUTE .COMPLEX Qty: 0 RF: 0 furosemide 40 mg tablet 40 mg PO DAILY Qty: 30 RF: 0 furosemide 20 mg Tablet 20 mg PO ONCE PM RF: 0 acetaminophen [Acetaminophen Extra Strength] 500 mg Tablet 500 mg PO Q6H PRN (Reason: Pain (Scale Score 1-3)) RF: 0 docusate sodium 100 mg Capsule 100 mg PO DAILY PRN (Reason: Constipation) RF: 0 fluticasone propionate 16 GM spray,suspension 1 spray Intranasal BIDP PRN (Reason: allergies) RF: 0 timolol maleate 0.5 % drops 1 drp ophthalmic (eye) BID RF: 0 cephalexin [Keflex] 500 mg capsule 500 mg PO BID Qty: 10 RF: 0 Referrals: Omi Irby DO [Primary Care Provider] -
[2020-12-18 22:36] LABS: Add Manual Diff / Slide Review NO; Basophils Absolute Auto 0 /uL (0-100); Basophils Percent Auto 0.6 % (0-2); Eosinophils Absolute Auto 0 /uL (0-450); Eosinophils Percent Auto 0.8 % (2-4); Hematocrit 42.9 % (41-53); Hemoglobin 13.8 g/dL (13.5-17.5); Lymphocytes Absolute Auto 700 /uL (1100-4500); Lymphocytes Percent Auto 11.6 % (25-40); Mean Corpuscular HGB Conc 32.2 % (30-36); Mean Corpuscular Hemoglobin 31.9 PG (26-34); Mean Corpuscular Volume 99.1 fL (80-100); Monocytes Absolute Auto 600 /uL (0-900); Monocytes Percent Auto 9.4 % (3-14); Neutrophils Absolute Auto 4700 /uL (1500-7000); Neutrophils Percent Auto 77.6 % (50-75); Platelet Count 131 X10^3/uL (150-400); Red Blood Cell Count 4.33 X10^6/uL (4.5-5.9); Red Cell Distribution Width 15.6 % (11.6-14.8)
[2020-12-18 22:42] LABS: INR 2.3 (0.9-1.3); Prothrombin Time 26.5 SECONDS (10.1-12.7)
[2020-12-18 22:46] LABS: Alanine Aminotransferase 12 IU/L (<50); Albumin 3.8 g/dL (3.5-5.0); Alkaline Phosphatase 152 U/L (38-126); Aspartate Aminotransferase 29 IU/L (17-59); BUN Creatinine Ratio 15.2 (6-22); Bilirubin Total 1.3 mg/dL (0.2-1.3); Blood Urea Nitrogen 34 mg/dL (9-20); Calcium 9.3 mg/dL (8.4-10.2); Carbon Dioxide 33 mmol/L (22-32); Chloride 100 mmol/L (98-107); Estimated Glomerular Filt Rate 28.2 mL/min (>60); Globulin 3.9 g/dL (1.7-4.1); Glucose 95 mg/dL (80-110); HEMOLYSIS < 15 (0-50); Potassium 3.8 mmol/L (3.4-5.1); Sodium 137 mmol/L (137-145); Total Protein 7.7 g/dL (6.3-8.2)
[2020-12-19] VITALS: BP 132/69; PULSE 70; O2SAT 97
[2020-12-19 00:30] VITALS: BP 122/65; PULSE 66; O2SAT 95
[2020-12-19] MEDS: cephALEXin 250 MG CAPSULE 500 MG PO (00:39)
== END 2020-12-19 00:54 | disposition home or self-care (01) ==
PROVIDERS: Emergency Provider Emergency Medicine; PCP Family Medicine
DX: N28.9 Disorder of kidney and ureter, unspecified (principal); Z79.01 Long term (current) use of anticoagulants; N30.01 Acute cystitis with hematuria; I10 Essential (primary) hypertension; E78.5 Hyperlipidemia, unspecified; Z95.2 Presence of prosthetic heart valve; I25.10 Atherosclerotic heart disease of native coronary artery without angina pectoris
CPT/HCPCS: 36415; 51798; 80053; 81001; 85025; 85610; 87086; 99282; 99283

== ENCOUNTER → 2021-01-03 10:54 | Outpatient (CLI) | payer MEDICARE, OTHER, SELFPAY ==
[2020-11-29 14:05] VITALS: BMI 26.9
[2021-01-03 12:12] LABS: Appearance Urine UA CLEAR; Bilirubin Urine UA NEGATIVE (NEGATIVE); Color Urine UA YELLOW; Glucose Urine UA NEGATIVE (Negative); Ketones Urine UA NEGATIVE (NEGATIVE); Leukocyte Esterase Urine UA TRACE (NEGATIVE); Nitrite Urine UA POSITIVE (Negative); Occult Blood Urine UA 3+ (Negative); Protein Urine UA NEGATIVE (Negative); Urobilinogen Urine UA 0.2 E.U./dL (0.2)
[2021-01-03 12:25] LABS: Bacteria Urine Many (>30); Culture Indicated Urine Specimen Cultured; RBC Urine 10-30/HPF (0-5/HPF); WBC Urine 1-5/HPF (0-5/HPF)
[2021-01-03 12:52] LABS: BUN Creatinine Ratio 21.9 (6-22); Blood Urea Nitrogen 41 mg/dL (9-20); Calcium 9.7 mg/dL (8.4-10.2); Carbon Dioxide 27 mmol/L (22-32); Chloride 100 mmol/L (98-107); Estimated Glomerular Filt Rate 34.7 mL/min (>60); Glucose 102 mg/dL (80-110); HEMOLYSIS < 15 (0-50); Potassium 3.7 mmol/L (3.4-5.1); Sodium 135 mmol/L (137-145)
== END ==
PROVIDERS: PCP Family Medicine; Referring Provider Student in an Organized Health Care Education/Training Program; Visit Provider Family Medicine
DX: N05.9 Unspecified nephritic syndrome with unspecified morphologic changes (principal); R31.9 Hematuria, unspecified
CPT/HCPCS: 36415; 80048; 81001; 87077; 87086; 87186

== ENCOUNTER → 2021-04-16 09:49 | Outpatient (CLI) | payer MEDICARE, OTHER, SELFPAY ==
[2021-04-10 14:52] VITALS: BMI 26.9
[2021-04-16 11:41] LABS: Hematocrit 41.7 % (41-53); Hemoglobin 13.8 g/dL (13.5-17.5)
[2021-04-16 12:02] LABS: Alanine Aminotransferase 12 IU/L (<50); Albumin 3.5 g/dL (3.5-5.0); Albumin Globulin Ratio 0.9 (1.0-2.8); Alkaline Phosphatase 108 U/L (38-126); Aspartate Aminotransferase 28 IU/L (17-59); BUN Creatinine Ratio 19.7 (6-22); Bilirubin Total 1.7 mg/dL (0.2-1.3); Blood Urea Nitrogen 41 mg/dL (9-20); Calcium 9.6 mg/dL (8.4-10.2); Carbon Dioxide 31 mmol/L (22-32); Chloride 93 mmol/L (98-107); Estimated Glomerular Filt Rate 30.7 mL/min (>60); Globulin 4.1 g/dL (1.7-4.1); Glucose 113 mg/dL (80-110); HEMOLYSIS < 15 (0-50); Potassium 3.2 mmol/L (3.4-5.1); Sodium 134 mmol/L (137-145); Total Protein 7.6 g/dL (6.3-8.2)
[2021-04-16 12:08] LABS: Creatinine Urine Random 64.2 mg/dL; Protein (Total) Urine Random 13 mg/dL (0-12)
[2021-04-17 08:42] LABS: Parathyroid Hormone Int 56 pg/mL (15-65)
== END ==
PROVIDERS: PCP Family Medicine; Referring Provider Student in an Organized Health Care Education/Training Program; Visit Provider Student in an Organized Health Care Education/Training Program
DX: N05.9 Unspecified nephritic syndrome with unspecified morphologic changes (principal); D64.9 Anemia, unspecified; N25.81 Secondary hyperparathyroidism of renal origin; R80.9 Proteinuria, unspecified; I50.9 Heart failure, unspecified; N18.30 Chronic kidney disease, stage 3 unspecified
CPT/HCPCS: 36415; 80053; 82570; 83970; 84156; 85014; 85018

== ENCOUNTER → 2021-04-23 11:57 | Outpatient (CLI) | payer MEDICARE, OTHER, SELFPAY ==
[2021-04-10 14:52] VITALS: BMI 26.9
[2021-04-23 13:27] LABS: HEMOLYSIS < 15 (0-50); Potassium 4.9 mmol/L (3.4-5.1)
== END ==
PROVIDERS: PCP Family Medicine; Referring Provider Student in an Organized Health Care Education/Training Program; Visit Provider Student in an Organized Health Care Education/Training Program
DX: E87.5 Hyperkalemia (principal)
CPT/HCPCS: 36415; 84132